=== PATIENT | male | born 1975 | race Caucasian/White ===

== ENCOUNTER 2024-12-20 21:36 | Inpatient (IN) | payer OTHER, SELFPAY ==
--- NOTE | 2024-12-20 21:48 | PC.NURSE ---
Patient arrived to floor via stretche with EMS @[id number]
[2024-12-20 21:56] VITALS: BP 146/69; RESP 18
[2024-12-20 22:13] VITALS: PULSE 110
--- NOTE | 2024-12-20 22:37 | PC.WOUNDNOTE ---
bottom of left foot top of left foot
[2024-12-21] VITALS (19 sets, daily range): BP systolic 96–123; BP diastolic 59–81; PULSE 101–120; RESP 16–20; TEMP 36.6–37.4; O2SAT 90–100; BMI 28.9; BMI 28.8
[2024-12-21] MEDS: 0.9 % SODIUM CHLORIDE 1000ML 1,000 ML 75 ML IV ×2 (00:23→12:54)
[2024-12-21] MEDS: PIPERCILLIN/TAZO 3.375 GM in 0.9 % SODIUM CHLORIDE 50 ML IV ×5 (00:23→22:46)
--- NOTE | 2024-12-21 00:27 | P.HP_ITS ---
<Statement entered by Tevin Garcia MD - 12/26/24 15:41> Agree with plan of care as outlined by the INTEGRITY DIRECTOR. 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 Directly admitted from [facility] due to elevated troponin levels. He initially presented to their facility due to left foot pain ultimately found to have cellulitis. He has a history of diabetic foot ulcers specifically to his right foot in which he underwent surgery last year and had his toe amputated. Patient reports noticing a small open wound to his left foot approximately a week ago. Since onset wound has progressively become worse. Patient reports that he kicked the bottom of his bed while he was sleeping and ultimately injured his great toe. Reports after this incident he noticed a small wound which ultimately became significantly worse to days. Left foot is swollen, red, with an open wound near the plantar surface, strong malodor present (gangrene?smell). Patient was found to have a leukocytosis of 14.7, elevated lactic acid 2.2 and tachycardic meeting sepsis criteria. Received normal saline IV 30 mL per kg, blood cultures obtained. Initiated on IV vancomycin and Zosyn. Recently moved to [facility] about 2 months ago from [place] and has not yet established care with primary care. During his workup at [facility] patient was found to have elevated troponin levels. Initial troponin level 6340 (ng/L), repeat troponin 5649. Received aspirin 325 mg. Twelve-lead sinus tachycardia QRS axis is normal, OH intervals normal, and QRS is prolonged at 104 msec,. QT intervals normal, no Q waves and T waves are flattened in leads III and aVF. Upon arrival to our facility, alert and oriented, hypodermically stable. Without complaint of correlating cardiac symptoms. Reports cardiac workup last year prior to his surgical procedure which included an echo. Dr. Reyes discussed case with our cardiology team and accepted patient for further evaluation. Patient denies any chest pain or shortness of breath, diaphoresis, nausea, vomiting. Transferring facility significant laboratory findings WBC 14.7, sodium 132, glucose 209, BUN 28, creatinine 1.9 GFR 42, CRP 25, sedimentation rate 63, troponin level 6343, repeat troponin 5649. Imaging studies included left foot x- ray obtained: Noted air within the soft tissues concerning for air protruding infection/cellulitis. Osteomyelitis not excluded. Fracture distal phalanx great toe. Chest x-ray: Unremarkable. [facility] Disclaimer: The information contained in this section may have been updated after the patient was seen, as this information can be updated by other users. Medical History History of gastroesophageal reflux (GERD) Hypothyroid Congestive heart failure Hypertension Diabetes mellitus, type 2 Surgical History H/O angioplasty Previous back surgery H/O foot surgery Social History Smoking Status: Current every day smoker alcohol intake: never current occupational status: employed Travel in the last 8 weeks?: None Have you lived/traveled outside US in past 30 days?: No Contact w/someone who lives/traveled outside US past 30 days?: No Exposure to someone with infectious disease in past 14 days?: No Do you have a fever (greater than 100.4 F or 38 C)?: No Have you tested positive for COVID-19?: No Exposed to someone with COVID-19 in past 14 days?: No Do you have a sore throat?: No Do you have a cough?: No Do you have any weakness?: No Are you experiencing any nausea/vomitting?: No Do you have any diarrhea?: No Are you experiencing any unusual bleeding?: No Do you have any muscle aches/pain?: No Do you have any abdominal pain?: No Are you experiencing loss of taste or smell?: No Other Medical History Have you received the Flu Vaccine for this season: No Have you received the Pneumonia Vaccine: No Review of Systems Review of Systems Review of systems:: pertinent systems reviewed and negative unless documented below Constitutional Constitutional: Reports poor appetite Eyes Eyes: Reports system reviewed and no additional complaints, except as documented ENT Ears, Nose, Mouth, and Throat: Reports system reviewed and no additional complaints, except as documented *Cardiovascular Cardiovascular: Reports system reviewed and no additional complaints, except as documented *Respiratory Respiratory: Reports system reviewed and no additional complaints, except as d ocumented *Gastrointestinal Gastrointestinal: Reports system reviewed and no additional complaints, except as documented *Genitourinary Genitourinary: Reports system reviewed and no additional complaints, except as documented *Musculoskeletal Musculoskeletal: Reports system reviewed and no additional complaints, except as documented Integumentary/Breasts Skin/Breast: Reports skin ulcer and Reports wounds *Neurologic Neurologic: Reports system reviewed and no additional complaints, except as documented Psychiatric Psychiatric: Reports system reviewed and no additional complaints, except as documented Endocrine Endocrine: Reports system reviewed and no additional complaints, except as documented Hematologic/Lymphatic Hematologic/Lymphatic: Reports system reviewed and no additional complaints, except as documented Allergic/Immunologic Allergic/Immunologic: Reports system reviewed and no additional complaints, except as documented Meds Home Medications and Allergies Home Medications ?Medication ?Instructions ?Recorded ?Confirmed ?Type carvedilol 12.5 mg tablet 12.5 mg PO DAILY 12/20/24 History empagliflozin 25 mg tablet 25 mg PO DAILY 12/20/24 History (Jardiance) furosemide 40 mg tablet 40 mg PO DAILY 12/20/2411/25 History insulin glargine 100 unit/mL (3 40 unit SQ HS 12/20/24 12/20/24 History mL) subcutaneous pen (Lantus Solostar U-100 Insulin) levothyroxine 100 mcg tablet 100 mcg PO DAILY 12/20/24 12/20/24 History lisinopril 10 mg tablet 10 mg PO DAILY 12/20/2411/25 History metformin 1,000 mg tablet 1,000 mg PO BID 12/20/24 History omeprazole 40 mg capsule,delayed 40 mg PO DAILY 12/20/24 History release spironolactone 25 mg tablet 25 mg PO DAILY 12/20/24 History New Prescriptions to Start Prescriptions: Allergies Allergy/AdvReac Type Severity Reaction Status Date / Time No Known Allergies Allergy Verified 12/20/24 21:55 Exam Data for Last 24 hours Vital signs and Labs for Last 24 Hours: Temp Pulse Resp BP Pulse Ox O2 Del Method 98.8 F 108 H 16 104/68 L 96 Room Air 12/21/24 00:00 12/21/24 00:00 12/21/24 00:00 12/21/24 00:00 12/21/24 00:00 12/21/24 00:00 Constitutional Constitutional: no acute distress *Routine HEENT Exam Head: Present normocephalic Eye: Present EOMI and PERRL ENT: Present mucous membranes moist *Routine Neck Exam Neck: Present supple and full ROM *Routine Respiratory Exam Respiratory: Present normal respiratory effort *Routine Cardiovascular Exam Cardiovascular: Present RRR, Normal S1 and Normal S2 *Routine Abdominal Exam Abdominal: Present soft and normoactive bowel sounds *Routine Rectal Exam Rectal:: deferred *Routine Genitalia Exam Genitalia:: deferred *Routine Extremities Exam Comments: Left foot swelling secondary to cellulitis Routine Back/Spine/Pelvis Exam Back/Spine: Present full ROM *Routine Skin Exam Skin: Present wounds Comments: Left foot wound/diabetic ulcer *Routine Neurological Exam Neurological: Present alert, oriented X3 and CN II-XII intact Routine Psychiatric Exam Psychiatric: Present normal affect Assessment and Plan *Assessment and plan (1) NSTEMI (non-ST elevated myocardial infarction): Status: Acute Category: Medical Code(s): I21.4 - Non-ST elevation (NSTEMI) myocardial infarction (2) Severe sepsis: Status: Acute Category: Medical Code(s): A41.9 - Sepsis, unspecified organism; R65.20 - Severe sepsis without septic shock (3) Cellulitis of left foot: Status: Acute Category: Medical Code(s): L03.116 - Cellulitis of left lower limb (4) CODY (acute kidney injury): Status: Acute Category: Medical Code(s): N17.9 - Acute kidney failure, unspecified (5) Fracture of phalanx of left great toe: Status: Acute Qualifiers: Encounter type: initial encounter Fracture alignment: nondisplaced Fracture type: closed Phalanx: distal Qualified Code(s): S92.425A - Nondisplaced fracture of distal phalanx of left great toe, initial encounter for closed fracture Category: Medical Code(s): S92.402A - Displaced unspecified fracture of left great toe, initial encounter for closed fracture (6) Congestive heart failure: Status: Acute Qualifiers: Heart failure chronicity: unspecified Category: Medical Code(s): I50.9 - Heart failure, unspecified (7) Hypertension: Status: Acute Qualifiers: Hypertension type: unspecified secondary hypertension Qualified Code(s): I15.9 - Secondary hypertension, unspecified Category: Medical Code(s): I10 - Essential (primary) hypertension (8) Diabetes mellitus, type 2: Status: Acute Qualifiers: Diabetes mellitus complication detail: with other skin ulcer Diabetes mellitus halfway insulin use: without long term care pharmacist use Category: Medical Code(s): E11.9 - Type 2 diabetes mellitus without complications (9) History of gastroesophageal reflux (GERD): Status: Acute Category: Medical Code(s): Z87.19 - Personal history of other diseases of the digestive system (10) Hypothyroid: Status: Acute Qualifiers: Hypothyroidism type: unspecified Qualified Code(s): E03.9 - Hypothyroidism, unspecified Category: Medical Code(s): E03.9 - Hypothyroidism, unspecified (11) Tobacco use disorder: Status: Acute Category: Medical Code(s): F17.200 - Nicotine dependence, unspecified, uncomplicated Plan 1. NSTEMI: Elevated troponin levels, asymptomatic. Received 325 mg aspirin prior to transfer to our facility. Transferring provider discussed case with cardiology team in agreement to transfer for further evaluation. Continue to trend troponin level, resume aspirin 81 mg, Lovenox, ECG, continuous cardiac monitoring. Patient reports cardiac workup last year at [place] in [place]. Morning labs. 2. Severe sepsis/cellulitis of left foot: Patient was found to be tachycardic 14, initial lactic acid 2.2-> received fluids, blood cultures were obtained. Antibiotics initiated with vancomycin and Zosyn. Repeat level lactic acid after fluids 1.0. Source of infection left foot wound. Imaging noted air within the soft tissue concerning for air producing infection/cellulitis. Resume IV ant ibiotic therapy-consult placed to pharmacy for vancomycin dosing. Will resume gentle IV due to noted history of congestive heart failure. Received chest x- ray prior to transfer, unremarkable. Continue to monitor for any signs of hypervolemia. Consult placed to podiatry, appreciate input/evaluation. 3. Fracture of phalanx of left great toe: Left foot x-ray noted fracture base distal phalanx great toe. Patient is without complaints of pain currently. Encouraged rest and elevation. 4. CHF/hypertension: Patient presented normotensive, lisinopril 10 mg, carvedilol 2.5 mg twice a day. Reports 2D echo obtained last year at [place] with cardiac workup. Diuretic medication furosemide 40 mg and spironolactone 25 mg. Due to sepsis continuing gentle IV fluid.will continue to closely monitor for hypervolemia. Upon assessment, lungs clear, asymptomatic. Continue to monitor. Undetermined baseline creatinine-laboratory results from prior facility noted creatinine level 1.9. Will hold lisinopril in the setting of possible CODY. Will defer any further changes recommendations to cardiology. 5. Diabetes mellitus type 2: Home medication Jardiance 25 mg. Hemoglobin A1c with morning labs, insulin sliding scale, consistent carb diet. Continue to monitor blood glucose ACHS. Treat elevated blood glucose as appropriate per sliding scale. 6. GERD: Without complaint or complication. Patient home regime Prilosec 10 mg. 7. Hypothyroidism: TSH with morning labs, resume home Synthroid. 8. Tobacco abuse: Encouraged smoking cessation. Stated smoking approximately 5 cigarettes today. Typically smokes less than half a pack a day. Reports plan to continue decreasing daily usage, but currently not ready to completely stop. 9. DVT prophylaxis: Lovenox 10. Full code Direct admit from [facility] due to elevated troponin level. Patient also presents with cellulitic left foot. History of diabetic foot wounds. Received IV vancomycin and Zosyn, IV fluids. Continue antibiotic therapy with gentle IV fluid. Repeat labs. Cardiac monitoring, trending troponins repeat ECG in the morning. Cardiology and podiatry consults. Appreciate evaluation.
--- NOTE | 2024-12-21 01:26 | PC.NURSE ---
contacted hospitalist concerning vanc dosing. Provider stated that pt received a dose in [facility] ER at 1722 on 12/20. She states that she is okay with waiting until morning for the next dose of vanc.
--- NOTE | 2024-12-21 02:35 | PC.NURSE ---
Pt AOx4. New admit this shift. Pleasant. Denies pain or any additional needs continuously. Currently receiving fluids @75mL/hr. Wound pictures taken on admit and uploaded. Foot was redressed with iodine, nonadherent pads, and bandage wrap. Pt is currently resting in bed with eyes open. Respirations even and unlabored. Bed is low, locked, and call light is in reach.
[2024-12-21 03:04] LABS: Troponin I 3.85 ng/ml (0.00-0.034)
[2024-12-21] MEDS: METOPROLOL TARTRATE 5MG/5ML VIAL 2.5 MG IV (05:15)
[2024-12-21 05:39] LABS: POC Glucose,Bedside 221 gm/dL (70-110)
[2024-12-21 06:05] LABS: Hematocrit 36.6 % (42.0-52.0); Hemoglobin 11.9 g/dL (14.1-18.0); Immature Granulocytes % 0.4 %; Mean Corpuscular HGB Conc 32.5 g/dL (31.8-35.4); Mean Corpuscular Hemoglobin 28.5 pg (27.0-31.2); Mean Corpuscular Volume 87.6 fl (80-94); Nucleated Red Blood Cells % 0 %; Platelet Count 280 K/mm3 (142-424); Red Blood Count 4.18 M/mm3 (4.60-6.20); Red Cell Distribution Width-SD 47.6 fL; White Blood Count 12.8 K/mm3 (4.8-10.8)
[2024-12-21] MEDS: humaLOG 100 UNITS/ML 10ML VIAL (SSI) SUBCUT ×2 (06:11→20:32)
--- NOTE | 2024-12-21 06:14 | XR_ITS ---
FINAL REPORT CLINICAL HISTORY: L 5th toe DFU, OM FINDINGS: LEFT FOOT Three views were obtained. There is no fracture or dislocation. The joint spaces appear normal. There is marked subcutaneous emphysema of the fifth metatarsal phalangeal joint. 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 Reviewed, Interpreted and Dictated by Enmanuel Nascimento MD Transcribed by Enedelia Houser Authenticated and [facility]
--- NOTE | 2024-12-21 06:14 | XR_ITS ---
FINAL REPORT CLINICAL HISTORY: Hx 5th toe amp FINDINGS: RIGHT FOOT Three views were obtained. There is no fracture or dislocation. The joint spaces appear normal. There has been resection through the base of the fifth metatarsal. Mild vascular calcification is identified. IMPRESSION: Resection through the base of the fifth metatarsal. Reviewed, Interpreted and Dictated by Enmanuel Nascimento MD Transcribed by Enedelia Houser Authenticated and [facility]
[2024-12-21 06:15] LABS: Cholesterol 172 mg/dl (140-200); HDL Cholesterol 22 mg/dl (40-60); Magnesium 1.7 mg/dl (1.6-2.3); Phosphorous 2.9 mg/dl (2.5-4.5); Triglycerides 141 mg/dl (30-150)
--- NOTE | 2024-12-21 06:16 | US_ITS ---
FINAL REPORT CLINICAL HISTORY: DFU, Hx amp, tobacco abuse, Bacteremia/sepsis, Tachycardia-CAD FINDINGS: Complete ankle-brachial indices were obtained. The right MARY is 0.71, moderately depressed. The left MARY is 0.62, moderately depressed. IMPRESSION: Extensive atherosclerotic occlusive disease bilaterally. Reviewed, Interpreted and Dictated by Enmanuel Nascimento MD Transcribed by Enedelia Houser Authenticated and [facility]
[2024-12-21 06:26] LABS: C-Reactive Protein 231.3 mg/L (0-4)
[2024-12-21 06:29] LABS: Troponin I 3.22 ng/ml (0.00-0.034)
--- NOTE | 2024-12-21 06:35 | ECG_ITS ---
APPROVED REPORT Exam: Resting ECG HR:122 bpm ECG Measurements Heart Rate 122 AXES AL 164 P 83 QRSd 115 QRS 64 QT 293 T -38 QTc 365 Conclusion SINUS TACHYCARDIA WITH OCCASIONAL VENTRICULAR PREMATURE COMPLEXES MODERATE INTRAVENTRICULAR CONDUCTION DELAY [105+ ms QRS DURATION, 80+ ms Q/S IN V1/V2, NO Q AND 60+ ms R IN I/aVL/V5/V6] ST DEVIATION AND MODERATE T-WAVE ABNORMALITY, CONSIDER LATERAL ISCHEMIA [-0.1+ mV T-WAVE IN I/aVL/V5/V6] ST DEVIATION AND MODERATE T-WAVE ABNORMALITY, CONSIDER INFERIOR ISCHEMIA [-0.1+ mV T-WAVE IN II/aVF] ABNORMAL ECG UNCONFIRMED REPORT Electronically signed by : Abram Chavis MD 12/22/2024 08:08:03
--- NOTE | 2024-12-21 07:02 | EXP.POD.CONS ---
Documented by User: Valentina Ethan Manjarrez, NIKKI 12/21/24 12:20 History of Present Illness *Admission Date: 12/20/24 *History of present illness: Patient is a pleasant 49-year-old male with past medical history significant for type 2 diabetes mellitus, congestive heart failure, hypothyroidism, hypertension, GERD, amputation right fifth toe secondary to osteomyelitis and subsequent necrosis and tobacco use. Directly admitted from [facility] due to elevated troponin levels. He initially presented to their facility due to left foot pain ultimately found to have cellulitis. He has a history of diabetic foot ulcers specifically to his right foot in which he underwent surgery last year and had his toe amputated. Patient reports noticing a small open wound to his left foot approximately a week ago. Since onset wound has progressively become worse. Patient reports that he kicked the bottom of his bed while he was sleeping and ultimately injured his great toe. Reports after this incident he noticed a small wound which ultimately became significantly worse to days. Left foot is swollen, red, with an open wound near the plantar surface, strong malodor present (gangrene?smell). Patient was found to have a leukocytosis of 14.7, elevated lactic acid 2.2 and tachycardic meeting sepsis criteria. Received normal saline IV 30 mL per kg, blood cultures obtained. Initiated on IV vancomycin and Zosyn. Recently moved to [facility] about 2 months ago from [place] and has not yet established care with primary care. During his workup at [facility] patient was found to have elevated troponin levels. Initial troponin level 6340 (ng/L), repeat troponin 5649. Received aspirin 325 mg. Twelve-lead sinus tachycardia QRS axis is normal, MA intervals normal, and QRS is prolonged at 104 msec,. QT intervals normal, no Q waves and T waves are flattened in leads III and aVF. Upon arrival to our facility, alert and oriented, hypodermically stable. Without complaint of correlating cardiac symptoms. Reports cardiac workup last year prior to his surgical procedure which included an echo. Dr. Reyes discussed case with our cardiology team and accepted patient for further evaluation. Patient denies any chest pain or shortness of breath, diaphoresis, nausea, vomiting. Transferring facility significant laboratory findings WBC 14.7, sodium 132, glucose 209, BUN 28, creatinine 1.9 GFR 42, CRP 25, sedimentation rate 63, troponin level 6343, repeat troponin 5649. Imaging studies included left foot x-ray obtained: Noted air within the soft tissues concerning for air protruding infection/cellulitis. Osteomyelitis not excluded. Fracture distal phalanx great toe. Chest x-ray: Unremarkable. 12/21/24: Podiatry consult: Left foot cellulitis/diabetic foot ulcer [facility] Disclaimer: The information contained in this section may have been updated after the patient was seen, as this information can be updated by other users. Medical History History of gastroesophageal reflux (GERD) Hypothyroid Congestive heart failure Hypertension Diabetes mellitus, type 2 Surgical History H/O angioplasty Previous back surgery H/O foot surgery Social History Smoking Status: Current every day smoker alcohol intake: never current occupational status: employed Travel in the last 8 weeks?: None Have you lived/traveled outside US in past 30 days?: No Contact w/someone who lives/traveled outside US past 30 days?: No Exposure to someone with infectious disease in past 14 days?: No Do you have a fever (greater than 100.4 F or 38 C)?: No Have you tested positive for COVID-19?: No Exposed to someone with COVID-19 in past 14 days?: No Do you have a sore throat?: No Do you have a cough?: No Do you have any weakness?: No Are you experiencing any nausea/vomitting?: No Do you have any diarrhea?: No Are you experiencing any unusual bleeding?: No Do you have any muscle aches/pain?: No Do you have any abdominal pain?: No Are you experiencing loss of taste or smell?: No Review of Systems *Neurologic Neurologic: Reports system reviewed and no additional complaints, except as documented Meds Home Medications and Allergies Home Medications ?Medication ?Instructions ?Recorded ?Confirmed ?Type carvedilol 12.5 mg tablet 12.5 mg PO BID 12/20/24 12/21/24 History empagliflozin 25 mg tablet 25 mg PO DAILY 12/20/24 12/20/24 History (Jardiance) furosemide 40 mg tablet 40 mg PO DAILY 12/20/24 12/20/24 History insulin glargine 100 unit/mL (3 40 unit SQ HS 12/20/24 12/20/24 History mL) subcutaneous pen (Lantus Solostar U-100 Insulin) levothyroxine 100 mcg tablet 100 mcg PO DAILY 12/20/24 12/20/24 History lisinopril 10 mg tablet 10 mg PO DAILY 12/20/24 12/20/24 History metformin 1,000 mg tablet 1,000 mg PO BID 12/20/24 12/20/24 History omeprazole 40 mg capsule,delayed 40 mg PO DAILY 12/20/24 12/20/24 History release spironolactone 25 mg tablet 25 mg PO DAILY 12/20/24 12/20/24 History New Prescriptions to Start Prescriptions: Allergies Allergy/AdvReac Type Severity Reaction Status Date / Time No Known Allergies Allergy Verified 12/20/24 21:55 Exam (Inpt) Vital signs and Labs for Last 24 Hours: Temp Pulse Resp BP Pulse Ox O2 Del Method 98.1 F 120 H 16 102/62 L 90 L Room Air 12/21/24 04:00 12/21/24 04:00 12/21/24 04:00 12/21/24 04:00 12/21/24 04:00 12/21/24 06:50 Laboratory Results - last 24 hr 12/21/24 02:26: Troponin I 3.85 H 12/21/24 05:25: POC Glucose 221 H 12/21/24 05:43: WBC 12.8 H, RBC 4.18 L, Hgb 11.9 L, Hct 36.6 L, MCV 87.6, MCH 28.5, MCHC 32.5, RDW 14.7, Plt Count 280, MPV 10.2, Neut % (Auto) 85.0 H, Lymph % (Auto) 7.2 L, Colbert % (Auto) 6.9, Eos % (Auto) 0.2, Baso % (Auto) 0.3, Neut # (Auto) 10.9 H, Lymph # (Auto) 0.9, Colbert # (Auto) 0.9, Eos # (Auto) 0.0, Baso # (Auto) 0.0, ESR 60 H, Phosphorus 2.9, Magnesium 1.7, Troponin I 3.22 H, C-Reactive Protein 231.3 H, Triglycerides 141, Cholesterol 172, LDL Cholesterol Direct 112.30, VLDL Cholesterol 28, HDL Cholesterol 22 L, Cholesterol/HDL Ratio 7.8 H I & O for Labs for Last 24 Hours: Intake & Output 12/18/24 12/19/24 12/20/24 12/21/24 23:59 23:59 23:59 23:59 Intake Total 150 / 150 Balance 150 / 150 Weight 201 lb 4 oz Constitutional: Present no acute distress and cooperative Head: Present normocephalic Eye: Present as per HPI Neck: Present trachea midline Respiratory: Present normal respiratory effort and able to speak in complete sentences Cardiac: Present radial pulses present and posterior tibial pulses present Comment:: Right foot cool,faintly palpable DP and absent PT pulse, Left foot cellulitis warm to touch, absent DP and absent PT absent. -MARY's ordered this morning. Comments:: deferred Rectal (male): Present deferred (male): Present deferred Extremities: Present tenderness (left 5th DFU ) and edema (Left foot cellulitis with DFU ) Skin: Present erythema, warm, wounds and gangrene Comment:: Left foot 5th toe Gas,gangrene DFU to lateral 5th extending to the bottom of the foot Wound culture obtained, wound Debrided lightly with a 15' blade sharply, excisionally through skin into the subcu layer. Loose callused skin removed, very malodorus, fluctuant, soft skin noted under ulcer, no deep debridment due to poor blood flow and circulation, weak pulses. Post debridement the wound measured 5.3 x 3.5 x 0.2 cm. Neuro: Present Numbness, Tingling, alert, oriented x 3 and tone normal Comment:: Decreased sensation with a sharp object this morning, he can tell I was touching his foot, pressure but not sharp. Ankle: left: erythema (Left ankle swelling. ) and bilateral: normal inspection Feet/Toes: left: tenderness (LF cellulitis ), left: wound (Left lateral 5th toe and sub 5th plantar side ulcer ) and left: pain with active ROM (left foot ), right: amputation (Right 5th toe) and bilateral: hammer toe (reducible 2-4 ), bilateral: nail abnormalities (thick and discolored ) and bilateral: onychomycosis (suspected ) Inspection: Present foot deformity deformity: Present hammer toes, nail disorder, skin break, infection and ulceration (Left 5th toe ulcer and gas/gangrene DFU with cellulitis ) Pulses: L dorsalis pedis pulse: diminished, R dorsalis pedis pulse: diminished, L posterior tibial pulse: diminished and R posterior tibial pulse: diminished CFT: dim: CFT Monofilament exam: L 1st metatarsals: decreased (decreased sensatin, noted it to be dull.), L 3rd metatarsals: decreased, L 5th metatarsals: decreased, L great toe: decreased, L 3rd toe: decreased and L 5th toe: decreased Pinprick: L great toe: abnormal and R great toe: abnormal Results Labs 12/21/24 05:43 12/21/24 05:43 Labs: Abnormal lab results 12/21/24 12/21/24 12/21/24 Range/Units 02:26 05:25 05:43 WBC 12.8 H (4.8-10.8) K/mm3 RBC 4.18 L (4.60-6.20) M/mm3 Hgb 11.9 L (14.1-18.0) g/dL Hct 36.6 L (42.0-52.0) % Neut % (Auto) 85.0 H (37.0-80.0) % Lymph % (Auto) 7.2 L (10-50) % Neut # (Auto) 10.9 H (1.8-7.8) K/mm3 ESR 60 H (0-15) mm/hr POC Glucose 221 H (70-110) gm/dL Troponin I 3.85 H 3.22 H (0.00-0.034) ng/ml C-Reactive Protein 231.3 H (0-4) mg/L HDL Cholesterol 22 L (40-60) mg/dl Cholesterol/HDL Ratio 7.8 H (1-3.5) H & H 12/21/24 Range/Units 05:43 Hgb 11.9 L (14.1-18.0) g/dL Hct 36.6 L (42.0-52.0) % All other labs normal. Assessment and Plan *Assessment and plan (1) Severe sepsis: Status: Acute Category: Medical Code(s): A41.9 - Sepsis, unspecified organism; R65.20 - Severe sepsis without septic shock (2) Cellulitis of left foot: Status: Acute Category: Medical Code(s): L03.116 - Cellulitis of left lower limb (3) CODY (acute kidney injury): Status: Acute Category: Medical Code(s): N17.9 - Acute kidney failure, unspecified (4) Fracture of phalanx of left great toe: Status: Acute Qualifiers: Encounter type: initial encounter Fracture alignment: nondisplaced Fracture type: closed Phalanx: distal Qualified Code(s): S92.425A - Nondisplaced fracture of distal phalanx of left great toe, initial encounter for closed fracture Category: Medical Code(s): S92.402A - Displaced unspecified fracture of left great toe, initial encounter for closed fracture (5) Diabetes mellitus, type 2: Status: Acute Qualifiers: Diabetes mellitus complication detail: with other skin ulcer Diabetes mellitus complication status: with skin complications Diabetes mellitus retail associate insulin use: without retail associate use Qualified Code(s): E11.622 - Type 2 diabetes mellitus with other skin ulcer Category: Medical Code(s): E11.9 - Type 2 diabetes mellitus without complications (6) Tobacco use disorder: Status: Acute Category: Medical Code(s): F17.200 - Nicotine dependence, unspecified, uncomplicated (7) Ulcer of left fifth toe due to diabetes mellitus: Status: Acute Category: Medical Code(s): E11.621 - Type 2 diabetes mellitus with foot ulcer; L97.529 - Non-pressure chronic ulcer of other part of left foot with unspecified severity (8) Gangrene of toe of left foot: Status: Acute Category: Medical Code(s): I96 - Gangrene, not elsewhere classified (9) Gas gangrene: Status: Acute Category: Medical Code(s): A48.0 - Gas gangrene (10) Peripheral arterial disease: Status: Acute Category: Medical Code(s): I73.9 - Peripheral vascular disease, unspecified (11) Septic arthritis of foot: Status: Acute Qualifiers: Septic arthritis organism: due to unspecified organism Laterality: left Qualified Code(s): M00.9 - Pyogenic arthritis, unspecified Category: Medical Code(s): M00.9 - Pyogenic arthritis, unspecified (12) Osteomyelitis of toe of left foot: Status: Acute Category: Medical Code(s): M86.9 - Osteomyelitis, unspecified Plan 12/21/24: Date of Service: 12/21/24 Procedure(s): XR foot LT min 3V,CLINICAL HISTORY: L 5th toe DFU, OM FINDINGS: LEFT FOOT Three views were obtained. There is no fracture or dislocation. The joint spaces appear normal. There is marked subcutaneous emphysema of the fifth metatarsal phalangeal joint.There is no underlying bony erosion however findings are highly concerning for gas gangrene and probable septic arthritis. 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 Reviewed, Interpreted and Dictated by Enmanuel Nascimento MD Transcribed by Enedelia Houesr Date of Service: 12/21/24 Procedure(s): XR foot RT min 3V, Podiatry consult Left 5th toe, lateral foot DFU, gas gangene: -Keep Patient NPO;Plan for surgery this afternoon -Bilateral foot x-rays and MARY's obtained, reviewed -Xrays reviewed by Dr. Flores -Wound culture obtained from Left 5th toe/lateral foot ulcer drainage -Left 5th toe, debrided, see above for measurements -Betadine soaked gauze, DSD,kerlix applied -Cardiology has been consulted as well, will plan surgery around this service -All order per Dr. Mark Flores: -Patient seen and evaluated with PROGRAMMER. -Patient new to Podiatry, moved 2 months ago from [place]. -Employed at [employer] -No family in [facility], lives with friend in [place]. -Transferred from [place] for left foot cellulitis, abnormal EKG. -Reports hx R 5th toe amp, 5th met amp with RLE run off (denies stents). -I independently reviewed bilateral foot x-rays. Right fifth metatarsal prior amputation with no new findings concerning for infection. Left foot has significant swelling to the fifth MPJ with soft tissue air/gas and concern for septic arthritis versus osteomyelitis of joint. -I independently reviewed b/l LE ABIs. Abnormal ABIs R MARY PT 0.71 (91), DP 0.64 (83), TBI 0.45 (58), L MARY PT 0.58 (75), DP 0.62 (80), TBI 0.51 (66). MARY R 0.71, L 0.62. - PRE-OP AMPUTATION/INFECTION: Patient is a 49 DM male who presents for left foot DFU and gas gangrene. Radiographs of the feet were reviewed and discussed with the patient. Left foot x-rays show significant swelling with concern for soft tissue air/gas and concern for septic arthritis versus osteomyelitis at the fifth MTP joint. Abnormal ABIs b/l: MARY R 0.71, L 0.62. Discussed conservative versus surgical treatment options. Conservative treatment options include local wound care, oral and IV antibiotics, change in shoe wear, taping/padding, and off-loading. Discussed that patient would benefit from a wider and deeper shoe wear to accommodate the deformity outpatient retail associate. We discussed surgical intervention for I&D of the gas gangrene, debridement of non-viable soft tissue and bone with 5th toe/partial metatarsal amputation. Discussed this may be a staged surgery depending on the extent of the infection. Patient may need the wound site left open for packing or application of a wound VAC. He may need surgery in the future for further washout and partial versus complete wound closure. Patient understands that there is a chance that the toes can migrate to fill the gap or the foot may change shape after surgery. Patient also understands that they could have wound healing complications including delayed healing and infection. He is at higher risk due to smoking (half pack daily), PAD, diabetes (Ha1c 8.3%), history of DFU, history of osteo with right fifth partial ray amputation. We discussed that if the wound does not heal, it is possible that they may need a more proximal amputation and could result in further loss of digits, loss of partial foot or loss of leg. We discussed the risks and benefits in great detail. Other surgical risks include: prolonged pain and swelling, further infection requiring oral or IV antibiotics, delay in healing of soft tissue or bone, nerve or blood vessel damage, CRPS/RSD, DVT, anesthesia complications, and even . All questions answered. Patient verbalized understanding. Consent obtained. Patient will need medical clearance. Pre-op labs: ESR, CRP, Ha1c, CBC, CMP, EKG, CXR PHUONG run and consistent with history. Rx given for []. Plan for surgery: Documented by User: Hortencia Flores DPM 12/21/24 12:32 PFSH PFSH Medical History History of gastroesophageal reflux (GERD) Hypothyroid Congestive heart failure Hypertension Diabetes mellitus, type 2 Surgical History H/O angioplasty Previous back surgery H/O foot surgery Social History Smoking Status: Current every day smoker alcohol intake: never current occupational status: employed Travel in the last 8 weeks?: None Have you lived/traveled outside US in past 30 days?: No Contact w/someone who lives/traveled outside US past 30 days?: No Exposure to someone with infectious disease in past 14 days?: No Do you have a fever (greater than 100.4 F or 38 C)?: No Have you tested positive for COVID-19?: No Exposed to someone with COVID-19 in past 14 days?: No Do you have a sore throat?: No Do you have a cough?: No Do you have any weakness?: No Are you experiencing any nausea/vomitting?: No Do you have any diarrhea?: No Are you experiencing any unusual bleeding?: No Do you have any muscle aches/pain?: No Do you have any abdominal pain?: No Are you experiencing loss of taste or smell?: No Meds Home Medications and Allergies Home Medications ?Medication ?Instructions ?Recorded ?Confirmed ?Type carvedilol 12.5 mg tablet 12.5 mg PO BID 12/20/24 12/21/24 History empagliflozin 25 mg tablet 25 mg PO DAILY 12/20/24 12/20/24 History (Jardiance) furosemide 40 mg tablet 40 mg PO DAILY 12/20/24 12/20/24 History insulin glargine 100 unit/mL (3 40 unit SQ HS 12/20/24 12/20/24 History mL) subcutaneous pen (Lantus Solostar U-100 Insulin) levothyroxine 100 mcg tablet 100 mcg PO DAILY 12/20/24 12/20/24 History lisinopril 10 mg tablet 10 mg PO DAILY 12/20/24 12/20/24 History metformin 1,000 mg tablet 1,000 mg PO BID 12/20/24 12/20/24 History omeprazole 40 mg capsule,delayed 40 mg PO DAILY 12/20/24 12/20/24 History release spironolactone 25 mg tablet 25 mg PO DAILY 12/20/24 12/20/24 History New Prescriptions to Start Prescriptions: Allergies Allergy/AdvReac Type Severity Reaction Status Date / Time No Known Allergies Allergy Verified 12/20/24 21:55 Results Labs 12/21/24 05:43 12/21/24 05:43 Assessment and Plan *Assessment and plan (1) Severe sepsis: Status: Acute Category: Medical Code(s): A41.9 - Sepsis, unspecified organism; R65.20 - Severe sepsis without septic shock (2) Cellulitis of left foot: Status: Acute Category: Medical Code(s): L03.116 - Cellulitis of left lower limb (3) CODY (acute kidney injury): Status: Acute Category: Medical Code(s): N17.9 - Acute kidney failure, unspecified (4) Fracture of phalanx of left great toe: Status: Acute Qualifiers: Encounter type: initial encounter Fracture alignment: nondisplaced Fracture type: closed Phalanx: distal Qualified Code(s): S92.425A - Nondisplaced fracture of distal phalanx of left great toe, initial encounter for closed fracture Category: Medical Code(s): S92.402A - Displaced unspecified fracture of left great toe, initial encounter for closed fracture (5) Diabetes mellitus, type 2: Status: Acute Qualifiers: Diabetes mellitus complication detail: with other skin ulcer Diabetes mellitus complication status: with skin complications Diabetes mellitus retail associate insulin use: without detention use Qualified Code(s): E11.622 - Type 2 diabetes mellitus with other skin ulcer Category: Medical Code(s): E11.9 - Type 2 diabetes mellitus without complications (6) Tobacco use disorder: Status: Acute Category: Medical Code(s): F17.200 - Nicotine dependence, unspecified, uncomplicated (7) Ulcer of left fifth toe due to diabetes mellitus: Status: Acute Category: Medical Code(s): E11.621 - Type 2 diabetes mellitus with foot ulcer; L97.529 - Non-pressure chronic ulcer of other part of left foot with unspecified severity (8) Gangrene of toe of left foot: Status: Acute Category: Medical Code(s): I96 - Gangrene, not elsewhere classified (9) Gas gangrene: Status: Acute Category: Medical Code(s): A48.0 - Gas gangrene (10) Peripheral arterial disease: Status: Acute Category: Medical Code(s): I73.9 - Peripheral vascular disease, unspecified (11) Septic arthritis of foot: Status: Acute Qualifiers: Septic arthritis organism: due to unspecified organism Laterality: left Qualified Code(s): M00.9 - Pyogenic arthritis, unspecified Category: Medical Code(s): M00.9 - Pyogenic arthritis, unspecified (12) Osteomyelitis of toe of left foot: Status: Acute Category: Medical Code(s): M86.9 - Osteomyelitis, unspecified Plan 12/21/24: Podiatry consult Left 5th toe, lateral foot DFU, gas gangene: -Keep Patient NPO;Plan for surgery this afternoon -Bilateral foot x-rays and MARY's obtained, reviewed -Xrays reviewed by Dr. Flores -Wound culture obtained from Left 5th toe/lateral foot ulcer drainage -Left 5th toe, debrided, see above for measurements -Betadine soaked gauze, DSD,kerlix applied -Cardiology has been consulted as well, will plan surgery around this service -All order per Dr. Mark Flores: -Patient seen and evaluated with PROGRAMMER. -Patient new to Podiatry, moved 2 months ago from [place]. -Employed at [employer] -No family in [facility], lives with friend in [place]. -Transferred from [place] for left foot cellulitis, abnormal EKG. -Reports hx R 5th toe amp, 5th met amp with RLE run off (denies stents). -I independently reviewed bilateral foot x-rays. Right fifth metatarsal prior amputation with no new findings concerning for infection. Left foot has significant swelling to the fifth MPJ with soft tissue air/gas and concern for septic arthritis versus osteomyelitis of joint. -I independently reviewed b/l LE ABIs. Abnormal ABIs R MARY PT 0.71 (91), DP 0.64 (83), TBI 0.45 (58), L MARY PT 0.58 (75), DP 0.62 (80), TBI 0.51 (66). MARY R 0.71, L 0.62. -All questions answered. Patient verbalized understanding and agreed to proceed. -Plan for surgery: pending cardiac clearance (Dr Jane planning for heart cath today) -NPO now -May proceed with left foot surgery for I&D (unless he gets transferred for cardiac issues then hold on Podiatry surgery) -Will need run off to access b/l LE flow, aid in healing of left foot wound/infection -Will likely need staged left foot I&D, wash out, debridement with 5th partial ray amputation and possible wound vac PRE-OP AMPUTATION/INFECTION: Patient is a 49 DM male who presents for left foot DFU and gas gangrene. Radiographs of the feet were reviewed and discussed with the patient. Left foot x-rays show significant swelling with concern for soft tissue air/gas and concern for septic arthritis versus osteomyelitis at the fifth MTP joint. Abnormal ABIs b/l: MARY R 0.71, L 0.62. Discussed conservative versus surgical treatment options. Conservative treatment options include local wound care, oral and IV antibiotics, change in shoe wear, taping/padding, and off-loading. Discussed that patient would benefit from a wider and deeper shoe wear to accommodate the deformity outpatient detention. We discussed surgical intervention for I&D of the gas gangrene, debridement of non-viable soft tissue and bone with 5th toe/partial metatarsal amputation. Discussed this may be a staged surgery depending on the extent of the infection. Patient may need the wound site left open for packing or application of a wound VAC. He may need surgery in the future for further washout and partial versus complete wound closure. Patient understands that there is a chance that the toes can migrate to fill the gap or the foot may change shape after surgery. Patient also understands that they could have wound healing complications including delayed healing and infection. He is at higher risk due to smoking (half pack daily), PAD, diabetes (Ha1c 8.3%), history of DFU, history of osteo with right fifth partial ray amputation. We discussed that if the wound does not heal, it is possible that they may need a more proximal amputation and could result in further loss of digits, loss of partial foot or loss of leg. We discussed the risks and benefits in great detail. Other surgical risks include: prolonged pain and swelling, further infection requiring oral or IV antibiotics, delay in healing of soft tissue or bone, nerve or blood vessel damage, CRPS/RSD, DVT/PE, anesthesia complications including CO, and even . All questions answered. Patient verbalized understanding. Verabl and written consent obtained. Discussed case with cardiology and anesthesia.
--- NOTE | 2024-12-21 08:30 | CA_ITS ---
APPROVED REPORT EXAM: Comprehensive 2D, Doppler, and color-flow Echocardiogram Water Rights Specialist: NÉSTOR Richardson, RVS Ht: 5 ft 10 in Wt: 201lbs BSA: 2.09 HR: 120 bpm BP: 104/68 mmHg Rhythm: Tachycardia Indications: Sepsis, Dm, SMOKER, PAD, NSTEMI, HTN Echo Enhancing Agent Indication: Rule out thrombus Agent(s) / Amount(s) Used: Definity 2 cc 2D Dimensions IVSd 0.78 cm M: 0.6-1.2 LVEF (Visual) 30.80 % PWd 0.94 cm M: 0.6 - 1.2 LA Volume 92.00 mL LVDd 5.51 cm M: 4.2 - 5.9 LA Volume Index [id number] mL/m2 (M/F) 16-34 LVDs 4.70 cm M: 2.5 - 4.0 Left Atrium 4.02 cm M: 3.0 - 4.0 M-Mode Dimensions RVDd 2.42 cm (0.9-2.6) LA Diam 4.46 cm (1.9-4.0) LVDd 6.28 cm (3.5-5.7) LVDs 4.88 cm (3.5-5.7) IVSd 0.83 cm (0.6-1.1) PWd 0.87 cm (0.6-1.1) EF (Teich) 44.10% EPSs 2.48 cm FS 22.30% EDV (Teich) 199.70 mL TAPSE 1.28 (<1.7) ESV (Teich) 111.70 mL LV Diastology E Decel Time 77 (160-240 msec) E/A Ratio 3.13 LAT A' 2.50 cm/s Aortic Valve ELIZABETH Index 1.03 cm2/m2 AoV Peak Rodrigo. 155.0 (50-130 cm/s) AO Peak GR. 9.60 mmHg AO Mean GR. 4.80 (<5 mmHg) AO VTI 21.1 (18-25 cm) ELIZABETH (VTI) 2.21 (2.5-4.5 cm2) Mitral Valve MV A Velocity 50.0 (40-130 cm/s) E/A Ratio 3.13 Pulmonary Valve PV Peak Velocity 81.0 (50-150 cm/s) [place] End VMAX 238.0 cm/s Tricuspid Valve TR P. Velocity 272.00 cm/s RAP Estimate 10.00 mmHg RVSP 39.60 mmHg Left Ventricle The left ventricle is normal size. Left ventricular systolic function is severely reduced. There is normal left ventricular wall thickness. There is severe global hypokinesis present. Grade 3 diastolic dysfunction is present. LVEF is 20% Right Ventricle The right ventricle is normal size. The right ventricular systolic function is moderately dilated. Atria The left atrium is moderately dilated. The right atrium is mildly dilated. There is no color Doppler evidence of interatrial shunt. Aortic Valve The aortic valve is mildly thickened. There is no hemodynamically significant aortic valvular stenosis. Trace aortic regurgitation is present. Mitral Valve The mitral valve is normal in structure. No evidence of mitral valve stenosis. Moderate mitral regurgitation is present. Tricuspid Valve The tricuspid valve leaflets are thin and pliable. Mild tricuspid regurgitation. RVSP is 30-35 mmHg. Pulmonic Valve The pulmonary valve is grossly normal in structure. Trace pulmonic valve regurgitation is present. Great Vessels The aortic root is normal in size. IVC is normal in size and collapses >50% with inspiration. Pericardium There is no pericardial effusion. Other Information Study Quality: Fair Conclusion Severe reduction in LV systolic function (LVEF 20%). Grade 3 diastolic dysfunction. Normal RV size with moderate reduction in RV function. Biatrial dilation. Moderate MR. Mild TR. Electronically signed by : Sanam Wilkins MD 12/21/2024 12:01:16
[2024-12-21 08:37] LABS: Anion Gap 14.2 mEq/L (5-15); Blood Urea Nitrogen 26 mg/dl (9-20); Calcium 8.2 mg/dl (8.4-10.2); Carbon Dioxide 17 mmol/L (22.0-30.0); Chloride 104 mmol/L (98-107); Creatinine Clearance Estimated 63 mL/min (50-200); Creatinine,Serum 1.80 mg/dl (0.66-1.25); Estimated Glomerular Filt Rate 40 ml/min (>60); GFR (African American) 49 ML/MIN (>60); Glucose 207 mg/dl (74-100); Potassium 4.2 mmoL/L (3.5-5.1); Sodium 131 mmol/L (136-145)
--- NOTE | 2024-12-21 09:16 | EXP.PHA.CONS ---
Pharmacy Consult Date: 12/21/24 Time: 09:17 Referring provider: DR. KING Reason for Consult:: VANCOMYCIN DOSING Allergies Allergy/AdvReac Type Severity Reaction Status Date / Time No Known Allergies Allergy Verified 12/20/24 21:55 Home Medications ?Medication ?Instructions ?Recorded ?Confirmed ?Type carvedilol 12.5 mg tablet 12.5 mg PO BID 12/20/24 12/21/24 History empagliflozin 25 mg tablet 25 mg PO DAILY 12/20/24 12/20/24 History (Jardiance) furosemide 40 mg tablet 40 mg PO DAILY 12/20/24 12/20/24 History insulin glargine 100 unit/mL (3 40 unit SQ HS 12/20/24 12/20/24 History mL) subcutaneous pen (Lantus Solostar U-100 Insulin) levothyroxine 100 mcg tablet 100 mcg PO DAILY 12/20/24 12/20/24 History lisinopril 10 mg tablet 10 mg PO DAILY 12/20/24 12/20/24 History metformin 1,000 mg tablet 1,000 mg PO BID 12/20/24 12/20/24 History omeprazole 40 mg capsule,delayed 40 mg PO DAILY 12/20/24 12/20/24 History release spironolactone 25 mg tablet 25 mg PO DAILY 12/20/24 12/20/24 History New Prescriptions to Start Prescriptions: Height: 1.78 m Weight: 91.285 kg Laboratory Results:: Laboratory Results - last 24 hr 12/21/24 02:26: Troponin I 3.85 H 12/21/24 05:25: POC Glucose 221 H 12/21/24 05:43: WBC 12.8 H, RBC 4.18 L, Hgb 11.9 L, Hct 36.6 L, MCV 87.6, MCH 28.5, MCHC 32.5, RDW 14.7, Plt Count 280, MPV 10.2, Neut % (Auto) 85.0 H, Lymph % (Auto) 7.2 L, [place] % (Auto) 6.9, Eos % (Auto) 0.2, Baso % (Auto) 0.3, Neut # (Auto) 10.9 H, Lymph # (Auto) 0.9, [place] # (Auto) 0.9, Eos # (Auto) 0.0, Baso # (Auto) 0.0, ESR 60 H, Sodium 131 L, Potassium 4.2, Chloride 104, Carbon Dioxide 17 L, Anion Gap 14.2, BUN 26 H, Creatinine 1.80 H, Estimated Creat Clear 63, Estimated GFR 40 L, Est GFR ( Amer) 49 L, Glucose 207 H, Calcium 8.2 L, Phosphorus 2.9, Magnesium 1.7, Troponin I 3.22 H, C-Reactive Protein 231.3 H, Triglycerides 141, Cholesterol 172, LDL Cholesterol Direct 112.30, VLDL Cholesterol 28, HDL Cholesterol 22 L, Cholesterol/HDL Ratio 7.8 H Medical History: Medical History (Updated 12/21/24 @ 01:32 by Elinor Arthur APRN) History of gastroesophageal reflux (GERD) Hypothyroid Congestive heart failure Hypertension Diabetes mellitus, type 2 Assessment and Plan Assessment and plan all Dx Assessment and Plan for all problems:: Pharmacokinetic dosing service Objective: Patient: Floor: Age: 49 yo Serum creatinine: 1.80 mg/dL Height: 70.1 Inches Weight (kg): 91.3 Assessment: IBW (kg): 73.23 Dosing wt(kg): 91.3 Estimated Creatinine clearance (ml/min): 50.9 CRCL method: Cockcroft and Gault using ibw(default). Drug selected: Vancomycin Loading dose (mg): Vd (liters): 73.0 (factor used: 0.8 L/kg) Mick (hr-1): 0.047 Half life (hrs): 14.75 CLvanco=?? 3.431 L/hr Recommended dose: 1750 mg Interval: 24 hrs Infusion time (hrs): 2.0 Predicted peak (mcg/mL): 33.8 Predicted trough (mcg/mL): 12.02 Total body weight is being used for vancomycin dosing. Recommendations: Give Vancomycin 1750 mg q 24 hrs with an expected Cpeak of 33.8 mcg/ml and an expected Ctrough of 12.02 mcg/ml AUC 0-24 /CY Data: CY 0.5 mcg/mL:?? AUC/CY:? 1020.1 CY 1.0 mcg/mL:?? AUC/CY:? 510.1 --------- CY 1.5 mcg/mL:?? AUC/CY:? 340.0 YC 2.0 mcg/mL:?? AUC/CY:? 255.0 Thank you for the consult, will continue to follow. -LINDA SANTILLAN, SEBLED
[2024-12-21] MEDS: DOCUSATE SODIUM 250MG CAPSULE 250 MG PO (09:19)
[2024-12-21] MEDS: LEVOTHYROXINE 100MCG (0.1MG) TAB 100 MCG PO (09:19)
[2024-12-21] MEDS: ASPIRIN EC 81MG TABLET 81 MG PO (09:19)
[2024-12-21] MEDS: CARVEDILOL 12.5MG TABLET 12.5 MG PO ×2 (09:19→20:31)
[2024-12-21 09:20] LABS: NT Pro Brain Natriuretic Pep. 8080 pg/mL (0-125)
--- NOTE | 2024-12-21 09:22 | P.CONPHA_ITS ---
Pharmacy Intervention Comments: MEDICATION RECONCILIATION COMPLETED ON PATIENT USING EXTERNAL FILL HHISTORY FROM PHARMACY AND LIST FROM [facility]. -SEBLE KCD
--- NOTE | 2024-12-21 09:22 | HMH.PHAINT1 ---
Pharmacy Intervention Comments: MEDICATION RECONCILIATION COMPLETED ON PATIENT USING EXTERNAL FILL HHISTORY FROM PHARMACY AND LIST FROM [facility]. -SEBLE KCD
--- NOTE | 2024-12-21 09:31 | IR_ITS ---
APPROVED REPORT Patient Location: Inpatient Manager Of Program: Tanner Gardner, RT (R) PROCEDURES Left heart catheterization Selective coronary angiogram Drug-eluting stent deployment to the ostial proximal LAD Drug-eluting stent deployment to the ostial proximal mid and distal left main artery INDICATION Acute non-ST elevation myocardial infarction, Systolic congestive heart failure, Coronary artery disease, Patient is not an operable candidate due to sepsis and active wet gangrene Informed consent was obtained prior to the procedure. COMPLICATIONS None Estimated Blood Loss: Less than 10 mls TECHNIQUE One percent lidocaine used to anesthetize the right anterior aspect of the wrist. The right radial artery was accessed via the Seldinger technique. A long hydrophilic 6 German sheath was placed in the right radial artery. 2.5 mg of Verapamil, 800 mcg of nitroglycerin, 1mg Lidocaine and 5000 U Heparin were given through the arterial sheath. The JL3 catheter was also used to perform left heart catheterization and selective coronary angiogram. At the end the diagnostic angiogram therapeutic heparin was administered giving a therapeutic ACT and the guide catheter was placed in left main artery followed by Choice PT extra-support wire placed on the LAD. A 3 mm x 38 mm Philippe frontier stent was placed in the proximal LAD at 20 sourav reducing the critical stenosis to 40%. A 3.25 x 8 mm noncompliant balloon was deployed at 20 sourav in the proximal segment over to balloon lengths to post dilate. Following this a 4 mm x 15 mm [place] frontier stent was placed in the ostial proximal mid distal left main artery just proximal to the origin of the circumflex artery and deployed at 20 sourav reducing the stenosis. The balloon was advanced into the proximal LAD and deployed at 12 sourav to further post dilate. Excellent angiograph results were obtained with JESE-3 flow being present down the left main artery and LAD before and after the procedure. At the end the procedure the apparatus was removed the sheath was removed and hemostasis was achieved using TR banding patient was transferred to the postop porting in stable condition. ANGIOGRAPHIC RESULTS The left main artery Has a distal 60% stenosis The left anterior descending artery Has an ostial proximal 80 to 90% stenosis with an additional 60% stenosis followed by mid vessel 80 and 90% stenoses with distal diffuse 80 to 90% stenosis The circumflex artery Is probably codominant and has an ostial 50% stenosis and gives rise to medium sized ramus intermedius which is patent and has proximal to mid vessel 30% and distal 40 to 50% stenoses. The circumflex artery itself distal to the ramus intermedius has an 80 and 90% stenosis with mid vessel and distal diffuse 90% stenosis The right coronary artery Is likely codominant and occluded at mid vessel. The distal vessel fills via [id number] collaterals The PALMER ventriculogram reveals Not performed The left ventricular end-diastolic pressure 25 mmHg IMPRESSION Critical three-vessel coronary disease as described above Successful stenting of the left main artery in the proximal LAD severe and critical disease reduced to less than 10% with 2 drug-eluting stents as described above PLAN 1. Dual antiplatelet therapy 2. LDL less than 55 to be achieved with high intensity statin 3. GDMT for systolic heart failure 4. Patient will be brought back to the Planning Division Superintendent tomorrow or possibly on for evaluation of left lower extremity peripheral artery disease depending on creatinine 5. Continue with antibiotics 6. Appreciate foot and ankle surgery evaluation for wet gangrene amputations Electronically signed by : Dc Jane MD 12/21/2024 12:33:15
--- NOTE | 2024-12-21 09:35 | XR_ITS ---
FINAL REPORT CLINICAL HISTORY: productive cough, elevated BNP COMPARISON: None FINDINGS: The heart size is normal. The mediastinum is normal. Chronic changes are noted in both lungs. There is no focal infiltrate or edema. There are no pleural effusions. There is no pneumothorax. There is no osseous abnormality. IMPRESSION: Chronic changes without acute cardiopulmonary process Reviewed, Interpreted and Dictated by Enmanuel Nascimento MD Transcribed by Hailey Rendon Authenticated and . [facility]
[2024-12-21] MEDS: DEFINITY US ECHO CONTRAST 2ML INJ 2 MG IV (09:36)
[2024-12-21 09:40] LABS: Hemoglobin A1C 8.3 % (4.0-6.0)
[2024-12-21 09:42] LABS: Thyroid Stimulating Hormone 25.10 uIU/mL (0.465-4.68)
--- NOTE | 2024-12-21 09:43 | P.CONCA_ITS ---
History of Present Illness History of Present Illness Consult date: 12/21/24 Chief complaint: LLE pain History of present illness: Mr. Moss is a 49-year-old white male who presented to [facility] emergency room last night for complaints of left lower extremity pain. Exam was consistent with gas gangrene but he also had elevated troponin so was transferred to this facility for cardiovascular evaluation. Patient tells me he recently moved here from [place] and has yet to establish care. He has history of severe PAD status post right lower extremity fifth metatarsal amputation and left lower extremity angioplasty within the past year in [place]. States he injured his left foot several weeks ago. 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 Wound was not healing with conservative measures at home so he presented to the emergency room. He has been evaluated by Podiatry here who states he has extensive gas gangrene and needs incision and drainage and then probably amputation of the fifth metatarsal. His MARY is 0.6 on the left. Patient's troponin also significantly elevated greater than 6 but trending down. He does report mild to moderate chest discomfort with activity since the onset of his infection in his foot several weeks ago. 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 States he has been a poorly controlled diabetic for approximately 30 years. A1c recently down to 9 from 13. States he has not been taking aspirin at home and he is a smoker. Bedside echo preliminary shows severely reduced EF which was explained to patient. EKG shows sinus tach [address]ressions. He is in no distress at this time and following dressing change states he has very minimal discomfort in left lower extremity. [facility] Disclaimer: The information contained in this section may have been updated after the patient was seen, as this information can be updated by other users. Medical History History of gastroesophageal reflux (GERD) Hypothyroid Congestive heart failure Hypertension Diabetes mellitus, type 2 Surgical History H/O angioplasty Previous back surgery H/O foot surgery Social History Smoking Status: Current every day smoker alcohol intake: never current occupational status: employed Travel in the last 8 weeks?: None Have you lived/traveled outside US in past 30 days?: No Contact w/someone who lives/traveled outside US past 30 days?: No Exposure to someone with infectious disease in past 14 days?: No Do you have a fever (greater than 100.4 F or 38 C)?: No Have you tested positive for COVID-19?: No Exposed to someone with COVID-19 in past 14 days?: No Do you have a sore throat?: No Do you have a cough?: No Do you have any weakness?: No Are you experiencing any nausea/vomitting?: No Do you have any diarrhea?: No Are you experiencing any unusual bleeding?: No Do you have any muscle aches/pain?: No Do you have any abdominal pain?: No Are you experiencing loss of taste or smell?: No Review of Systems Constitutional Constitutional: Denies fatigue and Denies weakness Eyes Eyes: Denies loss of vision ENT Ears, Nose, Mouth, and Throat: Denies hearing loss *Cardiovascular Cardiovascular: Reports chest pain and Denies dyspnea Comments: LLE pain/necrosis *Respiratory Respiratory: Denies cough and Denies dyspnea *Gastrointestinal Gastrointestinal: Denies change in stool character, Denies nausea and Denies vomiting *Genitourinary Genitourinary: Denies difficulty urinating *Musculoskeletal Musculoskeletal: Denies muscle weakness Integumentary/Breasts Skin/Breast: Denies changing lesions *Neurologic Neurologic: Reports system reviewed and no additional complaints, except as documented, Denies loss of vision and Denies weakness Endocrine Endocrine: Denies fatigue Exam Data for Last 24 hours Vital signs and Labs for Last 24 Hours: Temp Pulse Resp BP Pulse Ox O2 Del Method 98.6 F 120 H 18 118/74 93 L Room Air 12/21/24 08:00 12/21/24 08:00 12/21/24 08:00 12/21/24 08:00 12/21/24 08:00 12/21/24 09:00 Laboratory Results - last 24 hr 12/21/24 02:26: Troponin I 3.85 H 12/21/24 05:25: POC Glucose 221 H 12/21/24 05:43: WBC 12.8 H, RBC 4.18 L, Hgb 11.9 L, Hct 36.6 L, MCV 87.6, MCH 28.5, MCHC 32.5, RDW 14.7, Plt Count 280, MPV 10.2, Neut % (Auto) 85.0 H, Lymph % (Auto) 7.2 L, [place] % (Auto) 6.9, Eos % (Auto) 0.2, Baso % (Auto) 0.3, Neut # (Auto) 10.9 H, Lymph # (Auto) 0.9, [place] # (Auto) 0.9, Eos # (Auto) 0.0, Baso # (Auto) 0.0, ESR 60 H, Sodium 131 L, Potassium 4.2, Chloride 104, Carbon Dioxide 17 L, Anion Gap 14.2, BUN 26 H, Creatinine 1.80 H, Estimated Creat Clear 63, Estimated GFR 40 L, Est GFR ( Amer) 49 L, Glucose 207 H, Calcium 8.2 L, Phosphorus 2.9, Magnesium 1.7, Troponin I 3.22 H, C-Reactive Protein 231.3 H, NT-Pro-B Natriuret Pep 8080 H, Triglycerides 141, Cholesterol 172, LDL Cholesterol Direct 112.30, VLDL Cholesterol 28, HDL Cholesterol 22 L, Cholesterol/HDL Ratio 7.8 H 12/21/24 05:49: Hemoglobin A1c 8.3 H I & O for Last 24 hours: Intake & Output 12/18/24 12/19/24 12/20/24 12/21/24 23:59 23:59 23:59 23:59 Intake Total 150 / 150 Output Total 0 / 0 Balance 150 / 150 Weight 201 lb 4 oz Constitutional Constitutional: no acute distress and cooperative *Routine HEENT Exam Eye: Present PERRL *Routine Respiratory Exam Respiratory: Present CTA bilaterally; Absent accessory muscle use, wheezes or crackles *Routine Cardiovascular Exam Cardiovascular: Present RRR, Normal S1 and Normal S2; Absent murmur, gallop or rubs *Routine Abdominal Exam Abdominal: Present soft; Absent tenderness *Routine Extremities Exam Extremities: Present pulses intact; Absent cyanosis or edema Comments: right 5th metatarsal amputation. LLE freshly bandaged *Routine Skin Exam Skin: Present intact; Absent erythema or wounds *Routine Neurological Exam Neurological: Present alert and oriented X3 Routine Psychiatric Exam Psychiatric: Present cooperative Meds Home Medications and Allergies Home Medications ?Medication ?Instructions ?Recorded ?Confirmed ?Type carvedilol 12.5 mg tablet 12.5 mg PO BID 10/27/25 10/2 8/25 History empagliflozin 25 mg tablet 25 mg PO DAILY 12/20/24 History (Jardiance) furosemide 40 mg tablet 40 mg PO DAILY 12/20/2411/25 History insulin glargine 100 unit/mL (3 40 unit SQ HS 12/20/24 12/20/24 History mL) subcutaneous pen (Lantus Solostar U-100 Insulin) levothyroxine 100 mcg tablet 100 mcg PO DAILY 12/20/24 12/20/24 History lisinopril 10 mg tablet 10 mg PO DAILY 12/20/2411/25 History metformin 1,000 mg tablet 1,000 mg PO BID 12/20/24 History omeprazole 40 mg capsule,delayed 40 mg PO DAILY 12/20/24 History release spironolactone 25 mg tablet 25 mg PO DAILY 12/20/24 History New Prescriptions to Start Prescriptions: Allergies Allergy/AdvReac Type Severity Reaction Status Date / Time No Known Allergies Allergy Verified 12/20/24 21:55 Assessment and Plan *Assessment and plan (1) Severe sepsis: Status: Acute Category: Medical Code(s): A41.9 - Sepsis, unspecified organism; R65.20 - Severe sepsis without septic shock (2) NSTEMI (non-ST elevated myocardial infarction): Status: Acute Category: Medical Code(s): I21.4 - Non-ST elevation (NSTEMI) myocardial infarction (3) Gas gangrene of foot: Status: Acute Category: Medical Code(s): A48.0 - Gas gangrene (4) HFrEF (heart failure with reduced ejection fraction): Status: Acute Category: Medical Code(s): I50.20 - Unspecified systolic (congestive) heart failure (5) Diabetes mellitus, type 2: Status: Acute Qualifiers: Diabetes mellitus complication detail: with other skin ulcer Diabetes mellitus mcfp 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 Further plans pending results. 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 here - Podiatry planning intervention, likely I/D bedside today and possible surgical debridement and/or amputation later - MARY here - R MARY 0.71, L MARY 0.62, extesnive atherosclerotic occlusive disease bilaterally - Will plan for angiogram/BLE runoff this admission - specific plans pending [facility] results Severe Sepsis secondary to LLE Gangrene - WBC 12.8, ESR 60, CRP 231, ProBNP 8k, Trop 6, HR 120s, TSH 25, O2 92% BP 118/74 - broad spectrum antibiotics per Hospitalist, wound care per Podiatry DM-II, IDDM - poorly controlled for 30 years per patient - A1C here is 8, was recently 13 per patient - glucose control per primary service - consider SGLT-2 and GLP-1 later CKD-III - unknown baseline, presumed CKD III from Diabetic Nephropathy - dose adjust meds, monitor daily labs Sinus Tachycardia - 120s - likely secondary to sepsis, HF, NSTEMI - LLE is also erythematous though, check Venous Duplex with risk of DVT. Already on Lovenox. Check ECHO for RV strain. 12/21 - Pt is currently stable but severely high risk of further morbidity and mortality.
[2024-12-21] MEDS: FUROSEMIDE 100MG/10ML VIAL 60 MG IV (09:57)
[2024-12-21] MEDS: FUROSEMIDE 40MG/4ML VIAL 60 MG IV (10:01)
[2024-12-21 10:05] LABS: Adenovirus,PCR Not Detected (NotDetected); Chlamydophila Pneumoniae, PCR Not Detected (NotDetected); Coronavirus 19, PCR Not Detected (NotDetected); Coronovirus HKU1,PCR Not Detected (NotDetected); Influenza A, PCR Not Detected (NotDetected); Influenza AH1, 2009 Not Detected (NotDetected); Influenza AH1, PCR Not Detected (NotDetected); Influenza AH3,PCR Not Detected (NotDetected); Influenza B, PCR Not Detected (NotDetected); Mycoplasma Pneumoniae, PCR Not Detected (NotDetected); Parainfluenza 1, PCR Not Detected (NotDetected); Parainfluenza 2, PCR Not Detected (NotDetected); Parainfluenza 3, PCR Not Detected (NotDetected); Parainfluenza 4, PCR Not Detected (NotDetected)
[2024-12-21 10:08] LABS: POC Glucose,Bedside 181 gm/dL (70-110)
[2024-12-21 11:07] LABS: Hemoglobin A1C 8.2 % (4.0-6.0)
[2024-12-21] MEDS: HEPARIN 1,000 UNITS/ML 10ML VIAL (CATH LAB) 5000 UNIT IV (11:50)
[2024-12-21] MEDS: VERAPAMIL 2.5MG/ML 2ML VIAL 2.5 MG IV (11:50)
[2024-12-21] MEDS: LIDOCAINE 1% 10ML MDV 10 ML IJ (11:50)
[2024-12-21] MEDS: NITROGLYCERIN 800MCG/8ML SYR (CATH LAB) 800 MCG IA (11:50)
[2024-12-21] MEDS: 0.9 % SODIUM CHLORIDE 500 ML 25 ML IV (11:51)
[2024-12-21] MEDS: HEPARIN 1,000 UNITS/500ML NS (CATH LAB) 3000 UNIT IV (11:51)
--- NOTE | 2024-12-21 12:27 | SUR.PHASEII ---
Notified [facility] OR charge of pt outcome with heart cath
[2024-12-21 12:33] LABS: Free T4 (Free Thyroxine) 0.99 ng/dl (0.78-2.19)
[2024-12-21] MEDS: MIDAZOLAM HCL 1MG/ML 5ML VIAL 1 MG IV (12:34)
[2024-12-21] MEDS: FENTANYL 100MCG/2ML VIAL 50 MCG IV (12:34)
[2024-12-21] MEDS: PRASUGREL 10MG TAB 60 MG PO (12:39)
--- NOTE | 2024-12-21 13:03 | PC.NURSE ---
Pt. on floor 12:50 and now being taken to surgery.
[2024-12-21 13:18] LABS: CATHL Activated Clotting Time 231 SEC (74-125)
[2024-12-21] MEDS: BUPIVACAINE 0.5% 30ML VIAL 150 MG (13:42)
--- NOTE | 2024-12-21 13:46 | PC.NURSE ---
post op dye lab technician vitals and care provided in OR during MD Flores's case by RADU Foster and Jeff RN
[2024-12-21] MEDS: GENTAMICIN 80 MG/2 ML VIAL ×2 (14:03)
[2024-12-21] MEDS: SODIUM CHLORIDE IRRIG SOLUTION 3,000 ML 300 ML IR (14:05)
--- NOTE | 2024-12-21 14:43 | EXP.OP.NOTE ---
Date of procedure: 12/21/24 Pre-op Diagnosis:: Left foot gas gangrene Left foot cellulitis Diabetic foot infection Left fifth MTP joint septic arthritis versus osteomyelitis Post-op Diagnosis:: Same Procedure performed:: Left foot I&D (incision and drainage) Wide excisional debridement of nonviable soft tissue and bone Partial 5th ray amputation Application of wound vac Surgeon:: Hortencia Flores DPM Anesthesia: local (20cc 0.5% marcaine plain) Estimated blood loss (mL): 20 Clinical Note:: Patient is a 49 DM male who presents for left foot DFU and gas gangrene. Radiographs of the feet were reviewed and discussed with the patient. Left foot x-rays show significant swelling with concern for soft tissue air/gas and concern for septic arthritis versus osteomyelitis at the fifth MTP joint. Abnormal ABIs b/l: MARY R 0.71, L 0.62. Discussed conservative versus surgical treatment options. Conservative treatment options include local wound care, oral and IV antibiotics, change in shoe wear, taping/padding, and off-loading. Discussed that patient would benefit from a wider and deeper shoe wear to accommodate the deformity outpatient shelter. We discussed surgical intervention for I&D of the gas gangrene, debridement of non-viable soft tissue and bone with 5th toe/partial metatarsal amputation. Discussed this may be a staged surgery depending on the extent of the infection. Patient may need the wound site left open for packing or application of a wound VAC. He may need surgery in the future for further washout and partial versus complete wound closure. Patient understands that there is a chance that the toes can migrate to fill the gap or the foot may change shape after surgery. Patient also understands that they could have wound healing complications including delayed healing and infection. He is at higher risk due to smoking (half pack daily), PAD, diabetes (Ha1c 8.3%), history of DFU, history of osteo with right fifth partial ray amputation. We discussed that if the wound does not heal, it is possible that they may need a more proximal amputation and could result in further loss of digits, loss of partial foot or loss of leg. We discussed the risks and benefits in great detail. Other surgical risks include: prolonged pain and swelling, further infection requiring oral or IV antibiotics, delay in healing of soft tissue or bone, nerve or blood vessel damage, CRPS/RSD, DVT/PE, anesthesia complications including SC, and even . All questions answered. Patient verbalized understanding. Verabl and written consent obtained. Discussed case with cardiology and anesthesia. Operative findings:: Left foot gas gangrene with foul malodorous drainage from the fifth MPJ. The fifth toe was black and the bone was eroded and necrotic. Significant purulent drainage expressed from the fifth MPJ and dorsal medial fifth metatarsal. Wide excisional full-thickness debridement of all nonviable soft tissue performed including removing the fifth diabetic foot ulcer. The head of the fifth metatarsal was soft and crumbly with malodor and obvious signs of infection. The proximal one third of the fifth metatarsal also appeared to have bone changes. The extensor tendons were stringy and nonviable. The fourth MTPJ capsule was intact with some yellowish discoloration but no anand purulence. Post sharp excisional full-thickness debridement with 15 blade, forceps the left open fifth met wound had some bleeding, 100% granular and measured 5.1 x 3.5 x 1.5 cm. Decision made to leave wound open, plus due to the extensive soft tissue necrosis there was not enough skin for coverage. Wound vac applied due to severity of infection. Discussed with patient the possibility of repeat washout with partial wound closure versus more definitive amputation like TMA to get soft tissue coverage. At this point prognosis is guarded due to his PAD, low ejection fracture (had cath with stents prior to foot surgery today), tobacco abuse, uncontrolled diabetes and other comorbidities. Without improved circulation, it is likely that the skin will further necrosis and turn gangrenous and patient will need a proximal midfoot amputation, if the foot can be salvaged. Operative note:: On this date and time patient was deemed an appropriate surgical candidate. With informed consent signed, the patient was taken to the operating theater from the [facility] [employer]. The patient was kept in supine position on his stretcher. No MAC or general anesthesia used. No tourniquet used. Pre-op left forefoot and ankle blocks given with 20 cc 0.5% marcaine plain. IV Vanco, Zosyn given on floor. Left foot I&D (incision and drainage): Attention was directed to the dorsal lateral aspect of the foot where on x-ray gas gangrene and septic 5th MTP joint was noted. An incision was made with a 15 blade full-thickness through skin, subcutaneous tissue including deep fascia just inferior to the DFU approximately 3cm long. Some purulence and malodorous drainage noted. Wound culture taken. Left foot wide excisional debridement: A fish[place] incision was mapped out surrounding the fifth toe extending onto the metatarsal around the ulcer. Utilizing a 15 blade dissection was carried down sharply full-thickness to the level of the bone. The entire diabetic foot ulcer was resected and sent for tissue culture and a piece for tissue pathology. Left partial 5th ray amputation (5th toe + partial metatarsal): The 5th toe was disarticulated from the metatarsal head at level of MTPJ. The toe tissue was black, devries, yellow with distal gangrenous changes and the base of proximal phalanx bone was soft and crumbly. The toe was sent to pathology. Attention was then directed to the 5th metatarsal head which had some cortical erosions and gangrenous changes noted. Bone-cutting forceps were utilized to remove the head of the metatarsal without difficulty due to the softness and severity of the infection. Metatarsal was sent to micro as bone culture. More proximal, a sagittal saw was used to transect the 5th metatarsal partially through the shaft. It was sent for bone path proximal margin. The remaining bone appeared to be hard in texture normal color. Next 3L of gentamicin irrigation was used to flush the wound with pulse lavage. The wound was reexplored and no more purulence or sinus tracking noted. A clean 15 blade was used to resect nonviable visible extensor tendons and debride the wound edges. Some bleeding was noted at this level. Bleeding controlled. No vessels were ligated with electrocautery. 1g of vancomycin powder was inserted. Prolene was used to close skin in an interrupted simple suture fashion over I&D incision. Skin was cleansed. Application of wound VAC: Next a [employer] wound VAC was applied in standard technique over the fifth metatarsal DFU open wound. VAC was set at 125 mmHg medium continuous. Seal checked. Suction and seal noted to be adequate and appropriate. Dry sterile dressing applied to the foot. The patient tolerated the procedure and local anesthesia well, without complications. The patient was transferred to recovery/back to the floor with vital signs stable and neurovascular status intact. Materials: Prolene, 1g vancomycin powder, [employer] wound vac @125mmHg medium continuous Plan: Transfer back to floor when ready and vital signs stable. Patient is to maintain dressing and vac clean dry and intact. Reinforce as needed. Left foot wound vac @125mmHg medium continuous. Continue PICC, IV antibiotics per hospitalist team: Howard Prince. Obtain post op films, left foot, 3 views. Will need post op shoe/short fracture boot, NWB to Left foot w/walker. Ok to put heel down in post op shoe/fx boot for transfers. PT to evaluate if he can use walker or crutches. Case mgmt team: [facility] vs SNF (may need PICC, IV abx due to high risk for recurrent infection, uncontrolled DM, Osteomyelitis; hx 5th partial ray amputation w/ PICC IV abx x4 weeks). Plan for Podiatry dressing/vac check in the morning. Condition: stable Disposition: floor Specimens:: Micro: Left foot wound culture, tissue culture, 5th met bone culture Path: Left foot tissue, 5th toe bone, 5th met bone proximal margin Complications:: None
--- NOTE | 2024-12-21 14:49 | EXP.PN ---
Subjective *Date: 12/21/24 *Time: 16:01 Exam Data for Last 24 hours Vital signs and Labs for Last 24 Hours: Temp Pulse Resp BP Pulse Ox O2 Del Method O2 Flow Rate 97.8 F 101 H 17 109/70 L 92 L Room Air 8 12/21/24 14:33 12/21/24 14:33 12/21/24 14:33 12/21/24 14:33 12/21/24 14:33 12/21/24 14:33 12/21/24 13:50 Laboratory Results - last 24 hr 12/21/24 02:26: Troponin I 3.85 H 12/21/24 05:25: POC Glucose 221 H 12/21/24 05:43: WBC 12.8 H, RBC 4.18 L, Hgb 11.9 L, Hct 36.6 L, MCV 87.6, MCH 28.5, MCHC 32.5, RDW 14.7, Plt Count 280, MPV 10.2, Neut % (Auto) 85.0 H, Lymph % (Auto) 7.2 L, [place] % (Auto) 6.9, Eos % (Auto) 0.2, Baso % (Auto) 0.3, Neut # (Auto) 10.9 H, Lymph # (Auto) 0.9, [place] # (Auto) 0.9, Eos # (Auto) 0.0, Baso # (Auto) 0.0, ESR 60 H, Sodium 131 L, Potassium 4.2, Chloride 104, Carbon Dioxide 17 L, Anion Gap 14.2, BUN 26 H, Creatinine 1.80 H, Estimated Creat Clear 63, Estimated GFR 40 L, Est GFR ( Amer) 49 L, Glucose 207 H, Hemoglobin A1c 8.2 H, Calcium 8.2 L, Phosphorus 2.9, Magnesium 1.7, Troponin I 3.22 H, C-Reactive Protein 231.3 H, NT-Pro-B Natriuret Pep 8080 H, Triglycerides 141, Cholesterol 172, LDL Cholesterol Direct 112.30, VLDL Cholesterol 28, HDL Cholesterol 22 L, Cholesterol/HDL Ratio 7.8 H, Free T4 0.99 12/21/24 05:49: Hemoglobin A1c 8.3 H, TSH 25.10 H 12/21/24 09:58: POC Glucose 181 H 12/21/24 10:05: Chlamy pneumoniae PCR Not detected, Adenovirus (PCR) Not detected, B. pertussis DNA (PCR) Not detected, Coronavirus OC43 (PCR) Not detected, Coronavirus HKU1 (PCR) Not detected, Coronavirus 229E (PCR) Not detected, SARS-CoV-2 (PCR) Not detected, Coronavirus NL63 (PCR) Not detected, Human Metapneumovir PCR Not detected, Influenza A (H1) PCR Not detected, Influ A (H1N1/09) PCR Not detected, Influenza A (H3) PCR Not detected, Influenza Type A (PCR) Not detected, Influenza Type B (PCR) Not detected, M. pneumoniae (PCR) Not detected, Parainfluenza 1 (PCR) Not detected, Parainfluenza 2 (PCR) Not detected, Parainfluenza 3 (PCR) Not detected, Parainfluenza 4 (PCR) Not detected, RSV (PCR) Not detected, Entero/Rhino (PCR) Detected A 12/21/24 12:29: Activated Clotting Time 231 H* I & O for Last 24 hours: Intake & Output 12/18/24 12/19/24 12/20/24 12/21/24 23:59 23:59 23:59 23:59 Intake Total 1638.75 / 1638.75 Output Total 0 / 0 Balance 1638.75 / 1638.75 Weight 91.285 kg Microbiology Reports for the Last 24 Hours: Microbiology 12/21/24 07:48 Toe,Left Fifth Gram Stain - Final Assessment and Plan *Assessment and plan (1) Septic arthritis of foot: Status: Acute Qualifiers: Septic arthritis organism: due to unspecified organism Laterality: left Qualified Code(s): M00.9 - Pyogenic arthritis, unspecified Category: Medical Code(s): M00.9 - Pyogenic arthritis, unspecified (2) Peripheral arterial disease: Status: Acute Category: Medical Code(s): I73.9 - Peripheral vascular disease, unspecified (3) Gas gangrene: Status: Acute Category: Medical Code(s): A48.0 - Gas gangrene (4) Gangrene of toe of left foot: Status: Acute Category: Medical Code(s): I96 - Gangrene, not elsewhere classified (5) Ulcer of left fifth toe due to diabetes mellitus: Status: Acute Category: Medical Code(s): E11.621 - Type 2 diabetes mellitus with foot ulcer; L97.529 - Non-pressure chronic ulcer of other part of left foot with unspecified severity (6) Chronic kidney disease: Status: Acute Category: Medical Code(s): N18.9 - Chronic kidney disease, unspecified (7) HFrEF (heart failure with reduced ejection fraction): Status: Acute Category: Medical Code(s): I50.20 - Unspecified systolic (congestive) heart failure (8) NSTEMI (non-ST elevated myocardial infarction): Status: Acute Category: Medical Code(s): I21.4 - Non-ST elevation (NSTEMI) myocardial infarction (9) CAD (coronary artery disease): Status: Acute Category: Medical Code(s): I25.10 - Atherosclerotic heart disease of [place] coronary artery without angina pectoris Plan Gerardo Moss is a 49-year-old male with a medical history of current smoker, PAD s/p angioplasty, diabetes with bilateral diabetic foot ulcers, HFrEF who presented to [facility] with left lower extremity cellulitis and was incidentally found to have a NSTEMI and was transferred here for further evaluation and management. #Sepsis #Left fifth toe infected diabetic foot ulcer #Extensive PAD ? Presented with worsening DFU with gas gangrene in the lateral left fifth toe. ? Podiatry consulted, planning for I&D today. ? Continue vancomycin, Zosyn 3.375 g every 6 hours. WBC 12.8, heart rate 101 today. ? Bilateral lower extremity arterial Doppler revealed extensive PAD bilaterally. Patient is a smoker, diabetic. ? Cardiology consulted, planning for peripheral revascularization tomorrow. ? Continue aspirin 81 mg, prasugrel 10 mg, atorvastatin 80 mg. ? Follow-up morning CBC. #NSTEMI #Acute on chronic HFrEF ? No chest pain, shortness of breath but troponin peaked at 3.85, since downtrended. EKG without acute ischemic changes. ? Cardiology consulted, s/p PCI on 12/21/2024 showing triple-vessel disease with DILMA x 2 to proximal LAD. LCx nonamenable to stenting, will medically manage. ? ECHO 12/21/2024 shows LVEF 20% with grade 3 diastolic dysfunction. ? Continue aspirin 81 mg, started prasugrel 10 mg, continue atorvastatin 80 mg, carvedilol 12.5 mg twice daily. Will hold further GDMT in the setting of sepsis. ? Ordered IV Lasix 60 mg one-time dose. Follow-up response. ? Unfortunately, patient does not have insurance and does not qualify for Medicaid. Does not want LifeVest at this time due to cost. ? Continuous cardiac telemetry. ? Follow-up morning CMP, magnesium. #Type 2 diabetes ? Hemoglobin A1c 8.3%. Likely contributing to CAD/PAD. ? LDSSI, ACHS glucose checks. Started Lantus 10 units nightly, adjust based on SSI needs. ? Consider starting SGLTi before discharge in the setting of HFrEF. #Suspected CKD stage IIIa ? Creatinine 1.8, GFR 40. No comparison labs at this time, follow-up morning RFT's. #Current smoker ? Nicotine patch as needed. Full code DVT prophylaxis: Lovenox 40 mg
--- NOTE | 2024-12-21 15:15 | XR_ITS ---
PROCEDURE INFORMATION: Exam: XR Left Foot Exam date and time: 12/21/2024 4:36 PM Age: 49 years old Clinical indication: Screening exam; Postop partial 5th ray amputation; Prior surgery; Surgery date: Post-operative (0-2 days) TECHNIQUE: Imaging protocol: Radiologic exam of the left foot. Views: 3 or more views. COMPARISON: CR XR FOOT LT MIN 3V 12/21/2024 6:39 AM FINDINGS: Bones/joints: Amputation of the 5th ray at the base of the 5th metatarsal. No complications to the amputation osseous stump. Diffuse bone demineralization. Chronic osseous changes at the 4th toe proximal phalanx. No acute fracture or dislocation. Soft tissues: Wound VAC system in the lateral foot soft tissues with expected postsurgical changes, including soft tissue swelling and trace soft tissue emphysema. IMPRESSION: 1. Amputation of the 5th ray at the base of the 5th metatarsal. No complications to the amputation osseous stump. 2. Wound VAC system in the lateral foot soft tissues with expected postsurgical changes, including soft tissue swelling and trace soft tissue emphysema.
[2024-12-21 17:10] LABS: POC Glucose,Bedside 149 gm/dL (70-110)
--- NOTE | 2024-12-21 17:15 | PC.NURSE ---
16:20 right wrist band removed and tefaderm with non adherent placed.
[2024-12-21] MEDS: VANCOMYCIN/WATER FOR INJ (PEG) 1.75 GM/350 ML PIGGYBACK IV (17:31)
[2024-12-21] MEDS: FAMOTIDINE 20MG TABLET 40 MG PO (17:37)
[2024-12-21] MEDS: GUAIFENESIN/DEXTROMETHORPHAN 200MG/20MG 10ML UDC 10 ML PO (17:38)
[2024-12-21 20:15] LABS: POC Glucose,Bedside 210 gm/dL (70-110)
[2024-12-21] MEDS: PANTOPRAZOLE 40MG TABLET 40 MG PO (20:31)
[2024-12-21] MEDS: ATORVASTATIN 40MG TABLET 80 MG PO (20:31)
[2024-12-21] MEDS: INSULIN GLARGINE 100 UNITS/ML 3ML FLEXPEN 10 UNIT SUBCUT (20:33)
[2024-12-21] MEDS: HYDROCODONE/APAP 5/325 MG TABLET 2 TAB PO (22:47)
[2024-12-22] VITALS (38 sets, daily range): BP systolic 86–125; BP diastolic 61–81; PULSE 77–107; RESP 14–20; TEMP 36.4–36.9; O2SAT 91–97; BMI 28.6
[2024-12-22] MEDS: PIPERCILLIN/TAZO 3.375 GM in 0.9 % SODIUM CHLORIDE 50 ML IV ×4 (06:13→23:10)
[2024-12-22] MEDS: LEVOTHYROXINE 100MCG (0.1MG) TAB 100 MCG PO (06:14)
[2024-12-22 06:16] LABS: Hematocrit 28.8 % (42.0-52.0); Hemoglobin 9.1 g/dL (14.1-18.0); Immature Granulocytes % 0.8 %; Mean Corpuscular HGB Conc 31.6 g/dL (31.8-35.4); Mean Corpuscular Hemoglobin 27.6 pg (27.0-31.2); Mean Corpuscular Volume 87.3 fl (80-94); Nucleated Red Blood Cells % 0 %; Platelet Count 251 K/mm3 (142-424); Red Blood Count 3.30 M/mm3 (4.60-6.20); Red Cell Distribution Width-SD 48.0 fL; White Blood Count 10.6 K/mm3 (4.8-10.8)
[2024-12-22] MEDS: 0.9 % SODIUM CHLORIDE 1000ML 1,000 ML 75 ML IV (06:18)
[2024-12-22 06:24] LABS: POC Glucose,Bedside 123 gm/dL (70-110)
[2024-12-22 06:24] LABS: Anion Gap 11.0 mEq/L (5-15); Blood Urea Nitrogen 28 mg/dl (9-20); Calcium 8.0 mg/dl (8.4-10.2); Carbon Dioxide 18 mmol/L (22.0-30.0); Chloride 107 mmol/L (98-107); Creatinine Clearance Estimated 71 mL/min (50-200); Creatinine,Serum 1.60 mg/dl (0.66-1.25); Estimated Glomerular Filt Rate 46 ml/min (>60); GFR (African American) 56 ML/MIN (>60); Glucose 122 mg/dl (74-100); Potassium 4.0 mmoL/L (3.5-5.1); Sodium 132 mmol/L (136-145)
--- NOTE | 2024-12-22 06:55 | EXP.ORTH.PN ---
Subjective *Date: 12/22/24 *Time: 12:11 Interval history: Patient resting in bed this morning having some pain in his Left foot. Stated his foot had some bleeding through the dressings and had to be reinforced. Pump appears to be working well. Bloody drainage in the tubing and canister. Ortho Exam (Inpt) Vital signs and Labs for Last 24 Hours: Temp Pulse Resp BP Pulse Ox O2 Del Method O2 Flow Rate 97.9 F 90 18 88/61 L 94 L Room Air 8 12/22/24 04:00 12/22/24 04:00 12/22/24 04:00 12/22/24 04:00 12/22/24 04:00 12/22/24 06:48 12/21/24 13:50 Laboratory Results - last 24 hr 12/21/24 05:43: Sodium 131 L, Potassium 4.2, Chloride 104, Carbon Dioxide 17 L, Anion Gap 14.2, BUN 26 H, Creatinine 1.80 H, Estimated Creat Clear 63, Estimated GFR 40 L, Est GFR ( Amer) 49 L, Glucose 207 H, Hemoglobin A1c 8.2 H, Calcium 8.2 L, NT-Pro-B Natriuret Pep 8080 H, Free T4 0.99 12/21/24 05:49: Hemoglobin A1c 8.3 H, TSH 25.10 H 12/21/24 09:58: POC Glucose 181 H 12/21/24 10:05: Chlamy pneumoniae PCR Not detected, Adenovirus (PCR) Not detected, B. pertussis DNA (PCR) Not detected, Coronavirus OC43 (PCR) Not detected, Coronavirus HKU1 (PCR) Not detected, Coronavirus 229E (PCR) Not detected, SARS-CoV-2 (PCR) Not detected, Coronavirus NL63 (PCR) Not detected, Human Metapneumovir PCR Not detected, Influenza A (H1) PCR Not detected, Influ A (H1N1/09) PCR Not detected, Influenza A (H3) PCR Not detected, Influenza Type A (PCR) Not detected, Influenza Type B (PCR) Not detected, M. pneumoniae (PCR) Not detected, Parainfluenza 1 (PCR) Not detected, Parainfluenza 2 (PCR) Not detected, Parainfluenza 3 (PCR) Not detected, Parainfluenza 4 (PCR) Not detected, RSV (PCR) Not detected, Entero/Rhino (PCR) Detected A 12/21/24 12:29: Activated Clotting Time 231 H* 12/21/24 17:03: POC Glucose 149 H 12/21/24 20:06: POC Glucose 210 H 12/22/24 05:53: WBC 10.6, RBC 3.30 L, Hgb 9.1 L, Hct 28.8 L, MCV 87.3, MCH 27.6, MCHC 31.6 L, RDW 15.0, Plt Count 251, MPV 10.4, Neut % (Auto) 79.0, Lymph % (Auto) 10.9, Frontier % (Auto) 8.6, Eos % (Auto) 0.2, Baso % (Auto) 0.5, Neut # (Auto) 8.3 H, Lymph # (Auto) 1.2, Frontier # (Auto) 0.9, Eos # (Auto) 0.0, Baso # (Auto) 0.1, Sodium 132 L, Potassium 4.0, Chloride 107, Carbon Dioxide 18 L, Anion Gap 11.0, BUN 28 H, Creatinine 1.60 H, Estimated Creat Clear 71, Estimated GFR 46 L, Est GFR ( Amer) 56 L, Glucose 122 H, Calcium 8.0 L 12/22/24 05:59: POC Glucose 123 H I & O for Labs for Last 24 Hours: Intake & Output 12/19/24 12/20/24 12/21/24 12/22/24 23:59 23:59 23:59 23:59 Intake Total 2358.75 / 2358.75 1050 / 1050 Output Total 0 / 0 500 / 500 Balance 2358.75 / 2358.75 550 / 550 Weight 201 lb 4 oz 200 lb Microbiology Reports for the Last 24 Hours: Microbiology 12/21/24 13:46 Foot,Left - Left Bone Culture - Preliminary 12/21/24 13:46 Foot,Left - Wound Gram Stain - Final 12/21/24 13:46 Foot,Left - Wound Gram Stain - Final 12/21/24 07:48 Toe,Left Fifth Gram Stain - Final Constitutional: Present no acute distress and cooperative Head: Present normocephalic Eyes: Present as per HPI Neck: Present normal inspection Respiratory: Present normal respiratory effort Cardiac: Present posterior tibial pulses present and pedal pulses present Comment:: B/L DP/PT weakly palpable Comments:: deferred Rectal (male): Present deferred (male): Present deferred Extremities: Present tenderness (tenderness noted to surgical Left foot. ), normal capillary refill, edema and other (S/P 12/21/24- Left foot I&D (incision and drainage), Wide excisional debridement of nonviable soft tissue and bone, Partial 5th ray amputation, Application of wound vac) Skin: Present normal turgor and wounds Comment:: Left foot,Partial 5th ray amputation w/wound vac in place Neuro: Present Motor Function Intact, Sensory Function Intact, oriented x 3 and tone normal Comment:: Decreased sensation noted to b/l lower extremities. Ankle: bilateral: normal inspection Feet/Toes: left: amputation (Partial 5th ray amputation, Application of wound vac, Hx of Right 5th partial ray amp. ), left: swelling (left foot cellulitis improving), left: tenderness (Left surgical warp dyeing vat tender/pain noted) and left: wound (S/P Left Partial 5th ray amputation w/ wound vac ) and bilateral: hammer toe, bilateral: nail abnormalities (thick, discolored) and bilateral: onychomycosis (suspected ) Assessment and Plan *Assessment and plan (1) Severe sepsis: Status: Acute Category: Medical Code(s): A41.9 - Sepsis, unspecified organism; R65.20 - Severe sepsis without septic shock (2) Cellulitis of left foot: Status: Acute Category: Medical Code(s): L03.116 - Cellulitis of left lower limb (3) CODY (acute kidney injury): Status: Acute Category: Medical Code(s): N17.9 - Acute kidney failure, unspecified (4) Fracture of phalanx of left great toe: Status: Acute Qualifiers: Encounter type: initial encounter Fracture alignment: nondisplaced Fracture type: closed Phalanx: distal Qualified Code(s): S92.425A - Nondisplaced fracture of distal phalanx of left great toe, initial encounter for closed fracture Category: Medical Code(s): S92.402A - Displaced unspecified fracture of left great toe, initial encounter for closed fracture (5) Diabetes mellitus, type 2: Status: Acute Qualifiers: Diabetes mellitus complication detail: with other skin ulcer Diabetes mellitus complication status: with skin complications Diabetes mellitus nursing home insulin use: without nursing home use Qualified Code(s): E11.622 - Type 2 diabetes mellitus with other skin ulcer Category: Medical Code(s): E11.9 - Type 2 diabetes mellitus without complications (6) Tobacco use disorder: Status: Acute Category: Medical Code(s): F17.200 - Nicotine dependence, unspecified, uncomplicated (7) Ulcer of left fifth toe due to diabetes mellitus: Status: Acute Category: Medical Code(s): E11.621 - Type 2 diabetes mellitus with foot ulcer; L97.529 - Non-pressure chronic ulcer of other part of left foot with unspecified severity (8) Gangrene of toe of left foot: Status: Acute Category: Medical Code(s): I96 - Gangrene, not elsewhere classified (9) Gas gangrene: Status: Acute Category: Medical Code(s): A48.0 - Gas gangrene (10) Peripheral arterial disease: Status: Acute Category: Medical Code(s): I73.9 - Peripheral vascular disease, unspecified (11) Septic arthritis of foot: Status: Acute Qualifiers: Laterality: left Septic arthritis organism: due to unspecified organism Qualified Code(s): M00.9 - Pyogenic arthritis, unspecified Category: Medical Code(s): M00.9 - Pyogenic arthritis, unspecified (12) Osteomyelitis of toe of left foot: Status: Acute Category: Medical Code(s): M86.9 - Osteomyelitis, unspecified (13) 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 S/P sx 12/21/24- Left foot I&D (incision and drainage),Wide excisional debridement of nonviable soft tissue and bone, Partial 5th ray amputation, Application of wound vac Status: Acute Category: Surgical Code(s): Z89.422 - Acquired absence of other left toe(s) Plan 12/21/24: Podiatry consult Left 5th toe, lateral foot DFU, gas gangrene: -Keep Patient NPO;Plan for surgery this afternoon -Bilateral foot x-rays and MARY's obtained, reviewed -Xrays reviewed by Dr. Flores -Wound culture obtained from Left 5th toe/lateral foot ulcer drainage -Left 5th toe, debrided, see above for measurements -Betadine soaked gauze, DSD,kerlix applied -Cardiology has been consulted as well, will plan surgery around this service -All order per Dr. Mark Flores: -Patient seen and evaluated with IMMIGRATION ATTORNEY. -Patient new to Podiatry, moved 2 months ago from [place]. -Employed at [employer]. -No [facility] in [facility], lives with friend in [place]. -Transferred from [place] for left foot cellulitis, abnormal EKG. -Reports hx R 5th toe amp, 5th met amp with RLE run off (denies stents). -I independently reviewed bilateral foot x-rays. Right fifth metatarsal prior amputation with no new findings concerning for infection. Left foot has significant swelling to the fifth MPJ with soft tissue air/gas and concern for septic arthritis versus osteomyelitis of joint. -I independently reviewed b/l LE ABIs. Abnormal ABIs R MARY PT 0.71 (91), DP 0.64 (83), TBI 0.45 (58), L MARY PT 0.58 (75), DP 0.62 (80), TBI 0.51 (66). MARY R 0.71, L 0.62. -All questions answered. Patient verbalized understanding and agreed to proceed. -Plan for surgery: pending cardiac clearance (Dr aJne planning for heart cath today) -NPO now -May proceed with left foot surgery for I&D (unless he gets transferred for cardiac issues then hold on Podiatry surgery) -Will need run off to access b/l LE flow, aid in healing of left foot wound/infection -Will likely need staged left foot I&D, wash out, debridement with 5th partial ray amputation and possible wound vac PRE-OP AMPUTATION/INFECTION: Patient is a 49 DM male who presents for left foot DFU and gas gangrene. Radiographs of the feet were reviewed and discussed with the patient. Left foot x-rays show significant swelling with concern for soft tissue air/gas and concern for septic arthritis versus osteomyelitis at the fifth MTP joint. Abnormal ABIs b/l: MARY R 0.71, L 0.62. Discussed conservative versus surgical treatment options. Conservative treatment options include local wound care, oral and IV antibiotics, change in shoe wear, taping/padding, and off-loading. 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 We discussed surgical intervention for I&D of the gas gangrene, debridement of non-viable soft tissue and bone with 5th toe/partial metatarsal amputation. Discussed this may be a staged surgery depending on the extent of the infection. Patient may need the wound site left open for packing or application of a wound VAC. He may need surgery in the future for further washout and partial versus complete wound closure. Patient understands that there is a chance that the toes can migrate to fill the gap or the foot may change shape after surgery. Patient also understands that they could have wound healing complications including delayed healing and infection. He is at higher risk due to smoking (half pack daily), PAD, diabetes (Ha1c 8.3%), history of DFU, history of osteo with right fifth partial ray amputation. We discussed that if the wound does not heal, it is possible that they may need a more proximal amputation and could result in further loss of digits, loss of partial foot or loss of leg. We discussed the risks and benefits in great detail. Other surgical risks include: prolonged pain and swelling, further infection requiring oral or IV antibiotics, delay in healing of soft tissue or bone, nerve or blood vessel damage, CRPS/RSD, DVT/PE, anesthesia complications including RI, and even . All questions answered. Patient verbalized understanding. Verabl and written consent obtained. Discussed case with cardiology and anesthesia. 12/22/24: POD#1 Sx. 12/21/24 S/P Left foot I&D (incision and drainage), Wide excisional debridement of nonviable soft tissue and bone, Partial 5th ray amputation, Application of wound vac -Labs reviewed: WBC 10.6 (12.8), ESR >140 (60) glucose 122, CRP 202.2 (231.3)- trending down some -Patient states had pain in Left foot in the night, dressings had to be reinforced due to excessive drainage. -Bandage removed to view the site, less swelling noted, blood under clear pump dressing, but no active draining noted. Bloody drainage noted in tubing and vac canister, Vac appears to be working properly. I reapplied new dressings, gauze, kerlix and Tyson wrap to the site. -Patient is to maintain dressing and vac clean dry and intact. Reinforce as needed. -Left foot wound vac @125mmHg medium continuous. -Continue PICC, IV antibiotics per hospitalist team: Howard Prince. -Will need post op shoe/short fracture boot, NWB to Left foot w/walker. -We have a short fracture boot to donate to him in the office (he wears 9.5-10). Will have staff take this up to him -Ok to put heel down in post op shoe/fx boot for transfers. -PT to evaluate if he can use walker or crutches. -Case mgmt team: [facility] vs SNF (may need PICC, IV abx due to high risk for recurrent infection, uncontrolled DM, Osteomyelitis; hx 5th partial ray amputation w/ PICC IV abx x4 weeks). -Plan for Podiatry to do another dressing/vac check in the morning. -Will make patient NPO again after midnight (Friday) if site needs to go back to OR for possible wash-out if needed. -All order per Dr. Flores Specimens:: Pending Micro: Left foot wound culture, tissue culture, 5th met bone culture Path: Left foot tissue, 5th toe bone, 5th met bone proximal margin
[2024-12-22 07:05] LABS: C-Reactive Protein 202.2 mg/L (0-4)
[2024-12-22] MEDS: PRASUGREL 10MG TAB 10 MG PO (08:02)
[2024-12-22] MEDS: HYDROCODONE/APAP 5/325 MG TABLET 2 TAB PO (08:02)
[2024-12-22] MEDS: CARVEDILOL 12.5MG TABLET 12.5 MG PO ×2 (08:02→22:05)
[2024-12-22] MEDS: DOCUSATE SODIUM 250MG CAPSULE 250 MG PO (08:02)
[2024-12-22] MEDS: ASPIRIN EC 81MG TABLET 81 MG PO (08:03)
--- NOTE | 2024-12-22 09:55 | HMH.PTEV ---
Physical Therapy Evaluation Rehab PT IP Evaluation Start: 12/21/24 14:34 Freq: ONCE Status: Active Protocol: Document 12/22/24 09:52 AMIE (Rec: 12/22/24 09:55 AMIE [id number]) Subjective/History History History Per H&P: Patient is a pleasant 49-year-old male with past medical history significant for type 2 diabetes mellitus, congestive heart failure, hypothyroidism, hypertension, GERD, amputation right fifth toe secondary to osteomyelitis and subsequent necrosis and tobacco use. Directly admitted from [facility] due to elevated troponin levels. He initially presented to their facility due to left foot pain ultimately found to have cellulitis. He has a history of diabetic foot ulcers specifically to his right foot in which he underwent surgery last year and had his toe amputated. Patient reports noticing a small open wound to his left foot approximately a week ago. Since onset wound has progressively become worse. Patient reports that he kicked the bottom of his bed while he was sleeping and ultimately injured his great toe. Reports after this incident he noticed a small wound which ultimately became significantly worse to days. Left foot is swollen, red, with an open wound near the plantar surface, strong malodor present (gangrene?smell). Patient was found to have a leukocytosis of 14.7, elevated lactic acid 2.2 and tachycardic meeting sepsis criteria. Received normal saline IV 30 mL per kg, blood cultures obtained. Initiated on IV vancomycin and Zosyn. Recently moved to [facility] about 2 months ago from [place] and has not yet established care with primary care. During his workup at [facility] patient was found to have elevated troponin levels. Initial troponin level 6340 (ng/L), repeat troponin 5649. Received aspirin 325 mg. Twelve-lead sinus tachycardia QRS axis is normal, PA intervals normal, and QRS is prolonged at 104 msec,. QT intervals normal, no Q waves and T waves are flattened in leads III and aVF. Upon arrival to our facility, alert and oriented, hypodermically stable. Without complaint of correlating cardiac symptoms. Reports cardiac workup last year prior to his surgical procedure which included an echo. Dr. Reyes discussed case with our cardiology team and accepted patient for further evaluation. Patient denies any chest pain or shortness of breath, diaphoresis, nausea, vomiting. Subjective Subjective I get around fine Pt reports he lives in a single-story home with his friend. Pt normally IND with all mobility without AD use. Pt doesn't own a RW. Pt still drives. Pt is PAYAM ERICKSON. [facility] How much help from another person do you currently need... Turning from your None back to your side while in a flat bed without using bedrails? Moving from lying on None back to sitting on the side of a flat bed without using bedrails? Moving to and from a None bed to a chair ( including a wheelchair)? Standing up from a None chair using your arms? (e.g., wheelchair, bedside chair) Walking in hospital A little room? Climbing 3-5 steps A little with a railing? Mobility Score 22 Mobility Level [facility] Mobility 7 Walk 25 feet or more Mobility Calculator Rehab PT IP Eval Objective Appearance Patient Behavior Appropriate,Cooperative Patient Orientation Person,Place,Situation Difficulty following none instructions Speech Pattern Clear Ambulation Patient Able to Yes Ambulate Ambulation Observation Ambulation Distance 5 (feet) Ambulation Assistive Rolling Walker Device Ambulation Ability Contact Guard/Hand Hold Balance Ability to Arise Able, uses arms to help Sitting Balance Steady, safe Standing Balance Steady, wide stance Dynamic Sitting Good Balance Ability Dynamic Standing Fair Balance Ability Transfers Bed Transfer Ability Independent Sit to Stand Bed Supervision/Stand by Transfer Ability Rehab PT IP prob,goals,plan Problems Date of Evaluation: 12/22/24 PT IP Problems Transfers,Gait,Balance,Self care,Safety Rehab Potential Rehab Potential Good Plan PT Intervention Plan Transfers,Gait,Balance,Self care,Safety,Therapeutic Exercise Other Intervention 1-2 times Plan PT Plan Frequency Daily Duration LOS Discharge Goals Bed Transfer Ability Independent Sit to Stand Chair Independent Transfer Ability Ambulation Assistive Rolling Walker Device Ambulation Distance 20 (feet) Discharge Plan PT Discharge Plan Initial physical therapy evaluation performed. Patient presents below baseline at this time in functional mobility, transfers, gait, and strength. Pt would benefit from skilled PT while at [facility] to prevent further functional decline and maximize safety with mobility. Pt most appropriate to d/c home when deemed medically necessary with assistance from friend/family d/t current level of mobility, home set-up, and family support. PT recommending home health PT services to address deficits. PT recommending RW and discussed pt's need for RW with CM. Eval Complexity Eval Charge Codes 04858 - Moderate Complexity PHYSICIAN CERTIFICATION: I certify the specified therapy services for Gerardo A Moss are required, authorized, and reviewed every 30 days.
--- NOTE | 2024-12-22 10:24 | SW/DCPLANNER ---
Addendum entered by Phyllis Clark 12/24/24 10:27: I have also provided patient w/ [facility] Resource list. Addendum entered by Phyllis Clark 12/24/24 10:25: [facility] can fill home IV antibiotics but can not guarantee insurance will cover. Per MD patient can discharge home on PO antibiotics, no wound vac and will need a fracture book + crutches. Patient will discharge home today. Patient has been informed by Robert Cueva to complete all [employer] applications. Addendum entered by Phyllis Clark 12/23/24 11:23: Patient also verified he would have transportation for PICC and wound care at [facility] if needed. Addendum entered by Phyllis Clark 12/23/24 11:22: Per Nicky pending all necessary documentation wound vac would be covered at 100%. Once home IV antibiotics are known I will fax to [facility] for an out of pocket expense. Addendum entered by Phyllis Clark 12/23/24 08:53: Due to showing active insurance today patient information has been faxed to [facility] and [facility] regarding insurance coverage for at home IV antibiotics and wound VAC. I will continue to follow up w/ patient and hospital team. Original Note: I spoke w/ patient regarding plans once medically stable for discharge. Per POD patient will require IV antibiotics x 4 weeks + wound vac care. I explained to patient that due to being a self pay he would require private pay for wound vac and IV antibiotics but could be reimbursed if qualifying for [employer]. Robert Burrows is working w/ patient regarding Medicaid application. I also explained to patient that [facility] could provide a GFE to return for outpatient services. Patient stated he would not be able to afford either option at this time. I offered to refer to an LTAC and patient stated that he is not interested in this option either. Dr Flores will continue to follow up w/ patient regarding other options. Discharge date is unknown at this time. CM will continue to follow up.
--- NOTE | 2024-12-22 10:50 | IR_ITS ---
APPROVED REPORT Patient Location: Inpatient Storage Manager: Tanner Gardner, RT (R) PROCEDURES Right femoral arterial access Catheter placement in the left common iliac artery Left common iliac artery angiogram Left external iliac artery angiogram Left common femoral artery angiogram Catheter placement in the left superficial femoral artery Left superficial femoral artery selective angiogram with unilateral runoff Drug-coated balloon angioplasty to the left SFA and left popliteal artery INDICATION Afua claudication class , Subtotally occluded left popliteal artery left superficial femoral artery, Wet gangrene involving the left foot Informed consent was obtained prior to the procedure. COMPLICATIONS None Estimated Blood Loss: Less than 10 mls TECHNIQUE 1% lidocaine used anesthetize the right groin the right from artery is accessed via the Salinger technique and a 4 Ivorian sheath is placed in the right femoral artery. Under fluoroscopic guidance wire was passed into the abdominal aorta and a 4 Ivorian BLAS catheter was used to cannulate the left common iliac artery. Left common and external iliac artery with unilateral runoff to the left proximal aspect of the lower extremity. Following this the 4 Ivorian sheath was exchanged for a long 6 Ivorian destination sheath. Therapeutic Was administered giving a therapeutic ACT. The advantage wire was used to traverse the subtotal occlusion of the left popliteal artery. A 5 mm x 60 mm balloon was deployed at 10 sourav up and down the occlusion reducing the stenosis. Following this a 6 mm x 150 mm drug-coated balloon was deployed at 8 sourav for 3 minutes reducing the stenosis. Excellent intragraft results were obtained. At the end the procedure the apparatus was removed the sheath was taped into place patient was transferred to the postop putting in stable condition ANGIOGRAPHIC RESULTS Left common iliac artery has a 30% stenosis followed by an eccentric 20% stenosis. The left internal iliac artery is patent left external iliac artery is widely patent left common femoral artery has a concentric 40 to 50% calcified stenosis. The left profunda femoris artery is widely patent. The left superficial femoral artery has mild atheromatous plaque in the proximal mid and distal segment. At Issa's canal there is a focal calcified greater than 90% stenosis followed by additional 80% stenosis and 60% stenosis at the pretibial popliteal vessel. Distally the PT trunk has an eccentric 50% stenosis and then gives rise to an anterior and posterior tibialis artery as well as the peroneal artery. Due to patient's renal insufficiency runoff to the left foot was not performed IMPRESSION Critical left popliteal artery stenosis as described above Successful angioplasty followed by drug-coated balloon angioplasty of the left popliteal artery critical stenosis reduced to 10 to 20% as described above Three-vessel runoff below the knee in the proximal segment PLAN 1. Continue with dual antiplatelet therapy due to cardiac disease and stents 2. Supportive care 3. Patient has been completely revascularized involving the left lower extremity which will improve surgical healing 4. LDL less than 55 achieved high intensity statin 5. Recommend endocrinology evaluation so patient can be followed as an outpatient for diabetes management 6. LifeVest prior to discharge Electronically signed by : Dc Jane MD 12/22/2024 16:03:27
--- NOTE | 2024-12-22 10:54 | P.PN_ITS ---
Subjective Subjective Date: 12/22/24 Time: 10:00 Interval history: Left heart cath yesterday revealed severe multivessel disease-he had successful stenting of left main and LAD. Echo confirmed EF 20% with grade 3 diastolic dysfunction. He has wound VAC in place on left lower extremity. Renal function better today. He is agreeable to lower extremity angiogram. Exam Data for Last 24 hours Vital signs and Labs for Last 24 Hours: Temp Pulse Resp BP Pulse Ox O2 Del Method O2 Flow Rate 97.6 F 91 H 18 93/66 L 94 L Room Air 8 12/22/24 08:00 12/22/24 08:00 12/22/24 08:00 12/22/24 08:00 12/22/24 08:00 12/22/24 09:00 12/21/24 13:50 Laboratory Results - last 24 hr 12/21/24 05:43: Hemoglobin A1c 8.2 H, Free T4 0.99 12/21/24 05:49: Hemoglobin A1c 8.3 H 12/21/24 10:05: Chlamy pneumoniae PCR Not detected, Adenovirus (PCR) Not detected, B. pertussis DNA (PCR) Not detected, Coronavirus OC43 (PCR) Not detected, Coronavirus HKU1 (PCR) Not detected, Coronavirus 229E (PCR) Not detected, SARS-CoV-2 (PCR) Not detected, Coronavirus NL63 (PCR) Not detected, Human Metapneumovir PCR Not detected, Influenza A (H1) PCR Not detected, Influ A (H1N1/09) PCR Not detected, Influenza A (H3) PCR Not detected, Influenza Type A (PCR) Not detected, Influenza Type B (PCR) Not detected, M. pneumoniae (PCR) Not detected, Parainfluenza 1 (PCR) Not detected, Parainfluenza 2 (PCR) Not detected, Parainfluenza 3 (PCR) Not detected, Parainfluenza 4 (PCR) Not detected, RSV (PCR) Not detected, Entero/Rhino (PCR) Detected A 12/21/24 12:29: Activated Clotting Time 231 H* 12/21/24 17:03: POC Glucose 149 H 12/21/24 20:06: POC Glucose 210 H 12/22/24 05:53: WBC 10.6, RBC 3.30 L, Hgb 9.1 L, Hct 28.8 L, MCV 87.3, MCH 27.6, MCHC 31.6 L, RDW 15.0, Plt Count 251, MPV 10.4, Neut % (Auto) 79.0, Lymph % (Auto) 10.9, Dale % (Auto) 8.6, Eos % (Auto) 0.2, Baso % (Auto) 0.5, Neut # (Auto) 8.3 H, Lymph # (Auto) 1.2, Dale # (Auto) 0.9, Eos # (Auto) 0.0, Baso # (Auto) 0.1, ESR > 140 H, Sodium 132 L, Potassium 4.0, Chloride 107, Carbon Dioxide 18 L, Anion Gap 11.0, BUN 28 H, Creatinine 1.60 H, Estimated Creat Clear 71, Estimated GFR 46 L, Est GFR ( Amer) 56 L, Glucose 122 H, Calcium 8.0 L, C-Reactive Protein 202.2 H 12/22/24 05:59: POC Glucose 123 H I & O for Last 24 hours: Intake & Output 12/19/24 12/20/24 12/21/24 12/22/24 23:59 23:59 23:59 23:59 Intake Total 2358.75 / 2358.75 1050 / 1050 Output Total 0 / 0 750 / 750 Balance 2358.75 / 2358.75 300 / 300 Weight 201 lb 4 oz 200 lb Microbiology Reports for the Last 24 Hours: Microbiology 12/21/24 07:48 Toe,Left Fifth Gram Stain - Final 12/21/24 07:48 Toe,Left Fifth Wound Culture - Preliminary 12/21/24 13:46 Foot,Left - Wound Gram Stain - Final 12/21/24 13:46 Foot,Left - Wound Abscess Culture - Preliminary 12/21/24 13:46 Foot,Left - Wound Gram Stain - Final 12/21/24 13:46 Foot,Left - Wound Surgical Biopsy Culture - Preliminary 12/21/24 13:46 Foot,Left - Left Bone Culture - Preliminary Constitutional Constitutional: no acute distress and cooperative *Routine HEENT Exam Eye: Present PERRL *Routine Respiratory Exam Respiratory: Present CTA bilaterally; Absent accessory muscle use, wheezes or crackles *Routine Cardiovascular Exam Cardiovascular: Present RRR, Normal S1 and Normal S2; Absent murmur, gallop or rubs *Routine Abdominal Exam Abdominal: Present soft; Absent tenderness *Routine Extremities Exam Extremities: Present pulses intact; Absent cyanosis or edema Comments: Left lower extremity wound VAC and bandages in place-skin is visible [place] high and above which is erythematous *Routine Skin Exam Skin: Present intact; Absent erythema or wounds *Routine Neurological Exam Neurological: Present alert and oriented X3 Routine Psychiatric Exam Psychiatric: Present cooperative Progress Note: A&P Assessment and plan (1) Peripheral arterial disease: Status: Acute (2) Severe sepsis: Status: Acute (3) Gangrene of toe of left foot: Status: Acute (4) Gas gangrene: Status: Acute (5) Cellulitis of left foot: Status: Acute (6) CODY (acute kidney injury): Status: Acute (7) Fracture of phalanx of left great toe: Status: Acute (8) Diabetes mellitus, type 2: Status: Acute (9) Tobacco use disorder: Status: Acute (10) Ulcer of left fifth toe due to diabetes mellitus: Status: Acute (11) Septic arthritis of foot: Status: Acute (12) Osteomyelitis of toe of left foot: Status: Acute (13) History of partial ray amputation of fifth toe of left foot: Problem details: Left foot gas gangrene, Left foot cellulitis, Diabetic foot infection, Left fifth MTP joint septic arthritis versus osteomyelitis. S/P sx 12/21/24- Left foot I&D (incision and drainage),Wide excisional debridement of nonviable soft tissue and bone, Partial 5th ray amputation, Application of wound vac Status: Acute (14) NSTEMI (non-ST elevated myocardial infarction): Status: Acute Assessment and Plan Assessment and Plan for All Diagnoses:: NSTEMI - Trop 6, EF 20-25% (prelim), diffuse ST depression - new dx this admission, no prior CV workup per patient - poorly controlled DM for 30 years, tob use, extensive PAD - Cont DAPT, Lovenox, Statin, BB. No ARB/ARNI due to low BP. - 12/22: [facility] yesterday - mv-CAD, stents to L-main and LAD. LCX long 90% not amenable to revascularization. [employer] HFrEF - new dx this admission with severely reduced EF on prelim ECHO, ProBNP 8k, elevated Trop, and diffuse ischemic changes on EKG - does not appear vol overloaded on exam or CXR - Cont coreg, will hold on other HF GDMT as he appears euvolemic and currently septic - 12/22: Remains euvolemic. Unable to uptitrate GDMT due to hypotension. Patient declines LifeVest. States he wore one previously many years ago-details of this are unclear since he states he has never had cardiac workup. PAD with LLE Gangrene - known hx of PAD with RLE 5th metatarsal amputation and prior BLE angioplasty in [place] - severe gas gangrene LLE 5th metatarsal here - Podiatry planning intervention, likely I/D bedside today and possible surgical debridement and/or amputation later - MARY here - R MARY 0.71, L MARY 0.62, extesnive atherosclerotic occlusive disease bilaterally - 12/22: Left lower extremity wound-vac in place by podiatry. Creatinine improved to 1.6 today. He is agreeable to lower extremity runoff with possible angioplasty. Severe Sepsis secondary to LLE Gangrene - WBC 12.8, ESR 60, CRP 231, ProBNP 8k, Trop 6, HR 120s, TSH 25, O2 92% BP 118/74 - broad spectrum antibiotics per Hospitalist, wound care per Podiatry - 12/22: improving, nml WBC, afebrile, on antibiotics DM-II, IDDM - poorly controlled for 30 years per patient - A1C here is 8, was recently 13 per patient - glucose control per primary service - consider SGLT-2 and GLP-1 later CKD-III - unknown baseline, presumed CKD III from Diabetic Nephropathy - dose adjust meds, monitor daily labs - 12/22: stable/improving Cr 1.6 Sinus Tachycardia - 120s - likely secondary to sepsis, HF, NSTEMI - LLE is also erythematous though, check Venous Duplex with risk of DVT. Already on Lovenox. Check ECHO for RV strain. - 12/22: resolved 12/22: BLE runoff w/angioplasty today. Declines LifeVest. Cannot uptitrate GDMT due to hypotension. Pt considering DC plans (toe amputations vs wound vac with pic line antibiotics). Remains complex and high risk of further decline and for readmission.
[2024-12-22 12:03] LABS: POC Glucose,Bedside 160 gm/dL (70-110)
[2024-12-22] MEDS: 0.9 % SODIUM CHLORIDE 500 ML 25 ML IV (15:18)
[2024-12-22] MEDS: LIDOCAINE 1% 10ML MDV 10 ML IJ (15:18)
[2024-12-22] MEDS: HEPARIN 1,000 UNITS/500ML NS (CATH LAB) 3000 UNIT IV (15:18)
[2024-12-22] MEDS: MIDAZOLAM HCL 1MG/ML 5ML VIAL 1 MG IV (15:58)
[2024-12-22] MEDS: FENTANYL 100MCG/2ML VIAL 50 MCG IV (15:58)
[2024-12-22] MEDS: HEPARIN 1,000 UNITS/ML 10ML VIAL (CATH LAB) 5000 UNIT IV (15:59)
[2024-12-22] MEDS: IOPAMIDOL-370 (76%);100ML BOTTLE 70 ML IV (16:16)
[2024-12-22 16:19] LABS: CATHL Activated Clotting Time 235 SEC (74-125)
--- NOTE | 2024-12-22 17:57 | PC.NURSE ---
pt a &ox4. runoff this shift- 1 balloon placed to L SFA. vss. tolerating RA. podiatry surgery planned for tomorrow. consent gotten by NIKKI SOSA. Will be NPO at midnight. no needs at this time. R femoral site C/D/I. call light within reach
[2024-12-22] MEDS: VANCOMYCIN/WATER FOR INJ (PEG) 1.75 GM/350 ML PIGGYBACK IV (18:02)
[2024-12-22] MEDS: ATORVASTATIN 40MG TABLET 80 MG PO (22:06)
[2024-12-22] MEDS: PANTOPRAZOLE 40MG TABLET 40 MG PO (22:06)
[2024-12-22] MEDS: INSULIN GLARGINE 100 UNITS/ML 3ML FLEXPEN 10 UNIT SUBCUT (22:06)
--- NOTE | 2024-12-22 22:11 | EXP.PN ---
Subjective *Date: 12/27/24 *Time: 19:02 Interval history: Patient doing okay today, feeling anxious about TMA tomorrow. Understand it needs to be done due to extent of infection. Otherwise denies chest pain, shortness of breath. Exam Data for Last 24 hours Vital signs and Labs for Last 24 Hours: Temp Pulse Resp BP Pulse Ox O2 Del Method O2 Flow Rate 98.4 F 101 H 17 109/80 L 93 L Room Air 8 12/22/24 19:30 12/22/24 19:30 12/22/24 19:30 12/22/24 19:30 12/22/24 19:30 12/22/24 21:00 12/21/24 13:50 Laboratory Results - last 24 hr 12/22/24 05:53: WBC 10.6, RBC 3.30 L, Hgb 9.1 L, Hct 28.8 L, MCV 87.3, MCH 27.6, MCHC 31.6 L, RDW 15.0, Plt Count 251, MPV 10.4, Neut % (Auto) 79.0, Lymph % (Auto) 10.9, [place] % (Auto) 8.6, Eos % (Auto) 0.2, Baso % (Auto) 0.5, Neut # (Auto) 8.3 H, Lymph # (Auto) 1.2, [place] # (Auto) 0.9, Eos # (Auto) 0.0, Baso # (Auto) 0.1, ESR > 140 H, Sodium 132 L, Potassium 4.0, Chloride 107, Carbon Dioxide 18 L, Anion Gap 11.0, BUN 28 H, Creatinine 1.60 H, Estimated Creat Clear 71, Estimated GFR 46 L, Est GFR ( Amer) 56 L, Glucose 122 H, Calcium 8.0 L, C-Reactive Protein 202.2 H 12/22/24 05:59: POC Glucose 123 H 12/22/24 11:51: POC Glucose 160 H 12/22/24 15:55: Activated Clotting Time 235 H* I & O for Last 24 hours: Intake & Output 12/19/24 12/20/24 12/21/24 12/22/24 23:59 23:59 23:59 23:59 Intake Total 2358.75 / 2358.75 3000 / 3000 Output Total 0 / 0 750 / 750 Balance 2358.75 / 2358.75 2250 / 2250 Weight 91.285 kg 90.718 kg Microbiology Reports for the Last 24 Hours: Microbiology 12/21/24 07:48 Toe,Left Fifth Gram Stain - Final 12/21/24 07:48 Toe,Left Fifth Wound Culture - Preliminary 12/21/24 13:46 Foot,Left - Wound Gram Stain - Final 12/21/24 13:46 Foot,Left - Wound Abscess Culture - Preliminary 12/21/24 13:46 Foot,Left - Wound Gram Stain - Final 12/21/24 13:46 Foot,Left - Wound Surgical Biopsy Culture - Preliminary Constitutional Constitutional: no acute distress *Routine HEENT Exam Head: Present normocephalic Eye: Present EOMI and PERRL ENT: Present mucous membranes moist *Routine Neck Exam Neck: Present supple; Absent lymphadenopathy *Routine Respiratory Exam Respiratory: Present crackles; Absent CTA bilaterally *Routine Cardiovascular Exam Cardiovascular: Present RRR *Routine Abdominal Exam Abdominal: Present soft and normoactive bowel sounds; Absent tenderness *Routine Extremities Exam Extremities: Present edema; Absent cyanosis or clubbing Comments: Left leg and surgical boot *Routine Skin Exam Skin: Present warm; Absent rash *Routine Neurological Exam Neurological: Present alert and oriented X3 Assessment and Plan *Assessment and plan (1) Septic arthritis of foot: Status: Acute Qualifiers: Laterality: left Septic arthritis organism: due to unspecified organism Qualified Code(s): M00.9 - Pyogenic arthritis, unspecified Category: Medical Code(s): M00.9 - Pyogenic arthritis, unspecified (2) Peripheral arterial disease: Status: Acute Category: Medical Code(s): I73.9 - Peripheral vascular disease, unspecified (3) Gas gangrene: Status: Acute Category: Medical Code(s): A48.0 - Gas gangrene (4) Gangrene of toe of left foot: Status: Acute Category: Medical Code(s): I96 - Gangrene, not elsewhere classified (5) Ulcer of left fifth toe due to diabetes mellitus: Status: Acute Category: Medical Code(s): E11.621 - Type 2 diabetes mellitus with foot ulcer; L97.529 - Non-pressure chronic ulcer of other part of left foot with unspecified severity (6) Chronic kidney disease: Status: Acute Category: Medical Code(s): N18.9 - Chronic kidney disease, unspecified (7) HFrEF (heart failure with reduced ejection fraction): Status: Acute Category: Medical Code(s): I50.20 - Unspecified systolic (congestive) heart failure (8) NSTEMI (non-ST elevated myocardial infarction): Status: Acute Category: Medical Code(s): I21.4 - Non-ST elevation (NSTEMI) myocardial infarction (9) CAD (coronary artery disease): Status: Acute Category: Medical Code(s): I25.10 - Atherosclerotic heart disease of [place] coronary artery without angina pectoris Plan Gerardo Moss is a 49-year-old male with a medical history of current smoker, PAD s/p angioplasty, diabetes with bilateral diabetic foot ulcers, HFrEF who presented to [facility] with left lower extremity cellulitis and was incidentally found to have a NSTEMI and was transferred here for further evaluation and management. #Sepsis #Left fifth toe infected diabetic foot ulcer #Extensive PAD ? Presented with worsening DFU with gas gangrene in the lateral left fifth toe. ? Podiatry consulted, planning for left foot TMA tomorrow due to extent of infection. ? Continue vancomycin, Zosyn 3.375 g every 6 hours. ? Bilateral lower extremity arterial Doppler revealed extensive PAD bilaterally. Patient is a smoker, diabetic. ? Cardiology consulted, s/p angioplasty to critical left popliteal artery stenosis. Recommended DAPT. ? Continue aspirin 81 mg, prasugrel 10 mg, atorvastatin 80 mg. ? Follow-up morning CBC. #NSTEMI #Acute on chronic HFrEF ? No chest pain, shortness of breath but troponin peaked at 3.85, since downtrended. EKG without acute ischemic changes. ? Cardiology consulted, s/p PCI on 12/21/2024 showing triple-vessel disease with DILMA x 2 to proximal LAD. LCx nonamenable to stenting, will medically manage. ? ECHO 12/21/2024 shows LVEF 20% with grade 3 diastolic dysfunction. ? Continue aspirin 81 mg, started prasugrel 10 mg, continue atorvastatin 80 mg, carvedilol 12.5 mg twice daily. Will hold further GDMT in the setting of sepsis. ? Unfortunately, patient does not have insurance and does not qualify for Medicaid. Does not want LifeVest at this time due to cost. ? Continuous cardiac telemetry. ? Follow-up morning CMP, magnesium. #Type 2 diabetes ? Hemoglobin A1c 8.3%. Likely contributing to CAD/PAD. ? LDSSI, ACHS glucose checks. Started Lantus 10 units nightly, adjust based on SSI needs. ? Consider starting SGLTi before discharge in the setting of HFrEF. #Suspected CKD stage IIIa ? Creatinine 1.8, GFR 40. No comparison labs at this time, follow-up morning RFT's. #Current smoker ? Nicotine patch as needed. Full code DVT prophylaxis: Lovenox 40 mg
[2024-12-22 22:13] LABS: POC Glucose,Bedside 117 gm/dL (70-110)
[2024-12-23] VITALS (16 sets, daily range): BP systolic 90–114; BP diastolic 50–77; PULSE 74–110; RESP 16–18; TEMP 36.1–36.9; O2SAT 91–98; BMI 29.7
[2024-12-23] MEDS: PIPERCILLIN/TAZO 3.375 GM in 0.9 % SODIUM CHLORIDE 50 ML IV ×4 (05:37→23:10)
[2024-12-23] MEDS: LEVOTHYROXINE 100MCG (0.1MG) TAB 100 MCG PO (06:08)
[2024-12-23 06:17] LABS: POC Glucose,Bedside 159 gm/dL (70-110)
[2024-12-23 06:19] LABS: Hematocrit 30.5 % (42.0-52.0); Hemoglobin 9.6 g/dL (14.1-18.0); Immature Granulocytes % 0.4 %; Mean Corpuscular HGB Conc 31.5 g/dL (31.8-35.4); Mean Corpuscular Hemoglobin 27.7 pg (27.0-31.2); Mean Corpuscular Volume 87.9 fl (80-94); Nucleated Red Blood Cells % 0 %; Platelet Count 280 K/mm3 (142-424); Red Blood Count 3.47 M/mm3 (4.60-6.20); Red Cell Distribution Width-SD 49.0 fL; White Blood Count 9.9 K/mm3 (4.8-10.8)
[2024-12-23 06:34] LABS: Chloride 105 mmol/L (98-107); Potassium 4.0 mmoL/L (3.5-5.1); Sodium 129 mmol/L (136-145)
[2024-12-23 06:37] LABS: Anion Gap 9.0 mEq/L (5-15); Blood Urea Nitrogen 25 mg/dl (9-20); Calcium 8.0 mg/dl (8.4-10.2); Carbon Dioxide 19 mmol/L (22.0-30.0); Creatinine Clearance Estimated 74 mL/min (50-200); Creatinine,Serum 1.60 mg/dl (0.66-1.25); Estimated Glomerular Filt Rate 46 ml/min (>60); GFR (African American) 56 ML/MIN (>60); Glucose 144 mg/dl (74-100)
--- NOTE | 2024-12-23 07:00 | P.PN_ITS ---
Subjective *Date: 12/23/24 *Time: 07:00 Interval history: Patient had a better night, was able to wash off and eat and slept some. Wound vac in place, small amount of drainage in the canister. Plan to remove vac today, will leave off until his surgery today. Ortho Exam (Inpt) Vital signs and Labs for Last 24 Hours: Temp Pulse Resp BP Pulse Ox O2 Del Method O2 Flow Rate 97.7 F 100 H 16 110/69 91 L Room Air 8 12/23/24 04:00 12/23/24 04:00 12/23/24 04:00 12/23/24 04:00 12/23/24 04:00 12/23/24 05:00 12/21/24 13:50 Laboratory Results - last 24 hr 12/22/24 05:53: ESR > 140 H, C-Reactive Protein 202.2 H 12/22/24 11:51: POC Glucose 160 H 12/22/24 15:55: Activated Clotting Time 235 H* 12/22/24 22:02: POC Glucose 117 H 12/23/24 06:04: WBC 9.9, RBC 3.47 L, Hgb 9.6 L, Hct 30.5 L, MCV 87.9, MCH 27.7, MCHC 31.5 L, RDW 15.0, Plt Count 280, MPV 10.5 H, Neut % (Auto) 78.1, Lymph % (Auto) 12.3, Gates % (Auto) 8.2, Eos % (Auto) 0.5, Baso % (Auto) 0.5, Neut # (Auto) 7.8, Lymph # (Auto) 1.2, Gates # (Auto) 0.8, Eos # (Auto) 0.1, Baso # (Auto) 0.1, ESR > 140 H, Sodium 129 L, Potassium 4.0, Chloride 105, Carbon Dioxide 19 L, Anion Gap 9.0, BUN 25 H, Creatinine 1.60 H, Estimated Creat Clear 74, Estimated GFR 46 L, Est GFR ( Amer) 56 L, Glucose 144 H, Calcium 8.0 L 12/23/24 06:06: POC Glucose 159 H I & O for Labs for Last 24 Hours: Intake & Output 12/20/24 12/21/24 12/22/24 12/23/24 23:59 23:59 23:59 23:59 Intake Total 2358.75 / 2358.75 3050 / 3050 550 / 550 Output Total 0 / 0 1050 / 1050 500 / 500 Balance 2358.75 / 2358.75 1999 50 / 50 Weight 201 lb 4 oz 200 lb 207 lb 11.2 oz Microbiology Reports for the Last 24 Hours: Microbiology 12/21/24 07:48 Toe,Left Fifth Gram Stain - Final 12/21/24 07:48 Toe,Left Fifth Wound Culture - Preliminary 12/21/24 13:46 Foot,Left - Wound Gram Stain - Final 12/21/24 13:46 Foot,Left - Wound Abscess Culture - Preliminary 12/21/24 13:46 Foot,Left - Wound Gram Stain - Final 12/21/24 13:46 Foot,Left - Wound Surgical Biopsy Culture - Preliminary Constitutional: Present no acute distress and cooperative Head: Present normocephalic Eyes: Present as per HPI Neck: Present normal inspection Respiratory: Present normal respiratory effort Cardiac: Present posterior tibial pulses present and pedal pulses present Comment:: B/L DP/PT weakly palpable Comments:: deferred Rectal (male): Present deferred (male): Present deferred Extremities: Present tenderness (tenderness noted to surgical Left foot. ), nor mal capillary refill, edema (Left lower leg had some swelling this morning s/p runoff yesterday. ) and other (S/P 12/21/24- Left foot I&D (incision and drainage), Wide excisional debridement of nonviable soft tissue and bone, Partial 5th ray amputation, Application of wound vac) Skin: Present normal turgor and wounds Comment:: Left foot,Partial 5th ray amputation w/wound vac in place Neuro: Present Motor Function Intact, Sensory Function Intact, oriented x 3 and tone normal Comment:: Decreased sensation noted to b/l lower extremities. Ankle: bilateral: normal inspection Feet/Toes: left: amputation (Partial 5th ray amputation, Application of wound vac, Hx of Right 5th partial ray amp. ), left: swelling (left foot cellulitis improving; L lower leg edema ), left: tenderness (Left surgical press tender/pain noted) and left: wound (S/P Left Partial 5th ray amputation w/ wound vac ) and bilateral: hammer toe, bilateral: nail abnormalities (thick, discolored) and bilateral: onychomycosis (suspected ) Assessment and Plan *Assessment and plan (1) Severe sepsis: Status: Acute Category: Medical Code(s): A41.9 - Sepsis, unspecified organism; R65.20 - Severe sepsis without septic shock (2) Cellulitis of left foot: Status: Acute Category: Medical Code(s): L03.116 - Cellulitis of left lower limb (3) CODY (acute kidney injury): Status: Acute Category: Medical Code(s): N17.9 - Acute kidney failure, unspecified (4) Fracture of phalanx of left great toe: Status: Acute Qualifiers: Encounter type: initial encounter Fracture alignment: nondisplaced Fracture type: closed Phalanx: distal Qualified Code(s): S92.425A - Nondisplaced fracture of distal phalanx of left great toe, initial encounter for closed fracture Category: Medical Code(s): S92.402A - Displaced unspecified fracture of left great toe, initial encounter for closed fracture (5) Diabetes mellitus, type 2: Status: Acute Qualifiers: Diabetes mellitus complication detail: with other skin ulcer Diabetes mellitus complication status: with skin complications Diabetes mellitus long wall shear operator insulin use: without long wall shear operator use Qualified Code(s): E11.622 - Type 2 diabetes mellitus with other skin ulcer Category: Medical Code(s): E11.9 - Type 2 diabetes mellitus without complications (6) Tobacco use disorder: Status: Acute Category: Medical Code(s): F17.200 - Nicotine dependence, unspecified, uncomplicated (7) Ulcer of left fifth toe due to diabetes mellitus: Status: Acute Category: Medical Code(s): E11.621 - Type 2 diabetes mellitus with foot ulcer; L97.529 - Non-pressure chronic ulcer of other part of left foot with unspecified severity (8) Gangrene of toe of left foot: Status: Acute Category: Medical Code(s): I96 - Gangrene, not elsewhere classified (9) Gas gangrene: Status: Acute Category: Medical Code(s): A48.0 - Gas gangrene (10) Peripheral arterial disease: Status: Acute Category: Medical Code(s): I73.9 - Peripheral vascular disease, unspecified (11) Septic arthritis of foot: Status: Acute Qualifiers: Laterality: left Septic arthritis organism: due to unspecified organism Qualified Code(s): M00.9 - Pyogenic arthritis, unspecified Category: Medical Code(s): M00.9 - Pyogenic arthritis, unspecified (12) Osteomyelitis of toe of left foot: Status: Acute Category: Medical Code(s): M86.9 - Osteomyelitis, unspecified (13) 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 S/P sx 12/21/24- Left foot I&D (incision and drainage),Wide excisional debridement of nonviable soft tissue and bone, Partial 5th ray amputation, Application of wound vac Status: Acute Category: Surgical Code(s): Z89.422 - Acquired absence of other left toe(s) Plan 12/21/24: Podiatry consult Left 5th toe, lateral foot DFU, gas gangrene: -Keep Patient NPO;Plan for surgery this afternoon -Bilateral foot x-rays and MARY's obtained, reviewed -Xrays reviewed by Dr. Flores -Wound culture obtained from Left 5th toe/lateral foot ulcer drainage -Left 5th toe, debrided, see above for measurements -Betadine soaked gauze, DSD,kerlix applied -Cardiology has been consulted as well, will plan surgery around this service -All order per Dr. Mark Flores: -Patient seen and evaluated with LOFT RIGGER. -Patient new to Podiatry, moved 2 months ago from [place]. -Employed at [employer]. -No family in [facility], lives with friend in [place]. -Transferred from [place] for left foot cellulitis, abnormal EKG. -Reports hx R 5th toe amp, 5th met amp with RLE run off (denies stents). -I independently reviewed bilateral foot x-rays. Right fifth metatarsal prior amputation with no new findings concerning for infection. Left foot has significant swelling to the fifth MPJ with soft tissue air/gas and concern for septic arthritis versus osteomyelitis of joint. -I independently reviewed b/l LE ABIs. Abnormal ABIs R MARY PT 0.71 (91), DP 0.64 (83), TBI 0.45 (58), L MARY PT 0.58 (75), DP 0.62 (80), TBI 0.51 (66). MARY R 0.71, L 0.62. -All questions answered. Patient verbalized understanding and agreed to proceed. -Plan for surgery: pending cardiac clearance (Dr Jane planning for heart cath today) -NPO now -May proceed with left foot surgery for I&D (unless he gets transferred for cardiac issues then hold on Podiatry surgery) -Will need run off to access b/l LE flow, aid in healing of left foot wound/infection -Will likely need staged left foot I&D, wash out, debridement with 5th partial ray amputation and possible wound vac PRE-OP AMPUTATION/INFECTION: Patient is a 49 DM male who presents for left foot DFU and gas gangrene. Radiographs of the feet were reviewed and discussed with the patient. Left foot x-rays show significant swelling with concern for soft tissue air/gas and concern for septic arthritis versus osteomyelitis at the fifth MTP joint. Abnormal ABIs b/l: MARY R 0.71, L 0.62. Discussed conservative versus surgical treatment options. Conservative treatment options include local wound care, oral and IV antibiotics, change in shoe wear, taping/padding, and off-loading. Discussed that patient would benefit from a wider and deeper shoe wear to accommodate the deformity outpatient nursing home. We discussed surgical intervention for I&D of the gas gangrene, debridement of non-viable soft tissue and bone with 5th toe/partial metatarsal amputation. Discussed this may be a staged surgery depending on the extent of the infection. Patient may need the wound site left open for packing or application of a wound VAC. He may need surgery in the future for further washout and partial versus complete wound closure. Patient understands that there is a chance that the toes can migrate to fill the gap or the foot may change shape after surgery. Patient also understands that they could have wound healing complications including delayed healing and infection. He is at higher risk due to smoking (half pack daily), PAD, diabetes (Ha1c 8.3%), history of DFU, history of osteo with right fifth partial ray amputation. We discussed that if the wound does not heal, it is possible that they may need a more proximal amputation and could result in further loss of digits, loss of partial foot or loss of leg. We discussed the risks and benefits in great detail. Other surgical risks include: prolonged pain and swelling, further infection requiring oral or IV antibiotics, delay in healing of soft tissue or bone, nerve or blood vessel damage, CRPS/RSD, DVT/PE, anesthesia complications including TX, and even . All questions answered. Patient verbalized understanding. Verabl and written consent obtained. Discussed case with cardiology and anesthesia. 12/22/24: POD#1 Sx. 12/21/24 S/P Left foot I&D (incision and drainage), Wide excisional debridement of nonviable soft tissue and bone, Partial 5th ray amputation, Application of wound vac -Labs reviewed: WBC 10.6 (12.8), ESR >140 (60) glucose 122, CRP 202.2 (231.3)- trending down some -Patient states had pain in Left foot in the night, dressings had to be reinforced due to excessive drainage. -Bandage removed to view the site, less swelling noted, blood under clear pump dressing, but no active draining noted. Bloody drainage noted in tubing and vac canister, Vac appears to be working properly. I reapplied new dressings, gauze, kerlix and Tyson wrap to the site. -Patient is to maintain dressing and vac clean dry and intact. Reinforce as needed. -Left foot wound vac @125mmHg medium continuous. -Continue PICC, IV antibiotics per hospitalist team: Howard Prince. -Will need post op shoe/short fracture boot, NWB to Left foot w/walker. -We have a short fracture boot to donate to him in the office (he wears 9.5-10). Will have staff take this up to him -Ok to put heel down in post op shoe/fx boot for transfers. -PT to evaluate if he can use walker or crutches. -[facility] mgmt [facility] (may need PICC, IV abx due to high risk for recurrent infection, uncontrolled DM, Osteomyelitis; hx 5th partial ray amputation w/ PICC IV abx x4 weeks). -Plan for Podiatry to do another dressing/vac check in the morning. -Will make patient NPO again after midnight (Friday) if site needs to go back to OR for possible wash-out if needed. -All order per Dr. Flores Specimens:: Pending Micro: Left foot wound culture, tissue culture, 5th met bone culture Path: Left foot tissue, 5th toe bone, 5th met bone proximal margin 12/23/24: POD#2 Sx. 12/21/24 S/P Left foot I&D (incision and drainage), Wide excisional debridement of nonviable soft tissue and bone, Partial 5th ray amputation, Application of wound vac -Patient's wound vac was removed today to visualize the wound, left off until he has surgery this afternoon. -Clear liquid tray this morning then NPO after -Plan for surgery this afternoon, I&D of non-viable soft tissue and bone, TMA with possible [place]-drain placement -Continue PICC, IV antibiotics per hospitalist team: Howard Prince. -Will need post op shoe/short fracture boot, NWB to Left foot w/walker. -We have a short fracture boot to donate to him in the office (he wears 9.5-10). Will have staff take this up to him -Ok to put heel down in post op shoe/fx boot for transfers. -PT to evaluate if he can use walker or crutches. -Case mgmt team[facility] SNF (may need PICC, IV abx due to high risk for recurrent infection, uncontrolled DM, Osteomyelitis; hx 5th partial ray amputati on w/ PICC IV abx x4 weeks). -All order per Dr. Flores Specimens:: Pending Micro: Left foot wound culture, tissue culture, 5th met bone culture- showing Rare Gram Neg rods, Rare Gram Pos. Cocci Path: Left foot tissue, 5th toe bone, 5th met bone proximal margin-preliminary showing Gram stain: Rare gram positive Bacilli
[2024-12-23 08:42] LABS: C-Reactive Protein 226.2 mg/L (0-4)
[2024-12-23] MEDS: ASPIRIN EC 81MG TABLET 81 MG PO (09:00)
[2024-12-23] MEDS: CARVEDILOL 12.5MG TABLET 12.5 MG PO ×2 (09:00→20:12)
[2024-12-23] MEDS: PRASUGREL 10MG TAB 10 MG PO (09:00)
[2024-12-23] MEDS: DOCUSATE SODIUM 250MG CAPSULE 250 MG PO (09:00)
--- NOTE | 2024-12-23 11:50 | P.PN_ITS ---
Subjective Subjective Date: 12/23/24 Time: 09:00 Interval history: Successful stenting of left popliteal artery yesterday. No events overnight Patient reports some swelling left lower extremity today but not painful. Vital stable Exam Data for Last 24 hours Vital signs and Labs for Last 24 Hours: Temp Pulse Resp BP Pulse Ox O2 Del Method O2 Flow Rate 97.6 F 83 18 90/68 L 98 Room Air 8 12/23/24 11:34 12/23/24 11:34 12/23/24 11:34 12/23/24 11:34 12/23/24 11:34 12/23/24 11:34 12/21/24 13:50 Laboratory Results - last 24 hr 12/22/24 11:51: POC Glucose 160 H 12/22/24 15:55: Activated Clotting Time 235 H* 12/22/24 22:02: POC Glucose 117 H 12/23/24 06:04: WBC 9.9, RBC 3.47 L, Hgb 9.6 L, Hct 30.5 L, MCV 87.9, MCH 27.7, MCHC 31.5 L, RDW 15.0, Plt Count 280, MPV 10.5 H, Neut % (Auto) 78.1, Lymph % (Auto) 12.3, Centre % (Auto) 8.2, Eos % (Auto) 0.5, Baso % (Auto) 0.5, Neut # (Auto) 7.8, Lymph # (Auto) 1.2, Centre # (Auto) 0.8, Eos # (Auto) 0.1, Baso # (Auto) 0.1, ESR > 140 H, Sodium 129 L, Potassium 4.0, Chloride 105, Carbon Dioxide 19 L, Anion Gap 9.0, BUN 25 H, Creatinine 1.60 H, Estimated Creat Clear 74, Estimated GFR 46 L, Est GFR ( Amer) 56 L, Glucose 144 H, Calcium 8.0 L, C-Reactive Protein 226.2 H 12/23/24 06:06: POC Glucose 159 H I & O for Last 24 hours: Intake & Output 12/20/24 12/21/24 12/22/24 12/23/24 23:59 23:59 23:59 23:59 Intake Total 2358.75 / 2358.75 3050 / 3550 1030 / 1030 Output Total 0 / 0 1050 / 1050 650 / 650 Balance 2358.75 / 2358.75 2000 / 2500 380 / 380 Weight 201 lb 4 oz 200 lb 207 lb 11.2 oz Microbiology Reports for the Last 24 Hours: Microbiology 12/21/24 13:46 Foot,Left - Left Bone Culture - Preliminary 12/21/24 13:46 Foot,Left - Wound Gram Stain - Final 12/21/24 13:46 Foot,Left - Wound Surgical Biopsy Culture - Preliminary Gram Negative Rods Gram Negative Rods#2 12/21/24 13:46 Foot,Left - Wound Gram Stain - Final 12/21/24 13:46 Foot,Left - Wound Abscess Culture - Preliminary 12/21/24 07:48 Toe,Left Fifth Gram Stain - Final 12/21/24 07:48 Toe,Left Fifth Wound Culture - Preliminary Gram Negative Rods Gram Negative Rods#2 12/21/24 13:46 Foot,Left - Wound Gram Stain - Final 12/21/24 13:46 Foot,Left - Wound Gram Stain Result 1 - Final 12/21/24 13:46 Foot,Left - Wound Gram Stain Result 2 - Final Constitutional Constitutional: no acute distress and cooperative *Routine HEENT Exam Eye: Present PERRL *Routine Respiratory Exam Respiratory: Present CTA bilaterally; Absent accessory muscle use, wheezes or crackles *Routine Cardiovascular Exam Cardiovascular: Present RRR, Normal S1 and Normal S2; Absent murmur, gallop or rubs *Routine Abdominal Exam Abdominal: Present soft; Absent tenderness *Routine Extremities Exam Extremities: Present pulses intact; Absent cyanosis or edema Comments: Left lower extremity slightly swollen today compared with yesterday from reperfusion edema. Wound is wrapped. *Routine Skin Exam Skin: Present intact; Absent erythema or wounds *Routine Neurological Exam Neurological: Present alert and oriented X3 Routine Psychiatric Exam Psychiatric: Present cooperative Progress Note: A&P Assessment and plan (1) Severe sepsis: Status: Acute (2) Cellulitis of left foot: Status: Acute (3) CODY (acute kidney injury): Status: Acute (4) Fracture of phalanx of left great toe: Status: Acute (5) Diabetes mellitus, type 2: Status: Acute (6) Tobacco use disorder: Status: Acute (7) Ulcer of left fifth toe due to diabetes mellitus: Status: Acute (8) Gangrene of toe of left foot: Status: Acute (9) Gas gangrene: Status: Acute (10) Peripheral arterial disease: Status: Acute (11) Septic arthritis of foot: Status: Acute (12) Osteomyelitis of toe of left foot: Status: Acute (13) History of partial ray amputation of fifth toe of left foot: Problem details: Left foot gas gangrene, Left foot cellulitis, Diabetic foot infection, Left fifth MTP joint septic arthritis versus osteomyelitis. S/P sx 12/21/24- Left foot I&D (incision and drainage),Wide excisional debridement of nonviable soft tissue and bone, Partial 5th ray amputation, Application of wound vac Status: Acute (14) NSTEMI (non-ST elevated myocardial infarction): Status: Acute Assessment and Plan Assessment and Plan for All Diagnoses:: NSTEMI - Trop 6, EF 20-25% (prelim), diffuse ST depression - new dx this admission, no prior CV workup per patient - poorly controlled DM for 30 years, tob use, extensive PAD - Cont DAPT, Lovenox, Statin, BB. No ARB/ARNI due to low BP. - 12/22: [facility] yesterday - mv-CAD, stents to L-main and LAD. LCX long 90% not amenable to revascularization. [employer] - 12/23: No change. Cont med therapy. HFrEF - new dx this admission with severely reduced EF on prelim ECHO, ProBNP 8k, elevated Trop, and diffuse ischemic changes on EKG - does not appear vol overloaded on exam or CXR - Cont coreg, will hold on other HF GDMT as he appears euvolemic and currently septic - 12/22: Remains euvolemic. Unable to uptitrate GDMT due to hypotension. Patient declines LifeVest. States he wore one previously many years ago-details of this are unclear since he states he has never had cardiac workup. - 12/23: Mild LLE reperfusion edema otherwise euvolemic. GDMT limited due to hypotension. Patient declines LifeVest. Continue to monitor. PAD with LLE Gangrene - known hx of PAD with RLE 5th metatarsal amputation and prior BLE angioplasty in [place] - severe gas gangrene LLE 5th metatarsal here - Podiatry planning intervention, likely I/D bedside today and possible surgical debridement and/or amputation later - MARY here - R MARY 0.71, L MARY 0.62, extesnive atherosclerotic occlusive disease bilaterally - 12/22: Left lower extremity wound-vac in place by podiatry. Creatinine improved to 1.6 today. He is agreeable to lower extremity runoff with possible angioplasty. - 12/23: Successful DC PA of critical left popliteal artery yesterday. Mild reperfusion edema today. Continue med therapy. Wound care and antibiotics per primary team and podiatry. Severe Sepsis secondary to LLE Gangrene - WBC 12.8, ESR 60, CRP 231, ProBNP 8k, Trop 6, HR 120s, TSH 25, O2 92% BP 118/74 - broad spectrum antibiotics per Hospitalist, wound care per Podiatry - 12/22: improving, nml WBC, afebrile, on antibiotics - 12/23: stable DM-II, IDDM - poorly controlled for 30 years per patient - A1C here is 8, was recently 13 per patient - glucose control per primary service - consider SGLT-2 and GLP-1 later CKD-III - unknown baseline, presumed CKD III from Diabetic Nephropathy - dose adjust meds, monitor daily labs - 12/22: stable/improving Cr 1.6 - 12/23: stable Sinus Tachycardia - 120s - likely secondary to sepsis, HF, NSTEMI - LLE is also erythematous though, check Venous Duplex with risk of DVT. Already on Lovenox. Check ECHO for RV strain. - 12/22: resolved 12/23 CV summary: Successful DC PA of left popliteal artery yesterday with good outcome. Mild reperfusion edema today. Continue with antibiotics and wound care per podiatry. He is stable from a CV standpoint. Further medication titration limited due to his low blood pressure. He is not interested in LifeVest. No further CV intervention anticipated at this time, will sign off. CV DC med recommendations listed below. He will need close follow-up with us in 2 weeks. CV discharge Meds: Aspirin 81 mg 1 p.o. daily Effient 10 mg 1 p.o. daily Atorvastatin 80 mg 1 p.o. nightly Carvedilol 12.5 mg 1 p.o. twice daily Discontinue Jardiance secondary to sepsis -Will resume later once off antibiotics Hold lisinopril due to hypotension and sepsis -will try to resume later as an outpatient Hold Aldactone secondary to hypotension and sepsis -will try to resume later as an outpatient
--- NOTE | 2024-12-23 13:29 | P.PNANES_ITS ---
[facility] Disclaimer: The information contained in this section may have been updated after the patient was seen, as this information can be updated by other users. Medical History (Updated 12/21/24 @ 16:06 by Tevin Garcia MD) NSTEMI (non-ST elevated myocardial infarction) History of gastroesophageal reflux (GERD) Hypothyroid Congestive heart failure Hypertension Diabetes mellitus, type 2 Surgical History (Updated 12/22/24 @ 07:16 by Valentina Manjarrez APRN) H/O angioplasty Previous back surgery H/O foot surgery Social History Smoking Status: Current every day smoker alcohol intake: never substance use type: denies use current occupational status: employed Travel in the last 8 weeks?: None [facility] Anesthesia Checklist Patient Identification Patient Identification: Arm Band Structural Data Admitted From: Home Planned Operative Procedure/s: I&D Left Foot Consent for Planned Operative Procedure(s) Verified: Yes Verified Documents: Surgical Consent and History and Physical NPO Status Verified Time NPO: 08:30 (clear liquids) Additional verifications Anesthesia Reactions: No Airway Assessment Mallampati Score:: Class II C-Spine Mobility Assessed: Yes TMJ Mobility Assessed: Yes Dentition: Good Dentition Neurological Assessment Level of Consciousness: Awake, Alert and Appropriate Anesthesia Plan Anesthesia Risk discussed: Yes Anesthesia Plan: Verified ASA Class: IV Anesthesia Type: MAC
[2024-12-23] MEDS: CLINDAMYCIN PHOSPHATE/D5W 900 MG/50 ML PIGGYBACK 100 MG (13:42)
[2024-12-23] MEDS: VANCOMYCIN 1000MG VIAL 1000 MG (13:58)
[2024-12-23] MEDS: BUPIVACAINE 0.5% 30ML VIAL 150 MG (13:58)
[2024-12-23] MEDS: GENTAMICIN 80 MG/2 ML VIAL (13:58)
--- NOTE | 2024-12-23 15:21 | XR_ITS ---
FINAL REPORT CLINICAL HISTORY: s/p TMA FINDINGS: LEFT FOOT Three views demonstrate postoperative changes from midfoot amputation. There is an overlying surgical drain. Skin deborah are noted. A wound VAC is noted. IMPRESSION: Postoperative changes from midfoot amputation. Reviewed, Interpreted and Dictated by Enmanuel Nascimento MD Transcribed by Brittany Dorman Authenticated and [facility]
--- NOTE | 2024-12-23 15:22 | P.OP_ITS ---
Date of procedure: 12/23/24 Pre-op Diagnosis:: Left foot gas gangrene Left foot cellulitis Diabetic foot infection Left met osteomyelitis PAD S/p left 5th partial ray amputation with wound VAC application on 12/21/24 Post-op Diagnosis:: Same Procedure performed:: Left foot I&D Wide excisional full thickness wound debridement Left TMA (transmetatarsal amputation) w/ derotational skin flap/adjacent soft tissue rearrangement Surgeon:: Hortencia Flores DPM COOPER HELPER:: Jaleel Fernandez Anesthesia: MAC and local (0.5% marcaine plain) Estimated blood loss (mL): 25 Clinical Note:: See progress note from today. Discussed patient is high risk for complications due to his comorbidities including diabetes, chronic kidney disease, coronary artery disease, peripheral arterial disease, extensive infection, history of diabetic foot ulcer with several amputations. Discussed high risk for proximal amputation and limb loss/BKA. Initially we had discussed possibility of discharge with a wound VAC and PICC line with 4 weeks of IV antibiotics (patient had a partial fifth ray amputation with 4 weeks of IV antibiotics last year and did well with that). Realistically the wound may take 3 to 6 months to heal given his comorbidities and the significant defect prior to today's procedure. I explained to the patient the other option would be a left transmetatarsal amputation in order to create a derotational skin flap to cover the open fifth metatarsal amputation site so that upon discharge he would not have an open wound and would not need the wound VAC because that would be a more proximal amputation, less risk of reinfection and patient may not need extensive IV antibiotics. I also explained that he may end up needing a partial fourth ray resection or TMA in the future if the infection has already spread more medial/or recurs. Goal is to get infection under control, get wound healed, and limb salvage. We discussed the risks and benefits in great detail. Other surgical risks include: prolonged pain and swelling, further infection requiring oral or IV antibiotics, delay in healing of soft tissue or bone, nerve or blood vessel damage, recurrent gangrene, flap /necrosis, need for further surgery, more proximal amputation/limb loss (BKA), CRPS/RSD, DVT/PE, anesthesia complications including VA, and even . All questions answered. Patient verbalized understanding. Verbal and written consent obtained. Discussed case with cardiology, hospitalist and anesthesia. Operative findings:: Left foot status post open fifth partial ray amputation with 5x3cm defect with exposed fifth metatarsal. Distal tissue did not bleed. There was some delayed capillary fill time to the toes. Some blistering and skin sloughing noted around prior amputation tissue. There is also a new abrasion and skin peeling to the dorsal aspect of the 2-3rd metatarsals. Worsening brown-devries tissue to the fourth MTPJ. Questionable bone changes to the fourth metatarsal head. The extensor tendons laterally were stringy and nonviable. Sharp excisional full- thickness debridement with 15 blade and forceps used to debride nonviable soft tissue and bone. A partial fourth metatarsal ray amputation was performed. Capsular tissue around the third MTPJ had some fibrosis with extensor tendinosis and questionable changes. Due to this and the nonviable dorsal tissue and gangrenous tissue laterally, combined with the lack of blood flow distally decision made to proceed with transmetatarsal amputation. The dorsal gangrenous tissue was excised full-thickness down to level of deep fascia. The skin just behind the toes was preserved over the 1st through 3rd metatarsal and used to cover defect dorsally over the midfoot. The tissue medial to the first metatarsal and plantar 1st through 3rd just behind the toes was preserved to rotate dorsal and lateral in order to cover the defect. Prior to the derotational skin flap/adjacent soft tissue rearrangement, the total defect measured 8 x 6 cm. At this point prognosis is guarded due to his PAD, low ejection fracture (had cath with stents), tobacco abuse, uncontrolled diabetes and other comorbidities. Although the skin did bleed some, concern for flap necrosis and wound dehiscence especially if the patient is noncompliant and walks to the foot. Operative note:: On this date and time patient was deemed an appropriate surgical candidate. With informed consent signed, the patient was taken to the operating theater. The patient was positioned supine. MAC anesthesia was induced. No tourniquet used. The left lower extremity was prepped and draped in normal sterile fashion. IV Vanco, Zosyn given on floor. IV Clinda infused. Left transmetatarsal amputation, irrigation and debridement: See op findings. Attention directed to left foot where previous open 5th met partial ray amputation was noted. Sharp excisional full-thickness debridement of nonviable soft tissue performed. Due to the necrotic and gangrenous changes to the fourth MTPJ, decision made to perform partial fourth ray amputation. A piece of the fourth metatarsal was transected and separately sent for bone culture. After partial fourth ray amputation was performed and the wound flushed and reexplored, decision made to proceed with the TMA due to changes extending more medially and lack of distal bleeding. A fish mouth incision was mapped out at the level of the MTPJs. Utilizing a 15 blade dissection was carried down sharply to the level of the bone around the proximal phalanx bases, which were disarticulated from the metatarsals. The toes/forefoot were sent for gross path specimen. Attention was then directed to the metatarsals. Third metatarsal head questionable cortical erosive changes consistent with osteomyelitis. The first and second mets had normal texture and color. Utilizing power resection the metatarsals 1-3 were transected, and sent for bone path. A piece of the 5th metatarsal was transected and sent separately for bone path. The remaining metatarsals looked within normal limits, bone hard, no obvious signs of osteomyelitis noted. Next 3L of gentamicin irrigation was used to flush the wound in a pulse lavage. The wound was reexplored and no further signs of infection noted. At this point the double-ended rasp was used to smooth down the edges of the bone so that there were no sharp prominences. Application of antibiotics, DAKOTA drain: Vanco powder was inserted into the wound and against the metatarsal bones. Minimal vessels were ligated with electrocautery. Bleeding controlled. Left foot derotational skin flap/adjacent soft tissue rearrangement: Due to the amount of soft tissue that was removed from the DFU and open wound sites there was not enough tissue to close over the fourth and fifth rays. A longitudinal incision was then extended plantarly, see op findings. The skin and underlying subcutaneous tissue was then derotated in order to bring it from plantar medial to dorsal lateral in order to cover the defect left from the dorsal wound debridement and from the 4-5th ray defect. 7 flat DAKOTA drain inserted from the medial incision site. Renea and nylon were used for skin closure with care not to strangulate the skin edges. The wounds were cleansed. There was good soft tissue closure. Bleeding to the flap noted. No dusky skin at time of closure. No exposed bone noted or skin defect noted. Skin was cleansed. Vanco powder applied to incision. Betadine soaked adaptic and gauze followed by dry sterile dressing applied to the foot. The patient tolerated the procedure and anesthesia well, without complications. The patient was awoken from anesthesia and transferred to recovery with vital signs stable and neurovascular status intact before transfer back to floor. Materials: Skin renea, 7 flat DAKOTA drain, 1g Vanco powder Plan: Transfer back to floor. DM diet. Obtain post op films, left foot, 3 views. Patient is to maintain dressing clean dry and intact. DAKOTA drain mgmt. Case mgmt: needs fracture boot (Podiatry staff to fit), DME like walker. Once abx arranged, patient is ok to be d/c from Podiatry stand point. Ideally continue IV antibiotics: Dapto 1g q24h + oral Levo 750mg x4 weeks. However, if insurance does not cover IV abx, plan for oral abx: Levo 750mg qd and Doxy 100mg BID x4 weeks. D/c: he will need dressing change twice weekly (betadine soaked adaptic and gauze, dry gauze, kendra, melva). -DAKOTA drain mgmt (plan to pull in Podiatry office next week). -Check labs weekly: cbc, cmp, esr, crp, cpk (or total CK) for Dapto. -Minimize activity. NWB to left foot in fx boot with walker (or wheelchair). -Plan for Podiatry follow up outpatient starting 12/27/24 (and 12/30 or 12/31/24 with [facility] if possible). Condition: stable Disposition: floor Specimens:: Micro: Left foot fourth metatarsal bone culture Path: Left forefoot, fifth metatarsal bone path, 1-3rd metatarsals bone path Complications:: None
[2024-12-23 15:32] LABS: POC Glucose,Bedside 171 gm/dL (70-110)
[2024-12-23 16:40] LABS: Vancomycin,Trough 13.1 ug/mL (5.0-10.0)
[2024-12-23 18:07] LABS: POC Glucose,Bedside 222 gm/dL (70-110)
[2024-12-23] MEDS: humaLOG 100 UNITS/ML 10ML VIAL (SSI) SUBCUT ×2 (18:08→20:30)
[2024-12-23] MEDS: VANCOMYCIN/WATER FOR INJ (PEG) 1.75 GM/350 ML PIGGYBACK IV (18:09)
--- NOTE | 2024-12-23 18:30 | EXP.PN ---
Subjective *Date: 12/23/24 *Time: 18:30 Interval history: Patient feeling well after surgery today, very lively after his first real meal. No acute complaints. Does seem slightly volume overloaded with pulmonary crackles, peripheral edema. Will give one-time dose of IV Lasix 60 mg. Correlating with case management regarding patient's insurance, IV versus p.o. antibiotics. Will follow-up tomorrow. Exam Data for Last 24 hours Vital signs and Labs for Last 24 Hours: Temp Pulse Resp BP Pulse Ox O2 Del Method O2 Flow Rate 97 F L 81 18 108/70 L 95 Room Air 8 12/23/24 15:50 12/23/24 15:50 12/23/24 15:50 12/23/24 15:50 12/23/24 15:50 12/23/24 16:51 12/21/24 13:50 Laboratory Results - last 24 hr 12/22/24 22:02: POC Glucose 117 H 12/23/24 06:04: WBC 9.9, RBC 3.47 L, Hgb 9.6 L, Hct 30.5 L, MCV 87.9, MCH 27.7, MCHC 31.5 L, RDW 15.0, Plt Count 280, MPV 10.5 H, Neut % (Auto) 78.1, Lymph % (Auto) 12.3, Sunflower % (Auto) 8.2, Eos % (Auto) 0.5, Baso % (Auto) 0.5, Neut # (Auto) 7.8, Lymph # (Auto) 1.2, Sunflower # (Auto) 0.8, Eos # (Auto) 0.1, Baso # (Auto) 0.1, ESR > 140 H, Sodium 129 L, Potassium 4.0, Chloride 105, Carbon Dioxide 19 L, Anion Gap 9.0, BUN 25 H, Creatinine 1.60 H, Estimated Creat Clear 74, Estimated GFR 46 L, Est GFR ( Amer) 56 L, Glucose 144 H, Calcium 8.0 L, C-Reactive Protein 226.2 H 12/23/24 06:06: POC Glucose 159 H 12/23/24 15:26: POC Glucose 171 H 12/23/24 16:00: Vancomycin Trough 13.1 H 12/23/24 18:00: POC Glucose 222 H I & O for Last 24 hours: Intake & Output 12/20/24 12/21/24 12/22/24 12/23/24 23:59 23:59 23:59 23:59 Intake Total 2358.75 / 2358.75 3050 / 3550 1400 / 1400 Output Total 0 / 0 1050 / 1050 900 / 900 Balance 2358.75 / 2358.75 2000 / 2500 500 / 500 Weight 91.285 kg 90.718 kg 94.211 kg Microbiology Reports for the Last 24 Hours: Microbiology 12/21/24 13:46 Foot,Left - Left Bone Culture - Preliminary 12/21/24 13:46 Foot,Left - Wound Gram Stain - Final 12/21/24 13:46 Foot,Left - Wound Surgical Biopsy Culture - Preliminary Gram Negative Rods Gram Negative Rods#2 12/21/24 13:46 Foot,Left - Wound Gram Stain - Final 12/21/24 13:46 Foot,Left - Wound Abscess Culture - Preliminary 12/21/24 07:48 Toe,Left Fifth Gram Stain - Final 12/21/24 07:48 Toe,Left Fifth Wound Culture - Preliminary Gram Negative Rods Gram Negative Rods#2 12/21/24 13:46 Foot,Left - Wound Gram Stain - Final 12/21/24 13:46 Foot,Left - Wound Gram Stain Result 1 - Final 12/21/24 13:46 Foot,Left - Wound Gram Stain Result 2 - Final Constitutional Constitutional: no acute distress *Routine HEENT Exam Head: Present normocephalic Eye: Present EOMI and PERRL ENT: Present mucous membranes moist *Routine Neck Exam Neck: Present supple; Absent lymphadenopathy *Routine Respiratory Exam Respiratory: Present crackles; Absent CTA bilaterally *Routine Cardiovascular Exam Cardiovascular: Present RRR *Routine Abdominal Exam Abdominal: Present soft and normoactive bowel sounds; Absent tenderness *Routine Extremities Exam Extremities: Present edema; Absent cyanosis or clubbing *Routine Skin Exam Skin: Present warm; Absent rash *Routine Neurological Exam Neurological: Present alert and oriented X3 Assessment and Plan *Assessment and plan (1) Septic arthritis of foot: Status: Acute Qualifiers: Septic arthritis organism: due to unspecified organism Laterality: left Qualified Code(s): M00.9 - Pyogenic arthritis, unspecified Category: Medical Code(s): M00.9 - Pyogenic arthritis, unspecified (2) Peripheral arterial disease: Status: Acute Category: Medical Code(s): I73.9 - Peripheral vascular disease, unspecified (3) Gas gangrene: Status: Acute Category: Medical Code(s): A48.0 - Gas gangrene (4) Gangrene of toe of left foot: Status: Acute Category: Medical Code(s): I96 - Gangrene, not elsewhere classified (5) Ulcer of left fifth toe due to diabetes mellitus: Status: Acute Category: Medical Code(s): E11.621 - Type 2 diabetes mellitus with foot ulcer; L97.529 - Non-pressure chronic ulcer of other part of left foot with unspecified severity (6) Chronic kidney disease: Status: Acute Category: Medical Code(s): N18.9 - Chronic kidney disease, unspecified (7) HFrEF (heart failure with reduced ejection fraction): Status: Acute Category: Medical Code(s): I50.20 - Unspecified systolic (congestive) heart failure (8) NSTEMI (non-ST elevated myocardial infarction): Status: Acute Category: Medical Code(s): I21.4 - Non-ST elevation (NSTEMI) myocardial infarction (9) CAD (coronary artery disease): Status: Acute Category: Medical Code(s): I25.10 - Atherosclerotic heart disease of [place] coronary artery without angina pectoris Plan Gerardo Moss is a 49-year-old male with a medical history of current smoker, PAD s/p angioplasty, diabetes with bilateral diabetic foot ulcers, HFrEF who presented to [facility] with left lower extremity cellulitis and was incidentally found to have a NSTEMI and was transferred here for further evaluation and management. #Sepsis, resolved #Left fifth toe infected diabetic foot ulcer, osteomyelitis #Extensive PAD ? Presented with worsening DFU with gas gangrene in the lateral left fifth toe. ? Podiatry consulted, s/p left foot TMA due to extent of infection. Patient tolerated procedure well. ? Continue vancomycin, Zosyn 3.375 g every 6 hours. WBC 9.9 today. ? Bilateral lower extremity arterial Doppler revealed extensive PAD bilaterally. Patient is a smoker, diabetic. ? Cardiology consulted, s/p angioplasty to critical left popliteal artery stenosis. Recommended DAPT. ? Continue aspirin 81 mg, prasugrel 10 mg, atorvastatin 80 mg. ? Follow-up morning CBC. #NSTEMI #Acute on chronic HFrEF ? No chest pain, shortness of breath but troponin peaked at 3.85, since downtrended. EKG without acute ischemic changes. ? Cardiology consulted, s/p PCI on 12/21/2024 showing triple-vessel disease with DILMA x 2 to proximal LAD. LCx nonamenable to stenting, will medically manage. ? ECHO 12/21/2024 shows LVEF 20% with grade 3 diastolic dysfunction. ? Continue aspirin 81 mg, continue prasugrel 10 mg, continue atorvastatin 80 mg, carvedilol 12.5 mg twice daily. Will hold further GDMT due to soft pressures at this time. ? Ordered another IV Lasix 60 mg one-time dose today as patient seems more volume overloaded from fluid shifts from surgery. Follow-up response. ? Will need LifeVest on discharge. ? Continuous cardiac telemetry. ? Follow-up morning CMP, magnesium. #Type 2 diabetes ? Hemoglobin A1c 8.3%. Likely contributing to CAD/PAD. ? LDSSI, ACHS glucose checks. Continue Lantus 10 units nightly, adjust based on SSI needs. ? Consider starting SGLTi before discharge in the setting of HFrEF. #CKD stage IIIa ? Creatinine 1.6, GFR 46. Stable. #Current smoker ? Nicotine patch as needed. Full code DVT prophylaxis: Lovenox 40 mg
[2024-12-23] MEDS: FUROSEMIDE 40MG/4ML VIAL 60 MG IV (18:53)
--- NOTE | 2024-12-23 19:17 | PC.NURSE ---
15ml sanguineous fluid emptied from DAKOTA drain
[2024-12-23] MEDS: ATORVASTATIN 40MG TABLET 80 MG PO (20:11)
[2024-12-23] MEDS: PANTOPRAZOLE 40MG TABLET 40 MG PO (20:12)
[2024-12-23] MEDS: INSULIN GLARGINE 100 UNITS/ML 3ML FLEXPEN 10 UNIT SUBCUT (20:29)
[2024-12-23] MEDS: PHA TO NURSING INSTRUCTION 1 EACH NOTAPPLIC (23:57)
[2024-12-24] VITALS: BP 101/73; PULSE 90; PULSE 92; RESP 16; TEMP 36.9; O2SAT 97
[2024-12-24] MEDS: HYDROCODONE/APAP 5/325 MG TABLET 2 TAB PO (03:24)
[2024-12-24 04:00] VITALS: BP 108/58; PULSE 80; PULSE 97; RESP 16; TEMP 36.9; O2SAT 97; BMI 29.5
[2024-12-24] MEDS: PIPERCILLIN/TAZO 3.375 GM in 0.9 % SODIUM CHLORIDE 50 ML IV ×2 (05:43→11:26)
[2024-12-24] MEDS: humaLOG 100 UNITS/ML 10ML VIAL (SSI) SUBCUT ×2 (06:08→11:48)
[2024-12-24 06:31] LABS: POC Glucose,Bedside 161 gm/dL (70-110)
--- NOTE | 2024-12-24 07:56 | [facility].PHAAMS2 ---
- Antimicrobial Stewardship Review 48 hour timeout review Stewardship interventions: 48 hour timeout review, reviewed - no change Comments: GRAM NEGATINVE RODS IN LEFT FOOT WOUND CULTURE, EMPRIC THERAPY WITH PIPERCILLIN AND VANCOMYCIN APPROPRIATE
[2024-12-24 08:00] VITALS: BP 105/53; PULSE 90; PULSE 93; RESP 17; TEMP 36.6; O2SAT 100; O2SAT 98
--- NOTE | 2024-12-24 09:09 | EXP.PHA.CONS ---
Pharmacy Consult Date: 12/24/24 Time: 09:09 Referring provider: DR. YANCEY Reason for Consult:: VANCOMYCIN LEVEL Allergies Allergy/AdvReac Type Severity Reaction Status Date / Time No Known Allergies Allergy Verified 12/23/24 13:23 Home Medications ?Medication ?Instructions ?Recorded ?Confirmed ?Type carvedilol 12.5 mg tablet 12.5 mg PO BID 12/20/24 12/21/24 History empagliflozin 25 mg tablet 25 mg PO DAILY 12/20/24 12/20/24 History (Jardiance) furosemide 40 mg tablet 40 mg PO DAILY 12/20/24 12/20/24 History insulin glargine 100 unit/mL (3 40 unit SQ HS 12/20/24 12/20/24 History mL) subcutaneous pen (Lantus Solostar U-100 Insulin) levothyroxine 100 mcg tablet 100 mcg PO DAILY 12/20/24 12/20/24 History lisinopril 10 mg tablet 10 mg PO DAILY 12/20/24 12/20/24 History metformin 1,000 mg tablet 1,000 mg PO BID 12/20/24 12/20/24 History omeprazole 40 mg capsule,delayed 40 mg PO DAILY 12/20/24 12/20/24 History release spironolactone 25 mg tablet 25 mg PO DAILY 12/20/24 12/20/24 History New Prescriptions to Start Prescriptions: Height: 1.78 m Weight: 93.44 kg Laboratory Results:: Laboratory Results - last 24 hr 12/23/24 15:26: POC Glucose 171 H 12/23/24 16:00: Vancomycin Trough 13.1 H 12/23/24 18:00: POC Glucose 222 H 12/24/24 05:52: POC Glucose 161 H Medical History: Medical History (Updated 12/21/24 @ 16:06 by Tevin Garcia MD) NSTEMI (non-ST elevated myocardial infarction) History of gastroesophageal reflux (GERD) Hypothyroid Congestive heart failure Hypertension Diabetes mellitus, type 2 Assessment and Plan Assessment and plan all Dx Assessment and Plan for all problems:: PATIENT'S VANCOMYCIN LEVEL WAS 13.0 MCG/ML. RECOMMENDED PATIENT CONTINUE WITH VANCOMYCIN 1750 MG Q24H.
[2024-12-24] MEDS: DOCUSATE SODIUM 250MG CAPSULE 250 MG PO (10:02)
[2024-12-24] MEDS: CARVEDILOL 12.5MG TABLET 12.5 MG PO (10:02)
[2024-12-24] MEDS: ASPIRIN EC 81MG TABLET 81 MG PO (10:02)
[2024-12-24] MEDS: PRASUGREL 10MG TAB 10 MG PO (10:03)
[2024-12-24] MEDS: LEVOTHYROXINE 100MCG (0.1MG) TAB 100 MCG PO (10:10)
[2024-12-24 12:00] VITALS: BP 112/75; PULSE 80; PULSE 91; RESP 16; TEMP 36.4; O2SAT 99
--- NOTE | 2024-12-24 12:30 | EXP.DC.SUM ---
General Admission date:: 12/20/24 HPI HPI HPI: Patient is a pleasant 49-year-old male with past medical history significant for type 2 diabetes mellitus, congestive heart failure, hypothyroidism, hypertension, GERD, amputation right fifth toe secondary to osteomyelitis and subsequent necrosis and tobacco use. Directly admitted from [facility] due to elevated troponin levels. He initially presented to their facility due to left foot pain ultimately found to have cellulitis. He has a history of diabetic foot ulcers specifically to his right foot in which he underwent surgery last year and had his toe amputated. Patient reports noticing a small open wound to his left foot approximately a week ago. Since onset wound has progressively become worse. Patient reports that he kicked the bottom of his bed while he was sleeping and ultimately injured his great toe. Reports after this incident he noticed a small wound which ultimately became significantly worse to days. Left foot is swollen, red, with an open wound near the plantar surface, strong malodor present (gangrene?smell). Patient was found to have a leukocytosis of 14.7, elevated lactic acid 2.2 and tachycardic meeting sepsis criteria. Received normal saline IV 30 mL per kg, blood cultures obtained. Initiated on IV vancomycin and Zosyn. Recently moved to [facility] about 2 months ago from [place] and has not yet established care with primary care. During his workup at [facility] patient was found to have elevated troponin levels. Initial troponin level 6340 (ng/L), repeat troponin 5649. Received aspirin 325 mg. Twelve-lead sinus tachycardia QRS axis is normal, MD intervals normal, and QRS is prolonged at 104 msec,. QT intervals normal, no Q waves and T waves are flattened in leads III and aVF. Upon arrival to our facility, alert and oriented, hypodermically stable. Without complaint of correlating cardiac symptoms. Reports cardiac workup last year prior to his surgical procedure which included an echo. Dr. Reyes discussed case with our cardiology team and accepted patient for further evaluation. Patient denies any chest pain or shortness of breath, diaphoresis, nausea, vomiting. Transferring facility significant laboratory findings WBC 14.7, sodium 132, glucose 209, BUN 28, creatinine 1.9 GFR 42, CRP 25, sedimentation rate 63, troponin level 6343, repeat troponin 5649. Imaging studies included left foot x-ray obtained: Noted air within the soft tissues concerning for air protruding infection/cellulitis. Osteomyelitis not excluded. Fracture distal phalanx great toe. Chest x-ray: Unremarkable. 12/21/24: Podiatry consult: Left foot cellulitis/diabetic foot ulcer Hospital Course Hospital Course Hospital Course: Gerardo Moss is a 49-year-old male with a medical history of current smoker, PAD s/p angioplasty, diabetes with bilateral diabetic foot ulcers, HFrEF who presented to [facility] with left lower extremity cellulitis and was incidentally found to have a NSTEMI and was transferred here for further evaluation and management. #Sepsis, resolved #Left fifth toe infected diabetic foot ulcer, osteomyelitis #Extensive PAD ? Presented with worsening DFU with gas gangrene in the lateral left fifth toe. ? Podiatry consulted, s/p left foot TMA due to extent of infection, osteomyelitis. Patient tolerated procedure well. ? Treated with vancomycin, Zosyn 3.375 g every 6 hours. WBC 9.9 today. ? Bilateral lower extremity arterial Doppler revealed extensive PAD bilaterally. Patient is a smoker, diabetic. ? Cardiology consulted, s/p angioplasty to critical left popliteal artery stenosis. Recommended DAPT. ? Continue aspirin 81 mg, prasugrel 10 mg, atorvastatin 80 mg. ? Wound cultures revealed Klebsiella oxytoca, E. coli, and gram-positive cocci pending speciation. Surgical cultures pending at this time. ? Discussed with podiatry, will discharge with oral doxycycline 100 mg twice daily, levofloxacin 750 mg daily for 24 more days for total of 4 weeks. ? Will closely follow-up with podiatry, cardiology within 1 week. #NSTEMI #Acute on chronic HFrEF ? No chest pain, shortness of breath but troponin peaked at 3.85, since downtrended. EKG without acute ischemic changes. ? Cardiology consulted, s/p PCI on 12/21/2024 showing triple-vessel disease with DILMA x 2 to proximal LAD. LCx nonamenable to stenting, will medically manage. ? ECHO 12/21/2024 shows LVEF 20% with grade 3 diastolic dysfunction. ? Continue aspirin 81 mg, continue prasugrel 10 mg, continue atorvastatin 80 mg, carvedilol 12.5 mg twice daily. Will hold further GDMT due to soft pressures at this time. Hold spironolactone, lisinopril due to soft pressures at this time. ? Ordered another IV Lasix 60 mg one-time dose as patient seems more volume overloaded from fluid shifts from surgery. Continue Lasix 40 mg daily. ? Patient refused LifeVest due to cost. ? Follow-up with cardiology within 1 week. #Type 2 diabetes ? Hemoglobin A1c 8.3%. Likely contributing to CAD/PAD. ? LDSSI, ACHS glucose checks. ? Continue Lantus 40 units nightly, Jardiance 25 mg daily, metformin 1000 mg twice daily. #Hypothyroidism ? TSH elevated to 25, free T4 low normal 0.99. Increase levothyroxine from 100 to 125 mcg daily. Will need repeat TFTs in 6 weeks. #CKD stage IIIa ? Creatinine 1.6, GFR 46. Stable. #Current smoker ? Nicotine patch as needed. #GERD ? Continue home PPI. Exam Data for Last 24 hours Vital signs and Labs for Last 24 Hours: Temp Pulse Resp BP Pulse Ox O2 Del Method O2 Flow Rate 97.6 F 91 H 16 112/75 99 Room Air 8 12/24/24 12:00 12/24/24 12:00 12/24/24 12:00 12/24/24 12:00 12/24/24 12:00 12/24/24 12:00 12/21/24 13:50 Laboratory Results - last 24 hr 12/23/24 15:26: POC Glucose 171 H 12/23/24 16:00: Vancomycin Trough 13.1 H 12/23/24 18:00: POC Glucose 222 H 12/24/24 05:52: POC Glucose 161 H I & O for Last 24 hours: Intake & Output 12/21/24 12/22/24 12/23/24 12/24/24 23:59 23:59 23:59 23:59 Intake Total 2358.75 / 2358.75 3050 / 3550 1800 / 2050 580 / 580 Output Total 0 / 0 1050 / 1050 1925 / 1925 575 / 575 Balance 2358.75 / 2358.75 2000 / 2500 -125 / 125 Weight 91.285 kg 90.718 kg 94.211 kg 93.44 kg Microbiology Reports for the Last 24 Hours: Microbiology 12/21/24 13:46 Foot,Left - Wound Gram Stain - Final 12/21/24 13:46 Foot,Left - Wound Surgical Biopsy Culture - Preliminary Klebsiella oxytoca Enterobacter cloacae Gram Positive Cocci Gram Positive Cocci#2 Gram Positive Cocci#3 12/21/24 13:46 Foot,Left - Left Bone Culture - Preliminary Gram Positive Cocci Gram Positive Cocci#2 12/21/24 07:48 Toe,Left Fifth Gram Stain - Final 12/21/24 07:48 Toe,Left Fifth Wound Culture - Preliminary Klebsiella oxytoca Escherichia coli Gram Positive Cocci 12/21/24 13:46 Foot,Left - Wound Gram Stain - Final 12/21/24 13:46 Foot,Left - Wound Gram Stain Result 1 - Final 12/21/24 13:46 Foot,Left - Wound Gram Stain Result 2 - Final 12/21/24 13:46 Foot,Left - Wound Gram Stain - Final 12/21/24 13:46 Foot,Left - Wound Abscess Culture - Preliminary Gram Negative Rods Gram Negative Rods#2 Gram Positive Cocci Constitutional Constitutional: no acute distress *Routine HEENT Exam Head: Present normocephalic Eye: Present EOMI and PERRL ENT: Present mucous membranes moist *Routine Neck Exam Neck: Present supple; Absent lymphadenopathy *Routine Respiratory Exam Respiratory: Present crackles; Absent CTA bilaterally *Routine Cardiovascular Exam Cardiovascular: Present RRR *Routine Abdominal Exam Abdominal: Present soft and normoactive bowel sounds; Absent tenderness *Routine Extremities Exam Extremities: Present edema; Absent cyanosis or clubbing Comments: Left leg and surgical boot *Routine Skin Exam Skin: Present warm; Absent rash *Routine Neurological Exam Neurological: Present alert and oriented X3 Results Data Completed and Pending Labs on day of discharge: Labs from last 24 hours 12/24/24 12/23/24 12/23/24 05:52 18:00 16:00 POC Glucose 161 H 222 H Vancomycin Trough 13.1 H 12/23/24 15:26 POC Glucose 171 H Vancomycin Trough Preliminary micro results at discharge 12/21/24 13:46 Surgical Biopsy Culture - Preliminary Foot,Left - Wound Klebsiella oxytoca Enterobacter cloacae Gram Positive Cocci Gram Positive Cocci#2 Gram Positive Cocci#3 12/21/24 13:46 Bone Culture - Preliminary Foot,Left - Left Gram Positive Cocci Gram Positive Cocci#2 12/21/24 07:48 Wound Culture - Preliminary Toe,Left Fifth Klebsiella oxytoca Escherichia coli Gram Positive Cocci 12/21/24 13:46 Abscess Culture - Preliminary Foot,Left - Wound Gram Negative Rods Gram Negative Rods#2 Gram Positive Cocci DS: Diagnosis Discharge Diagnosis (1) Septic arthritis of foot: Status: Acute Code(s): M00.9 - Pyogenic arthritis, unspecified Qualifiers: Laterality: left Septic arthritis organism: due to unspecified organism Qualified Code(s): M00.9 - Pyogenic arthritis, unspecified (2) Peripheral arterial disease: Status: Acute Code(s): I73.9 - Peripheral vascular disease, unspecified (3) Gas gangrene: Status: Acute Code(s): A48.0 - Gas gangrene (4) Gangrene of toe of left foot: Status: Acute Code(s): I96 - Gangrene, not elsewhere classified (5) Ulcer of left fifth toe due to diabetes mellitus: Status: Acute Code(s): E11.621 - Type 2 diabetes mellitus with foot ulcer; L97.529 - Non-pressure chronic ulcer of other part of left foot with unspecified severity (6) Chronic kidney disease: Status: Acute Code(s): N18.9 - Chronic kidney disease, unspecified (7) HFrEF (heart failure with reduced ejection fraction): Status: Acute Code(s): I50.20 - Unspecified systolic (congestive) heart failure (8) NSTEMI (non-ST elevated myocardial infarction): Status: Acute Code(s): I21.4 - Non-ST elevation (NSTEMI) myocardial infarction (9) CAD (coronary artery disease): Status: Acute Code(s): I25.10 - Atherosclerotic heart disease of [place] coronary artery without angina pectoris Meds Home Medications and Allergies Home Medications ?Medication ?Instructions ?Recorded ?Confirmed ?Type carvedilol 12.5 mg tablet 12.5 mg PO BID 12/20/24 12/21/24 History empagliflozin 25 mg tablet 25 mg PO DAILY 12/20/24 12/20/24 History (Jardiance) furosemide 40 mg tablet 40 mg PO DAILY 12/20/24 12/20/24 History insulin glargine 100 unit/mL (3 40 unit SQ HS 12/20/24 12/20/24 History mL) subcutaneous pen (Lantus Solostar U-100 Insulin) lisinopril 10 mg tablet 10 mg PO DAILY 12/20/24 12/20/24 History Held on 12/24/24. Instructions: Resume on 01/07/25. Hold due to soft blood pressures. Discuss with cardiology about restarting at next appointment. metformin 1,000 mg tablet 1,000 mg PO BID 12/20/24 12/20/24 History omeprazole 40 mg capsule,delayed 40 mg PO DAILY 12/20/24 12/20/24 History release spironolactone 25 mg tablet 25 mg PO DAILY 12/20/24 12/20/24 History Held on 12/24/24. Instructions: Resume on 01/07/25. Hold due to soft blood pressures. Discuss with cardiology about restarting at next appointment. aspirin 81 mg tablet,delayed 81 mg PO DAILY 30 days #30 tabs 12/24/24 Rx release atorvastatin 40 mg tablet 80 mg (2 x 40 mg) PO HS 30 days 12/24/24 Rx #60 tabs doxycycline hyclate 100 mg capsule 100 mg PO BID 24 days #48 caps 12/24/24 Rx hydrocodone 5 mg-acetaminophen 325 1 - 2 tab PO Q4HP PRN pain #20 tabs 12/24/24 Rx mg tablet levofloxacin 750 mg tablet 750 mg PO DAILY 24 days #24 tabs 12/24/24 Rx levothyroxine 125 mcg capsule 125 mcg PO DAILY #30 caps 12/24/24 Rx prasugrel HCl 10 mg tablet 10 mg PO DAILY 30 days #30 tabs 12/24/24 Rx New Prescriptions to Start Prescriptions: aspirin [place],Tevin atorvastatin [place],Tevin doxycycline hyclate Jose,Tevin hydrocodone-acetaminophen [place],Tevin levofloxacin Pidestela,Tevin levothyroxine Jose,Tevin prasugrel HCl Jose,Tevin Allergies Allergy/AdvReac Type Severity Reaction Status Date / Time No Known Allergies Allergy Verified 12/23/24 13:23 Discharge Plan Disposition Patient Disposition: Home, Self-Care Condition: Fair Discharge Order Discharge Orders: Discharge Order (Routine); Ordered 12/24/24 Ordered By: Tevin Garcia Follow up Plan Follow up with: Blaine Nix PA [Physician Sweatband Decorating Machine Operator, Cardiology] - 12/30/24 1:30 pm Abram Chavis MD [Staff Physician, Internal Medicine] - 12/28/24 2:00 pm Hortencia Flores DPM [Staff Physician, Podiatry] - 12/27/24 9:00 am Prescriptions/Medication Reconciliation: New atorvastatin 40 mg Tablet 80 mg PO HS 30 Days Qty: 60 0RF hydrocodone-acetaminophen 5-325 mg Tablet 1 - 2 tab PO Q4HP PRN (Reason: pain) Qty: 20 0RF aspirin 81 mg Tablet,Delayed Release (Dr/Ec) 81 mg PO DAILY 30 Days Qty: 30 0RF prasugrel HCl 10 mg Tablet 10 mg PO DAILY 30 Days Qty: 30 0RF doxycycline hyclate 100 mg capsule 100 mg PO BID 24 Days Qty: 48 0RF levofloxacin 750 mg tablet 750 mg PO DAILY 24 Days Qty: 24 0RF levothyroxine 125 mcg capsule 125 mcg PO DAILY Qty: 30 0RF Continued furosemide 40 mg tablet 40 mg PO DAILY Patient Comments: TAKE 1 TABLET BY MOUTH ONCE DAILY carvedilol 12.5 mg tablet 12.5 mg PO BID Patient Comments: TAKE 1 TABLET BY MOUTH TWICE DAILY omeprazole 40 mg capsule,delayed release(DR/EC) 40 mg PO DAILY Patient Comments: TAKE 1 CAPSULE BY MOUTH ONCE DAILY metformin 1,000 mg Tablet 1,000 mg PO BID Jardiance 25 mg Tablet 25 mg PO DAILY insulin glargine [Lantus Solostar U-100 Insulin] 100 unit/mL (3 mL) Insulin Pen 40 unit SQ HS Held spironolactone 25 mg Tablet 25 mg PO DAILY Hold Instructions: Resume on 01/07/25. Hold due to soft blood pressures. Discuss with cardiology about restarting at next appointment. lisinopril 10 mg tablet 10 mg PO DAILY Hold Instructions: Resume on 01/07/25. Hold due to soft blood pressures. Discuss with cardiology about restarting at next appointment. Patient Comments: TAKE 1 TABLET BY MOUTH ONCE DAILY Discontinued levothyroxine 100 mcg Tablet 100 mcg PO DAILY Problem Reconciliation Problems Reviewed?: Yes Patient Discharge Instructions Patient Instructions: Cellulitis, High-Calorie, High-Protein Diet, Calorie-Counting Diet, Carbohydrate-Counting Diet, DI for Diabetes Type 2, DI for Surgical Site Infection, Moderate Sedation, Using Nutrition Labels: Carbohydrate Diet, Heart-Healthy Consistent Carbohydrate Diet, Stop Light Infection Print Language: Macedonian Providers Primary Care Provider: Provider,Referral Admit Provider: Quan Jhaveri Attending Provider: Quan Jhaveri
[2024-12-24] MEDS: FUROSEMIDE 40MG/4ML VIAL 40 MG IV (13:30)
--- NOTE | 2024-12-27 09:56 | SW/DCPLANNER ---
Spoke with patient on the phone. Patient stated that he is aware of his upcoming appointments. Patient stated that he is doing well. patient stated that he is picking up his new medicine today. Patient stated that he has no concerns or questions at this time. Lexy Tellez
[2024-12-30 16:03] LABS: POC Glucose,Bedside 239 gm/dL (70-110)
[2024-12-30 16:04] LABS: POC Glucose,Bedside 165 gm/dL (70-110)
== END 2024-12-24 14:23 | disposition home or self-care (01) ==
PROVIDERS: Internal Medicine; Nurse Practitioner Acute Care; Podiatrist; Student in an Organized Health Care Education/Training Program; Admitting Provider Family Medicine; Visit Provider Family Medicine
PROC: 0QBP0ZZ Excision of Left Metatarsal, Open Approach (ICD-10-PCS; principal; 2024-12-21 14:00)
PROC: 4A023N7 Measurement of Cardiac Sampling and Pressure, Left Heart, Percutaneous Approach (ICD-10-PCS; CPT 93452; principal; 2024-12-21 14:30)
PROC: 047N3Z1 Dilation of Left Popliteal Artery using Drug-Coated Balloon, Percutaneous Approach (ICD-10-PCS; principal; 2024-12-22 12:30)
PROC: 047N3Z1 Dilation of Left Popliteal Artery using Drug-Coated Balloon, Percutaneous Approach (ICD-10-PCS; 2024-12-22 12:30)
PROC: 0JXR0ZB Transfer Left Foot Subcutaneous Tissue and Fascia with Skin and Subcutaneous Tissue, Open Approach (ICD-10-PCS; principal; 2024-12-23 13:00)
DX: A41.9 Sepsis, unspecified organism (principal); A48.0 Gas gangrene; I50.23 Acute on chronic systolic (congestive) heart failure; I21.4 Non-ST elevation (NSTEMI) myocardial infarction; L03.116 Cellulitis of left lower limb; E11.52 Type 2 diabetes mellitus with diabetic peripheral angiopathy with gangrene; N17.9 Acute kidney failure, unspecified; I13.0 Hypertensive heart and chronic kidney disease with heart failure and stage 1 through stage 4 chronic kidney disease, or unspecified chronic kidney disease; M00.9 Pyogenic arthritis, unspecified; M86.8X7 Other osteomyelitis, ankle and foot; E11.22 Type 2 diabetes mellitus with diabetic chronic kidney disease; E11.65 Type 2 diabetes mellitus with hyperglycemia; E11.628 Type 2 diabetes mellitus with other skin complications; E11.69 Type 2 diabetes mellitus with other specified complication; E11.621 Type 2 diabetes mellitus with foot ulcer; N18.31 Chronic kidney disease, stage 3a; L97.529 Non-pressure chronic ulcer of other part of left foot with unspecified severity; I25.10 Atherosclerotic heart disease of native coronary artery without angina pectoris; Z79.82 Long term (current) use of aspirin; Z79.84 Long term (current) use of oral hypoglycemic drugs; Z79.4 Long term (current) use of insulin; E03.9 Hypothyroidism, unspecified; K21.9 Gastro-esophageal reflux disease without esophagitis; Z89.421 Acquired absence of other right toe(s); F17.210 Nicotine dependence, cigarettes, uncomplicated; S92.425A Nondisplaced fracture of distal phalanx of left great toe, initial encounter for closed fracture; R65.20 Severe sepsis without septic shock; I15.9 Secondary hypertension, unspecified; Z71.9 Counseling, unspecified
CPT/HCPCS: 0223U; 36415; 71045; 73630; 80048; 80061; 80202; 82962; 83036; 83605; 83735; 83880; 84100; 84439; 84443; 84484; 85025; 85347; 85651; 86140; 87070; 87077; 87186; 87205; 88304; 88305; 88307; 88311; 93005; 93306; 93923; 97162; 97530; 99152; 99153; C1725; C1766; C1769; C1874; C1894; C2623; J0665; J0736; J1200; J1580; J1644; J1650; J1938; J2003; J2250; J2543; J2704; J3010; J3373; J3375; J7030; J7040; Q9957; Q9967

== ENCOUNTER 2025-01-07 13:46 | Outpatient (RCR) | payer OTHER, SELFPAY ==
--- NOTE | 2025-01-07 14:48 | HMH.OPLYMPH ---
Rehab Lymphedema Evaluation Rehab Lymphedema Evaluation Start: 01/07/25 14:33 Freq: Status: Active Protocol: Document 01/07/25 14:33 SILVESTRE (Rec: 01/07/25 14:48 PHOANNA [id number]) E-signed By Herbert Rodrigues, PT Subjective/History History History This is the initial PT lymphedema eval for Gerardo Moss, 49 yowm who presents with c/o increased B LE lymphedema x ~3 wks S/P L TMA. He also underwent stenting of cardiac vessels and L LE vessels prior to this recent surgery. He reports no c/o pain, but he does c/o stiffness in B LE due to increased edema. He does report difficulty donning shoes due to edema. He has PMH of CAD, DM-II with neuropathy, CHF. Subjective Subjective Currently pt has no c/o pain, 0/10. 2+ pitting edema noted to B LE from knee distally. L foot TMA dressing changed this date with non-stick pad, kerlix, and CAROLE bandage with sutures and stable remaining in place. B LE with increased erythema and pt appears to be suffering from mild jaundice currently of unknown etiology. Lymphedema Eval Classification of Lymphedema Secondary Lymphedema Yes: CHF and post surgical Stemmer's sign Stemmer's Sign yes Stage of Lymphedema Lymphedema stages Stage II (Pitting edema, increased fibrosis w/ decreased pitting) Skin Changes Dry Skin Yes Taut, Shiny Skin Yes Redness Yes Discoloration of Yes Skin Other Changes Yes Affected Extremities Areas Affected by Right Lower Extremity,Left Lower Extremity Lymphedema/Edema Lower Extremity Measurements Right MTP Measurement (cm) 23.0 Heel Measurement (cm 37.3 ) 10 cm Proximal to 26.2 Lateral Malleoli Measurement (cm) 20 cm Proximal to 36.4 Lateral Malleoli Measurement (cm) 30 cm Proximal to 40.2 Lateral Malleoli Measurement (cm) 40 cm Proximal to 39.7 Lateral Malleoli Measurement (cm) 50 cm Proximal to 0 Lateral Malleoli Measurement (cm) 60 cm Proximal to 0 Lateral Malleoli Measurement (cm) Lower Extremity 202.8 Measurement Total ( cm) Left MTP Measurement (cm) 0 Heel Measurement (cm 35.3 ) 10 cm Proximal to 28.0 Lateral Malleoli Measurement (cm) 20 cm Proximal to 35.3 Lateral Malleoli Measurement (cm) 30 cm Proximal to 43.1 Lateral Malleoli Measurement (cm) 40 cm Proximal to 41.1 Lateral Malleoli Measurement (cm) 50 cm Proximal to 0 Lateral Malleoli Measurement (cm) 60 cm Proximal to 0 Lateral Malleoli Measurement (cm) Lower Extremity 182.8 Measurement Total ( cm) Manual Lymphatic Drainage Treatment Area MLD Treatment Area Right Lower Extremity,Left Lower Extremity Wound Problems/Impairments Impairments Problems/ Palpation Tenderness,Impaired Range of Motion,Impaired Impairmments Strength,Impaired Endurance,Impaired Transfers,Impaired Gait Pattern,Impaired Walking,Impaired Standing, Impaired Sitting,Impaired Driving,Impaired Dressing, Impaired Shower/Bathing,Impaired Household Care, Impaired Stair Climbing,Impaired Incline Stepping, Impaired Stepping on Uneven Surface,Impaired Recreational Activities,Impaired Work Activities, Impaired Balance,Increased Edema,Lymphedema Present, Wound Care Needs,Subjective C/O Pain,Impaired Self Care /Self Management Prognosis Rehab Potential Good Comment Skilled therapy is indicated to improve pt mobility, decrease overall edema, and aid pt improvement in ability to perform all ADLs in order to return pt to PLOF>. Clinical Impression Consistent with Yes Diagnosis Lymphedema Patient Goals Lymphedema Patient Goals Lymphedema Short In 2 wks pt will complete these goals in order to aid Term Patient Goals improvement in function specifically with all ADLs: 1) Decrease B LE circumferential measurements by 3 cm total ea. 2) Decrease B LE pitting edema to 1+. Lymphedema Warranty Coordinator In 4 wks pt will complete these goals in order to aid Patient Goals improvement in function specifically with all ADLs: 1) Decrease B LE circumferential measurements by 6 cm total ea. 2) Decrease B LE pitting edema to none. 3) Be independent with lymphedema management via home training instructions to return to PLOF. Outpatient Therapy Plan of Care Treatment Plan May Include Therapeutic Exercise Yes Including Home Exercise Program Manual Therapy Yes Techniques Neuromuscular Re- Yes education Therapeutic Yes Activities to Return to Previous Functional/Work Level ADL/Self Care Yes Education Orthotics/Bracing/ Yes Splinting Manual Lymphatic Yes Drainage Eval/Re-Eval Yes Frequency Times per week 2 Duration Number of Weeks 4 Addendums This patient is a No candidate for social or vocational rehab ? Patient/Guardian Yes verbally acknowledges understanding of treatment program and consents to further treatment? Patient/Guardian Yes verbally acknowledges understanding of diagnosis, prognosis and goals for treatment? Eval Complexity PT Charges 88708 - High Complexity PHYSICIAN CERTIFICATION: I certify the specified therapy services for Gerardo Davis Moss are required, authorized, and reviewed every 30 days.
== END 2025-01-07 23:59 | disposition home or self-care (01) ==
LOC: PT 13:46
PROVIDERS: Visit Provider Podiatrist
DX: I89.0 Lymphedema, not elsewhere classified (principal)
CPT/HCPCS: 97163

== ENCOUNTER 2025-01-07 13:49 | Outpatient (RCR) | payer OTHER, SELFPAY | END 2025-01-07 23:59 | disposition home or self-care (01) | LOC: PT 13:49 | PROVIDERS: Visit Provider Podiatrist | DX: L97.529 Non-pressure chronic ulcer of other part of left foot with unspecified severity (principal); I89.0 Lymphedema, not elsewhere classified; E11.621 Type 2 diabetes mellitus with foot ulcer; Z89.422 Acquired absence of other left toe(s) ==

== ENCOUNTER 2025-01-10 09:00 | Outpatient (CLI) | payer OTHER, SELFPAY | END 2025-01-10 23:59 | disposition home or self-care (01) | LOC: LAB.DROPOF 01-11 10:55 | PROVIDERS: Visit Provider Podiatrist | DX: L03.116 Cellulitis of left lower limb (principal); Z89.422 Acquired absence of other left toe(s) | CPT/HCPCS: 87070; 87205 ==

== ENCOUNTER 2025-01-17 11:27 | Outpatient (CLI) | payer OTHER, SELFPAY ==
--- OUTSIDE RECORDS SUMMARY | 2023-08-14 08:54 | XMS_ITS | Encounter Summary ---
Author Organization [facility] Address [address] [place] [address] Care Team Providers Care Clock And Watch Hands Mounter Name Role Phone Head, Harish Hutson MD Primary Care Provider + [phone] Encounter Details Date Type Department Care Team ([facility] st Contact Info) Description 08/14/2023 9:54 AM EDT Hospital Encounter [facility] [address] [address] [place] [address] Social History Tobacco Use Types Packs/Day Years Used Date Smoking Tobacco: Every Day Cigarettes 1 30 Passive Smoke Exposure: Current Smokeless Tobacco: Never Alcohol Use Standard Drinks/Week Comments Not Currently 0 (1 standard drink = 0.6 oz pur e alcohol) [facility] Utilities Answer Date Recorded In the past [...] or training? Not on file Preferred Language Marshallese 07/02/2024 Sex and Gender Information Value Date Recorded Sex Assigned at Not on file Legal Sex Male 7:44 PM EDT Gender Identity Not on file Sexual Orientation Not on file documented as of this encounter Functional Status * Question Answer Date of Assessment Author 1. Wish to be (Past 1 Month) No 025 9:00 AM Valentina Crooks RN 2. Non-Specific Active Suici tyrone Thoughts (Past 1 Month) No 08/14/2024 9:00 AM Anjali Crooks RN * Calculated C-SSRS Risk Score (Lifetime/Recent) Answer Date of Assessment Author No Risk Indicated 08/14/2024 9:00 AM Valentina Crooks RN * [place] Suicide Severity Rating Scale (Screener/Recent Self-Report) Question [...] MD 08/15/2023 9:45 AM EDT Workstation ID: [id number] Narrative 08/15/2023 9:45 AM EDT XR FOOT [...] MD 08/15/2023 9:45 AM EDT Workstation ID: [id number] [facility] Matt Zambrano DPValeri IMG DIAGNOSTIC IMAGING ORDER YOLI Final Result documented in this encounter Visit Diagnoses Not on filedocumented in this encounter Care Teams Clock And Watch Hands Mounter Relationship Specialty Start Date End Date Head, Harish Hutson MD [address] [place] [address] PCP - General Internal Medicine 07/16/22 documented as of this encounter
--- OUTSIDE RECORDS SUMMARY | 2023-10-21 09:16 | XMS_ITS | Encounter Summary ---
Author Organization [facility] Address [address] [place] [address] Care Team Providers Care Stapler Machine Name Role Phone Head, Harish Hutson MD Primary Care Provider + [phone] Encounter Details Date Type Department Care Team ([facility] st Contact Info) Description 10/21/2023 10:16 AM EDT Hospital Encounter [facility] [address] [address] [place] [address] Social History Tobacco Use Types Packs/Day Years Used Date Smoking Tobacco: Every Day Cigarettes 1 30 Passive Smoke Exposure: Current Smokeless Tobacco: Never Alcohol Use Standard Drinks/Week Comments Not Currently 0 (1 standard drink = 0.6 oz pur e alcohol) [facility] Utilities Answer Date Recorded In the past [...] or training? Not on file Preferred Language Croatian 07/02/2024 Sex and Gender Information Value Date [...] 08/14/2024 9:00 AM Valentina Crooks RN * [place] Suicide Severity Rating Scale (Screener/Recent Self-Report) Question Answer Date of Assessment Author 6. Suicidal Behavior (Lifetime) No 9:00 AM EDT Valentina Schroeder RN documented as of this encounter Plan of Treatment Not on file documented as of this encounter Procedures Procedure Name Priority Date/Time Associated Diagnosis Comments XR FOOT 3+ VW RIGHT Routine 10/21/2023 1 0:19 AM EDT Right toe amputee documented in this encounter Results * XR Foot 3+ View Right (10/21/2023 10:19 AM EDT) Anatomical Region Laterality Modality Lower Extremities, Foot Right Computed Radiography 10/22/2023 12:2 1 PM EDT Impressions 10/22/2023 12:23 PM EDT Impression: 1.Postoperative changes status post amputation of the fifth digit at the level of the fifth metatarsophalangeal joint. 2.There is no evidence for osseous erosion or destruction. There are no definitive signs of osteomyelitis. 3.No evidence for fracture or dislocation. 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 lateral side of foot pain. room 9. wb Comparison: 08/14/2023 Findings: Postoperative changes are noted status post amputation of the fifth digit at the level of the fifth metatarsophalangeal joint. There is no fracture or dislocation. There is no osseous erosion or destruction. The soft tissues are unremarkable. Procedure Note Julio Cesar Casarez Jr., MD - 10/22/2023 XR FOOT 3+ VW RIGHT Date of Exam: 10/21/2023 10:16 AM EDT Indication: 08/18/2023 Fifth digit amputation at themetatarsophalangeal joint, right. lateral side of foot pain. room 9. wb Comparison: 08/14/2023 Findings: Postoperative changes are noted status post amputation of the fifth digitat the level of the fifth metatarsophalangeal joint. There is no fractureor dislocation. There is no osseous erosion or destruction. The softtissues are unremarkable. IMPRESSION: Impression: 1.Postoperative changes status post amputation of the fifth digit at thelevel of the fifth metatarsophalangeal joint. 2.There is no evidence for osseous erosion or destruction. There are nodefinitive signs of osteomyelitis. 3.No evidence for fracture or dislocation. Electronically Signed: Henok Casarez MD 10/22/2023 12:23 PM EDT Workstation ID: [id number] Poonam Carney APRN IMG DIAGNOSTIC IMAGIN G ORDERABLES Final Result documented in this encounter Visit Diagnoses Not on filedocumented in this encounter Care Teams Stapler Machine Relationship Specialty Start Date End Date Head, Harish Hutson MD [address] [place] [id number] PCP - General Internal Medicine 07/16/22 documented as of this encounter
--- OUTSIDE RECORDS SUMMARY | 2024-05-18 09:13 | XMS_ITS | Encounter Summary ---
Author Organization [facility] Address [address] [place] [address] Care Team Providers Care Tank Hoop Bender Name Role Phone Head, Harish Hutson MD Primary Care Provider + [phone] Encounter Details Date Type Department Care Team ([facility] st Contact Info) Description 05/18/2024 10:13 AM EDT Hospital Encounter [facility] [address] [address] [place] [address] Social History Tobacco Use Types Packs/Day Years Used Date Smoking Tobacco: Every Day Cigarettes 1 30 Passive Smoke Exposure: Current Smokeless Tobacco: Never Alcohol Use Standard Drinks/Week Comments Not Currently 0 (1 standard drink = 0.6 oz pur e alcohol) [facility] Utilities Answer Date Recorded In the [...] or training? Not on file Preferred Language Ghanaian 07/02/2024 Sex and Gender Information Value Date [...] 08/14/2024 9:00 AM Valentina Crooks RN * [place] Suicide Severity Rating Scale (Screener/Recent Self-Report) Question Answer Date of Assessment Author 6. Suicidal Behavior (Lifetime) No 9:00 AM EDT Valentina Schroeder RN documented as of this encounter Plan of Treatment Not on file documented as of this encounter Procedures Procedure Name Priority Date/Time Associated Diagnosis Comments XR ANKLE 3+ VW RIGHT Routine 05/18/2024 10:16 AM EDT Pain and swelling of lower leg, right documented in this encounter Results * XR Ankle 3+ View Right (05/18/2024 10:16 AM EDT) Anatomical Region Laterality Modality Lower Extremities, Ankle Right Compute d Radiography 05/21/2024 10:1 5 PM EDT Impressions 05/21/2024 10:17 PM EDT Impression: No acute fracture or malalignment. Electronically Signed: Kwame Matthews MD 05/21/2024 10:17 PM EDT Workstation ID: [id number] Narrative 05/21/2024 10:17 PM EDT XR ANKLE 3+ VW RIGHT Date of Exam: 05/18/2024 10:13 AM EDT Indication: now having pain going up the back of his lower leg, room 13, wb Comparison: None available. Findings: No acute fracture or malalignment is identified. No significant tibiotalar or subtalar joint effusion is seen. Soft tissues appear normal radiographically. Procedure Note Kwame Matthews MD - 05/21/2024 XR ANKLE 3+ VW RIGHT Date of Exam: 05/18/2024 10:13 AM EDT Indication: now having pain going up the back of his lower leg, room 13,wb Comparison: None available. Findings: No acute fracture or malalignment is identified. No significant tibiotalaror subtalar joint effusion is seen. Soft tissues appear normalradiographically. IMPRESSION: Impression: No acute fracture or malalignment. Electronically Signed: Kwame Matthews MD 05/21/2024 10:17 PM EDT Workstation ID: [id number] us Latoya Zambrano DPValeri IMG DIAGNOSTIC IMAGING ORDER YOLI Final Result documented in this encounter Visit Diagnoses Not on filedocumented in this encounter Care Teams Tank Hoop Bender Relationship Specialty Start Date End Date Head, Harish Hutson MD [address] [place] [address] PCP - General Internal Medicine 07/16/22 documented as of this encounter
--- OUTSIDE RECORDS SUMMARY | 2024-06-23 07:50 | XMS_ITS | Encounter Summary ---
Author Organization [facility] Address [address] [place] [address] Care Team Providers Care Performance Consultant Name Role Phone Head, Harish Hutson MD Primary Care Provider + [phone] Encounter Details Date Type Department Care Team ([facility] st Contact Info) Description 06/23/2024 8:50 AM EDT Hospital Encounter [facility] [address] [address] [place] [address] Social History Tobacco Use Types Packs/Day Years Used Date Smoking Tobacco: Every Day Cigarettes 1 30 Passive Smoke Exposure: Current Smokeless Tobacco: Never Alcohol Use Standard Drinks/Week Comments Not Currently 0 (1 standard drink = 0.6 oz pur e alcohol) [facility] Utilities Answer Date Recorded In the [...] or training? Not on file Preferred Language British 07/02/2024 Sex and Gender Information Value Date [...] 08/14/2024 9:00 AM Valentina Crooks RN * [place] Suicide Severity Rating Scale (Screener/Recent Self-Report) Question [...] DO 06/24/2024 2:58 PM EDT Workstation ID: [id number] Narrative 06/24/2024 2:58 PM EDT XR FOOT [...] DO 06/24/2024 2:58 PM EDT Workstation ID: [id number] T Matt Zambrano DPValeri IMG DIAGNOSTIC IMAGING ORDER YOLI Final Result documented in this encounter Visit Diagnoses Not on filedocumented in this encounter Care Teams Performance Consultant Relationship Specialty Start Date End Date Head, Harish Hutson MD [facility] [place] [address] PCP - General Internal Medicine 07/16/22 documented as of this encounter
--- OUTSIDE RECORDS SUMMARY | 2024-07-28 10:39 | XMS_ITS | Encounter Summary ---
Author Organization [facility] Address [address] [place] [address] Care Team Providers Care Physician [facility] Name Role Phone Head, Harish Hutson MD Primary Care Provider + [phone] Encounter Details Date Type Department Care Team ([facility] st Contact Info) Description 07/28/2024 11:39 AM EDT Hospital Encounter [facility] [address] [address] [place] [address] Social History Tobacco Use Types Packs/Day Years Used Date Smoking Tobacco: Every Day Cigarettes 1 30 Passive Smoke Exposure: Current Smokeless Tobacco: Never Alcohol Use Standard Drinks/Week Comments Not Currently 0 (1 standard drink = 0.6 oz pur e alcohol) [facility] Utilities Answer Date Recorded In the [...] or training? Not on file Preferred Language Uzbek 07/02/2024 Sex and Gender Information Value Date [...] 08/14/2024 9:00 AM Valentina Crooks RN * [place] Suicide Severity Rating Scale (Screener/Recent Self-Report) Question [...] MD 08/02/2024 4:34 PM EDT Workstation ID: [id number] Narrative 08/02/2024 4:34 PM EDT XR ANKLE [...] MD 08/02/2024 4:34 PM EDT Workstation ID: [id number] [facility] Matt Zambrano DPM IMG DIAGNOSTIC IMAGING ORDER YOLI Final Result documented in this encounter Visit Diagnoses Not on filedocumented in this encounter Care Teams Physician [facility] Relationship Specialty Start Date End Date Head, Harish Hutson MD [address] [place] [id number] PCP - General Internal Medicine 07/16/22 documented as of this encounter
--- OUTSIDE RECORDS SUMMARY | 2024-07-28 10:40 | XMS_ITS | Encounter Summary ---
Author Organization [facility] Address [address] [place] [address] Care Team Providers Care Gluing Machine Offbearer Name Role Phone Head, Harish Hutson MD Primary Care Provider + [phone] Encounter Details Date Type Department Care Team ([facility] st Contact Info) Description 07/28/2024 11:40 AM EDT Hospital Encounter [facility] MEDICAL [facility] [address] [address] [place] [address] Social History Tobacco Use Types Packs/Day Years Used Date Smoking Tobacco: Every Day Cigarettes 1 30 Passive Smoke Exposure: Current Smokeless Tobacco: Never Alcohol Use Standard Drinks/Week Comments Not Currently 0 (1 standard drink = 0.6 oz pur e alcohol) [facility] Utilities Answer Date Recorded In [...] or training? Not on file Preferred Language Cuban 07/02/2024 Sex and Gender Information Value Date [...] 08/14/2024 9:00 AM Valentina Crooks RN * [place] Suicide Severity Rating Scale (Screener/Recent Self-Report) Question Answer Date of Assessment Author 6. Suicidal Behavior (Lifetime) No 9:00 AM EDT Valentina Schroeder RN documented as of this encounter Plan of Treatment Not on file documented as of this encounter Procedures Procedure Name Priority Date/Time Associated Diagnosis Comments XR ANKLE 3+ VW RIGHT Routine 07/28/2024 11:48 AM EDT Right foot pain documented in this encounter Results * XR Ankle 3+ View Right (07/28/2024 11:48 AM EDT) Anatomical Region Laterality Modality Lower Extremities, Ankle Right Compute d Radiography 08/02/2024 4:29 PM EDT Impressions 08/02/2024 [...] MD 08/02/2024 4:34 PM EDT Workstation ID: [id number] Narrative 08/02/2024 4:34 PM EDT XR ANKLE [...] MD 08/02/2024 4:34 PM EDT Workstation ID: [id number] [facility] Matt Zambrano DPM IMG DIAGNOSTIC IMAGING ORDER YOLI Final Result documented in this encounter Visit Diagnoses Not on filedocumented in this encounter Care Teams Gluing Machine Offbearer Relationship Specialty Start Date End Date Head, Harish Hutson MD [address] [place] [phone] PCP - General Internal Medicine 07/16/22 documented as of this encounter
--- NOTE | 2025-01-17 11:37 | XR_ITS ---
FINAL REPORT CLINICAL HISTORY: Evaluation of Pain of the left foot COMPARISON: 12/23/2024 FINDINGS: AP, oblique and lateral views of the left foot were obtained. Again seen are changes from forefoot amputation of the base of the metatarsals. Surgical drain has been removed. There is subchondral lucency along the distal remaining 2nd through 5th metatarsals. Osteomyelitis is not excluded. There is a new cortical irregularity along the lateral base of the 5th metatarsal. Surgical skin deborah are again noted. IMPRESSION: Subchondral lucency. Osteomyelitis not excluded. New irregularity along the lateral cortex of the 5th metatarsal. Fracture not excluded. Consider MRI if indicated. Reviewed, Interpreted and Dictated by Rachelle Espinal MD Transcribed by Hailey Rendon Authenticated and [facility]
[2025-01-17 11:39] LABS: Hematocrit 29.9 % (42.0-52.0); Hemoglobin 9.3 g/dL (14.1-18.0); Immature Granulocytes % 0.2 %; Mean Corpuscular HGB Conc 31.1 g/dL (31.8-35.4); Mean Corpuscular Hemoglobin 27.6 pg (27.0-31.2); Mean Corpuscular Volume 88.7 fl (80-94); Nucleated Red Blood Cells % 0 %; Platelet Count 201 K/mm3 (142-424); Red Blood Count 3.37 M/mm3 (4.60-6.20); Red Cell Distribution Width-SD 52.3 fL; White Blood Count 4.9 K/mm3 (4.8-10.8)
--- OUTSIDE RECORDS SUMMARY | 2025-01-17 11:52 | XMS_ITS | Clinical Summary ---
Author Organization [facility] Address [address] [place] [id number] Care Team Providers Care Panama Hat Smearer Name Role Phone Head, Harish Hutson MD Primary Care Provider + [phone] Allergies No known active allergies Medications carvedilol (COREG) 12.5 MG tablet Take 1 tablet by mouth Every 12 (Twelve) Hours. 4 Active furosemide (LASIX) 40 MG tablet Take 1 tablet by mouth Daily. 4 Active levothyroxine (SYNTHROID, LEVOTHROID) 100 MCG tablet Take 1 tablet by mouth Daily. Active metFORMIN (GLUCOPHAGE) 1000 MG tablet Take 1 tablet by mouth 2 (Two) Times a Day. Active omeprazole (priLOSEC) 40 MG capsule Take 1 capsule by mouth Daily. Active spironolactone (ALDACTONE) 25 MG tablet Take 1 tablet by mouth Daily. 4 Active lisinopril (PRINIVIL,ZESTR IL) 10 MG tablet Take 1 tablet by mouth Daily. 4 Active empagliflozin (JARDIANCE) 25 MG tablet tablet Take 1 tablet by mouth Daily. Hold day of surgery 4 02/19/20 25 Active aspirin 81 MG chewable tablet Chew 1 tablet Daily. 90 tablet 07/06/2024 11:50 AM EDT 5 Active Insulin Glargine (LANTUS SOLOSTAR) 100 UNIT/ML injection pen Inject 35 Units under the skin into the appropriate area as directed Every Night. 5 Active Active Problems Problem Noted Date Diagnosed Date S/P angioplasty with stent 10/01/2024 Diabetic foot infection 06/30/2024 Chronic osteomyelitis of right foot 06/30/2024 Foot ulcer due to secondary DM 06/03/2024 Atherosclerosis of [place] ar teries of the extremities with ulceration 06/03/2024 Chronic ulcer of right foot with fat layer expos ed 05/18/2024 Acquired posterior equinus of both lower extremi ties 05/18/2024 Chronic ulcer of right foot with necrosis of bon e 08/14/2023 Cellulitis 07/07/2023 Coronary artery disease invo lving [place] coronary artery of [place] heart without angina pectoris 05/01/2019 Ischemic cardiomyopathy 05/01/2019 Acute congestive heart failure 04/26/2019 Acute systolic congestive heart failure 04/26/19 Overview (07/02/2023): Added automatically from request for surgery [id number] Type 2 diabetes mellitus with hyperglycemia 03/2019 DM (diabetes mellitus), type 2 10/24/2015 Essential hypertension 10/24/2015 Hypothyroidism 10/24/2015 Family History Medical History Relation Name Comments Cancer Maternal Aunt Valerie Diabetes Paternal Grandmother Grandmother and fath er Heart disease Paternal Grandmother Grandmother and fat her Relation Name Status Comments Maternal Aunt Valerie Paternal Grandmother Grandmother and father Social History Tobacco Use Types Packs/Day Years Used Date Smoking Tobacco: Every Day Cigarettes 1 30 Passive Smoke Exposure: Current Smokeless Tobacco: Never Tobacco Cessation:Ready to Q uit: Not Asked; Counseling Given: Yes Alcohol Use Standard Drinks/Week Comments Not Currently 0 (1 standard drink = 0.6 oz pur e alcohol) [facility] Utilities Answer Date Recorded In the past 12 months has [employer], gas, oil, or water [employer] threatened to shut off services in your [...] or training? Not on file Preferred Language Icelandic 07/02/2024 Sex and Gender Information Value Date Recorded Sex Assigned at Not on file Legal Sex Male 7:44 PM EDT Gender Identity Not on file Sexual Orientation Not on file Last Filed Vital Signs Vital Sign Reading Time Taken Comments Blood Pressure 122/82 08/14/2024 9:04 AM EDT Pulse 94 08/26/2024 2:43 PM EDT Temperature 36.5 C (97.7 F) 08/14/2024 9:04 AM EDT Respiratory Rate 18 08/14/2024 9:04 AM EDT Oxygen Saturation 97% 08/26/2024 2:43 PM EDT Inhaled Oxygen Concentration - - Weight 91.6 kg (202 lb) 08/26/2024 2:43 PM EDT Height 177.8 cm (5' 10 ) 08/26/2024 2:43 PM EDT Body Mass Index 28.98 08/26/2024 2:43 PM EDT Plan of Treatment Health Maintenance Due Date Last Done Comments DIABETIC EYE EXAM 1984 URINE MICROALBUMIN-CREATININ E RATIO (uACR) 1984 Hepatitis B (1 of 3 - 19+ 3- dose series) 1993 Pneumococcal Vaccine 50+ (1 of 2 - PCV) 1993 TDAP/TD VACCINES (1 - Tdap) 1993 COLOGUARD 11/02/2019 COLON CANCER SCREENING 5 YEA R SIGMOIDOSCOPY 11/02/2019 COLONOSCOPY 11/02/2019 COLORECTAL CANCER SCREENING 11/02/2019 CT COLONOGRAPHY 11/02/2019 FECAL OCCULT BLOOD TEST 11/02/2019 FIT Testing (1 year) 11/02/2019 ANNUAL PHYSICAL 07/09/2023 HEPATITIS C SCREENING 07/09/2023 INFLUENZA VACCINE 09/24/2024 LUNG CANCER SCREENING 2024 ZOSTER VACCINE (1 of 2) 2024 HEMOGLOBIN A1C 01/22/2025 07/22/2024, 0307/2024, 05/04/2024, Additional history exists DIABETIC FOOT EXAM 02/02/2025 02/03/2024, 1 04/05/2023, 10/21/2023, Additional history exists Procedures Procedure Name Priority Date/Time Associated Diagnosis Comments HEMOGLOBIN A1C Routine 05/19/2024 4:22 PM EDT from Last 3 Months or Most Recently Relevant to Health Maintenance Results * (ABNORMAL) Hemoglobin A1c (05/19/2024 4:22 PM EDT) Hemoglobin A1C 9.27(H) 4.80 - 5.60 % 05/19/2024 5:24 PM EDT [facility] Blood Venipuncture / Unknown 05/19/2024 4:22 PM EDT 05/19/2024 4:59 PM EDT us T Matt Kenya DPM LAB BLOOD ORDERABLES Final R esult [facility]
[address] [place] [address], [place] [phone] from Last 3 Months or Most Recently Relevant to Health Maintenance Insurance [facility] Advance Directives * CPR (Attempt to Resuscitate) (Latest Code Status on File) Date Activated Date Inactivated Comments 06/30/2024 4:27 PM 07/06/2024 5:38 PM Question Answer Comments Code Status (Patient has no pulse and is not breathing): CPR (Attempt to Resuscitate) Medical Interventions (Patie nt has pulse or is breathing): Full Support * CPR (Attempt to Resuscitate) Date Activated Date Inactivated Comments 07/07/2023 1:26 PM 07/09/2023 5:19 PM Question Answer Comments Code Status (Patient has no pulse and is not breathing): CPR (Attempt to Resuscitate) Medical Interventions (Patie nt has pulse or is breathing): Full Support Care Teams Panama Hat Smearer Relationship Specialty Start Date End Date Head, Harish Hutson MD [address] [place] [address] PCP - General Internal Medicine 07/16/22
--- OUTSIDE RECORDS SUMMARY | 2025-01-17 11:52 | XMS_ITS | Clinical Summary ---
Author Organization [facility] Address [facility] [place] [address] Care Team Providers Care Gasoline Engine Inspector Name Role Phone Head, Harish Jensen MD Primary Care Provider [phone] Allergies No known active allergies Medications * This document contains information received from the source organization and may not represent a complete record from that organization. ACCU-CHEK SOFTCLIX LANCETS lancets 07/11/19 24 Active ACCU-CHEK GUIDE test strip 07/11/19 24 Active levothyroxine (SYNTHROID) 100 MCG tabletIndications: Hypothyroidism, unspecified type Take 1 tablet by mouth daily. 90 tablet 3 11/13/19 24 Active metFORMIN (GLUCOPHAGE) 1000 MG tabletIndications: Hypertension, unspecified type Take 1 tablet by mouth 2 (two) times daily. 180 tablet 3 11/13/19 24 Active rosuvastatin (CRESTOR) 10 MG tabletIndications: Mixed hyperlipidemia Take 1 tablet by mouth nightly. 90 tablet 3 11/14/19 24 Active spironolactone (ALDACTONE) 25 MG tabletIndications: Hypertension, unspecified type Take 1 tablet by mouth daily. 90 tablet 3 02/16/20 24 025 Active empagliflozin (JARDIANCE) 25 MG tabletIndications: Type 2 diabetes mellitus with foot ulcer, with long-term current use of insulin Take 1 tablet by mouth daily. 90 tablet 3 02/19/20 24 025 Active sildenafil (VIAGRA) 100 MG tabletIndications: Erectile dysfunction, unspecified erectile dysfunction type Take 0.5-1 tablets by mouth as needed for Erectile Dysfunction. 10 tablet 11 05/05/19 25 026 Active carvedilol (COREG) 12.5 MG tablet Take 1 tablet by mouth twice daily 180 tablet 3 05/25/19 25 Active atorvastatin (LIPITOR) 40 MG tablet Take 40 mg by mouth daily. 07/07/19 25 Active clopidogrel (PLAVIX) 75 MG tablet Take 75 mg by mouth daily. 07/08/19 25 Active HYDROcodone-acetam inophen (NORCO) 5-325 MG per tablet 07/07/19 25 Active Continuous Glucose Sensor (DEXCOM G7 SENSOR) MISCIndications:Ty pe 2 diabetes mellitus with foot ulcer, with long-term current use of insulin Use 1 Device every 10 (ten) days. 9 each 3 07/23/19 25 026 Active Continuous Glucose Leather Softener (DEXCOM G7 DIETIST) DEVICEIndications: Type 2 diabetes mellitus with foot ulcer, with long-term current use of insulin Use 1 Device continuous prn (glucose level). 1 each 1 07/23/19 25 026 Active insulin glargine (LANTUS SOLOSTAR) 100 UNIT/ML pen Inject 35 Units into the skin daily. 08/11/19 25 Active furosemide (LASIX) 40 MG tablet Take 1 tablet by mouth once daily 90 tablet 09/28/19 25 Active LANTUS SOLOSTAR 100 UNIT/ML injectionIndicatio ns:Type 2 diabetes mellitus with foot ulcer, with long-term current use of insulin INJECT 30 UNITS SUBCUTANEOUSLY NIGHTLY 27 mL 3 10/01/19 25 Active omeprazole (PRILOSEC) 40 MG capsuleIndications :Gastroesophageal reflux disease, unspecified whether esophagitis present Take 1 capsule by mouth daily. 90 capsule 3 11/16/19 25 026 Active lisinopril (PRINIVIL) 10 MG tabletIndications: Hypertension, unspecified type Take 1 tablet by mouth once daily 90 tablet 3 12/07/19 25 Active Active Problems Problem Noted Date Diagnosed Date Amputated toe of right foot 02/05/2024 HTN (hypertension) 10/24/2015 DM (diabetes mellitus), type 2 10/24/2015 Hypothyroidism 10/24/2015 Family History Medical History Relation Comments CAD Father Diabetes Father Hyperlipidemia Father Hypertension Father CAD Paternal Grandmother Relation Status Comments Father Paternal Grandmother Social History Tobacco Use Types Packs/Day Years Used Date Smoking Tobacco: Some Days Cigarettes Tobacco Cessation:Ready to Q uit: Yes; Counseling Given: Yes Alcohol Use Standard Drinks/Week Comments Not Currently 0 (1 standard drink = 0.6 oz pur e alcohol) Sex and Gender Information Value Date Recorded Sex Assigned at Not on file Legal Sex Male 2:56 PM EDT Gender Identity Not on file Sexual Orientation Not on file Last Filed Vital Signs Vital Sign Reading Time Taken Comments Blood Pressure 122/80 08/30/2024 2:34 PM EDT Pulse 83 08/30/2024 2:34 PM EDT Temperature 36.6 C (97.8 F) 07/29/2023 2:56 PM EDT Respiratory Rate 17 11/07/2020 8:48 AM EDT Oxygen Saturation 98% 08/30/2024 2:34 PM EDT Inhaled Oxygen Concentration - - Weight 90.9 kg (200 lb 4.8 oz) 08/30/2024 2:34 P M EDT Height 185.4 cm (6' 1 ) 08/30/2024 2:34 PM EDT Body Mass Index 26.43 08/30/2024 2:34 PM EDT Plan of Treatment Health Maintenance Due Date Last Done Comments CT Colonography 1974 Colonoscopy 1974 Colorectal Cancer Screening 1974 FIT-DNA 1974 FIT 1974 FOBT 1974 Sigmoidoscopy 1974 Hepatitis B (HepB) Vaccine (1 of 3 - 19+ 3-dose series) 1993 Pneumococcal Vaccines >50 yo (1 of 2 - PCV) 1993 Tdap/Td Vaccine >11 yo (1 - Tdap) 1993 Diabetic Eye Exam 10/24/2015 Diabetic Presence of Statin 10/24/2015 Annual SDOH Screening 02/25/2024 Influenza Vaccine (#1) 2024 Lung Cancer Screening Risk Assessment 2024 RSV 50+ and (1 - Risk 50-74 years 1-dose series) 2024 Shingles (Shingrix) (1 of 2) 2024 Diabetic Foot Exam 02/02/2025 02/03/2024 Diabetic Hemoglobin A1C 03/02/2025 08/31/19 25, 07/22/2024, 05/19/2024, Additional history exists Diabetic Creatinine Level 08/30/20252024, 05/04/2024, 02/17/2024, Additional history exists Diabetic Lipid Panel 08/30/2025 08/30/2024, 05/04/2024, 02/17/2024, Additional history exists Diabetic ACEI/ARB For Patients with CKD or Hypertension Completed 12/06/2024 Haemophilus Influenzae Type B (Hib) Vaccine Aged Out No longer eligible based on patient's age to complete this topic Hepatitis A (HepA) Vaccine Aged Out N o longer eligible based on patient's age to complete this topic Meningococcal ACWY Aged Out No longer eligible based on patient's age to complete this topic Polio (IPV) Aged Out No longer eligi ble based on patient's age to complete this topic Rotavirus (RV) Vaccine Aged Out No lo nger eligible based on patient's age to complete this topic Procedures Procedure Name Priority Date/Time Associated Diagnosis Comments HEMOGLOBIN A1C Routine 08/30/2024 3:14 PM EDT Type 2 diabetes mellitus with foot ulcer, with long-term current use of insulin LIPID PANEL Routine 08/30/2024 3:14 PM EDT Mixed hyperlipidemia COMPREHENSIVE METABOLIC PANEL (CMP) Routine 08/30/2024 3:14 PM EDT Primary hypertension from Last 3 Months or Most Recently Relevant to Health Maintenance Results * (ABNORMAL) Hemoglobin A1C (08/30/2024 3:14 PM EDT) Hemoglobin A1C 9.2(H) 4.3 - 5.6 % LAB DEVICE: BIORAD D100 08/30/2024 8:23 PM EDT [facility] Estimated Average Glucose 217 mg/dL 08/30/2024 8:23 PM EDT [facility] Blood VENOUS BLOOD SPECIMEN / Unknown Venipuncture / Unknown 08/30/2024 3:14 PM EDT 08/30/2024 3:15 PM EDT Narrative [facility] - 08/30/2024 8:23 PM EDT A1C% Reference Range: 4.3 - 5.6 Normal range 5.7 - 6.4 Pre-diabetic -increased risk for developing diabetes mellitus. >=6.5 Diabetic -diagnostic of diabetes mellitus. Note: For diagnosis of diabetes in individuals without unequivocal hyperglycemia, results should be confirmed by repeat testing. Patients with conditions that shorten erythrocyte survival, such as recovery from acute blood loss, hemolytic anemia, kidney disease, or the presence of unstable hemogloblins like HbSS, HbCC, and HbSC may yield falsely decreased HbA1c test results. Iron deficiency may yield falsely increased HbA1c test results. us Harish Alexandra MD LAB BLOOD ORDERABLES Final Resul t [facility] [address] [place] [address] * (ABNORMAL) Lipid Panel (REVIEW PROCESS INSTRUCTIONS AT ORDERING AND COLLECTING) (08/30/2024 3:14 PMEDT) Triglycerides 124 0 - 149 mg/dL 08/30/2024 7:34 PM EDT [facility] Comment: Triglyceride levels (in mg/dL) Normal 0-9yrs: <75 10-19yrs: <90 >19yrs: <150 Borderline 0-9yrs: 75-99 10-19yrs: 90-129 >19yrs: 150-199 High/Very High 0-9yrs: >99 10-19yrs: >129 >19yrs: >200 Cholesterol 139 0 - 199 mg/dL 08/30/2024 7:34 PM EDT [facility] Comment: Cholesterol levels (in mg/dL) Desirable: <200 adults/<170 children Borderline-high: 200-239 adults/170-199 children High: >239 adults/>199 children. HDL Cholesterol 32(L) >=60 mg/dL 7:34 PM EDT [facility] LDL Cholesterol, Calculated 84 0 - 100 mg/dL 08/30/2024 7:34 PM EDT [facility] Comment: Calculated using Mcdonald/NIH equation. LDL levels (in mg/dL) Optimal: <100 Near/Above Optimal: 100-129 Borderline High: 130-159 High: 160-189 Very High: >189 VLDL 25 0 - 30 mg/dL 08/30/2024 7:34 PM EDT [facility] CHOL/HDL Ratio 4.3 Ratio 08/30/2024 7:34 PM EDT [facility] Blood VENOUS BLOOD SPECIMEN / Unknown Venipuncture / Unknown 08/30/2024 3:14 PM EDT 08/30/2024 3:15 PM EDT us Harish Alexandra MD LAB BLOOD ORDERABLES Final Resul t [facility] [address] [place], [place] [id number] * (ABNORMAL) Comprehensive Metabolic Panel (CMP) (08/30/2024 3:14 PM EDT) Sodium 137 136 - 145 mmol/L 08/30/2024 7:37 PM EDT [facility] Comment:Excess protein and/o r lipids can falsely decrease sodium levels (pseudo hyponatremia). Potassium 4.7 3.5 - 5.1 mmol/L 08/30/2024 7:37 PM EDT [facility] Comment:Falsely elevated pot assium can occur in patients with high WBC or platelet counts. Chloride 105 98 - 107 mmol/L 08/30/2024 7:37 PM EDT [facility] Comment:Falsely elevated chl oride levels can be seen in patients taking bromide containing medications. Carbon Dioxide 24 22 - 29 mmol/L 08/30/2024 7:37 PM EDT [facility] Anion Gap 8 5 - 13 mmol/L 08/30/2024 7:37 PM EDT [facility] Comment:Calculation: Na - (C l + CO2) Glucose, Random 112(H) 71 - 99 mg/dL 08/30/2024 7:37 PM EDT [facility] Blood Urea Nitrogen (BUN) 20 9 - 21 mg/dL 08/30/2024 7:37 PM EDT [facility] Creatinine, Blood 1.29(H) 0.73 - 1.18 mg/dL 08/30/2024 7:37 PM EDT [facility] BUN/Creatinine Ratio 15.5 RATIO 08/30/2024 7:37 PM EDT [facility] Estimated GFR (Cr) 68 >60 mL/min/1.7 3m2 08/30/2024 7:37 PM EDT [facility] Comment:eGFR calculated base d on IDMS traceable, enzymatic creatinine method using the CKD-EPI 2020 equation. Total Protein 6.8 6.4 - 8.2 g/dL 08/30/2024 7:37 PM EDT [facility] Albumin 4.1 3.5 - 5.2 g/dL 08/30/2024 7:37 PM EDT [facility] Globulin 2.7 1.5 - 4.5 g/dL 08/30/2024 7:37 PM EDT [facility] Albumin/Globulin Ratio 1.5 1.1 - 2.5 RATIO 08/30/2024 7:37 PM EDT [facility] Calcium 9.2 8.4 - 10.2 mg/dL 08/30/2024 7:37 PM EDT [facility] Total Bilirubin 0.5 0.3 - 1.2 mg/dL 08/30/2024 7:37 PM EDT [facility] AST/SGOT 33 5 - 34 U/L 08/30/2024 7:37 PM EDT [facility] ALT/SGPT 36 0 - 55 U/L 08/30/2024 7:37 PM EDT [facility] Alkaline Phosphatase 79 40 - 150 U/L 08/30/2024 7:37 PM EDT [facility] Blood VENOUS BLOOD SPECIMEN / Unknown Venipuncture / Unknown 08/30/2024 3:14 PM EDT 08/30/2024 3:15 PM EDT us Harish Alexandra MD LAB BLOOD ORDERABLES Final Resul t [facility] [address] [facility] [address] [place] [address] from Last 3 Months or Most Recently Relevant to Health Maintenance Insurance [facility] [employer] Advance Directives Documents on File Type Date Recorded 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
--- OUTSIDE RECORDS SUMMARY | 2025-01-17 11:52 | XMS_ITS | Encounter Summary ---
Author Organization [facility] Address [address] [place] [address] Care Team Providers Care Social Services Counselor Name Role Phone Head, Harish Hutson MD Primary Care Provider + [phone] Reason for Visit * Auth/Cert (Routine) Specialty Diagnoses / Procedures Referred By Contac t Referred To Contact Diagnoses Chronic ulcer of right foot with fat layer exposed Acquired posterior equinus of both lower extremities Chronic ulcer of right foot with fat layer exposed [L97.512] Acquired posterior equinus of both lower extremities [M21.861, M21.862] Procedures [place] GASTROCNEMIUS RECESSION [place] AMPUTATION METATARSAL W/TOE SINGLE Gastrocnemius recession to the right lower extremity Partial fifth metatarsal resection Referral ID Status Reason Start Date Expiration Date Visits Re quested Visits Authorized [id number] 1 1 Encounter Details Date Type Department Care Team (Late st Contact Info) Description 05/28/2024 Hospital Encounter [facility] [address] [place] [address] Latoya Zambrano DPM [address] [place] [address] Social History Tobacco Use Types Packs/Day Years Used Date Smoking Tobacco: Every Day Cigarettes 1 30 Passive Smoke Exposure: Current Smokeless Tobacco: Never Alcohol Use Standard Drinks/Week Comments Not Currently 0 (1 standard drink = 0.6 oz pur e alcohol) [facility] Utilities Answer Date Recorded In the past 12 months has [employer], gas, oil, or water company threatened [...] or training? Not on file Preferred Language Vincentian 07/02/2024 Sex and Gender Information Value Date Recorded Sex Assigned at Not on file Legal Sex Male 7:44 PM EDT Gender Identity Not on file Sexual Orientation Not on file documented as of this encounter Last Filed Vital Signs Vital Sign Reading Time Taken Comments Blood Pressure - - Pulse - - Temperature - - Respiratory Rate - - Oxygen Saturation - - Inhaled Oxygen Concentration - - Weight 89.4 kg (197 lb) 05/19/2024 3:25 PM EDT Height 179.1 cm (5' 10.5 ) 05/19/2024 3:25 PM ED T Body Mass Index 27.87 05/19/2024 3:25 PM EDT documented in this encounter Functional Status * Question Answer Date of Assessment Author 1. Wish to be (Past 1 Month) No 025 9:00 AM EDT Valentina Schroeder RN 2. Non-Specific Active Suici elyssa Thoughts (Past 1 Month) No 08/14/2024 9:00 AM EDT Anjali Schroeder RN * Calculated C-SSRS Risk Score (Lifetime/Recent) Answer Date of Assessment Author No Risk Indicated 08/14/2024 9:00 AM EDT Valentina Schroeder RN * [place] Suicide Severity Rating Scale (Screener/Recent Self-Report) Question Answer Date of Assessment Author 6. Suicidal Behavior (Lifetime) No 9:00 AM EDT Valentina Schroeder RN documented as of this encounter OR Notes * Mariana Chavarria LPN - 05/24/2024 12:31 PM EDT Notified pt of elevated glucose. Advised him to cut back on carbs and sugars, will repeat level dayof surgery. * Mariana Chavarria LPN - 05/20/2024 1:23 PM EDT Message sent to Dr. Zambrano about A1c = 9.27. Awaiting response. He said ok to proceed with surgery on 05/28/2024. documented in this encounter Plan of Treatment Not on file documented as of this encounter Procedures Procedure Name Priority Date/Time Associated Diagnosis Comments HEMOGLOBIN A1C Routine 05/19/2024 4:22 PM EDT documented in this encounter Results * (ABNORMAL) Hemoglobin A1c (05/19/2024 4:22 PM EDT) Hemoglobin A1C 9.27(H) 4.80 - 5.60 % 05/19/2024 5:24 PM EDT [facility] Blood Venipuncture / Unknown 05/19/2024 4:22 PM EDT 05/19/2024 4:59 PM EDT RUST Matt Zambrano DPM LAB BLOOD ORDERABLES Final R esult [facility]
[address] [place] [address], documented in this encounter Visit Diagnoses Diagnosis Acquired posterior equinus of both lower extremities documented in this encounter Admitting Diagnoses Diagnosis Chronic ulcer of right foot with fat layer exposed Acquired posterior equinus of both lower extremities documented in this encounter Care Teams Social Services Counselor Relationship Specialty Start Date End Date Head, Harish Hutson MD [address] [place] [address] PCP - General Internal Medicine 07/16/22 documented as of this encounter
[2025-01-17 12:41] LABS: Alanine Aminotransferase 13 U/L (12-78); Albumin Level 2.9 g/dl (3.5-5.0); Albumin/Globulin Ratio 1.0 (1.1-1.8); Alkaline Phosphatase 77 U/L (38-126); Anion Gap 8.1 mEq/L (5-15); Aspartate Amino Transferase 21 U/L (17-59); Bilirubin,Total 0.8 mg/dl (0.2-1.3); Blood Urea Nitrogen 17 mg/dl (9-20); Calcium 8.7 mg/dl (8.4-10.2); Carbon Dioxide 24 mmol/L (22.0-30.0); Chloride 105 mmol/L (98-107); Creatinine,Serum 1.00 mg/dl (0.66-1.25); Estimated Glomerular Filt Rate 79 ml/min (>60); GFR (African American) 96 ML/MIN (>60); Globulin 2.9 g/dL (1.3-3.2); Glucose 123 mg/dl (74-100); Potassium 4.1 mmoL/L (3.5-5.1); Sodium 133 mmol/L (136-145); Total Protein,Serum 5.8 g/dl (6.3-8.2)
[2025-01-17 12:59] LABS: C-Reactive Protein 41.9 mg/L (0-4)
--- NOTE | 2025-01-31 12:35 | PC.NURSE ---
01/31/2025 Pt called 2 x times and left voice mail. No response
== END 2025-01-17 23:59 | disposition home or self-care (01) ==
LOC: RAD 11:28
PROVIDERS: PCP Internal Medicine Adolescent Medicine; Visit Provider Podiatrist
DX: M79.672 Pain in left foot (principal); E11.42 Type 2 diabetes mellitus with diabetic polyneuropathy; L03.116 Cellulitis of left lower limb; Z89.422 Acquired absence of other left toe(s); R93.6 Abnormal findings on diagnostic imaging of limbs
CPT/HCPCS: 36415; 73630; 80053; 85025; 85651; 86140

== ENCOUNTER 2025-02-03 08:23 | Outpatient (CLI) | payer OTHER, SELFPAY ==
--- NOTE | 2025-02-03 08:45 | MR_ITS ---
FINAL REPORT CLINICAL HISTORY: Evaluation for Left Foot Infection prior amputation on 12/22 COMPARISON: None FINDINGS: MRI LEFT FOOT WITH AND WITHOUT CONTRAST: MR examination of the left foot was performed pre and postcontrast enhanced multiplanar images. The patient has undergone a transmetatarsal amputation. There is extensive soft tissue enhancement present, without evidence of abscess. There is mild bone marrow edema in the proximal portion of the remaining metatarsals, which is nonspecific. There is a soft tissue ulcer overlying the base of the fifth metatarsal which extends to the bony margin best seen on image #26 of series 11. This may be secondary to postoperative change, and early osteomyelitis cannot be excluded. No focal abscess is identified. IMPRESSION: Post transmetatarsal amputation with mild soft tissue enhancement but no evidence of focal abscess. There is a soft tissue ulcer overlying the base of the fifth metatarsal which extends to the bony margin of the metatarsal, which may represent postoperative change, and early osteomyelitis cannot be excluded. Reviewed, Interpreted and Dictated by Enmanuel Nascimento MD Transcribed by Teri Sanchez Authenticated and [facility]
[2025-02-03] MEDS: GADOTERIDOL INJ 20ML SYRINGE 20 ML IV (10:23)
== END 2025-02-03 23:59 | disposition home or self-care (01) ==
LOC: RAD 08:24
PROVIDERS: PCP Internal Medicine Adolescent Medicine; Visit Provider Podiatrist
DX: E11.621 Type 2 diabetes mellitus with foot ulcer (principal); L97.529 Non-pressure chronic ulcer of other part of left foot with unspecified severity; M86.9 Osteomyelitis, unspecified; M00.9 Pyogenic arthritis, unspecified; L03.116 Cellulitis of left lower limb; Z89.422 Acquired absence of other left toe(s)
CPT/HCPCS: 73720; A9576

== ENCOUNTER 2025-02-03 10:00 | Outpatient (RCR) | payer OTHER, SELFPAY | END 2025-02-07 23:59 | disposition home or self-care (01) | LOC: PT 10:00 | PROVIDERS: PCP Internal Medicine Adolescent Medicine; Visit Provider Podiatrist | DX: I89.0 Lymphedema, not elsewhere classified (principal) | CPT/HCPCS: 97140 ==

== ENCOUNTER 2025-02-07 12:00 | Outpatient (CLI) | payer OTHER, SELFPAY ==
--- OUTSIDE RECORDS SUMMARY | 2023-08-14 08:54 | XMS_ITS | Encounter Summary ---
Author Organization [facility] Address [address] [place] [address] Care Team Providers Care Weighing Station Operator Name Role Phone Head, Harish Hutson MD Primary Care Provider + [phone] Encounter Details Date Type Department Care Team ([facility] st Contact Info) Description 08/14/2023 9:54 AM EDT Hospital Encounter [facility] [address] [address] [place] [address] Social History Tobacco Use Types Packs/Day Years Used Date Smoking Tobacco: Every Day Cigarettes 1 30 Passive Smoke Exposure: Current Smokeless Tobacco: Never Alcohol Use Standard Drinks/Week Comments Not Currently 0 (1 standard drink = 0.6 oz pur e alcohol) [facility] Utilities Answer Date Recorded In the past 12 months has e electric, gas, oil, or water company threatened to shut off services in your home? No 07/02/2024 AUDIT-C Answer Date Recorded Q1: How often do you have a drink containing alcohol? Never 06/30/2024 Q2: How many drinks containi ng alcohol do you have on a typical day when you are drinking? Patient does not drink Q3: How often do you have si x or more drinks on one occasion? Never 06/30/2024 Exercise Vital Sign Answer Date Recorde d On average, how many days pe r week do you engage in moderate to strenuous exercise (like a brisk walk)? 0 days 07/02/2024 On average, how many minutes do you engage in exercise at this level? 0 min 07/02/2024 Hunger Vital Sign Answer Date Recorded Within the past 12 months, y ou worried that your food would run out before you got the money to buy more. Never true 07/03/19 25 Within the past 12 months, t he food you bought just didn't last and you didn't have money to get more. Never true 07/02/2024 PRAPARE - Transportation Answer Date Re corded In the past 12 months, has l ack of transportation kept you from medical appointments or from getting medications? No 10/2024 In the past 12 months, has l ack of transportation kept you from meetings, work, or from getting things needed for daily living? No 07/02/2024 Abuse Screen Answer Date Recorded Feels Unsafe at Home or Work/School no 08/14/2024 Feels Threatened by Someone no 07/26 Does Anyone Try to Keep You From Having Contact with Others or Doing Things Outside Your Home? no 08/14/2024 Physical Signs of Abuse Present no 08/14/2024 Housing Stability Answer Date Recorded Current Living Arrangements home 10/2024 Potentially Unsafe Housing Conditions none 07/02/2024 Disabilities Answer Date Recorded Difficulty Concentrating, Remembering or Making Decisions no 06/30/2024 Difficulty Managing Errands Independently no 06/30/2024 Education Answer Date Recorded Help with school or training? Not on file Preferred Language Maldivian 07/02/2024 Sex and Gender Information Value Date Recorded Sex Assigned at Not on file Legal Sex Male 7:44 PM EDT Gender Identity Not on file Sexual Orientation Not on file documented as of this encounter Functional Status * Question Answer Date of Assessment Author 1. Wish to be (Past 1 Month) No 025 9:00 AM Valentina Crooks RN 2. Non-Specific Active Suici elyssa Thoughts (Past 1 Month) No 08/14/2024 9:00 AM Anjali Crooks RN * Calculated C-SSRS Risk Score (Lifetime/Recent) Answer Date of Assessment Author No Risk Indicated 08/14/2024 9:00 AM Valentina Crooks RN * [place] Suicide Severity Rating Scale (Screener/Recent Self-Report) Question Answer Date of Assessment Author 6. Suicidal Behavior (Lifetime) No 9:00 AM EDT Valentina Schroeder RN documented as of this encounter Plan of Treatment Not on file documented as of this encounter Procedures Procedure Name Priority Date/Time Associated Diagnosis Comments XR FOOT 3+ VW RIGHT Routine 08/14/2023 9 :56 AM EDT Chronic ulcer of right foot with necrosis of bone documented in this encounter Results * XR Foot 3+ View Right (08/14/2023 9:56 AM EDT) Anatomical Region Laterality Modality Lower Extremities, Foot Right Computed Radiography 08/15/2023 9:41 AM EDT Impressions 08/15/2023 9:45 AM EDT 1. Findings are suspicious for osteomyelitis involving the distal phalanx of the right fifth toe. 2. Partial but incomplete healing response of the mildly displaced fracture mid shaft proximal phalanx great toe. 3. Findings suggest a complete healing response involving the proximal phalanx right fourth toe. Electronically Signed: Darlene Lazaro MD 08/15/2023 9:45 AM EDT Workstation ID: [id number] Narrative 08/15/2023 9:45 AM EDT XR FOOT 3+ VW RIGHT Date of Exam: 08/14/2023 9:54 AM EDT Indication: right foot wound, lateral side of foot. wound on pinky toe check to rule out osteomylitis. room 10. wb Comparison: Right foot radiograph 07/07/2023, 07/02/2023 Findings: A small soft tissue defect is suggested at the lateral margin of the distal fifth toe. Diminished mineralization of the distal phalanx of the fifth toe with amorphous cortical margination, highly suspicious for osteomyelitis of the distal phalanx of the right fifth toe. Left interval healing response of the proximal phalanx fourth toe, such that no residual fracture line is seen. There is a minimally displaced fracture involving the midshaft proximal phalanx of the great toe, with some partial interval healing response manifest as marginal fracture sclerosis, without evidence of osseous union. No new fracture is identified. There is no joint dislocation. Diffuse osteopenic changes are suggested within the right foot. Vascular calcifications are present. Tibiotalar alignment is normal. Procedure Note Darlene Lazaro MD - 08/15/2023 XR FOOT 3+ VW RIGHT Date of Exam: 08/14/2023 9:54 AM EDT Indication: right foot wound, lateral side of foot. wound on pinky toecheck to rule out osteomylitis. room 10. wb Comparison: Right foot radiograph 07/07/2023, 07/02/2023 Findings: A small soft tissue defect is suggested at the lateral margin of thedistal fifth toe. Diminished mineralization of the distal phalanx of thefifth toe with amorphous cortical margination, highly suspicious forosteomyelitis of the distal phalanx of the right fifth toe. Left interval healing response of the proximal phalanx fourth toe, suchthat no residual fracture line is seen. There is a minimally displaced fracture involving the midshaft proximalphalanx of the great toe, with some partial interval healing responsemanifest as marginal fracture sclerosis, without evidence of osseousunion. No new fracture is identified. There is no joint dislocation. Diffuseosteopenic changes are suggested within the right foot. Vascularcalcifications are present. Tibiotalar alignment is normal. IMPRESSION: 1. Findings are suspicious for osteomyelitis involving the distal phalanxof the right fifth toe. 2. Partial but incomplete healing response of the mildly displacedfracture mid shaft proximal phalanx great toe. 3. Findings suggest a complete healing response involving the proximalphalanx right fourth toe. Electronically Signed: Darlene Lazaro MD 08/15/2023 9:45 AM EDT Workstation ID: [id number] [facility] Matt Zambrano DPValeri IMG DIAGNOSTIC IMAGING ORDER YOLI Final Result documented in this encounter Visit Diagnoses Not on filedocumented in this encounter Care Teams Weighing Station Operator Relationship Specialty Start Date End Date Head, Harish Hutson MD [address] [place] [address] PCP - General Internal Medicine 07/16/22 documented as of this encounter
--- OUTSIDE RECORDS SUMMARY | 2023-10-21 09:16 | XMS_ITS | Encounter Summary ---
Author Organization [facility] Address [address] [place] [address] Care Team Providers Care Certified Procedural Coder Name Role Phone Head, Harish Hutson MD Primary Care Provider + [phone] Encounter Details Date Type Department Care Team ([facility] st Contact Info) Description 10/21/2023 10:16 AM EDT Hospital Encounter [facility] [address] [address] [place] [address] Social History Tobacco Use Types Packs/Day Years Used Date Smoking Tobacco: Every Day Cigarettes 1 30 Passive Smoke Exposure: Current Smokeless Tobacco: Never Alcohol Use Standard Drinks/Week Comments Not Currently 0 (1 standard drink = 0.6 oz pur e alcohol) [place] Utilities Answer Date Recorded In the past [...] or training? Not on file Preferred Language Haitian 07/02/2024 Sex and Gender Information Value Date [...] 08/14/2024 9:00 AM Valentina Crooks RN * [place] Suicide Severity Rating Scale (Screener/Recent Self-Report) Question [...] MD 10/22/2023 12:23 PM EDT Workstation ID: [id number] Narrative 10/22/2023 12:23 PM EDT XR FOOT [...] MD 10/22/2023 12:23 PM EDT Workstation ID: [id number] Poonam Carney APRN IMG DIAGNOSTIC IMAGIN G ORDERABLES Final Result documented in this encounter Visit Diagnoses Not on filedocumented in this encounter Care Teams Certified Procedural Coder Relationship Specialty Start Date End Date Head, Harish Hutson MD [address] [place] [id number] PCP - General Internal Medicine 07/16/22 documented as of this encounter
--- OUTSIDE RECORDS SUMMARY | 2024-05-18 09:13 | XMS_ITS | Encounter Summary ---
Author Organization [facility] Address [address] [place] [address] Care Team Providers Care Senior Solutions Consultant Name Role Phone Head, Harish Hutson MD Primary Care Provider + [phone] Encounter Details Date Type Department Care Team ([facility] st Contact Info) Description 05/18/2024 10:13 AM EDT Hospital Encounter [facility] [address] [address] [place] [address] Social History Tobacco Use Types Packs/Day Years Used Date Smoking Tobacco: Every Day Cigarettes 1 30 Passive Smoke Exposure: Current Smokeless Tobacco: Never Alcohol Use Standard Drinks/Week Comments Not Currently 0 (1 standard drink = 0.6 oz pur e alcohol) [facility] Utilities Answer Date Recorded In the [...] or training? Not on file Preferred Language Solomon Islander 07/02/2024 Sex and Gender Information Value Date [...] 08/14/2024 9:00 AM Valentina Crooks RN * [place] Suicide Severity Rating Scale (Screener/Recent Self-Report) Question [...] MD 05/21/2024 10:17 PM EDT Workstation ID: [id number] Narrative 05/21/2024 10:17 PM EDT XR ANKLE [...] MD 05/21/2024 10:17 PM EDT Workstation ID: [id number] us Latoya Zambrano DPValeri IMG DIAGNOSTIC IMAGING ORDER YOLI Final Result documented in this encounter Visit Diagnoses Not on filedocumented in this encounter Care Teams Senior Solutions Consultant Relationship Specialty Start Date End Date Head, Harish Hutson MD [address] [place] [address] PCP - General Internal Medicine 07/16/22 documented as of this encounter
--- OUTSIDE RECORDS SUMMARY | 2024-06-23 07:50 | XMS_ITS | Encounter Summary ---
Author Organization [facility] Address [address] [place] [address] Care Team Providers Care Patient Centered Care Specialist Name Role Phone Head, Harish Hutson MD Primary Care Provider + [phone] Encounter Details Date Type Department Care Team ([facility] st Contact Info) Description 06/23/2024 8:50 AM EDT Hospital Encounter [facility] [address] [address] [place] [address] Social History Tobacco Use Types Packs/Day Years Used Date Smoking Tobacco: Every Day Cigarettes 1 30 Passive Smoke Exposure: Current Smokeless Tobacco: Never Alcohol Use Standard Drinks/Week Comments Not Currently 0 (1 standard drink = 0.6 oz pur e alcohol) [facility] Utilities Answer Date Recorded In the [...] or training? Not on file Preferred Language Surinamese 07/02/2024 Sex and Gender Information Value Date [...] 08/14/2024 9:00 AM Valentina Crooks RN * [place] Suicide Severity Rating Scale (Screener/Recent Self-Report) Question Answer Date of Assessment Author 6. Suicidal Behavior (Lifetime) No 9:00 AM EDT Valentina Schroeder RN documented as of this encounter Plan of Treatment Not on file documented as of this encounter Procedures Procedure Name Priority Date/Time Associated Diagnosis Comments XR FOOT 3+ VW RIGHT Routine 06/23/2024 8 :50 AM EDT Chronic ulcer of right foot with fat layer exposed documented in this encounter Results * XR Foot 3+ View Right (06/23/2024 8:50 AM EDT) Anatomical Region Laterality Modality Lower Extremities, Foot Right Computed Radiography 06/24/2024 2:52 PM EDT Impressions 06/24/2024 2:58 PM EDT Impression: Interval revision of the fifth digit amputation with amputation to the level of the mid fifth metatarsal shaft. There is soft tissue swelling and subtle periosteal reaction and mottled appearance of the mid fifth metatarsal shaft, osteomyelitis is suspected. No acute bony abnormalities. Electronically Signed: Andrea Roach DO 06/24/2024 2:58 PM EDT Workstation ID: [id number] Narrative 06/24/2024 2:58 PM EDT XR FOOT 3+ VW RIGHT Date of Exam: 06/23/2024 8:50 AM EDT Indication: Nonhealing wound Comparison: Right foot MRI without contrast from 05/19/2024 and right foot radiographs dated 05/02/2024 Findings: There is evidence of previous right fifth digit amputation with revision and amputation at the level of the mid fifth metatarsal shaft since the prior studies. There is soft tissue swelling and subtle early mottled appearance with periosteal reaction at the mid fifth metatarsal near the amputation site. There are faint radiodensities in the soft tissues which may be either in or on the skin. There is also soft tissue swelling adjacent to the lateral aspect of the foot no acute fractures. The remainder of the foot is intact. No significant bony hypertrophy. Procedure Note Andrea Roach DO - 06/24/2024 XR FOOT 3+ VW RIGHT Date of Exam: 06/23/2024 8:50 AM EDT Indication: Nonhealing wound Comparison: Right foot MRI without contrast from 05/19/2024 and right footradiographs dated 05/02/2024 Findings: There is evidence of previous right fifth digit amputation with revisionand amputation at the level of the mid fifth metatarsal shaft since theprior studies. There is soft tissue swelling and subtle early mottledappearance with periosteal reaction at the mid fifth metatarsal near the amputation site. There are faintradiodensities in the soft tissues which may be either in or on the skin.There is also soft tissue swelling adjacent to the lateral aspect of thefoot no acute fractures. The remainder of the foot is intact. No significant bony hypertrophy. IMPRESSION: Impression: Interval revision of the fifth digit amputation with amputation to thelevel of the mid fifth metatarsal shaft. There is soft tissue swelling andsubtle periosteal reaction and mottled appearance of the mid fifthmetatarsal shaft, osteomyelitis is suspected. No acute bony abnormalities. Electronically Signed: Andrea Roach DO 06/24/2024 2:58 PM EDT Workstation ID: [id number] T Matt Zambrano DPValeri IMG DIAGNOSTIC IMAGING ORDER YOLI Final Result documented in this encounter Visit Diagnoses Not on filedocumented in this encounter Care Teams Patient Centered Care Specialist Relationship Specialty Start Date End Date Head, Harish Hutson MD [facility] [place] [address] PCP - General Internal Medicine 07/16/22 documented as of this encounter
--- OUTSIDE RECORDS SUMMARY | 2024-07-28 10:39 | XMS_ITS | Encounter Summary ---
Author Organization [facility] Address [address] [place] [address] Care Team Providers Care Egg Packer Name Role Phone Head, Harish Hutson MD Primary Care Provider + [phone] Encounter Details Date Type Department Care Team ([facility] st Contact Info) Description 07/28/2024 11:39 AM EDT Hospital Encounter [facility] [address] [address] [place] [address] Social History Tobacco Use Types Packs/Day Years Used Date Smoking Tobacco: Every Day Cigarettes 1 30 Passive Smoke Exposure: Current Smokeless Tobacco: Never Alcohol Use Standard Drinks/Week Comments Not Currently 0 (1 standard drink = 0.6 oz pur e alcohol) [facility] Utilities Answer Date Recorded In the [...] 08/14/2024 9:00 AM Valentina Crooks RN * [place] Suicide Severity Rating Scale (Screener/Recent Self-Report) Question Answer Date of Assessment Author 6. Suicidal Behavior (Lifetime) No 9:00 AM EDT Valentina Schroeder RN documented as of this encounter Plan of Treatment Not on file documented as of this encounter Procedures Procedure Name Priority Date/Time Associated Diagnosis Comments XR FOOT 3+ VW RIGHT Routine 07/28/2024 1 1:47 AM EDT Right foot pain documented in this encounter Results * XR Foot 3+ View Right (07/28/2024 11:47 AM EDT) Anatomical Region Laterality Modality Lower Extremities, Foot Right Computed Radiography 08/02/2024 4:29 PM EDT Impressions 08/02/2024 4:34 PM EDT Impression: 1.Mild soft tissue swelling of the right ankle and also at the surgical site of the lateral right foot. 2.Interval surgical resection of most of the fifth metatarsal bone. The right fifth toe was previously surgically absent. 3.No radiographic changes of osteomyelitis. 4.Degenerative changes. Electronically Signed: Blaine Dial MD 08/02/2024 4:34 PM EDT Workstation ID: [id number] Narrative 08/02/2024 4:34 PM EDT XR ANKLE 3+ VW RIGHT, XR FOOT 3+ VW RIGHT Date of Exam: 07/28/2024 11:41 AM EDT Indication: Right ankle and foot pain and swelling status post surgery Comparison: Right ankle x-ray performed on 05/18/2024 and right foot x-ray performed on 06/23/2024. Findings: Right ankle: There is mild soft tissue swelling. The ankle mortise is intact. There are no acute bony abnormalities. There are atherosclerotic vascular calcifications in the right ankle. Right foot: The patient has had interval surgical resection of most of the fifth metatarsal bone. The right fifth toe was previously surgically absent. There is mild soft tissue swelling at the surgical site with a staple in place. There are no radiographic changes of osteomyelitis. There is narrowing and spurring of the first MTP joint, the inner-phalangeal joints of the digits, and the talonavicular joint consistent with osteoarthritis. There are atherosclerotic vascular calcifications within the right foot. Procedure Note Blaine Dial MD - 08/02/2024 XR ANKLE 3+ VW RIGHT, XR FOOT 3+ VW RIGHT Date of Exam: 07/28/2024 11:41 AM EDT Indication: Right ankle and foot pain and swelling status post surgery Comparison: Right ankle x-ray performed on 05/18/2024 and right foot x- rayperformed on 06/23/2024. Findings: Right ankle: There is mild soft tissue swelling. The ankle mortise isintact. There are no acute bony abnormalities. There are atheroscleroticvascular calcifications in the right ankle. Right foot: The patient has had interval surgical resection of most of thefifth metatarsal bone. The right fifth toe was previously surgicallyabsent. There is mild soft tissue swelling at the surgical site with astaple in place. There are no radiographic changes of osteomyelitis. There is narrowing and spurring ofthe first MTP joint, the inner-phalangeal joints of the digits, and thetalonavicular joint consistent with osteoarthritis. There areatherosclerotic vascular calcifications within the right foot. IMPRESSION: Impression: 1.Mild soft tissue swelling of the right ankle and also at the surgicalsite of the lateral right foot. 2.Interval surgical resection of most of the fifth metatarsal bone. Theright fifth toe was previously surgically absent. 3.No radiographic changes of osteomyelitis. 4.Degenerative changes. Electronically Signed: Blaine Dial MD 08/02/2024 4:34 PM EDT Workstation ID: [id number] [facility] Matt Zambrano DPM IMG DIAGNOSTIC IMAGING ORDER YOLI Final Result documented in this encounter Visit Diagnoses Not on filedocumented in this encounter Care Teams Egg Packer Relationship Specialty Start Date End Date Head, Harish Hutson MD [address] [place] [address] PCP - General Internal Medicine 07/16/22 documented as of this encounter
--- OUTSIDE RECORDS SUMMARY | 2024-07-28 10:40 | XMS_ITS | Encounter Summary ---
Author Organization [facility] Address [address] [place] [address] Care Team Providers Care Church History Professor Name Role Phone Head, Harish Hutson MD Primary Care Provider + [phone] Encounter Details Date Type Department Care Team ([facility] st Contact Info) Description 07/28/2024 11:40 AM EDT Hospital Encounter [facility] [address] [address] [place] [address] Social History Tobacco Use Types Packs/Day Years Used Date Smoking Tobacco: Every Day Cigarettes 1 30 Passive Smoke Exposure: Current Smokeless Tobacco: Never Alcohol Use Standard Drinks/Week Comments Not Currently 0 (1 standard drink = 0.6 oz pur e alcohol) [facility] Utilities Answer Date Recorded In the [...] or training? Not on file Preferred Language German 07/02/2024 Sex and Gender Information Value Date [...] 08/14/2024 9:00 AM Valentina Crooks RN * [place] Suicide Severity Rating Scale (Screener/Recent Self-Report) Question [...] MD 08/02/2024 4:34 PM EDT Workstation ID: [id number] Narrative 08/02/2024 4:34 PM EDT XR ANKLE [...] MD 08/02/2024 4:34 PM EDT Workstation ID: [id number] [facility] Matt Zambrano DPM IMG DIAGNOSTIC IMAGING ORDER YOLI Final Result documented in this encounter Visit Diagnoses Not on filedocumented in this encounter Care Teams Church History Professor Relationship Specialty Start Date End Date Head, Harish Hutson MD [address] [place] [phone] PCP - General Internal Medicine 07/16/22 documented as of this encounter
--- OUTSIDE RECORDS SUMMARY | 2025-02-08 16:58 | XMS_ITS | Clinical Summary ---
Author Organization [facility] Address [address] [place] [id number] Care Team Providers Care Physical Medicine Physician Name Role Phone Head, Harish Hutson MD Primary Care Provider + [phone] Allergies No known active allergies Medications carvedilol [...] due to secondary DM 06/03/2024 Atherosclerosis of [place] ar teries of the extremities with ulceration 06/03/2024 Chronic ulcer of right foot with fat layer expos ed 05/18/2024 Acquired posterior equinus of both lower extremi ties 05/18/2024 Chronic ulcer of right foot with necrosis of bon e 08/14/2023 Cellulitis 07/07/2023 Coronary artery disease invo lving [place] coronary artery of [place] heart without angina pectoris 05/01/2019 Ischemic cardiomyopathy 05/01/2019 Acute congestive heart failure 04/26/2019 Acute systolic congestive heart failure 04/26/19 Overview (07/02/2023): Added automatically from request for surgery [id number] Type 2 diabetes mellitus with hyperglycemia 03/2019 [...] 0.6 oz pur e alcohol) [facility] Utilities Answer Date Recorded In the past 12 months has [employer], gas, oil, or water [employer] threatened to shut off services in your [...] or training? Not on file Preferred Language Panamanian 07/02/2024 Sex and Gender Information Value Date [...] - 5.60 % 05/19/2024 5:24 PM EDT [facility] Blood Venipuncture / Unknown 05/19/2024 4:22 PM EDT 05/19/2024 4:59 PM EDT us T Matt Kenya DPM LAB BLOOD ORDERABLES Final R esult [facility]
[address] [facility] [place] [address], [place] [phone] from Last 3 Months or Most Recently Relevant to Health Maintenance Insurance [facility] Advance Directives * CPR (Attempt to Resuscitate) [...] or is breathing): Full Support Care Teams Physical Medicine Physician Relationship Specialty Start Date End Date Head, Harish Hutson MD [address] [place] [address] PCP - General Internal Medicine 07/16/22
--- OUTSIDE RECORDS SUMMARY | 2025-02-08 16:58 | XMS_ITS | Encounter Summary ---
Author Organization [facility] Address [address] [place] [address] Care Team Providers Care Truck Service Manager Name Role Phone Head, Harish Hutson MD Primary Care Provider + [phone] Reason for Visit * Auth/Cert (Routine) Specialty Diagnoses / Procedures Referred By Contac t Referred To Contact Diagnoses Chronic ulcer of right foot with fat layer exposed Acquired posterior equinus of both lower extremities Chronic ulcer of right foot with fat layer exposed [L97.512] Acquired posterior equinus of both lower extremities [M21.861, M21.862] Procedures NV GASTROCNEMIUS RECESSION [place] AMPUTATION METATARSAL W/TOE SINGLE Gastrocnemius recession to the right lower extremity Partial fifth metatarsal resection Referral ID Status Reason Start Date Expiration Date Visits Re quested Visits Authorized [id number] 1 1 Encounter Details Date Type Department Care Team (Late st Contact Info) Description 05/28/2024 Hospital Encounter [facility] OR [address] [place] [address] Latoya Zambrano DPM [address] [place] [address] Social History Tobacco Use Types Packs/Day Years Used Date Smoking Tobacco: Every Day Cigarettes 1 30 Passive Smoke Exposure: Current Smokeless Tobacco: Never Alcohol Use Standard Drinks/Week Comments Not Currently 0 (1 standard drink = 0.6 oz pur e alcohol) [facility] Utilities Answer Date Recorded In the past 12 months has [employer], gas, oil, or water company threatened [...] training? Not on file Preferred Language South Korean 07/02/2024 Sex and Gender Information Value Date [...] 9:00 AM EDT Valentina Schroeder RN * [place] Suicide Severity Rating Scale (Screener/Recent Self-Report) Question [...] - 5.60 % 05/19/2024 5:24 PM EDT [facility] Blood Venipuncture / Unknown 05/19/2024 4:22 PM EDT 05/19/2024 4:59 PM EDT RUST Matt Zambrano DPM LAB BLOOD ORDERABLES Final R esult [facility]
[address] [place] [address], documented in this encounter Visit Diagnoses Diagnosis Acquired posterior equinus of both lower extremities documented in this encounter Admitting Diagnoses Diagnosis Chronic ulcer of right foot with fat layer exposed Acquired posterior equinus of both lower extremities documented in this encounter Care Teams Truck Service Manager Relationship Specialty Start Date End Date Head, Harish Hutson MD [address] [place] [address] PCP - General Internal Medicine 07/16/22 documented as of this encounter
--- OUTSIDE RECORDS SUMMARY | 2025-02-08 16:58 | XMS_ITS | Clinical Summary ---
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) DEVICEIndications: Type 2 diabetes mellitus with foot [...] ORDERABLES Final Resul t [facility] [address] [place] [address] * (ABNORMAL) Lipid Panel (REVIEW [...] [facility] [address] [place], [place] [id number] * (ABNORMAL) Comprehensive Metabolic Panel (CMP) (08/30/2024 [...] ORDERABLES Final Resul t [facility] [address] [facility] [address] [place] [address] from Last 3 Months or Most Recently Relevant to Health Maintenance Insurance [facility] [employer] Advance Directives Documents on File Type Date Recorded Patient 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
== END 2025-02-07 23:59 | disposition home or self-care (01) ==
LOC: LAB.DROPOF 02-08 16:53
PROVIDERS: PCP Internal Medicine Adolescent Medicine; Visit Provider Podiatrist
DX: R69 Illness, unspecified (principal)

== ENCOUNTER 2025-02-07 13:31 | Inpatient (IN) | payer OTHER, SELFPAY ==
--- OUTSIDE RECORDS SUMMARY | 2023-08-14 08:54 | XMS_ITS | Encounter Summary ---
Author Organization [facility] Address [address] [place] [address] Care Team Providers Care Candy Polisher Name Role Phone Head, Harish Hutson MD Primary Care Provider + [phone] Encounter Details Date Type Department Care Team ([facility] st Contact Info) Description 08/14/2023 9:54 AM EDT Hospital Encounter [facility] [address] [address] [place] [address] Social History Tobacco Use Types Packs/Day Years Used Date Smoking Tobacco: Every Day Cigarettes 1 30 Passive Smoke Exposure: Current Smokeless Tobacco: Never Alcohol Use Standard Drinks/Week Comments Not Currently 0 (1 standard drink = 0.6 oz pur e alcohol) [facility] Utilities Answer Date Recorded In [...] or training? Not on file Preferred Language Bangladeshi 07/02/2024 Sex and Gender Information Value Date [...] 08/14/2024 9:00 AM Valentina Crooks RN * [place] Suicide Severity Rating Scale (Screener/Recent Self-Report) Question [...] MD 08/15/2023 9:45 AM EDT Workstation ID: [id number] Narrative 08/15/2023 9:45 AM EDT XR FOOT [...] MD 08/15/2023 9:45 AM EDT Workstation ID: [id number] [facility] Matt Zambrano DPValeri IMG DIAGNOSTIC IMAGING ORDER YOLI Final Result documented in this encounter Visit Diagnoses Not on filedocumented in this encounter Care Teams Candy Polisher Relationship Specialty Start Date End Date Head, Harish Hutson MD [address] [place] [address] PCP - General Internal Medicine 07/16/22 documented as of this encounter
--- OUTSIDE RECORDS SUMMARY | 2023-08-14 08:54 | XMS_ITS | Encounter Summary ---
Author Organization [facility] Address [address] [place] [address] Care Team Providers Care Head Of Business Development Name Role Phone Head, Harish Hutson MD Primary Care Provider + [phone] Encounter Details Date Type Department Care Team ([facility] st Contact Info) Description 08/14/2023 9:54 AM EDT Hospital Encounter [facility] [address] [address] [place] [address] Social History Tobacco Use Types Packs/Day Years Used Date Smoking Tobacco: Every Day Cigarettes 1 30 Passive Smoke Exposure: Current Smokeless Tobacco: Never Alcohol Use Standard Drinks/Week Comments Not Currently 0 (1 standard drink = 0.6 oz pur e alcohol) [facility] Utilities Answer Date Recorded In the [...] or training? Not on file Preferred Language Cymraes 07/02/2024 Sex and Gender Information Value Date [...] 08/14/2024 9:00 AM Valentina Crooks RN * [place] Suicide Severity Rating Scale (Screener/Recent Self-Report) Question [...] MD 08/15/2023 9:45 AM EDT Workstation ID: [id number] Narrative 08/15/2023 9:45 AM EDT XR FOOT [...] MD 08/15/2023 9:45 AM EDT Workstation ID: [id number] [facility] Matt Zambrano DPValeri IMG DIAGNOSTIC IMAGING ORDER YOLI Final Result documented in this encounter Visit Diagnoses Not on filedocumented in this encounter Care Teams Head Of Business Development Relationship Specialty Start Date End Date Head, Harish Hutson MD [address] [place] [address] PCP - General Internal Medicine 07/16/22 documented as of this encounter
--- OUTSIDE RECORDS SUMMARY | 2023-10-21 09:16 | XMS_ITS | Encounter Summary ---
Author Organization [facility] Address [address] [place] [address] Care Team Providers Care Glass Unloading Equipment Tender Name Role Phone Head, Harish Hutson MD Primary Care Provider + [phone] Encounter Details Date Type Department Care Team ([facility] st Contact Info) Description 10/21/2023 10:16 AM EDT Hospital Encounter [facility] [address] [address] [place] [address] Social History Tobacco Use Types Packs/Day Years Used Date Smoking Tobacco: Every Day Cigarettes 1 30 Passive Smoke Exposure: Current Smokeless Tobacco: Never Alcohol Use Standard Drinks/Week Comments Not Currently 0 (1 standard drink = 0.6 oz pur e alcohol) [facility] Utilities Answer Date Recorded In the past [...] or training? Not on file Preferred Language Vietnamese 07/02/2024 Sex and Gender Information Value Date [...] 08/14/2024 9:00 AM Valentina Crooks RN * [place] Suicide Severity Rating Scale (Screener/Recent Self-Report) Question [...] MD 10/22/2023 12:23 PM EDT Workstation ID: [id number] Narrative 10/22/2023 12:23 PM EDT XR FOOT [...] MD 10/22/2023 12:23 PM EDT Workstation ID: [id number] Poonam Carney APRN IMG DIAGNOSTIC IMAGIN G ORDERABLES Final Result documented in this encounter Visit Diagnoses Not on filedocumented in this encounter Care Teams Glass Unloading Equipment Tender Relationship Specialty Start Date End Date Head, Harish Hutson MD [address] [place] [id number] PCP - General Internal Medicine 07/16/22 documented as of this encounter
--- OUTSIDE RECORDS SUMMARY | 2023-10-21 09:16 | XMS_ITS | Encounter Summary ---
Author Organization [facility] Address [address] [place] [address] Care Team Providers Care Bankruptcy Law Specialist Name Role Phone Head, Harish Hutson MD Primary Care Provider + [phone] Encounter Details Date Type Department Care Team ([facility] st Contact Info) Description 10/21/2023 10:16 AM EDT Hospital Encounter [facility] [address] [address] [place] [address] Social History Tobacco Use Types Packs/Day Years Used Date Smoking Tobacco: Every Day Cigarettes 1 30 Passive Smoke Exposure: Current Smokeless Tobacco: Never Alcohol Use Standard Drinks/Week Comments Not Currently 0 (1 standard drink = 0.6 oz pur e alcohol) [facility] Utilities Answer Date Recorded In [...] or training? Not on file Preferred Language American 07/02/2024 Sex and Gender Information Value Date [...] 08/14/2024 9:00 AM Valentina Crooks RN * [place] Suicide Severity Rating Scale (Screener/Recent Self-Report) Question [...] MD 10/22/2023 12:23 PM EDT Workstation ID: [id number] Narrative 10/22/2023 12:23 PM EDT XR FOOT [...] MD 10/22/2023 12:23 PM EDT Workstation ID: [id number] Poonam Carney APRN IMG DIAGNOSTIC IMAGIN G ORDERABLES Final Result documented in this encounter Visit Diagnoses Not on filedocumented in this encounter Care Teams Bankruptcy Law Specialist Relationship Specialty Start Date End Date Head, Harish Hutson MD [address] [place] [id number] PCP - General Internal Medicine 07/16/22 documented as of this encounter
--- OUTSIDE RECORDS SUMMARY | 2024-05-18 09:13 | XMS_ITS | Encounter Summary ---
Author Organization [facility] Address [address] [place] [address] Care Team Providers Care Talent Buyer Name Role Phone Head, Harish Hutson MD Primary Care Provider + [phone] Encounter Details Date Type Department Care Team ([facility] st Contact Info) Description 05/18/2024 10:13 AM EDT Hospital Encounter [facility] [address] [address] [place] [address] Social History Tobacco Use Types Packs/Day Years Used Date Smoking Tobacco: Every Day Cigarettes 1 30 Passive Smoke Exposure: Current Smokeless Tobacco: Never Alcohol Use Standard Drinks/Week Comments Not Currently 0 (1 standard drink = 0.6 oz pur e alcohol) [facility] Utilities Answer Date Recorded In [...] or training? Not on file Preferred Language Mozambican 07/02/2024 Sex and Gender Information Value Date [...] 08/14/2024 9:00 AM Valentina Crooks RN * [place] Suicide Severity Rating Scale (Screener/Recent Self-Report) Question [...] MD 05/21/2024 10:17 PM EDT Workstation ID: [id number] Narrative 05/21/2024 10:17 PM EDT XR ANKLE [...] MD 05/21/2024 10:17 PM EDT Workstation ID: [id number] us Latoya Zambrano DPValeri IMG DIAGNOSTIC IMAGING ORDER YOLI Final Result documented in this encounter Visit Diagnoses Not on filedocumented in this encounter Care Teams Talent Buyer Relationship Specialty Start Date End Date Head, Harish Hutson MD [address] [place] [address] PCP - General Internal Medicine 07/16/22 documented as of this encounter
--- OUTSIDE RECORDS SUMMARY | 2024-05-18 09:13 | XMS_ITS | Encounter Summary ---
Author Organization [facility] Address [address] [place] [address] Care Team Providers Care Engineer Intern Name Role Phone Head, Harish Hutson MD Primary Care Provider + [phone] Encounter Details Date Type Department Care Team ([facility] st Contact Info) Description 05/18/2024 10:13 AM EDT Hospital Encounter [facility] [address] [address] [place] [address] Social History Tobacco Use Types Packs/Day Years Used Date Smoking Tobacco: Every Day Cigarettes 1 30 Passive Smoke Exposure: Current Smokeless Tobacco: Never Alcohol Use Standard Drinks/Week Comments Not Currently 0 (1 standard drink = 0.6 oz pur e alcohol) [facility] Utilities Answer Date Recorded In [...] or training? Not on file Preferred Language Hong Konger 07/02/2024 Sex and Gender Information Value Date [...] 08/14/2024 9:00 AM Valentina Crooks RN * [place] Suicide Severity Rating Scale (Screener/Recent Self-Report) Question [...] MD 05/21/2024 10:17 PM EDT Workstation ID: [id number] Narrative 05/21/2024 10:17 PM EDT XR ANKLE [...] MD 05/21/2024 10:17 PM EDT Workstation ID: [id number] us Latoya Zambrano DPValeri IMG DIAGNOSTIC IMAGING ORDER YOLI Final Result documented in this encounter Visit Diagnoses Not on filedocumented in this encounter Care Teams Engineer Intern Relationship Specialty Start Date End Date Head, Harish Hutson MD [address] [place] [address] PCP - General Internal Medicine 07/16/22 documented as of this encounter
--- OUTSIDE RECORDS SUMMARY | 2024-06-23 07:50 | XMS_ITS | Encounter Summary ---
Author Organization [facility] Address [address] [place] [address] Care Team Providers Care Mental Health Tech Name Role Phone Head, Harish Hutson MD Primary Care Provider + [phone] Encounter Details Date Type Department Care Team ([facility] st Contact Info) Description 06/23/2024 8:50 AM EDT Hospital Encounter [facility] [address] [address] [place] [address] Social History Tobacco Use Types Packs/Day Years Used Date Smoking Tobacco: Every Day Cigarettes 1 30 Passive Smoke Exposure: Current Smokeless Tobacco: Never Alcohol Use Standard Drinks/Week Comments Not Currently 0 (1 standard drink = 0.6 oz pur e alcohol) [facility] Utilities Answer Date Recorded In the past [...] or training? Not on file Preferred Language Citizen Of [place] 07/02/2024 Sex and Gender Information Value Date [...] 08/14/2024 9:00 AM Valentina Crooks RN * [place] Suicide Severity Rating Scale (Screener/Recent Self-Report) Question [...] DO 06/24/2024 2:58 PM EDT Workstation ID: [id number] Narrative 06/24/2024 2:58 PM EDT XR FOOT [...] DO 06/24/2024 2:58 PM EDT Workstation ID: [id number] T Matt Zambrano DPValeri IMG DIAGNOSTIC IMAGING ORDER YOLI Final Result documented in this encounter Visit Diagnoses Not on filedocumented in this encounter Care Teams Mental Health Tech Relationship Specialty Start Date End Date Head, Harish Hutson MD [facility] [place] [address] PCP - General Internal Medicine 07/16/22 documented as of this encounter
--- OUTSIDE RECORDS SUMMARY | 2024-06-23 07:50 | XMS_ITS | Encounter Summary ---
Author Organization [facility] Address [address] [place] [address] Care Team Providers Care Glass Decorator Name Role Phone Head, Harish Hutson MD Primary Care Provider + [phone] Encounter Details Date Type Department Care Team ([facility] st Contact Info) Description 06/23/2024 8:50 AM EDT [facility] [address] [address] [place] [address] Social History Tobacco Use Types Packs/Day Years Used Date Smoking Tobacco: Every Day Cigarettes 1 30 Passive Smoke Exposure: Current Smokeless Tobacco: Never Alcohol Use Standard Drinks/Week Comments Not Currently 0 (1 standard drink = 0.6 oz pur e alcohol) [facility] Utilities Answer Date Recorded In the [...] or training? Not on file Preferred Language Nicaraguan 07/02/2024 Sex and Gender Information Value Date [...] 08/14/2024 9:00 AM Valentina Crooks RN * [place] Suicide Severity Rating Scale (Screener/Recent Self-Report) Question [...] DO 06/24/2024 2:58 PM EDT Workstation ID: [id number] Narrative 06/24/2024 2:58 PM EDT XR FOOT [...] DO 06/24/2024 2:58 PM EDT Workstation ID: [id number] T Matt Zambrano DPValeri IMG DIAGNOSTIC IMAGING ORDER YOLI Final Result documented in this encounter Visit Diagnoses Not on filedocumented in this encounter Care Teams Glass Decorator Relationship Specialty Start Date End Date Head, Harish Hutson MD [facility] [place] [address] PCP - General Internal Medicine 07/16/22 documented as of this encounter
--- OUTSIDE RECORDS SUMMARY | 2024-07-28 10:39 | XMS_ITS | Encounter Summary ---
Author Organization [facility] Address [address] [place] [address] Care Team Providers Care Compressor Stations Superintendent Name Role Phone Head, Harish Hutson MD Primary Care Provider + [phone] Encounter Details Date Type Department Care Team ([facility] st Contact Info) Description 07/28/2024 11:39 AM EDT Hospital Encounter [facility] [address] [address] [place] [address] Social History Tobacco Use Types Packs/Day Years Used Date Smoking Tobacco: Every Day Cigarettes 1 30 Passive Smoke Exposure: Current Smokeless Tobacco: Never Alcohol Use Standard Drinks/Week Comments Not Currently 0 (1 standard drink = 0.6 oz pur e alcohol) [facility] Utilities Answer Date Recorded In the past [...] or training? Not on file Preferred Language Malawian 07/02/2024 Sex and Gender Information Value Date [...] 08/14/2024 9:00 AM Valentina Crooks RN * [place] Suicide Severity Rating Scale (Screener/Recent Self-Report) Question [...] MD 08/02/2024 4:34 PM EDT Workstation ID: [id number] Narrative 08/02/2024 4:34 PM EDT XR ANKLE [...] MD 08/02/2024 4:34 PM EDT Workstation ID: [id number] [facility] Matt Zambrano DPM IMG DIAGNOSTIC IMAGING ORDER YOLI Final Result documented in this encounter Visit Diagnoses Not on filedocumented in this encounter Care Teams Compressor Stations Superintendent Relationship Specialty Start Date End Date Head, Harish Hutson MD [address] [place] [phone] PCP - General Internal Medicine 07/16/22 documented as of this encounter
--- OUTSIDE RECORDS SUMMARY | 2024-07-28 10:39 | XMS_ITS | Encounter Summary ---
Author Organization [facility] Address [address] [place] [address] Care Team Providers Care Automotive Engineering Teacher Name Role Phone Head, Harish Hutson MD Primary Care Provider + [phone] Encounter Details Date Type Department Care Team ([facility] st Contact Info) Description 07/28/2024 11:39 AM EDT Hospital Encounter [facility] [address] [address] [place] [address] Social History Tobacco Use Types Packs/Day Years Used Date Smoking Tobacco: Every Day Cigarettes 1 30 Passive Smoke Exposure: Current Smokeless Tobacco: Never Alcohol Use Standard Drinks/Week Comments Not Currently 0 (1 standard drink = 0.6 oz pur e alcohol) [facility] Utilities Answer Date Recorded In the [...] or training? Not on file Preferred Language Sammarinese 07/02/2024 Sex and Gender Information Value Date [...] 08/14/2024 9:00 AM Valentina Crooks RN * [place] Suicide Severity Rating Scale (Screener/Recent Self-Report) Question [...] MD 08/02/2024 4:34 PM EDT Workstation ID: [id number] Narrative 08/02/2024 4:34 PM EDT XR ANKLE [...] MD 08/02/2024 4:34 PM EDT Workstation ID: [id number] [facility] Matt Zambrano DPM IMG DIAGNOSTIC IMAGING ORDER YOLI Final Result documented in this encounter Visit Diagnoses Not on filedocumented in this encounter Care Teams Automotive Engineering Teacher Relationship Specialty Start Date End Date Head, Harish Hutson MD [address] [place] [phone] PCP - General Internal Medicine 07/16/22 documented as of this encounter
--- OUTSIDE RECORDS SUMMARY | 2024-07-28 10:40 | XMS_ITS | Encounter Summary ---
Author Organization [facility] Address [address] [place] [address] Care Team Providers Care Foreign Exchange Clerk Name Role Phone Head, Harish Hutson MD Primary Care Provider + [phone] Encounter Details Date Type Department Care Team ([facility] st Contact Info) Description 07/28/2024 11:40 AM EDT [facility] [address] [address] [place] [address] Social History Tobacco Use Types Packs/Day Years Used Date Smoking Tobacco: Every Day Cigarettes 1 30 Passive Smoke Exposure: Current Smokeless Tobacco: Never Alcohol Use Standard Drinks/Week Comments Not Currently 0 (1 standard drink = 0.6 oz pur e alcohol) [facility] Utilities Answer Date Recorded In the [...] or training? Not on file Preferred Language Austrian 07/02/2024 Sex and Gender Information Value Date [...] 08/14/2024 9:00 AM Valentina Crooks RN * [place] Suicide Severity Rating Scale (Screener/Recent Self-Report) Question [...] MD 08/02/2024 4:34 PM EDT Workstation ID: [id number] Narrative 08/02/2024 4:34 PM EDT XR ANKLE [...] MD 08/02/2024 4:34 PM EDT Workstation ID: [id number] [facility] Matt Zambrano DPM IMG DIAGNOSTIC IMAGING ORDER YOLI Final Result documented in this encounter Visit Diagnoses Not on filedocumented in this encounter Care Teams Foreign Exchange Clerk Relationship Specialty Start Date End Date Head, Harish Hutson MD [address] [place] [phone] PCP - General Internal Medicine 07/16/22 documented as of this encounter
--- OUTSIDE RECORDS SUMMARY | 2024-07-28 10:40 | XMS_ITS | Encounter Summary ---
Author Organization [facility] Address [address] [place] [address] Care Team Providers Care Recovery Engineer Name Role Phone Head, Harish Hutson MD Primary Care Provider + [phone] Encounter Details Date Type Department Care Team ([facility] st Contact Info) Description 07/28/2024 11:40 AM EDT Hospital Encounter [facility] [address] [address] [place] [address] Social History Tobacco Use Types Packs/Day Years Used Date Smoking Tobacco: Every Day Cigarettes 1 30 Passive Smoke Exposure: Current Smokeless Tobacco: Never Alcohol Use Standard Drinks/Week Comments Not Currently 0 (1 standard drink = 0.6 oz pur e alcohol) [facility] Utilities Answer Date Recorded In the past [...] or training? Not on file Preferred Language Lao 07/02/2024 Sex and Gender Information Value Date [...] 08/14/2024 9:00 AM Valentina Crooks RN * [place] Suicide Severity Rating Scale (Screener/Recent Self-Report) Question [...] MD 08/02/2024 4:34 PM EDT Workstation ID: [id number] Narrative 08/02/2024 4:34 PM EDT XR ANKLE [...] MD 08/02/2024 4:34 PM EDT Workstation ID: [id number] [facility] Matt Zambrano DPM IMG DIAGNOSTIC IMAGING ORDER YOLI Final Result documented in this encounter Visit Diagnoses Not on filedocumented in this encounter Care Teams Recovery Engineer Relationship Specialty Start Date End Date Head, Harish Hutson MD [address] [place] [phone] PCP - General Internal Medicine 07/16/22 documented as of this encounter
[2025-02-07] VITALS (12 sets, daily range): BP systolic 104–121; BP diastolic 70–90; PULSE 99–102; RESP 16–24; TEMP 36.5; O2SAT 97–100; BMI 33.0; BMI 31.8
--- NOTE | 2025-02-07 13:48 | ED_ITS ---
<Statement entered by Lizeth Basurto DO - 02/07/25 21:29> I was consulted by the LANDEN, and we discussed the complexity of problems being addressed. I approve the treatment and management plan for this patient's care in the emergency department, thus performing a substantial portion of the medical decision making. Lizeth Basurto DO <Statement entered by Rickie iVllar MD - 02/07/25 18:53> I was consulted by the LANDEN, and we discussed the complexity of the problems being addressed. I approve the treatment and management plan for this patient's care in the emergency department, thus performing a substantive portion of the medical decision making. Rickie Villar MD Discharge Plan Disposition Patient Disposition: Admitted Condition: Fair Clinical Impressions Clinical Impression: Ulcer of left fifth toe due to diabetes mellitus, Foot osteomyelitis, left, Acute on chronic HFrEF (heart failure with reduced ejection fraction) Discharge ED Provider: Rickie Villar General Adult HPI General Chief complaint: Shortness of Breath/Dyspnea Stated complaint: retaining fluid Time Seen by Provider: 02/07/25 13:37 Mode of Arrival: Wheelchair Source of Information: Patient Description of Symptoms (Recalled from ER Triage Doc. by RN): pt reports increased edema and shortness of breath since mid december. went to cardiology today and was sent over for his swelling. he denies CP. 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 Patient admits to subjective fever and chills denies any chest pain, admits to shortness of breath, denies any overt abdominal pain nausea vomiting constipation diarrhea, no urinary symptomatology, no hematuria melena hematochezia hematemesis or hemoptysis, he endorses weight gain of around 40 pounds since late November , patient is a former smoker, denies any alcohol or other drug use. Upon reviewing cardiology outpatient notes as well as podiatry outpatient notes, plan for potential ER evaluation for admission for HFrEF exacerbation as well as consideration of ongoing left foot osteomyelitis patient is status post 2-month foot surgery for diabetic ulcer/foot, patient is on p.o. Bactrim daily he has been taking medication as prescribed, concern for acute on chronic osteomyelitis/gangrene on recent foot MRI performed several days/podiatry evaluation today. Was seen by cardiology clinic today for cardiac clearance for potential BKA via podiatry, thus once again prompted ER visit. Other past medical history is consistent coronary artery disease status post 2 stent placements, HFrEF, CKD, hypothyroidism, GERD, hyperlipidemia, T2DM, peripheral artery disease. Initial triage vitals are notable for tachycardia, otherwise unremarkable. Please note that above description of symptoms, in this electronic medical record under categorization of recalled from ER triage doctor by RN are reflective of an initial nursing assessment, however, is not reflective of my full history and physical exam that was personally taken and clarified. Consequentially, this preceding description of symptoms, which may include the patient's categorized chief complaint in the EMR, do not reflect my personal clinical impression, and the ultimate description of history of present illness and patient stated complaints should be deferred to this section of the note. Unless stated otherwise or congruent with this section of the note, additional signs, symptoms, or incongruence should be interpreted as inaccurate with my clinical impression. Onset (ago): month(s) Related Data Home Medications ?Medication ?Instructions ?Recorded ?Confirmed carvedilol 12.5 mg tablet 12.5 mg PO BID 12/20/2401/24 empagliflozin 25 mg tablet 25 mg PO DAILY 12/20/24 (Jardiance) insulin glargine 100 unit/mL (3 40 unit SQ HS 12/20/24 02/07/25 mL) subcutaneous pen (Lantus Solostar U-100 Insulin) lisinopril 10 mg tablet 10 mg PO DAILY 12/20/2401/24 Held on 12/24/24. Instructions: Resume on 01/07/25. Hold due to soft blood pressures. Discuss with cardiology about restarting at next appointment. metformin 1,000 mg tablet 1,000 mg PO BID 12/20/24 omeprazole 40 mg capsule,delayed 40 mg PO DAILY 02/07/25 release furosemide 40 mg tablet 40 mg PO BID 01/31/25 spironolactone 25 mg tablet 50 mg PO DAILY 01/31/25 Previous Rx's ?Medication ?Instructions ?Recorded aspirin 81 mg tablet,delayed 81 mg PO DAILY 30 days #3 0 tabs 12/24/24 release atorvastatin 40 mg tablet 80 mg (2 x 40 mg) PO HS 30 d ays 12/24/24 #60 tabs levothyroxine 125 mcg capsule 125 mcg PO DAILY #30 cap s 12/24/24 prasugrel HCl 10 mg tablet 10 mg PO DAILY 30 days #30 tabs 12/24/24 ondansetron 4 mg disintegrating 4 mg PO Q6H PRN nausea and 01/18/25 tablet vomiting #30 tabs sulfamethoxazole 800 1 tab PO BID cellulitis 14 d ays 02/03/25 mg-trimethoprim 160 mg tablet #28 tabs (Bactrim DS) Allergies Allergy/AdvReac Type Severity Reaction Status Date / Time No Known Allergies Allergy Verified 02/07/25 13:03 [facility] Disclaimer: The information contained in this section may have been updated after the patient was seen, as this information can be updated by other users. Medical History NSTEMI (non-ST elevated myocardial infarction) History of gastroesophageal reflux (GERD) Hypothyroid Congestive heart failure Hypertension Diabetes mellitus, type 2 Surgical History Status post foot surgery Hx of heart artery stent History of partial ray amputation of fifth toe of left foot Left foot gas gangrene, Left foot cellulitis, Diabetic foot infection, Left fifth MTP joint septic arthritis versus osteomyelitis. S/P sx 12/21/24- Left foot I&D (incision and drainage),Wide excisional debridement of nonviable soft tissue and bone, Partial 5th ray amputation, Application of wound vac H/O angioplasty Previous back surgery H/O foot surgery Social History Smoking Status: Former smoker alcohol intake: never substance use type: denies use current occupational status: employed Travel in the last 8 weeks?: None Have you lived/traveled outside [place] in past 30 days?: No Contact w/someone who lives/traveled outside US past 30 days?: No Exposure to someone with infectious disease in past 14 days?: No Do you have a fever (greater than 100.4 F or 38 C)?: No Have you tested positive for COVID-19?: No Exposed to someone with COVID-19 in past 14 days?: No Do you have a sore throat?: No Do you have a cough?: No Do you have any weakness?: No Do you have any diarrhea?: No Are you experiencing any unusual bleeding?: No Do you have any muscle aches/pain?: No Do you have any abdominal pain?: No Are you experiencing loss of taste or smell?: No Other Medical History Have you received the Flu Vaccine for this season: No Have you received the Pneumonia Vaccine: No ROS Obtained: Yes All systems reviewed & no additional complaints except as documented Physical Exam General General appearance: alert and in no apparent distress Head Head exam: atraumatic and normocephalic Eye Eye exam: Present PERRL and EOMI ENT ENT exam: Present mucous membranes moist Neck Neck exam: Present normal inspection Chest Chest inspection: Present normal inspection and symmetric chest wall rise Respiratory Respiratory exam: Present normal lung sounds bilaterally; Absent respiratory distress, wheezes or stridor Cardiovascular Cardiovascular exam: Present regular rate and normal rhythm Abdominal Exam Abdominal exam: Present soft and distention; Absent tenderness, guarding, rebound, rigidity or ascites Comment: No real fluid wave shift Extremities Exam Extremities exam: Present normal inspection, full ROM, tenderness, edema and other (3+ bilateral pitting edema with pain to palpation bilaterally, patient has LLE covered with Tyson wrap/bandages and in boot, for ongoing osteomyelitis/gangrenous foot, otherwise neurovascular intact.) Neurological Exam Neurological exam: Present alert and oriented X3 Psychiatric Psychiatric exam: Present normal affect Skin Skin exam: Present warm and dry Medical Decision Making Medical Records Medical records reviewed: Yes I reviewed the patient's medical records. Screening: Per USPSTF and CDC recommendations, given the prevalence of disease in our region, it is our hospital?s policy to screen for HIV and viral Hepatitis for all patients aged 18 and over and those with ongoing risk factors. Francisco Inquiry Pt receiving controlled substance: No Francisco was queried for this patient: No Vital Signs: 02/07/25 13:45 02/07/25 14:00 02/07/25 14:30 Temperature 97.7 F Temperature Source Oral Pulse Rate Pulse Rate [Right] 100 H Respiratory Rate 20 22 21 Blood Pressure 110/70 107/80 L Blood Pressure [Right Arm] 113/77 Blood Pressure Mean [Right Arm] 89 Blood Pressure Source Blood Pressure Position 02 Sat by Pulse Oximetry 100 Oxygen Delivery Method Room Air 02/07/25 15:30 02/07/25 16:00 02/07/25 16:30 Temperature Temperature Source Pulse Rate Pulse Rate [Right] Respiratory Rate 16 24 Blood Pressure 120/90 120/83 110/84 Blood Pressure [Right Arm] Blood Pressure Mean [Right Arm] Blood Pressure Source Blood Pressure Position 02 Sat by Pulse Oximetry Oxygen Delivery Method 02/07/25 17:00 02/07/25 17:30 02/07/25 18:00 Temperature Temperature Source Pulse Rate Pulse Rate [Right] Respiratory Rate 18 22 22 Blood Pressure 117/87 111/85 114/85 Blood Pressure [Right Arm] Blood Pressure Mean [Right Arm] Blood Pressure Source Blood Pressure Position 02 Sat by Pulse Oximetry Oxygen Delivery Method 02/07/25 18:30 02/07/25 20:13 Temperature 97.7 F Temperature Source Oral Pulse Rate 99 H Pulse Rate [Right] Respiratory Rate 20 20 Blood Pressure 104/74 L 121/77 Blood Pressure [Right Arm] Blood Pressure Mean [Right Arm] Blood Pressure Source Automatic Cuff Blood Pressure Position Sitting 02 Sat by Pulse Oximetry Oxygen Delivery Method Room Air Lab Data Lab results reviewed: Yes I reviewed the patient's lab results. Lab Results 02/07/25 13:54: WBC 5.1, RBC 3.49 L, Hgb 8.9 L, Hct 29.7 L, MCV 85.1, MCH 25.5 L , MCHC 30.0 L, RDW 15.7, Plt Count 289, MPV 9.9, Neut % (Auto) 61.4, Lymph % (Auto) 24.7, Candler % (Auto) 8.8, Eos % (Auto) 3.5, Baso % (Auto) 1.0, Neut # (Auto) 3.1, Lymph # (Auto) 1.3, Candler # (Auto) 0.5, Eos # (Auto) 0.2, Baso # (Auto) 0.1, ESR 74 H, PT 12.2, INR 1.11 H, Sodium 135 L, Potassium 5.0, Chloride 105, Carbon Dioxide 21 L, Anion Gap 14.0, BUN 20, Creatinine 1.50 H, Estimated Creat Clear 87, Estimated GFR 50 L, Est GFR ( Amer) 60, Glucose 231 H, Calcium 9.3, Magnesium 2.0, Total Bilirubin 0.9, AST 29, ALT 17, Alkaline Phosphatase 83, Troponin I 0.01, C-Reactive Protein 23.2 H, NT-Pro-B Natriuret Pep 27246 H, Total Protein 7.0, Albumin 3.8, Globulin 3.2, Albumin/Globulin Ratio 1.2, HIV Ag/Ab Combo Qual Negative 02/07/25 17:03: Lactate 1.8, Troponin I < 0.01 02/07/25 13:54 02/07/25 13:54 Orders (Tests/Meds): ED MEDICATIONS Generic Name Dose Route Start Last Admin Trade Name Freq PRN Reason Stop Dose Admin Vancomycin HCl 2,000 mg/ 250 mls @ 125 mls/hr 02/07/25 20:00 Sodium Chloride IV 02/07/25 21:59 ONCE ONE Miscellaneous 1 each 02/07/25 20:00 02/07/25 20:54 Vancomycin Consult Request NOTAPPLIC 03/09/25 19:59 Not Given CONSULT PHARMACY [facility] Sodium Chloride 10 ml 02/07/25 14:53 02/07/25 14:56 Sodium Chloride 0.9% 10ml Syr (Rad Only) IV 03/09/25 14:52 10 ml NEEDED PRN Administration Maintain IV Site Discontinued Medications Generic Name Dose Route Start Last Admin Trade Name Freq PRN Reason Stop Dose Admin Furosemide 80 mg 02/07/25 14:33 02/07/25 15:36 Furosemide 100mg/10ml Vial IV 02/07/25 14:34 80 mg ONCE ONE Administration Cefepime HCl 2 gm/ Sodium 100 mls @ 200 mls/hr 02/07/25 19:47 02/07/25 20:47 Chloride IV 02/07/25 20:16 200 mls/hr ONCE ONE Administration Iopamidol 100 ml 02/07/25 14:53 02/07/25 14:56 Iopamidol-370 (76%);100ml Bottle IV 02/07/25 14:54 100 ml ONCE ONE Administration Iopamidol 20 ml 02/07/25 14:54 02/07/25 14:56 Iopamidol-370 (76%);100ml Bottle IV 02/07/25 14:55 20 ml ONCE ONE Administration Sodium Chloride 50 ml 02/07/25 14:53 02/07/25 14:55 0.9 % Sodium Chloride 50 Ml Vial IV 02/07/25 14:54 50 ml ONCE ONE Administration Sodium Chloride 50 ml 02/07/25 14:54 02/07/25 14:56 0.9 % Sodium Chloride 50 Ml Vial IV 02/07/25 14:55 50 ml ONCE ONE Administration ORDERS Category Date Time Status CT angio abdomen/femoral Stat Cat Scan 02/07/25 14:08 Completed CTA Chest [CT angio chest - dissection] Stat Cat Scan 02/07/25 17:18 Completed XR chest portable Stat Exams 02/07/25 13:56 Completed CRP [C-Reactive Protein] Stat Lab 02/07/25 13:54 Completed Complete Blood Count Auto Diff Stat Lab 02/07/25 13:54 Completed Comprehensive Metabolic Panel Stat Lab 02/07/25 13:54 Completed ESR [Erythrocyte Sedimentation Rate] Stat Lab 02/07/25 13:54 Completed HIV Combo Stat Lab 02/07/25 13:54 Completed Hepatitis C Ab Qual. W/ RFX Stat Lab 02/07/25 13:54 Received Lactic Acid Stat Lab 02/07/25 17:03 Completed Magnesium Stat Lab 02/07/25 13:54 Completed NT Pro Brain Natriuretic Pep. Stat Lab 02/07/25 13:54 Completed PT INR [Prothrombin Time INR] Stat Lab 02/07/25 13:54 Completed Troponin I Q3H Lab 02/07/25 17:03 Completed Troponin I Q3H Lab 02/07/25 20:27 Completed Troponin I Stat Lab 02/07/25 13:54 Completed Urinalysis and Microscopic Stat Lab 02/07/25 20:11 Completed Blood Culture Stat Micro 02/07/25 20:10 Received Bone Culture Routine Micro 02/07/25 12:00 Received Wound Culture and Gram Stain Routine Micro 02/07/25 12:00 Received CA venous doppler LE BI Stat Y 02/07/25 14:06 Completed Medical Decision Narrative: 49-year-old male presents to the emergency department with concern for fluid, retention, orthopnea, dyspnea and bilateral lower extremity pain and swelling left worse than right differential diagnosis to include but not limited to, acute osteomyelitis, chronic osteomyelitis, cellulitis, NSTI, CHF exacerbation, pleural effusion, pulmonary edema, cardiac arrhythmia, electrolyte disturbance, anasarca, DVT, peripheral artery disease among others. I discussed this patient's case with the attending physician and attending physician Dr. Basurto, at shift change. Will obtain basic laboratory studies, EKG, inflammatory markers, chest x-ray, bilateral lower extremity duplex, CXR, CTA abdomen pelvis with runoff, lactic acid level magnesium level proBNP, troponin, coags, and urinalysis. CBC notable for anemia with a hemoglobin 8.9 hematocrit 29.7, appears to be within baseline anemia CMP notable for acute kidney injury with a creatinine 1.5, appears to be slightly elevated outside of baseline. CRP is elevated at 23.2, no electrolyte derangements I reviewed and independently interpreted the patient's chest x-ray along with corresponding radiologic report apparent cardiomegaly that is mild the portion of this appearance may be secondary to AP technique bilateral low lung volumes mild CHF small to moderate left pleural effusion probable small right pleural effusion patchy airspace opacity in the right and left lung base greater on the left findings suggestive of atelectasis change Troponin is 0.01, proBNP is significantly elevated at 22,400, because of this we will give 80 mg of IV furosemide for diuresis. ESR is elevated at 74 Coags unremarkable I reviewed the patient's bilateral duplex ultrasound along the corresponding radiologic report, no evidence of deep venous thrombosis and large left inguinal lymph node. No lactic acidosis Repeat troponin is less than 0.01. I discussed this patient's case with the attending hospitalist Dr. Gonzales at approximately 6:33 PM, I will call him back when the patient's CT angiograph's are resulted for potential admission I reviewed the patient's CTA abdomen pelvis, and CTA chest with and without contrast on the corresponding radiologic report, large bilateral pleural effusions, right level 4 lymph nodes mildly enlarged mediastinal and prevascular lymph nodes are present, no discrete hilar mass and find no suspicious pulmonary nodule or mass evaluation is somewhat limited by large pleural effusion and atelectasis changes, additional incidental nonemergent findings as described. CTA abdomen pelvis notable for prior partial amputation changes present in the left foot fluid collection is present at the prior amputation site there is associated potential areas of bony erosion present which raise concern for osteomyelitis or potential abscess formation within the left foot at prior imitation site, please correlate clinically follow-up MRI of the left foot may be indicated, heavy atherosclerotic plaque along the abdominal aorta no infrarenal abdominal aortic aneurysm, high-grade stenosis within the proximal aspect the superior mesenteric artery high-grade stenosis of the origin of the right renal artery, moderate stenosis within the proximal right common iliac multifocal high-grade stenosis of right superficial femoral artery right superficial femoral artery remains patent, with focal areas of stenosis present in the right popliteal artery, right popliteal artery remains patent, high-grade critical stenosis in the right tibioperoneal trunk, critical stenosis or potential occlusion involving the right proximal posterior tibialis and peroneal arteries, there is reconstitution of flow distally, right anterior tibialis and posterior tibialis artery are patent to the level of the ankle right dorsalis pedis artery is patent, high-grade stenosis of the left common femoral artery. Left common femoral artery remains patent. Multifocal stenosis within the left superficial femoral artery. Left superficial femoral artery remains patent. Multifocal high-grade stenosis within the left popliteal artery. 8. High-grade stenosis of the left tibioperoneal trunk. There is critical stenosis or potential occlusion of the proximal left posterior tibialis artery. There is reconstituted flow distally to the level of the ankle. Left anterior tibialis artery and peroneal artery is demonstrate high-grade stenosis of the proximal aspect but remain patent. Left dorsalis pedis artery is patent. 9. Extensive subcutaneous edema overlies the right and left lower extremity. 10. Diffuse subcutaneous edema overlies the abdomen and pelvis. 11. Probable fatty liver. A portion of the liver surface appears slightly nodular. Please correlate with any abnormal liver function tests. 12. Small amount of ascites is present along the margin of the liver and within the pelvis. 13. Additional incidental and nonurgent findings as described. I went and personally examined the patient's left foot, I unwrapped the bandage, and took the patient's boot off, no obvious signs of cellulitis or abscess to my exam, at prior amputation site, there is some skin breakdown with active eschar and some serosanguineous drainage no purulent drainage is noted per my exam. Surgical sutures are in place I discussed this patient's case with the hospitalist provider Elinor Glasgow APRN at approximately 7:42 PM, she is in agreement with the current imaging plan/treatment plan. For cardiology consultation podiatry/orthopedic consultation for early osteomyelitis, will obtain blood cultures and start 2 g IV cefepime and vancomycin pharmacy to dose, and treat the patient's heart failure exacerbation/modify his cardiac risk factors. I discussed need for admission with patient at the bedside patient is in agreement with the current admission plan/treatment plan. UA is unremarkable. Critical Care Critical Care Time Critical Care Time: No
--- NOTE | 2025-02-07 13:56 | XR_ITS ---
PROCEDURE INFORMATION: Exam: XR Chest Exam date and time: 02/07/2025 1:59 PM Age: 49 years old Clinical indication: Shortness of breath; Additional info: SOA TECHNIQUE: Imaging protocol: Radiologic exam of the chest. Views: 1 view. COMPARISON: 1. CR CHEST SINGLE VIEW/PORTABLE 12/20/2024 6:08 PM 2. CR XR CHEST PORTABLE 12/21/2024 9:39 AM FINDINGS: Lungs: Bilateral low lung volumes. Diffuse interstitial prominence and patchy airspace opacity within the right and left lung compatible with mild CHF. There is thickening along the minor fissure. Patchy airspace opacity is present within the left lower lobe more compatible with atelectatic change. Pleural spaces: [id number] left pleural effusion is present. Probable small right pleural effusion. No pneumothorax. Heart/Mediastinum: Prominence of the cardiac silhouette suggestive of mild cardiomegaly. A portion of the appearance may correspond to AP projection and low lung volumes. Bones/joints: Mild degenerative changes are present throughout the spine. IMPRESSION: Apparent mild cardiomegaly. A portion of this appearance may be secondary to the AP technique and bilateral low lung volumes. Mild CHF. [id number] left pleural effusion. Probable small right pleural effusion. Patchy airspace opacity at the right and left lung base, greater on the left. Findings more suggestive of atelectatic change. Please correlate with any clinical suspicion for pneumonia.
--- NOTE | 2025-02-07 13:58 | ECG_ITS ---
APPROVED REPORT Exam: Resting ECG HR:94 bpm ECG Measurements Heart Rate 94 AXES NM 168 P 52 QRSd 110 QRS 14 QT 380 T 61 QTc 431 Conclusion SINUS RHYTHM LOW QRS VOLTAGE IN EXTREMITY LEADS [QRS DEFLECTION < 0.5 mV IN LIMB LEADS] POSSIBLE ANTERIOR MYOCARDIAL INFARCTION , OF INDETERMINATE AGE [30 ms Q WAVE IN V3/V4, OR R < 0.2 mV IN V4] INFERIOR MYOCARDIAL INFARCTION , PROBABLY OLD [40+ ms Q WAVE AND/OR ST/T ABNORMALITY IN II/aVF] ABNORMAL ECG UNCONFIRMED REPORT Normal sinus rhythm. No STEMI. Electronically signed by : BRIDGET HINSON, 02/08/2025 12:39:17
--- NOTE | 2025-02-07 14:06 | CA_ITS ---
FINAL REPORT TECHNIQUE: Bilateral lower extremity venous duplex was performed with augmentation and compression. CLINICAL HISTORY: EDEMA BLE'S,PAIN BLE'S FINDINGS: Proper flow is seen throughout the deep venous systems bilaterally. There is no evidence of deep venous thrombosis. There is a lymph node measuring up to 2.1 cm in left inguinal region. IMPRESSION: No evidence of deep venous thrombosis. Enlarged left inguinal lymph node. Reviewed, Interpreted and Dictated by Enmanuel Nascimento MD Transcribed by Hailey Rendon Authenticated and [facility]
--- NOTE | 2025-02-07 14:08 | CT_ITS ---
PROCEDURE INFORMATION: Exam: CTA Chest With Contrast Exam date and time: 02/07/2025 2:53 PM Age: 49 years old Clinical indication: Other: Edema; Additional info: Abd distention, bl le edema and pain TECHNIQUE: Imaging protocol: Computed tomographic angiography of the chest with contrast. Exam focused on the arteries. 3D rendering (Not supervised by radiologist): MIP and/or 3D reconstructed images were created by the technologist. Radiation optimization: All CT scans at this facility use at least one of these dose optimization techniques: automated exposure control; mA and/or kV adjustment per patient size (includes targeted exams where dose is matched to clinical indication); or iterative reconstruction. COMPARISON: CR XR CHEST PORTABLE 02/07/2025 1:59 PM FINDINGS: Pulmonary arteries: Main pulmonary artery is normal in caliber. No central pulmonary embolism. This exam is not optimized to evaluate for pulmonary embolism. Aorta: Normal caliber of the ascending and descending thoracic aorta. Scattered atherosclerotic plaque of the aortic arch. Origins of the great vessels are patent. Moderate stenosis within the proximal left common carotid artery measuring near 50%. Other arteries: Atherosclerotic plaque of the right and left carotid bulb. No high-grade stenosis. Common carotid arteries are patent. Visualized portion of the vertebral arteries are patent. Thyroid: Thyroid gland appears unremarkable. Trachea: Airway is patent. Trachea is midline in position. Central airways are clear. No significant bronchiectasis. Lungs: Bandlike atelectatic change of the left lung apex and extending into the central aspect of the left upper lobe. Diffuse mild interstitial prominence and ground-glass airspace opacity is present throughout the right and left lung compatible with some degree of pulmonary edema. Atelectatic changes are present within the right and left lower lobe, greater on the right. No suspicious mass or pulmonary nodule. Evaluation for pulmonary nodules is somewhat limited given atelectatic changes. Pleural spaces: Large bilateral pleural effusions are present. No pneumothorax. Heart: Mild cardiomegaly. No significant pericardial effusion. Coronary artery calcifications are present. There may potentially be coronary artery stents in place. Please correlate with patient's history. Lymph nodes: No suspicious lymphadenopathy within the visualized portion of the neck. No suspicious axillary lymphadenopathy or mass. There are a few small right level 4 lymph nodes which are somewhat nonspecific. Mildly prominent right paratracheal and prevascular lymph nodes are present. Largest measures up to 11 mm in short axis. Mildly prominent pretracheal lymph node measuring 12 mm in short axis. Several additional scattered nonenlarged prevascular lymph nodes are present. No hilar mass. Bones/joints: No acute osseous abnormality. No acute fracture. No suspicious lytic or sclerotic bone lesion. Multilevel disc space narrowing and degenerative endplate changes present within the lower cervical spine. Partial visualization of nmglbica-js-[id number] spinal canal stenosis at the C3-C4 level. Partial visualization of severe bilateral foraminal narrowing at C3-C4. Mild spinal canal stenosis at C4-C5. Dvpijrsu-he-ygnbki bilateral neural foraminal narrowing at C4-C5. Mild spinal canal stenosis at C5-C6. Moderate bilateral neural foraminal narrowing at C5-C6. Soft tissues: Asymmetric fullness of the pharyngeal soft tissues which is not fully imaged. Minimal subcutaneous edema overlies the lower chest. Other findings: Visualized portion of the major salivary glands appear symmetric. IMPRESSION: 1. Large bilateral pleural effusions. 2. Prominent right level 4 lymph nodes. Mildly enlarged mediastinal and prevascular lymph nodes are present. 3. No discrete hilar mass identified. No suspicious pulmonary nodule or mass. Evaluation is somewhat limited by large pleural effusions and atelectatic changes. 4. Additional incidental and nonurgent findings as described. PROCEDURE INFORMATION: Exam: CTA Abdominal Aorta and Bilateral Lower Extremities (Run-off) With Contrast Exam date and time: 02/07/2025 2:53 PM Age: 49 years old Clinical indication: Other: Edema; Additional info: Abd distention, bl le edema and pain TECHNIQUE: Imaging protocol: Computed tomographic angiography of the of the abdominal aorta, pelvis and bilateral lower extremities with contrast. 3D rendering (Not supervised by radiologist): MIP and/or 3D reconstructed images were created by the technologist. Radiation optimization: All CT scans at this facility use at least one of these dose optimization techniques: automated exposure control; mA and/or kV adjustment per patient size (includes targeted exams where dose is matched to clinical indication); or iterative reconstruction. Contrast material: ISO 370; Contrast volume: 120 ml; Contrast route: INTRAVENOUS (IV); COMPARISON: 1. MR FOOT LT WO/W CON 02/03/2025 9:25 AM 2. Report from lower extremity arterial ultrasound performed December 21, 2024. FINDINGS: Aorta: Aorta demonstrates marked atherosclerotic calcification. No infrarenal abdominal aortic aneurysm. Celiac and mesenteric arteries: Celiac artery is patent. No high-grade stenosis. Superior mesenteric artery is patent. Eccentric noncalcified plaque is present within the proximal aspect of the superior mesenteric artery. High-grade to critical stenosis is present within the proximal aspect of the superior mesenteric artery. Inferior mesenteric artery is patent. High-grade stenosis of the origin of the inferior mesenteric artery. Renal arteries: Right renal artery is patent. High-grade to critical stenosis is present within the proximal right renal artery. Left renal artery is patent. Moderate to high-grade stenosis is present within the proximal aspect of the left renal artery. Right iliac arteries: Heavy atherosclerotic plaque along the right common iliac artery. Moderate stenosis within the proximal right common iliac artery. Moderate stenosis within the distal aspect of the right common iliac artery. High-grade to critical stenosis of the origin of the right internal iliac artery. Right external iliac artery is patent. No high-grade stenosis or vessel occlusion involving the right external iliac artery. Right femoral/popliteal arteries: Right common femoral artery is patent. Peripheral atherosclerotic plaque. Moderate stenosis measuring near 50%. Right superficial femoral artery is patent. Multifocal moderate to high-grade stenosis is present within the proximal aspect of the right superficial femoral artery. Multifocal moderate stenosis within the distal aspect of the right superficial femoral artery. Right popliteal artery is patent. Peripheral calcified and noncalcified plaque is present. Mild stenosis within the distal aspect of the right popliteal artery. Right infrapopliteal arteries: Critical stenosis of the tibioperoneal trunk below the level of the right knee. High-grade stenosis of the takeoff of the right anterior tibialis artery. Right anterior tibialis artery remains patent to the level of the ankle. Critical stenosis with occlusion or near occlusion of the proximal right posterior tibialis and peroneal arteries. There is reconstituted flow within the right posterior tibialis artery to the level of the ankle. Multifocal areas of high-grade stenosis are present as the artery extends beyond the arch of the foot. Distal branches within the foot remain patent. Right peroneal artery demonstrates reconstituted flow and remains patent to the level of the ankle. Right dorsalis pedis artery is patent. Left iliac arteries: Left common iliac artery is patent. Heavy peripheral atherosclerotic plaque. No high-grade stenosis or vessel occlusion. High-grade stenosis within the proximal left internal iliac artery. Left external iliac artery is patent. No high-grade stenosis or vessel occlusion involving the left external iliac artery. Left femoral/popliteal arteries: Heterogeneous and calcified plaque is present within the left common femoral artery. Left common femoral artery is patent. High-grade stenosis is present within the left common femoral artery measuring greater than 50%. Left superficial femoral artery is patent. Scattered heterogeneous and calcified plaque is present within the left superficial femoral artery. Multifocal moderate stenosis is present within the proximal to mid aspect of the left superficial femoral artery. Multifocal moderate stenosis is present within the distal aspect of the left superficial femoral artery. Left popliteal artery is patent. Multifocal high-grade stenosis within the left popliteal artery. Left infrapopliteal arteries: Heterogeneous and dense calcified plaque of the left tibioperoneal trunk. Proximal aspect of the left posterior tibialis artery is occluded. There is reconstituted flow within the mid aspect. Left posterior tibialis artery is patent at the level of the ankle. High-grade stenosis of the origin of the left anterior tibialis artery. Left anterior tibialis artery is patent to the level of the ankle. High-grade to critical stenosis of the origin of the left peroneal artery. Left peroneal artery is patent beyond the area of stenosis. Left dorsalis pedis artery is patent. Liver: There is apparent diffuse decreased density throughout the liver in keeping with hepatic steatosis. Early timing of the contrast bolus limits evaluation. No areas of abnormal arterial phase enhancement. Question slight surface nodularity which may correspond to changes of cirrhosis. Please correlate with any abnormal liver function tests. Diaphragm: No hiatal hernia. Gallbladder and biliary ducts: The gallbladder is unremarkable. No biliary ductal dilatation. Pancreas: The pancreas is unremarkable. Spleen: The spleen is unremarkable. Adrenal glands: The adrenal glands are unremarkable. Kidneys and ureters: Right kidney is unremarkable as visualized. No mass or stone seen. No hydronephrosis. Left kidney is unremarkable as visualized. No mass or stone seen. No hydronephrosis. The ureters appear unremarkable. Stomach and bowel: The stomach appears unremarkable. Small bowel loops are normal in caliber no evidence of a small bowel obstruction. No evidence of acute colitis or acute diverticulitis. Appendix: Normal appendix. Urinary bladder: The bladder appears unremarkable. Reproductive: Prostate is normal in size. Dense central calcifications are present within the prostate. Intraperitoneal space: Small amount of perihepatic ascites is present. Small amount of free fluid is present within the pelvis. Lymph nodes: There are a few mildly prominent portacaval lymph nodes. There are no enlarged intra-abdominal lymph nodes. No suspicious pelvic lymphadenopathy. No inguinal lymphadenopathy. Mildly prominent retroperitoneal lymph nodes are present. Bones/joints: Prior amputation changes are present within the left foot. Fluid collection is present at the prior amputation site. There are associated potential areas of bony erosion present which raises concern for osteomyelitis or potential abscess formation within the left foot at prior amputation site. No other acute osseous abnormality. Osteoarthritic changes are present at the right and left knee. Osteoarthritic changes are present at the right and left hip joint. Multilevel degenerative changes are present within the lumbar spine. No acute fracture. Posterior decompression changes are present within the lower lumbar spine. Multilevel neural foraminal narrowing, most advanced at the L4-L5 and L5-S1 levels. Degenerative change and sclerosis of the right and left SI joint. Soft tissues: Generalized edematous change throughout the subcutaneous soft tissues overlying the abdomen and pelvis. Diffuse subcutaneous edema is present along the length of the right and left lower extremity. IMPRESSION: 1. Prior partial amputation changes are present within the left foot. Fluid collection is present at the prior amputation site. There are associated potential areas of bony erosion present which raises concern for osteomyelitis or potential abscess formation within the left foot at prior amputation site. Please correlate clinically. Follow-up MRI of the left foot may be indicated. 2. Heavy atherosclerotic plaque along the abdominal aorta. No infrarenal abdominal aortic aneurysm. 3. High-grade stenosis within the proximal aspect of the superior mesenteric artery. High-grade stenosis of the origin of the right renal artery. 4. Moderate stenosis within the proximal right common iliac artery. 5. Multifocal high-grade stenosis within the right superficial femoral artery. Right superficial femoral artery remains patent. Multifocal areas of stenosis are present within the right popliteal artery. Right popliteal artery remains patent. 6. High-grade to critical stenosis of the right tibioperoneal trunk. Critical stenosis or potential occlusion involving the proximal right posterior tibialis and peroneal arteries. There is reconstituted flow distally. Right anterior tibialis and posterior tibialis arteries are patent to the level of the ankle. Right dorsalis pedis artery is patent. 7. High-grade stenosis within the left common femoral artery. Left common femoral artery remains patent. Multifocal stenosis within the left superficial femoral artery. Left superficial femoral artery remains patent. Multifocal high-grade stenosis within the left popliteal artery. 8. High-grade stenosis of the left tibioperoneal trunk. There is critical stenosis or potential occlusion of the proximal left posterior tibialis artery. There is reconstituted flow distally to the level of the ankle. Left anterior tibialis artery and peroneal artery is demonstrate high-grade stenosis of the proximal aspect but remain patent. Left dorsalis pedis artery is patent. 9. Extensive subcutaneous edema overlies the right and left lower extremity. 10. Diffuse subcutaneous edema overlies the abdomen and pelvis. 11. Probable fatty liver. A portion of the liver surface appears slightly nodular. Please correlate with any abnormal liver function tests. 12. Small amount of ascites is present along the margin of the liver and within the pelvis. 13. Additional incidental and nonurgent findings as described. COMMENTS: THIS REPORT CONTAINS FINDINGS THAT MAY BE CRITICAL TO PATIENT CARE. The exam findings were verbally communicated by me to Dr. Basurto via telephone conference at 6:38 PM EST on 02/07/2025. The findings were acknowledged and understood.
[2025-02-07 14:17] LABS: Alanine Aminotransferase 17 U/L (12-78); Albumin Level 3.8 g/dl (3.5-5.0); Albumin/Globulin Ratio 1.2 (1.1-1.8); Alkaline Phosphatase 83 U/L (38-126); Anion Gap 14.0 mEq/L (5-15); Aspartate Amino Transferase 29 U/L (17-59); Bilirubin,Total 0.9 mg/dl (0.2-1.3); Blood Urea Nitrogen 20 mg/dl (9-20); Calcium 9.3 mg/dl (8.4-10.2); Carbon Dioxide 21 mmol/L (22.0-30.0); Chloride 105 mmol/L (98-107); Creatinine Clearance Estimated 87 mL/min (50-200); Creatinine,Serum 1.50 mg/dl (0.66-1.25); Estimated Glomerular Filt Rate 50 ml/min (>60); GFR (African American) 60 ML/MIN (>60); Globulin 3.2 g/dL (1.3-3.2); Glucose 231 mg/dl (74-100); Magnesium 2.0 mg/dl (1.6-2.3); Potassium 5.0 mmoL/L (3.5-5.1); Sodium 135 mmol/L (136-145); Total Protein,Serum 7.0 g/dl (6.3-8.2)
[2025-02-07 14:22] LABS: Hematocrit 29.7 % (42.0-52.0); Hemoglobin 8.9 g/dL (14.1-18.0); Immature Granulocytes % 0.6 %; Mean Corpuscular HGB Conc 30.0 g/dL (31.8-35.4); Mean Corpuscular Hemoglobin 25.5 pg (27.0-31.2); Mean Corpuscular Volume 85.1 fl (80-94); Nucleated Red Blood Cells % 0 %; Platelet Count 289 K/mm3 (142-424); Red Blood Count 3.49 M/mm3 (4.60-6.20); Red Cell Distribution Width-SD 48.1 fL; White Blood Count 5.1 K/mm3 (4.8-10.8)
[2025-02-07 14:23] LABS: C-Reactive Protein 23.2 mg/L (0-4)
[2025-02-07 14:28] LABS: NT Pro Brain Natriuretic Pep. 22400 pg/mL (0-125)
[2025-02-07 14:29] LABS: Troponin I 0.01 ng/ml (0.00-0.034)
[2025-02-07] MEDS: 0.9 % SODIUM CHLORIDE 50 ML VIAL IV ×2 (14:55→14:56)
[2025-02-07] MEDS: IOPAMIDOL-370 (76%);100ML BOTTLE 100 ML IV (14:56)
[2025-02-07] MEDS: SODIUM CHLORIDE 0.9% 10ML SYR (RAD ONLY) 10 ML IV (14:56)
[2025-02-07] MEDS: IOPAMIDOL-370 (76%);100ML BOTTLE 20 ML IV (14:56)
[2025-02-07 15:23] LABS: INR 1.11 (0.9-1.1); Prothrombin Time 12.2 seconds (10.1-12.5)
[2025-02-07] MEDS: FUROSEMIDE 100MG/10ML VIAL 80 MG IV (15:36)
[2025-02-07 17:33] LABS: Troponin I < 0.01 ng/ml (0.00-0.034)
--- NOTE | 2025-02-07 18:34 | PC.NURSE ---
on the phone with JIMYAD at this time.
--- NOTE | 2025-02-07 20:00 | PC.NURSE ---
report called to Lina LOVELACE
[2025-02-07 20:29] LABS: Microscopic, Urine URINE MICROSCOPIC (MICROSCOPIC)
[2025-02-07 20:32] LABS: Bilirubin,Urine Negative (Negative); Color,Urine YELLOW (Yellow); Glucose,Urine (UA) Negative (Negative); Ketones,Urine Negative (Negative); Leukocyte Esterase,Urine Negative (Negative); PH,Urine 6.0 (5.0-8.5); Protein,Urine Negative (Negative); Specific Gravity, Urine 1.010 (1.005-1.030); Urobilinogen,Urine 0.2 EU/dl (0.2)
[2025-02-07] MEDS: CEFEPIME HCL 2 GM in 0.9 % SODIUM CHLORIDE 100 ML IV (20:47)
[2025-02-07 20:49] LABS: WBC,Urine Occasional #/hpf (0-3)
[2025-02-07 21:03] LABS: Troponin I 0.01 ng/ml (0.00-0.034)
--- OUTSIDE RECORDS SUMMARY | 2025-02-07 21:25 | XMS_ITS | Clinical Summary ---
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 08/14/2023 Cellulitis 07/07/2023 Coronary artery disease invo lving circle coronary artery of circle heart without angina pectoris 05/01/2019 Ischemic cardiomyopathy 05/01/2019 Acute congestive heart failure 04/26/2019 Acute systolic congestive heart failure 04/26/19 Overview (07/02/2023): Added automatically from request for surgery [id number] Type 2 diabetes mellitus with hyperglycemia 03/2019 [...] drink = 0.6 oz pur e alcohol) [facility] Utilities Answer Date Recorded In the past 12 months has [employer], gas, oil, or water [employer] threatened to shut off services in your [...] or training? Not on file Preferred Language Guyanese 07/02/2024 Sex and Gender Information Value Date [...] - 5.60 % 05/19/2024 5:24 PM EDT [facility] Blood Venipuncture / Unknown 05/19/2024 4:22 PM EDT 05/19/2024 4:59 PM EDT us T Matt Kenya DPM LAB BLOOD ORDERABLES Final R esult [facility]
[address] [facility] [place] [address], [place] [phone] from Last 3 Months or Most Recently Relevant to Health Maintenance Insurance [facility] Advance Directives * CPR (Attempt to Resuscitate) [...] or is breathing): Full Support Care Teams Qc Scientist Relationship Specialty Start Date End Date Head, Harish Hutson MD [address] [place] [address] PCP - General Internal Medicine 07/16/22
--- OUTSIDE RECORDS SUMMARY | 2025-02-07 21:25 | XMS_ITS | Encounter Summary ---
Author Organization [facility] Address [address] [place] [address] Care Team Providers Care Recycling Sorter Name Role Phone Head, Harish Hutson MD Primary Care Provider + [phone] Reason for Visit * Auth/Cert (Routine) Specialty Diagnoses / Procedures Referred By Contac t Referred To Contact Diagnoses Chronic ulcer of right foot with fat layer exposed Acquired posterior equinus of both lower extremities Chronic ulcer of right foot with fat layer exposed [L97.512] Acquired posterior equinus of both lower extremities [M21.861, M21.862] Procedures TN GASTROCNEMIUS RECESSION TN AMPUTATION METATARSAL W/TOE SINGLE Gastrocnemius recession to the right lower extremity Partial fifth metatarsal resection Referral ID Status Reason Start Date Expiration Date Visits Re quested Visits Authorized [id number] 1 1 Encounter Details Date Type Department Care Team (Late st Contact Info) Description 05/28/2024 Hospital Encounter [facility] OR [address] [place] [address] Latoya Zambrano DPM [address] [place] [address] Social History Tobacco Use Types Packs/Day Years Used Date Smoking Tobacco: Every Day Cigarettes 1 30 Passive Smoke Exposure: Current Smokeless Tobacco: Never Alcohol Use Standard Drinks/Week Comments Not Currently 0 (1 standard drink = 0.6 oz pur e alcohol) [facility] Utilities Answer Date Recorded In the past 12 months has [employer] electric, gas, oil, or water company threatened [...] or training? Not on file Preferred Language Rwandan 07/02/2024 Sex and Gender Information Value Date [...] 9:00 AM EDT Valentina Schroeder RN * [place] Suicide Severity Rating Scale (Screener/Recent Self-Report) Question [...] - 5.60 % 05/19/2024 5:24 PM EDT [facility] Blood Venipuncture / Unknown 05/19/2024 4:22 PM EDT 05/19/2024 4:59 PM EDT [facility] Matt Zambrano DPM LAB BLOOD ORDERABLES Final R esult [facility]
[address] [place] [address], documented in this encounter Visit Diagnoses Diagnosis Acquired posterior equinus of both lower extremities documented in this encounter Admitting Diagnoses Diagnosis Chronic ulcer of right foot with fat layer exposed Acquired posterior equinus of both lower extremities documented in this encounter Care Teams Recycling Sorter Relationship Specialty Start Date End Date Head, Harish Hutson MD [address] [place] [address] PCP - General Internal Medicine 07/16/22 documented as of this encounter
--- OUTSIDE RECORDS SUMMARY | 2025-02-07 21:25 | XMS_ITS | Clinical Summary ---
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) DEVICEIndications: Type 2 diabetes mellitus with foot [...] ORDERABLES Final Resul t [facility] [address] [place] [address] * (ABNORMAL) Lipid Panel (REVIEW [...] [facility] [address] [place], [place] [id number] * (ABNORMAL) Comprehensive Metabolic Panel (CMP) (08/30/2024 [...] ORDERABLES Final Resul t [facility] [address] [facility] [address] [place] [address] from Last 3 Months or Most Recently Relevant to Health Maintenance Insurance [facility] [employer] Advance Directives Documents on File Type Date Recorded Patient Exploration Driller Expl anation Power of Studio Technician 07/26/2015 3:05 PM Care Teams Aircraft Cylinder Mechanic Relationship Specialty Start Date End Date Head, Harish Jesnen MD [address] [place] [phone] PCP - General Hospice and Palliative Medicine 11/13/23
[2025-02-07 21:45] LABS: Hepatitis C Ab Qual. W/ RFX NEGATIVE (Negative)
--- NOTE | 2025-02-07 21:46 | P.HP_ITS ---
<Statement entered by Tevin Garcia MD - 02/11/25 12:11> Agree with the plan of care as outlined in [facility] below. History of Present Illness *Admission Date: 02/07/25 *Reason for visit:: SOA and BLE edema *History of present illness: Gerardo Moss is a 49-year-old male with past medical history significant for CAD, peripheral artery disease, angioplasty, history of tobacco use, type 2 diabetes mellitus, HFrEF, hypertension, hypothyroidism. Presents to [facility] emergency department with complaint of exertional dyspnea, bilateral lower extremity swelling, abdominal distention/swelling, weight gain. Patient reports notable weight gain and lower extremity edema since undergoing surgical procedure at the end of November. Patient has had ongoing left foot osteomyelitis with recent foot surgery due to diabetic foot ulcer. Underwent MRI left foot on February 03 noting possible beginning stages of osteomyelitis. Patient was placed on Bactrim twice daily. He has been evaluated by podiatry and cardiology for clearance for potential BKA. Due to ongoing worsening symptoms it was requested per podiatry and cardiology to follow-up to the emergency department for further evaluation. Patient endorses subjective fever and chills for the past several weeks. Significant shortness of breath with exertional activity. Reports that he is unable to lay flat due to shortness of breath. Reports compliance with home medications that include diuretic Lasix and spironolactone. Denies chest pain, nausea, vomiting, hematuria, diarrhea, abdominal pain. Initial ED workup included laboratory studies and imaging. Significant laboratory findings included ESR 74, sodium 135, creatinine 1.5, GFR 50, glucose 231, CRP 23.2, BNP 22,400. I personally reviewed abdomen and chest CTA, revealing large bilateral pleural effusions. Partial amputation changes within the left foot. Fluid collection present, potential area of bony erosion concerning for osteomyelitis or potential abscess formation within the left foot at the prior amputation site. Arthrosclerotic plaque along the abdominal aorta. High-grade stenosis within proximal aspect of the superior mesenteric artery. Moderate stenosis in the proximal right common iliac artery. Multifocal high- grade stenosis within the superficial femoral femoral artery. Diffuse subcutaneous edema overlies the abdomen and pelvis. Small amount of ascites present along the margin of the liver and within the pelvis. Venous Doppler study bilateral lower extremity personally reviewed revealing no evidence of DVT. Notable enlarged left inguinal lymph node present. Patient is hemodynamically stable. Assessment of patient at bedside, he is without acute distress, resting in bed comfortably. [facility] Disclaimer: The information contained in this section may have been updated after the patient was seen, as this information can be updated by other users. Medical History NSTEMI (non-ST elevated myocardial infarction) History of gastroesophageal reflux (GERD) Hypothyroid Congestive heart failure Hypertension Diabetes mellitus, type 2 Surgical History Status post foot surgery Hx of heart artery stent History of partial ray amputation of fifth toe of left foot H/O angioplasty Previous back surgery H/O foot surgery Social History (Updated 02/07/25 @ 22:30 by Lina wDyer RN) Smoking Status: Former smoker alcohol intake: never substance use type: denies use current occupational status: employed and other Travel in the last 8 weeks?: None Have you lived/traveled outside [place] in past 30 days?: No Contact w/someone who lives/traveled outside US past 30 days?: No Exposure to someone with infectious disease in past 14 days?: No Do you have a fever (greater than 100.4 F or 38 C)?: No Have you tested positive for COVID-19?: No Exposed to someone with COVID-19 in past 14 days?: No Do you have a sore throat?: No Do you have a cough?: No Do you have any weakness?: No Do you have any diarrhea?: No Are you experiencing any unusual bleeding?: No Do you have any muscle aches/pain?: No Do you have any abdominal pain?: No Are you experiencing loss of taste or smell?: No Other Medical History Have you received the Flu Vaccine for this season: No Have you received the Pneumonia Vaccine: No Review of Systems Review of Systems Review of systems:: pertinent systems reviewed and negative unless documented below Constitutional Constitutional: Reports as per HPI, Reports chills and Reports lethargy Eyes Eyes: Reports system reviewed and no additional complaints, except as documented and Reports as per HPI ENT Ears, Nose, Mouth, and Throat: Reports system reviewed and no additional complaints, except as documented and Reports as per HPI *Cardiovascular Cardiovascular: Reports as per HPI, Reports dyspnea, Reports dyspnea on exertion, Reports edema, Reports leg edema, Reports leg ulcers and Reports ort hopnea *Respiratory Respiratory: Reports as per HPI, Reports dyspnea and Reports dyspnea on exertion *Gastrointestinal Gastrointestinal: Reports as per HPI and Reports other (Distended tight abdomen ) *Genitourinary Genitourinary: Reports system reviewed and no additional complaints, except as documented and Reports as per HPI *Musculoskeletal Musculoskeletal: Reports as per HPI Integumentary/Breasts Skin/Breast: Reports as per HPI and Reports wounds (post amputation wound ) *Neurologic Neurologic: Reports system reviewed and no additional complaints, except as documented and Reports as per HPI Psychiatric Psychiatric: Reports system reviewed and no additional complaints, except as documented and Reports as per HPI Endocrine Endocrine: Reports system reviewed and no additional complaints, except as documented and Reports as per HPI Hematologic/Lymphatic Hematologic/Lymphatic: Reports system reviewed and no additional complaints, except as documented and Reports as per HPI Allergic/Immunologic Allergic/Immunologic: Reports system reviewed and no additional complaints, except as documented and Reports as per HPI Meds Home Medications and Allergies Home Medications ?Medication ?Instructions ?Recorded ?Confirmed ?Type carvedilol 12.5 mg tablet 12.5 mg PO BID 12/20/2401/24 History empagliflozin 25 mg tablet 25 mg PO DAILY 12/20/24 History (Jardiance) lisinopril 10 mg tablet 10 mg PO DAILY 12/20/2401/24 History Held on 12/24/24. Instructions: Resume on 01/07/25. Hold due to soft blood pressures. Discuss with cardiology about restarting at next appointment. omeprazole 40 mg capsule,delayed 40 mg PO DAILY 02/07/25 History release ondansetron 4 mg disintegrating 4 mg PO Q6H PRN nausea and 01/18/25 02/07/25 Rx tablet vomiting #30 tabs furosemide 40 mg tablet 40 mg PO BID 01/31/25 History spironolactone 25 mg tablet 50 mg PO DAILY 01/31/25 History sulfamethoxazole 800 1 tab PO BID cellulitis 14 d ays 02/03/25 02/07/25 Rx mg-trimethoprim 160 mg tablet #28 tabs (Bactrim DS) doxycycline hyclate 100 mg capsule 100 mg PO BID 02/0702/07/25 History New Prescriptions to Start Prescriptions: Allergies Allergy/AdvReac Type Severity Reaction Status Date / Time No Known Allergies Allergy Verified 02/07/25 13:03 Exam Data for Last 24 hours Vital signs and Labs for Last 24 Hours: Temp Pulse Resp BP Pulse Ox O2 Del Method 97.7 F 102 H 20 111/82 97 Room Air 02/07/25 21:21 02/07/25 21:21 02/07/25 21:21 02/07/25 21:21 02/07/25 21:21 02/07/25 21:21 Laboratory Results - last 24 hr 02/07/25 13:54: WBC 5.1, RBC 3.49 L, Hgb 8.9 L, Hct 29.7 L, MCV 85.1, MCH 25.5 L , MCHC 30.0 L, RDW 15.7, Plt Count 289, MPV 9.9, Neut % (Auto) 61.4, Lymph % (Auto) 24.7, [place] % (Auto) 8.8, Eos % (Auto) 3.5, Baso % (Auto) 1.0, Neut # (Auto) 3.1, Lymph # (Auto) 1.3, [place] # (Auto) 0.5, Eos # (Auto) 0.2, Baso # (Auto) 0.1, ESR 74 H, PT 12.2, INR 1.11 H, Sodium 135 L, Potassium 5.0, Chloride 105, Carbon Dioxide 21 L, Anion Gap 14.0, BUN 20, Creatinine 1.50 H, Estimated Creat Clear 87, Estimated GFR 50 L, Est GFR ( Amer) 60, Glucose 231 H, Calcium 9.3, Magnesium 2.0, Total Bilirubin 0.9, AST 29, ALT 17, Alkaline Phosphatase 83, Troponin I 0.01, C-Reactive Protein 23.2 H, NT-Pro-B Natriuret Pep 23162 H, Total Protein 7.0, Albumin 3.8, Globulin 3.2, Albumin/Globulin Ratio 1.2, HIV Ag/Ab Combo Qual Negative 02/07/25 17:03: Lactate 1.8, Troponin I < 0.01 02/07/25 20:11: Urine Color Yellow, Urine Appearance Clear, Urine pH 6.0, Ur Specific [place] 1.010, Urine Protein Negative, Urine Glucose (UA) Negative, Urine Ketones Negative, Urine Blood Negative, Urine Nitrate Negative, Urine Bilirubin Negative, Urine Urobilinogen 0.2, Ur Leukocyte Esterase Negative, Urine RBC None, Urine WBC Occasional, Ur Squamous Epith Cells None, Urine Bacteria None 02/07/25 20:27: Troponin I 0.01 I & O for Last 24 hours: Intake & Output 02/04/25 02/05/25 02/06/25 02/07/25 23:59 23:59 23:59 23:59 Output Total 1550 / 1550 Balance -1550 / -1550 Weight 100.652 kg Constitutional Constitutional: no acute distress *Routine HEENT Exam Head: Present normocephalic and atraumatic Eye: Present EOMI, PERRL and normal accommodation ENT: Present mucous membranes moist *Routine Neck Exam Neck: Present supple and full ROM *Routine Respiratory Exam Respiratory: Present normal respiratory effort and able to speak in complete sentences Comments: Short of breath while laying flat *Routine Cardiovascular Exam Cardiovascular: Present RRR, Normal S1 and Normal S2 *Routine Abdominal Exam Abdominal: Present normoactive bowel sounds, distended and firm *Routine Rectal Exam Rectal:: deferred *Routine Genitalia Exam Genitalia:: deferred *Routine Extremities Exam Extremities: Present edema, full ROM, pulses intact, normal capillary refill and amputation (Left foot ) Routine Back/Spine/Pelvis Exam Back/Spine: Present full ROM *Routine Skin Exam Skin: Present wounds (Bilateral food wound/ left foot post surgical wound ) *Routine Neurological Exam Neurological: Present alert, oriented X3 and CN II-XII intact Routine Psychiatric Exam Psychiatric: Present normal affect and normal thought process Assessment and Plan *Assessment and plan (1) Acute on chronic HFrEF (heart failure with reduced ejection fraction): Status: Acute Category: Medical Code(s): I50.23 - Acute on chronic systolic (congestive) heart failure (2) Foot osteomyelitis, left: Status: Acute Qualifiers: Osteomyelitis type: unspecified type Qualified Code(s): M86.9 - Osteomyelitis, unspecified Category: Medical Code(s): M86.9 - Osteomyelitis, unspecified (3) CODY (acute kidney injury): Status: Acute Category: Medical Code(s): N17.9 - Acute kidney failure, unspecified (4) Bilateral pleural effusion: Status: Acute Category: Medical Code(s): J90 - Pleural effusion, not elsewhere classified (5) CAD (coronary artery disease): Status: Acute Qualifiers: Associated angina: without angina Coronary Disease-Associated Artery/Lesion type: unspecified vessel or lesion type [place] vs. transplanted heart: [place] heart Qualified Code(s): I25.10 - Atherosclerotic heart disease of [place] coronary artery without angina pectoris Category: Medical Code(s): I25.10 - Atherosclerotic heart disease of [place] coronary artery without angina pectoris (6) Peripheral arterial disease: Status: Acute Category: Medical Code(s): I73.9 - Peripheral vascular disease, unspecified (7) Diabetes mellitus, type 2: Status: Acute Qualifiers: Diabetes mellitus complication detail: with other skin complication Diabetes mellitus complication status: with skin complications Diabetes mellitus termite exterminator insulin use: with termite exterminator use Qualified Code(s): E11.628 - Type 2 diabetes mellitus with other skin complications; Z79.4 - prison (current) use of insulin Category: Medical Code(s): E11.9 - Type 2 diabetes mellitus without complications (8) Hypertension: Status: Acute Qualifiers: Hypertension type: unspecified secondary hypertension Qualified Code(s): I15.9 - Secondary hypertension, unspecified Category: Medical Code(s): I10 - Essential (primary) hypertension (9) Hypothyroid: Status: Acute Qualifiers: Hypothyroidism type: unspecified Qualified Code(s): E03.9 - Hypothyroidism, unspecified Category: Medical Code(s): E03.9 - Hypothyroidism, unspecified Plan Plan/assessment I personally discussed the management of this patient with the emergency depa rtment provider and agree with hospital admission. Patient presented with complaint of lower extremity edema, significant weight gain over the last several weeks. Imaging studies as noted above consistent with hypervolemia. Concern of postsurgical changes left lower extremity, of osteomyelitis. Patient has been on Bactrim twice a day. WBC, lactic acid and vitals within normal limits. Patient has had complaints of intermittent subjective fever and chills. Blood cultures obtained and broad-spectrum IV antibiotics initiated while in the emergency department. Received 1 dose 80 mg Lasix. Transferred to [facility] for continued monitoring, cardiology consult for underlying acute on chronic CHF exacerbation. Cardiac monitoring and lab trending. 1. Acute on chronic HFrEF: Patient noted significant weight increase over the past few weeks. BNP 22,400. Bilateral lower extremity edema, abdominal distention present. Imaging consistent with hypervolemia as noted above. Decreased level of activity due to significant shortness of breath. Unable to lay flat due to fluid overload. Echocardiogram 12/21->showing severe reduction in LV systolic function (LVEF 20%).Grade 3 diastolic dysfunction. Normal RV size with moderate reduction in RV function. Biatrial dilation. Moderate MR. Mild TR. Received Lasix 80 mg in the ED-resume diuresis with IV Lasix 40 mg twice daily. Daily weight, monitor intake output closely. Cardiology consult placed, appreciate evaluation/input. 2. Left lower extremity osteomyelitis: Relatively recent amputation left lower extremity, imaging study MRI obtained on , suggestive of possible early onset osteomyelitis. Prior to hospitilization pt. placed on Bactrim twice daily with plan of following up with infectious disease tomorrow. Complaint of intermittent chills with feeling feverish at times. Afebrile, WBC, lactic acid, vitals WNL at presentation. Due to patient history and recent imaging-blood cultures were obtained and broad-spectrum IV antibiotics initiated. Pharmacy consult placed for vancomycin dosing. Resume IV antibiotic therapy, follow culture adjust as appropriate. 3. CODY: Creatinine unsure of consistent baseline-> presented with creatinine of 1.5, GFR 60-> most recent prior finding renal function within normal limits although multiple findings prior creatinine distantly 1.6 range. Monitor renal function closely, trend with morning labs. 4. History of CAD/peripheral artery disease/HTN: Significant history CAD/peripheral artery disease-reports medication, daily aspirin antiplatelet therapy. Blood pressure normotensive, resume antihypertensive medication when home medication reconciled. 5. Diabetes mellitus type 2: Mildly elevated with initial glucose check-> upper 200 range. Insulin sliding scale with Accu-Cheks ACHS. 6. Hypothyroidism: Resume home levothyroxine. 7. GERD: Resume home proton pump inhibitor, Protonix. Full code DVT prophylaxis Lovenox Diabetic/low-sodium fluid restriction diet
[2025-02-07] MEDS: VANCOMYCIN HCL 2,000 MG in 0.9 % SODIUM CHLORIDE 250 ML 125 MG IV (22:10)
[2025-02-07] MEDS: FUROSEMIDE 40MG/4ML VIAL 40 MG IV (22:45)
--- NOTE | 2025-02-07 23:05 | PC.WOUNDNOTE ---
PATIENT'S WOUND IMAGES The mid part (israel/calf) of his left lower extremity remains wrapped. Patient has significant pitting swelling in his lower extremities bilaterally. All images depict the patient's left foot. Sutures remain intact from previous operation. There is an open area noted to the bottom of the patient's foot with exposed tissue and serosanguineous drainage. No odor was present. Patient denies any pain or sensation within the affected area. Skin is scaly, flaky, and rough around his left foot + ankle. The left foot was dressed wet-to-dry per A Jerson JORDAN. Wound consult ordered. Hand washing was performed prior to applying the dressing. Sterile technique was utilized. Patient tolerated the dressing application very well without any complaints. Materials used (in order): sterile iodine-soaked 4x4 gauze pads, sterile dry 4x4 gauze pads (for reinforcement), half a roll of Kerlix, and new CAROLE wrap bandaging.
[2025-02-08] VITALS: BP 101/65; PULSE 100; PULSE 99; RESP 20; TEMP 36.7; O2SAT 99
[2025-02-08 04:00] VITALS: BP 109/79; PULSE 100; PULSE 97; RESP 22; TEMP 36.5; O2SAT 96; BMI 32.0
--- NOTE | 2025-02-08 04:15 | PC.NURSE ---
Mr Gerardo Moss was newly admitted this shift on behalf of the documented diagnosis congestive heart failure exacerbation and osteomyelitis. Admission assessments and home medication reconciliation (utilized external medication history, patient was not exactly sure about his medications) were completed by me. Is alert and oriented x4. Physical assessment (see nursing shift biophysical intervention) was performed as appropriately this shift. Scheduled medications were administered per APR. Diuresis regimen was initiated this shift with intravenous Lasix. Daily weights. Patient is edematous in all four extremities, and his upper abdomen/thorax area is [id number]. He stated that he has intermittent periods of difficulty catching his breath. Oxygen saturations are > 9% on room air. Urinal is at bedside to monitor urine output. Fluid restriction of 1,500 mL with a diabetic diet. On telemetry. Vital signs Q4HR. Left foot was assessed and freshly dressed during this shift (see previous nursing wound note for images). Area was first irrigated with sterile water prior to dressing the wound. Patient has not had any complaints of pain or chills/shivering this shift. Utilizes axillary crutches during ambulation/transfers. Case management, cardiology, and wound care consults in place. ACHS glucose checks. At this time, the patient remains resting in bed with no further complaints. Attempting to rest with eyes closed at this time. Call light is within reach.
[2025-02-08] MEDS: CEFEPIME HCL 2 GM in 0.9 % SODIUM CHLORIDE 100 ML IV ×3 (05:00→20:33)
[2025-02-08 05:16] LABS: POC Glucose,Bedside 255 gm/dL (70-110)
[2025-02-08] MEDS: humaLOG 100 UNITS/ML 10ML VIAL (SSI) SUBCUT ×4 (05:42→20:34)
[2025-02-08 06:39] LABS: Hematocrit 28.3 % (42.0-52.0); Hemoglobin 8.4 g/dL (14.1-18.0); Immature Granulocytes % 0.2 %; Mean Corpuscular HGB Conc 29.7 g/dL (31.8-35.4); Mean Corpuscular Hemoglobin 24.8 pg (27.0-31.2); Mean Corpuscular Volume 83.5 fl (80-94); Nucleated Red Blood Cells % 0 %; Platelet Count 274 K/mm3 (142-424); Red Blood Count 3.39 M/mm3 (4.60-6.20); Red Cell Distribution Width-SD 46.8 fL; White Blood Count 5.1 K/mm3 (4.8-10.8)
[2025-02-08 07:08] LABS: Albumin Level 3.4 g/dl (3.5-5.0); Chloride 104 mmol/L (98-107); Potassium 4.4 mmoL/L (3.5-5.1); Sodium 131 mmol/L (136-145)
[2025-02-08 07:11] LABS: Alanine Aminotransferase 12 U/L (12-78); Albumin/Globulin Ratio 1.1 (1.1-1.8); Alkaline Phosphatase 77 U/L (38-126); Anion Gap 10.4 mEq/L (5-15); Aspartate Amino Transferase 18 U/L (17-59); Bilirubin,Total 0.7 mg/dl (0.2-1.3); Blood Urea Nitrogen 19 mg/dl (9-20); Calcium 8.7 mg/dl (8.4-10.2); Carbon Dioxide 21 mmol/L (22.0-30.0); Creatinine Clearance Estimated 79 mL/min (50-200); Creatinine,Serum 1.60 mg/dl (0.66-1.25); Estimated Glomerular Filt Rate 46 ml/min (>60); GFR (African American) 56 ML/MIN (>60); Globulin 3.1 g/dL (1.3-3.2); Glucose 219 mg/dl (74-100); Total Protein,Serum 6.5 g/dl (6.3-8.2)
[2025-02-08 07:12] LABS: Magnesium 2.1 mg/dl (1.6-2.3)
[2025-02-08 08:00] VITALS: BP 129/89; PULSE 106; PULSE 110; RESP 18; TEMP 36.8; O2SAT 99
--- NOTE | 2025-02-08 08:17 | EXP.PHA.CONS ---
Pharmacy Consult Date: 02/08/25 Time: 08:17 Referring provider: DR KING Reason for Consult:: VANCOMYCIN DOSING CONSULT Allergies Allergy/AdvReac Type Severity Reaction Status Date / Time No Known Allergies Allergy Verified 02/07/25 13:03 Home Medications ?Medication ?Instructions ?Recorded ?Confirmed ?Type carvedilol 12.5 mg tablet 12.5 mg PO BID 12/20/24 02/07/25 History empagliflozin 25 mg tablet 25 mg PO DAILY 12/20/24 02/07/25 History (Jardiance) lisinopril 10 mg tablet 10 mg PO DAILY 12/20/24 02/07/25 History Held on 12/24/24. Instructions: Resume on 01/07/25. Hold due to soft blood pressures. Discuss with cardiology about restarting at next appointment. omeprazole 40 mg capsule,delayed 40 mg PO DAILY 12/20/24 02/07/25 History release ondansetron 4 mg disintegrating 4 mg PO Q6H PRN nausea and 01/18/25 02/07/25 Rx tablet vomiting #30 tabs furosemide 40 mg tablet 40 mg PO BID 01/31/25 02/07/25 History spironolactone 25 mg tablet 50 mg PO DAILY 01/31/25 02/07/25 History sulfamethoxazole 800 1 tab PO BID cellulitis 14 days 02/03/25 02/07/25 Rx mg-trimethoprim 160 mg tablet #28 tabs (Bactrim DS) doxycycline hyclate 100 mg capsule 100 mg PO BID 02/07/25 02/07/25 History New Prescriptions to Start Prescriptions: Height: 1.78 m Weight: 101.559 kg Laboratory Results:: Laboratory Results - last 24 hr 02/07/25 13:54: WBC 5.1, RBC 3.49 L, Hgb 8.9 L, Hct 29.7 L, MCV 85.1, MCH 25.5 L, MCHC 30.0 L, RDW 15.7, Plt Count 289, MPV 9.9, Neut % (Auto) 61.4, Lymph % (Auto) 24.7, [place] % (Auto) 8.8, Eos % (Auto) 3.5, Baso % (Auto) 1.0, Neut # (Auto) 3.1, Lymph # (Auto) 1.3, [place] # (Auto) 0.5, Eos # (Auto) 0.2, Baso # (Auto) 0.1, ESR 74 H, PT 12.2, INR 1.11 H, Sodium 135 L, Potassium 5.0, Chloride 105, Carbon Dioxide 21 L, Anion Gap 14.0, BUN 20, Creatinine 1.50 H, Estimated Creat Clear 87, Estimated GFR 50 L, Est GFR ( Amer) 60, Glucose 231 H, Calcium 9.3, Magnesium 2.0, Total Bilirubin 0.9, AST 29, ALT 17, Alkaline Phosphatase 83, Troponin I 0.01, C-Reactive Protein 23.2 H, NT-Pro-B Natriuret Pep 75150 H, Total Protein 7.0, Albumin 3.8, Globulin 3.2, Albumin/Globulin Ratio 1.2, HCV Ab HUBERT w/Rflx PCR Qn Negative, HIV Ag/Ab Combo Qual Negative 02/07/25 17:03: Lactate 1.8, Troponin I < 0.01 02/07/25 20:11: Urine Color Yellow, Urine Appearance Clear, Urine pH 6.0, Ur Specific [place] 1.010, Urine Protein Negative, Urine Glucose (UA) Negative, Urine Ketones Negative, Urine Blood Negative, Urine Nitrate Negative, Urine Bilirubin Negative, Urine Urobilinogen 0.2, Ur Leukocyte Esterase Negative, Urine RBC None, Urine WBC Occasional, Ur Squamous Epith Cells None, Urine Bacteria None 02/07/25 20:27: Troponin I 0.01 02/08/25 05:08: POC Glucose 255 H 02/08/25 05:34: WBC 5.1, RBC 3.39 L, Hgb 8.4 L, Hct 28.3 L, MCV 83.5, MCH 24.8 L, MCHC 29.7 L, RDW 15.4, Plt Count 274, MPV 10.1, Neut % (Auto) 60.8, Lymph % (Auto) 23.7, [place] % (Auto) 9.3, Eos % (Auto) 5.4, Baso % (Auto) 0.6, Neut # (Auto) 3.1, Lymph # (Auto) 1.2, [place] # (Auto) 0.5, Eos # (Auto) 0.3, Baso # (Auto) 0.0, Sodium 131 L, Potassium 4.4, Chloride 104, Carbon Dioxide 21 L, Anion Gap 10.4, BUN 19, Creatinine 1.60 H, Estimated Creat Clear 79, Estimated GFR 46 L, Est GFR ( Amer) 56 L, Glucose 219 H, Calcium 8.7, Magnesium 2.1, Total Bilirubin 0.7, AST 18 D, ALT 12 D, Alkaline Phosphatase 77, Total Protein 6.5, Albumin 3.4 L D, Globulin 3.1, Albumin/Globulin Ratio 1.1 Medical History: Medical History (Updated 02/07/25 @ 22:28 by Elinor Arthur APRN) NSTEMI (non-ST elevated myocardial infarction) History of gastroesophageal reflux (GERD) Hypothyroid Congestive heart failure Hypertension Diabetes mellitus, type 2 Assessment and Plan Assessment and plan all Dx Assessment and Plan for all problems:: Pharmacokinetic dosing service Objective: Age: 49 yo Serum creatinine: 1.6 mg/dL Height: 70.1 Inches Weight (kg): 101.559 Diagnosis: OSTEOMYELITIS Assessment: IBW (kg): 73.23 Dosing wt(kg): 101.559 Estimated Creatinine clearance (ml/min): 57.2 CRCL method: Cockcroft and Gault using ibw(default). Drug selected: Vancomycin Loading dose (mg): 2000 MG Vd (liters): 71.1 (factor used: 0.7 L/kg) Mick (hr-1): 0.052 Half life (hrs): 13.33 CLvanco=?? 3.697 L/hr Recommended dose: 1500 mg Interval: 18 hrs Infusion time (hrs): 2.0 Predicted peak (mcg/mL): 33.0 Predicted trough (mcg/mL): 14.36 Total body weight is being used for vancomycin dosing. Recommendations: Give Vancomycin 1500 mg q 18 hrs with an expected Cpeak of 33.0 mcg/ml and an expected Ctrough of 14.36 mcg/ml TO START 02/08/25 AT 1600, PATIENT RECIEVED ONE TIME LOADING DOSE OF VANCOMYCIN 2000 MG IV ONCE 02/07/25 AT 22:10. AUC 0-24 /CY Data: CY 0.5 mcg/mL:?? AUC/CY:? 1082.0 CY 1.0 mcg/mL:?? AUC/CY:? 541.0 --------- CY 1.5 mcg/mL:?? AUC/CY:? 360.7 CY 2.0 mcg/mL:?? AUC/CY:? 270.5 Thank you for the consult
--- NOTE | 2025-02-08 09:12 | HMH.PHAAMS2 ---
- Antimicrobial Stewardship Review culture & sensitivity review Stewardship interventions: culture & sensitivity review, reviewed - no change Comments: BLOOD, BONE, AND WOUND CXS ALL PENDING. PATIENT ON VANCOMYCIN/CEFEPIME EMPIRICALLY FOR OSTEOMYELITIS, PATIENT AFEBRILE AND WBC WNL AT 5.1 K/mm3.
[2025-02-08] MEDS: SPIRONOLACTONE 25MG TABLET 25 MG PO (09:37)
[2025-02-08] MEDS: FUROSEMIDE 40MG/4ML VIAL 80 MG IV ×2 (10:09→16:24)
--- NOTE | 2025-02-08 10:18 | EXP.CARD.CON ---
History of Present Illness History of Present Illness Consult date: 02/08/25 Requesting physician: Tevin Garcia Chief complaint: SOA and Bilateral LE edema and pain History of present illness: Hospitalist note: Gerardo Moss is a 49-year-old male with past medical history significant for CAD, peripheral artery disease, angioplasty, history of tobacco use, type 2 diabetes mellitus, HFrEF, hypertension, hypothyroidism. Presents to [facility] emergency department with complaint of exertional dyspnea, bilateral lower extremity swelling, abdominal distention/swelling, weight gain. Patient reports notable weight gain and lower extremity edema since undergoing surgical procedure at the end of November. Patient has had ongoing left foot osteomyelitis with recent foot surgery due to diabetic foot ulcer. Underwent MRI left foot on February 03 noting possible beginning stages of osteomyelitis. Patient was placed on Bactrim twice daily. He has been evaluated by podiatry and cardiology for clearance for potential BKA. Due to ongoing worsening symptoms it was requested per podiatry and cardiology to follow-up to the emergency department for further evaluation. Patient endorses subjective fever and chills for the past several weeks. Significant shortness of breath with exertional activity. Reports that he is unable to lay flat due to shortness of breath. Reports compliance with home medications that include diuretic Lasix and spironolactone. Denies chest pain, nausea, vomiting, hematuria, diarrhea, abdominal pain. Initial ED workup included laboratory studies and imaging. Significant laboratory findings included ESR 74, sodium 135, creatinine 1.5, GFR 50, glucose 231, CRP 23.2, BNP 22,400. I personally reviewed abdomen and chest CTA, revealing large bilateral pleural effusions. Partial amputation changes within the left foot. Fluid collection present, potential area of bony erosion concerning for osteomyelitis or potential abscess formation within the left foot at the prior amputation site. Arthrosclerotic plaque along the abdominal aorta. High-grade stenosis within proximal aspect of the superior mesenteric artery. Moderate stenosis in the proximal right common iliac artery. Multifocal high-grade stenosis within the superficial femoral femoral artery. Diffuse subcutaneous edema overlies the abdomen and pelvis. Small amount of ascites present along the margin of the liver and within the pelvis. Venous Doppler study bilateral lower extremity personally reviewed revealing no evidence of DVT. Notable enlarged left inguinal lymph node present. Patient is hemodynamically stable. Assessment of patient at bedside, he is without acute distress, resting in bed comfortably. Cardiology: Patient received diuretics last night, reports his breathing is somewhat better and lower extremity edema is improving. Kidney function, however, is worse with creatinine up to 1.6 today. Patient atient also has a known ejection fraction of 20% with grade 3 diastolic dysfunction, normal RV size and moderate reduction in RV function from an echocardiogram obtained 11/2024. Patient has previously refused to wear LifeVest and is not interested in AICD. Of note patient underwent left heart catheterization 11/2024 and received stenting to left main and LAD with remaining disease present not amenable to revascularization. [facility] Disclaimer: The information contained in this section may have been updated after the patient was seen, as this information can be updated by other users. Medical History NSTEMI (non-ST elevated myocardial infarction) History of gastroesophageal reflux (GERD) Hypothyroid Congestive heart failure Hypertension Diabetes mellitus, type 2 Surgical History Status post foot surgery Hx of heart artery stent History of partial ray amputation of fifth toe of left foot H/O angioplasty Previous back surgery H/O foot surgery Social History (Updated 02/07/25 @ 22:30 by Lina Dwyer RN) Smoking Status: Former smoker alcohol intake: never substance use type: denies use current occupational status: employed and other Travel in the last 8 weeks?: None Have you lived/traveled outside US in past 30 days?: No Contact w/someone who lives/traveled outside US past 30 days?: No Exposure to someone with infectious disease in past 14 days?: No Do you have a fever (greater than 100.4 F or 38 C)?: No Have you tested positive for COVID-19?: No Exposed to someone with COVID-19 in past 14 days?: No Do you have a sore throat?: No Do you have a cough?: No Do you have any weakness?: No Do you have any diarrhea?: No Are you experiencing any unusual bleeding?: No Do you have any muscle aches/pain?: No Do you have any abdominal pain?: No Are you experiencing loss of taste or smell?: No Review of Systems Review of Systems Review of systems:: pertinent systems reviewed and negative unless documented below *Cardiovascular Cardiovascular: Reports dyspnea *Respiratory Respiratory: Reports dyspnea *Musculoskeletal Comments: Bilateral Leg pain and swelling *Neurologic Neurologic: Reports system reviewed and no additional complaints, except as documented and Reports as per HPI Exam Data for Last 24 hours Vital signs and Labs for Last 24 Hours: Temp Pulse Resp BP Pulse Ox O2 Del Method 98.3 F 106 H 18 129/89 99 Room Air 02/08/25 08:00 02/08/25 08:00 02/08/25 08:00 02/08/25 08:00 02/08/25 08:00 02/08/25 08:40 Laboratory Results - last 24 hr 02/07/25 13:54: WBC 5.1, RBC 3.49 L, Hgb 8.9 L, Hct 29.7 L, MCV 85.1, MCH 25.5 L, MCHC 30.0 L, RDW 15.7, Plt Count 289, MPV 9.9, Neut % (Auto) 61.4, Lymph % (Auto) 24.7, [place] % (Auto) 8.8, Eos % (Auto) 3.5, Baso % (Auto) 1.0, Neut # (Auto) 3.1, Lymph # (Auto) 1.3, [place] # (Auto) 0.5, Eos # (Auto) 0.2, Baso # (Auto) 0.1, ESR 74 H, PT 12.2, INR 1.11 H, Sodium 135 L, Potassium 5.0, Chloride 105, Carbon Dioxide 21 L, Anion Gap 14.0, BUN 20, Creatinine 1.50 H, Estimated Creat Clear 87, Estimated GFR 50 L, Est GFR ( Amer) 60, Glucose 231 H, Calcium 9.3, Magnesium 2.0, Total Bilirubin 0.9, AST 29, ALT 17, Alkaline Phosphatase 83, Troponin I 0.01, C-Reactive Protein 23.2 H, NT-Pro-B Natriuret Pep 96896 H, Total Protein 7.0, Albumin 3.8, Globulin 3.2, Albumin/Globulin Ratio 1.2, HCV Ab HUBERT w/Rflx PCR Qn Negative, HIV Ag/Ab Combo Qual Negative 02/07/25 17:03: Lactate 1.8, Troponin I < 0.01 02/07/25 20:11: Urine Color Yellow, Urine Appearance Clear, Urine pH 6.0, Ur Specific Empire 1.010, Urine Protein Negative, Urine Glucose (UA) Negative, Urine Ketones Negative, Urine Blood Negative, Urine Nitrate Negative, Urine Bilirubin Negative, Urine Urobilinogen 0.2, Ur Leukocyte Esterase Negative, Urine RBC None, Urine WBC Occasional, Ur Squamous Epith Cells None, Urine Bacteria None 02/07/25 20:27: Troponin I 0.01 02/08/25 05:08: POC Glucose 255 H 02/08/25 05:34: WBC 5.1, RBC 3.39 L, Hgb 8.4 L, Hct 28.3 L, MCV 83.5, MCH 24.8 L, MCHC 29.7 L, RDW 15.4, Plt Count 274, MPV 10.1, Neut % (Auto) 60.8, Lymph % (Auto) 23.7, [place] % (Auto) 9.3, Eos % (Auto) 5.4, Baso % (Auto) 0.6, Neut # (Auto) 3.1, Lymph # (Auto) 1.2, [place] # (Auto) 0.5, Eos # (Auto) 0.3, Baso # (Auto) 0.0, Sodium 131 L, Potassium 4.4, Chloride 104, Carbon Dioxide 21 L, Anion Gap 10.4, BUN 19, Creatinine 1.60 H, Estimated Creat Clear 79, Estimated GFR 46 L, Est GFR ( Amer) 56 L, Glucose 219 H, Calcium 8.7, Magnesium 2.1, Total Bilirubin 0.7, AST 18 D, ALT 12 D, Alkaline Phosphatase 77, Total Protein 6.5, Albumin 3.4 L D, Globulin 3.1, Albumin/Globulin Ratio 1.1 I & O for Last 24 hours: Intake & Output 02/05/25 02/06/25 02/07/25 02/08/25 23:59 23:59 23:59 23:59 Intake Total 100 / 100 890 / 890 Output Total 1550 / 1875 1025 / 1025 Balance -1450 / -1775 -135 / -135 Weight 221 lb 14.4 oz 223 lb 14.4 oz Constitutional Constitutional: no acute distress *Routine Respiratory Exam Respiratory: Present CTA bilaterally and symmetric chest movement *Routine Cardiovascular Exam Cardiovascular: Present RRR, Normal S1 and Normal S2 *Routine Abdominal Exam Abdominal: Present soft and normoactive bowel sounds; Absent tenderness *Routine Extremities Exam Extremities: Present edema and full ROM *Routine Skin Exam Skin: Present intact, dry and warm Detailed Neck Exam: Thyroids Thyroid: Absent bruit Meds Home Medications and Allergies Home Medications ?Medication ?Instructions ?Recorded ?Confirmed ?Type carvedilol 12.5 mg tablet 12.5 mg PO BID 12/20/24 02/07/25 History empagliflozin 25 mg tablet 25 mg PO DAILY 12/20/24 02/07/25 History (Jardiance) lisinopril 10 mg tablet 10 mg PO DAILY 12/20/24 02/07/25 History Held on 12/24/24. Instructions: Resume on 01/07/25. Hold due to soft blood pressures. Discuss with cardiology about restarting at next appointment. omeprazole 40 mg capsule,delayed 40 mg PO DAILY 12/20/24 02/07/25 History release ondansetron 4 mg disintegrating 4 mg PO Q6H PRN nausea and 01/18/25 02/07/25 Rx tablet vomiting #30 tabs furosemide 40 mg tablet 40 mg PO BID 01/31/25 02/07/25 History sulfamethoxazole 800 1 tab PO BID cellulitis 14 days 02/03/25 02/07/25 Rx mg-trimethoprim 160 mg tablet #28 tabs (Bactrim DS) doxycycline hyclate 100 mg capsule 100 mg PO BID 02/07/25 02/07/25 History aspirin 81 mg tablet,delayed 81 mg PO DAILY 02/08/25 02/08/25 History release atorvastatin 80 mg tablet 80 mg PO HS 02/08/25 02/08/25 History levothyroxine 125 mcg tablet 125 mcg PO DAILY 02/08/25 02/08/25 History spironolactone 50 mg tablet 50 mg PO BID 02/08/25 02/08/25 History New Prescriptions to Start Prescriptions: Allergies Allergy/AdvReac Type Severity Reaction Status Date / Time No Known Allergies Allergy Verified 02/07/25 13:03 Assessment and Plan *Assessment and plan (1) Foot osteomyelitis, left: Status: Acute Qualifiers: Osteomyelitis type: unspecified type Qualified Code(s): M86.9 - Osteomyelitis, unspecified Category: Medical Code(s): M86.9 - Osteomyelitis, unspecified (2) Status post foot surgery: Status: Acute Category: Surgical Code(s): Z98.890 - Other specified postprocedural states (3) Peripheral arterial disease: Status: Acute Category: Medical Code(s): I73.9 - Peripheral vascular disease, unspecified (4) Acute on chronic HFrEF (heart failure with reduced ejection fraction): Status: Acute Category: Medical Code(s): I50.23 - Acute on chronic systolic (congestive) heart failure (5) Acute kidney injury superimposed on stage 2 chronic kidney disease: Status: Acute Category: Medical Code(s): N17.9 - Acute kidney failure, unspecified; N18.2 - Chronic kidney disease, stage 2 (mild) Plan History of peripheral artery disease Foot osteomyelitis, left Please see CTA results MRI obtained on February 03 suggestive of possible early onset osteomyelitis Will defer IV antibiotic treatment to primary service Recommend transfer to given the extent of vascular disease and osteomyelitis Acute on chronic HFrEF BNP 22,400 Bilateral lower extremity edema present Abdominal distention present Known EF of 20% with grade 3 diastolic dysfunction-refuses to wear LifeVest Symptoms improving after diuretics Continue Lasix 40 mg IV twice daily and Aldactone 25 mg p.o. daily No CAROLE/ARB/ARNI at this time due to CODY No Jardiance or Farxiga due to active infection CODY Creatinine 1.5 on admission up to 1.6 after diuretics. Continue to monitor History of coronary artery disease Recent stenting in November to left main and LAD Continue Lovenox CV summary 02/08/2025: Recommend transfer to for vascular surgery eval given complexity of vascular disease/peripheral artery disease with active infection and possible need for amputation.
--- OUTSIDE RECORDS SUMMARY | 2025-02-08 11:59 | XMS_ITS | Clinical Summary ---
Author Organization [facility] Address [address] [place] [id number] Care Team Providers Care Dental Equipment Mechanic Name Role Phone Head, Harish Hutson MD Primary Care Provider + [phone] Allergies No known active allergies Medications carvedilol [...] due to secondary DM 06/03/2024 Atherosclerosis of crow ar teries of the extremities with ulceration 06/03/2024 Chronic ulcer of right foot with fat layer expos ed 05/18/2024 Acquired posterior equinus of both lower extremi ties 05/18/2024 Chronic ulcer of right foot with necrosis of bon e 08/14/2023 Cellulitis 07/07/2023 Coronary artery disease invo lving crow coronary artery of crow heart without angina pectoris 05/01/2019 Ischemic cardiomyopathy 05/01/2019 Acute congestive heart failure 04/26/2019 Acute systolic congestive heart failure 04/26/19 Overview (07/02/2023): Added automatically from request for surgery [id number] Type 2 diabetes mellitus with hyperglycemia 03/2019 [...] Recorded In the past 12 months has [employer], gas, oil, or water [employer] threatened to shut off services in your [...] or training? Not on file Preferred Language Turkmen 07/02/2024 Sex and Gender Information Value Date [...] - 5.60 % 05/19/2024 5:24 PM EDT [facility] Blood Venipuncture / Unknown 05/19/2024 4:22 PM EDT 05/19/2024 4:59 PM EDT us T Matt Kenya DPM LAB BLOOD ORDERABLES Final R esult [facility]
[address] [facility] [place] [address], [place] [phone] from Last 3 Months or Most Recently Relevant to Health Maintenance Insurance [facility] Advance Directives * CPR (Attempt [...] or is breathing): Full Support Care Teams Dental Equipment Mechanic Relationship Specialty Start Date End Date Head, Harish Hutson MD [address] [place] [address] PCP - General Internal Medicine 07/16/22
--- OUTSIDE RECORDS SUMMARY | 2025-02-08 11:59 | XMS_ITS | Clinical Summary ---
Author Organization [facility] Address [facility] [place] [address] Care Team Providers Care Machine Filler Name Role Phone Head, Harish Jensen MD Primary Care Provider [phone] Allergies No known active allergies Medications * [...] 3 07/23/19 25 026 Active Continuous Glucose Sausage Linker (DEXCOM G7 PUBLIC INFORMATION COORDINATOR) DEVICEIndications: Type 2 diabetes mellitus with foot [...] ORDERABLES Final Resul t [facility] [address] [place] [address] * (ABNORMAL) Lipid Panel (REVIEW [...] [facility] [address] [place], [place] [id number] * (ABNORMAL) Comprehensive Metabolic Panel (CMP) (08/30/2024 [...] ORDERABLES Final Resul t [facility] [address] [facility] [address] [place] [address] from Last 3 Months or Most Recently Relevant to Health Maintenance Insurance [facility] [employer] Advance Directives Documents on File Type Date Recorded Patient 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
[2025-02-08 12:00] VITALS: BP 118/72; PULSE 107; RESP 18; TEMP 36.7; O2SAT 98
--- OUTSIDE RECORDS SUMMARY | 2025-02-08 12:00 | XMS_ITS | Encounter Summary ---
Author Organization [facility] Address [address] [place] [address] Care Team Providers Care Criminal Analyst Name Role Phone Head, Harish Hutson MD Primary Care Provider + [phone] Reason for Visit * Auth/Cert (Routine) Specialty Diagnoses / Procedures Referred By Contac t Referred To Contact Diagnoses Chronic ulcer of right foot with fat layer exposed Acquired posterior equinus of both lower extremities Chronic ulcer of right foot with fat layer exposed [L97.512] Acquired posterior equinus of both lower extremities [M21.861, M21.862] Procedures WA GASTROCNEMIUS RECESSION [place] AMPUTATION METATARSAL W/TOE SINGLE Gastrocnemius recession to the right lower extremity Partial fifth metatarsal resection Referral ID Status Reason Start Date Expiration Date Visits Re quested Visits Authorized [id number] 1 1 Encounter Details Date Type Department Care Team (Late st Contact Info) Description 05/28/2024 Hospital Encounter [facility] OR [address] [place] [address] Latoya Zambrano DPM [address] [place] [address] Social History Tobacco Use Types Packs/Day Years Used Date Smoking Tobacco: Every Day Cigarettes 1 30 Passive Smoke Exposure: Current Smokeless Tobacco: Never Alcohol Use Standard Drinks/Week Comments Not Currently 0 (1 standard drink = 0.6 oz pur e alcohol) [facility] Utilities Answer Date Recorded In the past 12 months has [employer] electric, gas, oil, or water company threatened [...] or training? Not on file Preferred Language South Sudanese 07/02/2024 Sex and Gender Information Value Date [...] 9:00 AM EDT Valentina Schroeder RN * [place] Suicide Severity Rating Scale (Screener/Recent Self-Report) Question [...] - 5.60 % 05/19/2024 5:24 PM EDT [facility] Blood Venipuncture / Unknown 05/19/2024 4:22 PM EDT 05/19/2024 4:59 PM EDT [facility] Matt Zambrano DPM LAB BLOOD ORDERABLES Final R esult [facility]
[address] [place] [address], documented in this encounter Visit Diagnoses Diagnosis Acquired posterior equinus of both lower extremities documented in this encounter Admitting Diagnoses Diagnosis Chronic ulcer of right foot with fat layer exposed Acquired posterior equinus of both lower extremities documented in this encounter Care Teams Criminal Analyst Relationship Specialty Start Date End Date Head, Harish Hutson MD [address] [place] [address] PCP - General Internal Medicine 07/16/22 documented as of this encounter
[2025-02-08 12:10] LABS: POC Glucose,Bedside 223 gm/dL (70-110)
--- NOTE | 2025-02-08 12:56 | P.CONS_ITS ---
History of Present Illness *Admission Date: 02/07/25 *History of present illness: Gerardo Moss is a 49-year-old male with past medical history significant for CAD, peripheral artery disease, angioplasty, history of tobacco use, type 2 diabetes mellitus, HFrEF, hypertension, hypothyroidism. Presents to [facility] emergency department with complaint of exertional dyspnea, bilateral lower extremity swelling, abdominal distention/swelling, weight gain. Patient reports notable weight gain and lower extremity edema since undergoing surgical procedure at the end of November. Patient has had ongoing left foot osteomyelitis with recent foot surgery due to diabetic foot ulcer. Underwent MRI left foot on February 03 noting possible beginning stages of osteomyelitis. Patient was placed on Bactrim twice daily. He has been evaluated by podiatry and cardiology for clearance for potential BKA. Due to ongoing worsening symptoms it was requested per podiatry and cardiology to follow-up to the emergency department for further evaluation. Patient endorses subjective fever and chills for the past several weeks. Significant shortness of breath with exertional activity. Reports that he is unable to lay flat due to shortness of breath. Reports compliance with home medications that include diuretic Lasix and spironolactone. Denies chest pain, nausea, vomiting, hematuria, diarrhea, abdominal pain. Initial ED workup included laboratory studies and imaging. Significant laboratory findings included ESR 74, sodium 135, creatinine 1.5, GFR 50, glucose 231, CRP 23.2, BNP 22,400. I personally reviewed abdomen and chest CTA, revealing large bilateral pleural effusions. Partial amputation changes within the left foot. Fluid collection present, potential area of bony erosion concerning for osteomyelitis or potential abscess formation within the left foot at the prior amputation site. Arthrosclerotic plaque along the abdominal aorta. High-grade stenosis within proximal aspect of the superior mesenteric artery. Moderate stenosis in the proximal right common iliac artery. Multifocal high- grade stenosis within the superficial femoral femoral artery. Diffuse subcutaneous edema overlies the abdomen and pelvis. Small amount of ascites present along the margin of the liver and within the pelvis. Venous Doppler study bilateral lower extremity personally reviewed revealing no evidence of DVT. Notable enlarged left inguinal lymph node present. Patient is hemodynamically stable. Assessment of patient at bedside, he is without acute distress, resting in bed comfortably. Podiatry consult: Patient is well-known to the podiatry department. He was seen outpatient in office 02/07/25. Yesterday in office patient had exposed fifth metatarsal bone with an in office bone biopsy and culture performed. Concern for progression of osteomyelitis with gangrene, nondopplerable pedal pulses and increased fluid overload. Patient saw cardiology outpatient yesterday. Recommendation from both cardiology and podiatry was admission for evaluation. My plan for the left foot was improve blood flow in order to heal a BKA as the left foot is not salvageable from my standpoint. Recommend Ortho consult for BKA (or transfer for vascular). [facility] Disclaimer: The information contained in this section may have been updated after the patient was seen, as this information can be updated by other users. Medical History NSTEMI (non-ST elevated myocardial infarction) History of gastroesophageal reflux (GERD) Hypothyroid Congestive heart failure Hypertension Diabetes mellitus, type 2 Surgical History Status post foot surgery Hx of heart artery stent History of partial ray amputation of fifth toe of left foot H/O angioplasty Previous back surgery H/O foot surgery Social History (Updated 02/07/25 @ 22:30 by Lina Dwyer RN) Smoking Status: Former smoker alcohol intake: never substance use type: denies use current occupational status: employed and other Travel in the last 8 weeks?: None Have you lived/traveled outside [place] in past 30 days?: No Contact w/someone who lives/traveled outside US past 30 days?: No Exposure to someone with infectious disease in past 14 days?: No Do you have a fever (greater than 100.4 F or 38 C)?: No Have you tested positive for COVID-19?: No Exposed to someone with COVID-19 in past 14 days?: No Do you have a sore throat?: No Do you have a cough?: No Do you have any weakness?: No Do you have any diarrhea?: No Are you experiencing any unusual bleeding?: No Do you have any muscle aches/pain?: No Do you have any abdominal pain?: No Are you experiencing loss of taste or smell?: No Review of Systems Review of Systems Review of systems:: pertinent systems reviewed and negative unless documented below Constitutional Constitutional: Reports fatigue, Reports lethargy and Reports weight gain Eyes Eyes: Reports system reviewed and no additional complaints, except as documented ENT Ears, Nose, Mouth, and Throat: Reports system reviewed and no additional complaints, except as documented *Cardiovascular Cardiovascular: Reports dyspnea *Respiratory Respiratory: Reports dyspnea *Gastrointestinal Gastrointestinal: Reports system reviewed and no additional complaints, except as documented *Genitourinary Genitourinary: Reports system reviewed and no additional complaints, except as documented *Musculoskeletal Musculoskeletal: Reports system reviewed and no additional complaints, except as documented and Reports joint swelling Comments: Bilateral Leg pain and swelling Integumentary/Breasts Skin/Breast: Reports system reviewed and no additional complaints, except as documented, Reports erythema, Reports skin swelling and Reports wounds (left foot open wound w/ exposed bone) *Neurologic Neurologic: Reports system reviewed and no additional complaints, except as documented and Reports as per HPI Psychiatric Psychiatric: Reports system reviewed and no additional complaints, except as documented Endocrine Endocrine: Reports fatigue Allergic/Immunologic Allergic/Immunologic: Reports system reviewed and no additional complaints, except as documented Meds Home Medications and Allergies Home Medications ?Medication ?Instructions ?Recorded ?Confirmed ?Type carvedilol 12.5 mg tablet 12.5 mg PO BID 12/20/2401/24 History empagliflozin 25 mg tablet 25 mg PO DAILY 12/20/24 History (Jardiance) lisinopril 10 mg tablet 10 mg PO DAILY 12/20/2401/24 History Held on 12/24/24. Instructions: Resume on 01/07/25. Hold due to soft blood pressures. Discuss with cardiology about restarting at next appointment. omeprazole 40 mg capsule,delayed 40 mg PO DAILY 02/07/25 History release ondansetron 4 mg disintegrating 4 mg PO Q6H PRN nausea and 01/18/25 02/07/25 Rx tablet vomiting #30 tabs furosemide 40 mg tablet 40 mg PO BID 01/31/25 History sulfamethoxazole 800 1 tab PO BID cellulitis 14 d ays 02/03/25 02/07/25 Rx mg-trimethoprim 160 mg tablet #28 tabs (Bactrim DS) doxycycline hyclate 100 mg capsule 100 mg PO BID 02/0702/07/25 History aspirin 81 mg tablet,delayed 81 mg PO DAILY 02/08/25 1 04/11/24 History release atorvastatin 80 mg tablet 80 mg PO HS 02/08/25 5 History levothyroxine 125 mcg tablet 125 mcg PO DAILY 02/08/25 02/08/25 History spironolactone 50 mg tablet 50 mg PO BID 02/08/2501/24 History New Prescriptions to Start Prescriptions: Allergies Allergy/AdvReac Type Severity Reaction Status Date / Time No Known Allergies Allergy Verified 02/07/25 13:03 Exam (Inpt) Vital signs and Labs for Last 24 Hours: Temp Pulse Resp BP Pulse Ox O2 Del Method 98.0 F 107 H 18 118/72 98 Room Air 02/08/25 12:00 02/08/25 12:00 02/08/25 12:00 02/08/25 12:00 02/08/25 12:00 02/08/25 12:00 Laboratory Results - last 24 hr 02/07/25 13:54: WBC 5.1, RBC 3.49 L, Hgb 8.9 L, Hct 29.7 L, MCV 85.1, MCH 25.5 L , MCHC 30.0 L, RDW 15.7, Plt Count 289, MPV 9.9, Neut % (Auto) 61.4, Lymph % (Auto) 24.7, Norton % (Auto) 8.8, Eos % (Auto) 3.5, Baso % (Auto) 1.0, Neut # (Auto) 3.1, Lymph # (Auto) 1.3, Norton # (Auto) 0.5, Eos # (Auto) 0.2, Baso # (Auto) 0.1, ESR 74 H, PT 12.2, INR 1.11 H, Sodium 135 L, Potassium 5.0, Chloride 105, Carbon Dioxide 21 L, Anion Gap 14.0, BUN 20, Creatinine 1.50 H, Estimated Creat Clear 87, Estimated GFR 50 L, Est GFR ( Amer) 60, Glucose 231 H, Calcium 9.3, Magnesium 2.0, Total Bilirubin 0.9, AST 29, ALT 17, Alkaline Phosphatase 83, Troponin I 0.01, C-Reactive Protein 23.2 H, NT-Pro-B Natriuret Pep 57704 H, Total Protein 7.0, Albumin 3.8, Globulin 3.2, Albumin/Globulin Ratio 1.2, HCV Ab HUBERT w/Rflx PCR Qn Negative, HIV Ag/Ab Combo Qual Negative 02/07/25 17:03: Lactate 1.8, Troponin I < 0.01 02/07/25 20:11: Urine Color Yellow, Urine Appearance Clear, Urine pH 6.0, Ur Specific Hampton 1.010, Urine Protein Negative, Urine Glucose (UA) Negative, Urine Ketones Negative, Urine Blood Negative, Urine Nitrate Negative, Urine Bilirubin Negative, Urine Urobilinogen 0.2, Ur Leukocyte Esterase Negative, Urine RBC None, Urine WBC Occasional, Ur Squamous Epith Cells None, Urine Bacteria None 02/07/25 20:27: Troponin I 0.01 02/08/25 05:08: POC Glucose 255 H 02/08/25 05:34: WBC 5.1, RBC 3.39 L, Hgb 8.4 L, Hct 28.3 L, MCV 83.5, MCH 24.8 L , MCHC 29.7 L, RDW 15.4, Plt Count 274, MPV 10.1, Neut % (Auto) 60.8, Lymph % (Auto) 23.7, Norton % (Auto) 9.3, Eos % (Auto) 5.4, Baso % (Auto) 0.6, Neut # (Auto) 3.1, Lymph # (Auto) 1.2, Norton # (Auto) 0.5, Eos # (Auto) 0.3, Baso # (Auto) 0.0, Sodium 131 L, Potassium 4.4, Chloride 104, Carbon Dioxide 21 L, Anion Gap 10.4, BUN 19, Creatinine 1.60 H, Estimated Creat Clear 79, Estimated GFR 46 L, Est GFR ( Amer) 56 L, Glucose 219 H, Calcium 8.7, Magnesium 2.1, Total Bilirubin 0.7, AST 18 D, ALT 12 D, Alkaline Phosphatase 77, Total Protein 6.5, Albumin 3.4 L D, Globulin 3.1, Albumin/Globulin Ratio 1.1 02/08/25 11:37: POC Glucose 223 H I & O for Labs for Last 24 Hours: Intake & Output 02/06/25 02/07/25 02/08/25 02/09/25 11:59 11:59 11:59 11:59 Intake Total 990 / 990 Output Total 2575 / 2575 Balance -1585 / -1585 Weight 223 lb 14.4 oz Constitutional: Present no acute distress and obese Neck: Present normal inspection Respiratory: Present able to speak in complete sentences Cardiac: Absent pedal pulses present Comment:: Nonpalpable pedal pulses. Unable to Doppler. CTA shows PT to the level of the ankle. GI: Present soft Rectal (male): Present deferred (male): Present deferred Extremities: Absent normal capillary refill Skin: Present wounds Comment:: 02/08/25: Left foot dressing clean dry and intact. Dressing not removed. 02/07/25 (outpatient office visit): Left TMA with derotational skin flap. Renea previously removed. Dorsal skin sloughing and eschar. Plantar incision has more gapping secondary to too much pressure with new exposed 5th met bone. Sharp excisional full thickness debridement with 15' blade, forceps thru skin, subq, into/including deep fascia. Bone rongeur used to debride and take a sample of 5th met bone for bone culture and path. Post: left plantar foot: 10% granular, 30% brown/black eschar, 60% yellow fibrotic slough, 6.5 x 4.5 x 2.0cm. Dorsal erythema-stable. Post: dorsal flap: 95% black eschar, 5% yellow fibrotic, 4.5 x 3.5 x 0.2cm. Very fragile skin. No improvement. Moderate pitting edema b/l LE. No new purulence, malodor or ascending cellulitis. Discussed high risk for wound dehiscence and recurrent OM secondary to non compliance with weight-bearing protocol. Need continued LE compression therapy and increased flow to distal LLE. Neuro: Present Numbness, Tingling and moves all extremities Ankle: bilateral: swelling (b/l LE lymphedema) Feet/Toes: left: swelling, left: tenderness and left: wound (left foot TMA open wound, see above) CFT: dim: CFT Results Labs 02/08/25 05:34 02/08/25 05:34 Labs: Abnormal lab results 02/07/25 02/08/25 02/08/25 Range/Units 13:54 05:08 05:34 RBC 3.49 L 3.39 L (4.60-6.20) M/mm3 Hgb 8.9 L 8.4 L (14.1-18.0) g/dL Hct 29.7 L 28.3 L (42.0-52.0) % MCH 25.5 L 24.8 L (27.0-31.2) pg MCHC 30.0 L 29.7 L (31.8-35.4) g/dL ESR 74 H (0-15) mm/hr INR 1.11 H (0.9-1.1) Sodium 135 L 131 L (136-145) mmol/L Carbon Dioxide 21 L 21 L (22.0-30.0) mmol/L Creatinine 1.50 H 1.60 H (0.66-1.25) mg/dl Estimated GFR 50 L 46 L (>60) ml/min Est GFR ( Amer) 56 L (>60) ML/MIN Glucose 231 H 219 H (74-100) mg/dl POC Glucose 255 H (70-110) gm/dL C-Reactive Protein 23.2 H (0-4) mg/L NT-Pro-B Natriuret Pep 03852 H (0-125) pg/mL Albumin 3.4 L D (3.5-5.0) g/dl 02/08/25 Range/Units 11:37 RBC (4.60-6.20) M/mm3 Hgb (14.1-18.0) g/dL Hct (42.0-52.0) % MCH (27.0-31.2) pg MCHC (31.8-35.4) g/dL ESR (0-15) mm/hr INR (0.9-1.1) Sodium (136-145) mmol/L Carbon Dioxide (22.0-30.0) mmol/L Creatinine (0.66-1.25) mg/dl Estimated GFR (>60) ml/min Est GFR ( Amer) (>60) ML/MIN Glucose (74-100) mg/dl POC Glucose 223 H (70-110) gm/dL C-Reactive Protein (0-4) mg/L NT-Pro-B Natriuret Pep (0-125) pg/mL Albumin (3.5-5.0) g/dl H & H 02/07/25 02/08/25 Range/Units 13:54 05:34 Hgb 8.9 L 8.4 L (14.1-18.0) g/dL Hct 29.7 L 28.3 L (42.0-52.0) % Coagulation 02/07/25 Range/Units 13:54 INR 1.11 H (0.9-1.1) All other labs normal. Assessment and Plan *Assessment and plan (1) Foot osteomyelitis, left: Status: Acute Qualifiers: Osteomyelitis type: other acute Qualified Code(s): M86.172 - Other acute osteomyelitis, left ankle and foot Category: Medical Code(s): M86.9 - Osteomyelitis, unspecified (2) Status post foot surgery: Status: Acute Category: Surgical Code(s): Z98.890 - Other specified postprocedural states (3) Peripheral arterial disease: Status: Acute Category: Medical Code(s): I73.9 - Peripheral vascular disease, unspecified (4) Gangrene due to peripheral vascular disease: Status: Acute Category: Medical Code(s): I73.9 - Peripheral vascular disease, unspecified (5) Diabetes mellitus, type 2: Status: Acute Qualifiers: Diabetes mellitus senior care insulin use: with senior care use Diabetes mellitus complication status: with skin complications Diabetes mellitus complication detail: with other skin complication Qualified Code(s): E11.628 - Type 2 diabetes mellitus with other skin complications; Z79.4 - emt intermediate (current) use of insulin Category: Medical Code(s): E11.9 - Type 2 diabetes mellitus without complications (6) Cellulitis of left foot: Status: Acute Category: Medical Code(s): L03.116 - Cellulitis of left lower limb (7) Noncompliance with treatment: Status: Acute Category: Medical Code(s): Z91.199 - Patient's noncompliance with other medical treatment and regimen due to unspecified reason (8) Lymphedema of both lower extremities: Status: Acute Category: Medical Code(s): I89.0 - Lymphedema, not elsewhere classified Plan Cardiology (some recs-see their note), 02/08/25: History of peripheral artery disease Foot osteomyelitis, left Please see CTA results MRI obtained on February 03 suggestive of possible early onset osteomyelitis Will defer IV antibiotic treatment to primary service Recommend transfer to given the extent of vascular disease and osteomyelitis CV summary 02/08/2025: Recommend transfer to [facility] for vascular surgery eval given complexity of vascular disease/peripheral artery disease with active infection and possible need for amputation. Podiatry office visit, 02/07/25: -Presents for f/u and MRI review -MRI from 02/03/25, rad report reviewed. I also independently reviewed imaging. Sagittal series 11, images 23-27 show cortical changes to the fifth metatarsal along with bone marrow edema in the entire TMA stump, cuneiforms, plantar lateral cuboid, questionable calcaneus, edema around the peroneal tendons and dorsal left midfoot amputation. No obvious abscess appreciated. Axial: edema and cyst noted to medial navicular and NC joint level, edema and questionable recurrent OM to distal remaining TMA stump, cuneiforms, lateral cuboid. In my opinion, MRI is suspicious for recurrent osteomyelitis with edema to the left foot and leg. -Images reviewed/shown to patient. -Has appt with [facility] on 02/14/25. -Seeing [facility], has LLE wrap on today. -Skin cleansed. -Left foot wound debridement full thickness. New/exposed 5th met within wound base. -Bone rongeur used to debride and take a piece of 5th met for bone path and bone culture. -No purulence, drainage or ascending cellulitis. Still has pitting edema. -Based on clinical exam + imaging + labs (no wbc or acute left shift), likely chronic OM. -Betadine DSD applied. Continue dsg changes every other day. -Presents in fx boot w/ crutches but walking down hallway wo using the crutches. -Encouraged compliance with NWB. He is still FWB w/wo fx boot. -Plan: c/o SOB and too much fluid - sees [facility] cardiology today. Discuss admission vs outpatient treatment for multiple co-morbidities: fluid, hear disease, PAD, OM, BKA evaluation. -Due to not enough blood flow to heal wound, dry dorsal TMA flap gangrene and recurrent osteomyelitis, I do not think the foot is salvageable. I recommend left BKA. -Even if more flow is obtained to the LLE, that will help heal a more proximal amputation. But with exposed 5th met bone, bone marrow edema/suspected OM to TMA stump/cuneiforms and cuboid, patient would not fair well with a [place] amputation due to no healthy viable skin to close (insurance denied wound vac), non-compliance with WB protocol, deformity requiring life long bracing (custom AFO), high rate of wound healing complications that will likely need BKA. -Patient has been dealing with this since like November and would rather just cut it off if unlikely to heal. -I explained this in detail with patient. Podiatry [employer] also present and patient verbalized understanding and agreement with my plan recs. -All questions answered to patient satisfaction. He verbalized understanding of benefits/risks of infection tx w/ surgical debridement/partial foot amp including but not limited to loss of fifth met base and peroneal function, foot inversion deformity, recurrent osteomyelitis, gangrene, need for more oral/IV abx, PICC line, wound care, vs below knee amputation. -Discussed plan of care briefly with Dr [facility]-will refer for 2nd opinion/BKA evaluation. -Discussed plan of care with [place] cardiology. -If cardiology agrees, patient may benefit from admission to address fluid, PAD (cards planning repeat run off), OM-IV abx, BKA evaluation. -Podiatry will continue to follow until definitive amp plan. Podiatry, 02/08/25: -Admitted 02/07/25 for fluid, CHF, OM. -Reviewed [facility] Cardiology noted and recommendations-I agree. -Very complex patient with multiple medial and socioeconomic limitations. -Defer IV abx to Hospitalist (agree with Vanco, Cefepime based on prior cultures). -MRI 02/04/25 and CTA 02/07/25 reviewed/report shown to patient. -Extensive discussion btwn Podiatry [employer], patient and myself regarding plan of care. Patient given opportunity to ask a lot/all of his questions. -Discussed tobacco abuse (reports he stopped smoking), non compliance, high risk of recurrent OM, chance of BKA vs AKA depending on blood flow/healing. -Based on office visit clinical findings + imaging findings = the left foot is nonsalvageable. -I explained to the patient even with increased blood flow, the TMA flap already has dorsal gangrene to the level of the ankle and there exposed fifth metatarsal bone with questionable osteomyelitis changes to the tarsometatarsal bones and the cuboid. -Podiatry recommendation is a left below-knee amputation. -Rec NWB to LLE with fx boot, crutches. -Due to the significant multi level high-grade critical stenosis and potential occlusions, recommend urgent inpatient vascular surgery evaluation to avoid critical limb ischemia and salvage a left BKA. -All questions answered to patient's satisfaction. He verbalized understanding and agreement with transfer for vascular evaluation. -I discussed plan of care with cardiology team and directly with Dr Garcia- Hospitalist. -If transfer can not be done, recommend Ortho consult for L BKA. But patient's best chance of successful BKA salvage would be vascular intervention. -Podiatry will sign off. Please call/re-consult with questions/concerns.
[2025-02-08 16:00] VITALS: BP 115/73; PULSE 102; RESP 20; TEMP 36.7; O2SAT 95
[2025-02-08] MEDS: PANTOPRAZOLE 40MG TABLET 40 MG PO ×2 (16:18→20:33)
[2025-02-08] MEDS: VANCOMYCIN/WATER FOR INJ (PEG) 1.5 GM/300 ML PIGGYBACK IV (16:19)
[2025-02-08] MEDS: LEVOTHYROXINE 125MCG (0.125MG) TAB 125 MCG PO (16:21)
[2025-02-08] MEDS: ASPIRIN EC 81MG TABLET 81 MG PO (16:22)
[2025-02-08] MEDS: EMPAGLIFLOZIN 25MG TABLET 25 MG PO (16:23)
--- NOTE | 2025-02-08 16:43 | P.CONPHA_ITS ---
[facility] Pharmacy Heparin Dosing Demographic Data Admission date:: 02/08/25 Date: 02/08/25 Time: 16:43 Allergies Allergy/AdvReac Type Severity Reaction Status Date / Time No Known Allergies Allergy Verified 02/07/25 13:03 Height: 1.78 m Weight: 101.6 kg Indication Medication therapy:: Heparin Current Active Problems (Updated 02/08/25 @ 13:16 by Hortencia Flores DPM) Gangrene due to peripheral vascular disease (Acute) Bilateral pleural effusion (Acute) Acute kidney injury superimposed on stage 2 chronic kidney disease (Acute) Acute on chronic HFrEF (heart failure with reduced ejection fraction) (Acute) Foot osteomyelitis, left (Acute) Status post foot surgery (Acute) Lymphedema of both lower extremities (Acute) Noncompliance with treatment (Acute) CAD (coronary artery disease) (Acute) Peripheral arterial disease (Acute) Ulcer of left fifth toe due to diabetes mellitus (Acute) CODY (acute kidney injury) (Acute) Diabetes mellitus, type 2 (Acute) Hypertension (Acute) Hypothyroid (Acute) Cellulitis of left foot (Acute) CVA?: No Bleeding problem?: No Kidney disease?: No AL?: No Desired PTT range:: 50-75 seconds Labs Anticoagulation Lab Results:: 02/08/25 05:34 Hgb 8.4 L Hct 28.3 L Plt Count 274 Monitoring Dose Monitor 1: Date: 02/08/25 Time: 16:35 PTT Result:: 26.4 Infusion Rate:: STARTED INFUSION AT 1800 UNITS/HR WITH BOLUS OF 8000 UNIT Dose Monitor 2: Date: 02/08/25 Time: 18:00 PTT Result:: 26.8 Infusion Rate:: INFUSION NOT STARTED YET Dose Monitor 3: Date: 02/08/25 Time: 23:23 PTT Result:: 99.2 Infusion Rate:: 1500 UNITS/HR Dose Monitor 4: Date: 02/09/25 Time: 04:25 PTT Result:: 70 Infusion Rate:: CONTINUE HEPARIN 1500 UNITS/HR Dose Monitor 5: Date: 02/09/25 Time: 10:00 PTT Result:: 52.4 Infusion Rate:: 1550 UNITS/HR Dose Monitor 6: Date: 02/09/25 Time: 15:00 PTT Result:: 51.7 Infusion Rate:: INCREASE TO HEPARIN 1600 UNITS/HR Dose Monitor 7: Date: 02/09/25 Time: 21:08 PTT Result:: 41.8 Infusion Rate:: INCREASED TO HEPARIN 1800 UNITS/HR Dose Monitor 8: Date: 02/10/25 Time: 03:54 PTT Result:: 94.7 Infusion Rate:: HEPARIN INFUSION RATE DECREASED TO 1600 UNITS/HR Dose Monitor 9: Date: 02/10/25 Time: 11:00 PTT Result:: HEPARIN DRIP STOPPED BY . Core Measures Is INR > or = 2 at discharge?: No Most Recent Labs:: Laboratory Results - last 24 hr 02/07/25 13:54: HCV Ab HUBERT w/Rflx PCR Qn Negative, HIV Ag/Ab Combo Qual Negative 02/07/25 17:03: Lactate 1.8, Troponin I < 0.01 02/07/25 20:11: Urine Color Yellow, Urine Appearance Clear, Urine pH 6.0, Ur Specific [place] 1.010, Urine Protein Negative, Urine Glucose (UA) Negative, Urine Ketones Negative, Urine Blood Negative, Urine Nitrate Negative, Urine Bilirubin Negative, Urine Urobilinogen 0.2, Ur Leukocyte Esterase Negative, Urine RBC None, Urine WBC Occasional, Ur Squamous Epith Cells None, Urine Bacteria None 02/07/25 20:27: Troponin I 0.01 02/08/25 05:08: POC Glucose 255 H 02/08/25 05:34: WBC 5.1, RBC 3.39 L, Hgb 8.4 L, Hct 28.3 L, MCV 83.5, MCH 24.8 L , MCHC 29.7 L, RDW 15.4, Plt Count 274, MPV 10.1, Neut % (Auto) 60.8, Lymph % (Auto) 23.7, [place] % (Auto) 9.3, Eos % (Auto) 5.4, Baso % (Auto) 0.6, Neut # (Auto) 3.1, Lymph # (Auto) 1.2, [place] # (Auto) 0.5, Eos # (Auto) 0.3, Baso # (Auto) 0.0, Sodium 131 L, Potassium 4.4, Chloride 104, Carbon Dioxide 21 L, Anion Gap 10.4, BUN 19, Creatinine 1.60 H, Estimated Creat Clear 79, Estimated GFR 46 L, Est GFR ( Amer) 56 L, Glucose 219 H, Calcium 8.7, Magnesium 2.1, Total Bilirubin 0.7, AST 18 D, ALT 12 D, Alkaline Phosphatase 77, Total Protein 6.5, Albumin 3.4 L D, Globulin 3.1, Albumin/Globulin Ratio 1.1 02/08/25 11:37: POC Glucose 223 H If INR was < than 2.0 why was therapy stopped?: HEPARIN DRIP STOPPED BY . Were Heparin and Warfarin started on the same day?: No If not, why?: HEPARIN DRIP STOPPED BY .
[2025-02-08 17:22] LABS: PTT Heparin (inpatient only) 26.4 Seconds (50-75)
[2025-02-08] MEDS: HEPARIN 25,000 UNITS/D5W 500 ML 36 UNIT IV (18:07)
[2025-02-08] MEDS: HEPARIN SODIUM 5,000 UNIT/ML VIAL 8000 UNIT IV (18:08)
[2025-02-08 18:48] LABS: POC Glucose,Bedside 186 gm/dL (70-110)
[2025-02-08 19:00] LABS: PTT Heparin (inpatient only) 26.8 Seconds (50-75)
[2025-02-08 20:00] VITALS: BP 122/67; PULSE 100; PULSE 109; RESP 16; TEMP 36.6; O2SAT 98
[2025-02-08] MEDS: SPIRONOLACTONE 25MG TABLET 50 MG PO (20:33)
[2025-02-08] MEDS: ATORVASTATIN 40MG TABLET 80 MG PO (20:33)
[2025-02-08] MEDS: CARVEDILOL 12.5MG TABLET 3.125 MG PO (20:34)
--- NOTE | 2025-02-08 21:22 | P.PN_ITS ---
Subjective *Date: 02/08/25 *Time: 21:22 Interval history: Significant and severe stenosis bilaterally likely contributing to poor healing of osteomyelitis. Discussed with Dr. Jane and Dr. Flores, recommend transfer to tertiary center with vascular surgery to help with revascularization and surgical planning. [facility] declined at this time, will reach out to . Exam Data for Last 24 hours Vital signs and Labs for Last 24 Hours: Temp Pulse Resp BP Pulse Ox O2 Del Method 98.1 F 102 H 20 115/73 95 Room Air 02/08/25 16:00 02/08/25 16:00 02/08/25 16:00 02/08/25 16:00 02/08/25 16:00 02/08/25 17:00 Laboratory Results - last 24 hr 02/07/25 13:54: HCV Ab HUBERT w/Rflx PCR Qn Negative 02/08/25 05:08: POC Glucose 255 H 02/08/25 05:34: WBC 5.1, RBC 3.39 L, Hgb 8.4 L, Hct 28.3 L, MCV 83.5, MCH 24.8 L , MCHC 29.7 L, RDW 15.4, Plt Count 274, MPV 10.1, Neut % (Auto) 60.8, Lymph % (Auto) 23.7, [place] % (Auto) 9.3, Eos % (Auto) 5.4, Baso % (Auto) 0.6, Neut # (Auto) 3.1, Lymph # (Auto) 1.2, [place] # (Auto) 0.5, Eos # (Auto) 0.3, Baso # (Auto) 0.0, Sodium 131 L, Potassium 4.4, Chloride 104, Carbon Dioxide 21 L, Anion Gap 10.4, BUN 19, Creatinine 1.60 H, Estimated Creat Clear 79, Estimated GFR 46 L, Est GFR ( Amer) 56 L, Glucose 219 H, Calcium 8.7, Magnesium 2.1, Total Bilirubin 0.7, AST 18 D, ALT 12 D, Alkaline Phosphatase 77, Total Protein 6.5, Albumin 3.4 L D, Globulin 3.1, Albumin/Globulin Ratio 1.1 02/08/25 11:37: POC Glucose 223 H 02/08/25 16:35: APTT 26.4 L 02/08/25 17:53: POC Glucose 186 H 02/08/25 18:00: APTT 26.8 L Temp Pulse Resp BP Pulse Ox O2 Del Method 98.3 F 106 H 18 129/89 99 Room Air 02/08/25 08:00 02/08/25 08:00 02/08/25 08:00 02/08/25 08:00 02/08/25 08:00 02/08/25 08:40 Laboratory Results - last 24 hr 02/07/25 13:54: WBC 5.1, RBC 3.49 L, Hgb 8.9 L, Hct 29.7 L, MCV 85.1, MCH 25.5 L , MCHC 30.0 L, RDW 15.7, Plt Count 289, MPV 9.9, Neut % (Auto) 61.4, Lymph % (Auto) 24.7, [place] % (Auto) 8.8, Eos % (Auto) 3.5, Baso % (Auto) 1.0, Neut # (Auto) 3.1, Lymph # (Auto) 1.3, [place] # (Auto) 0.5, Eos # (Auto) 0.2, Baso # (Auto) 0.1, ESR 74 H, PT 12.2, INR 1.11 H, Sodium 135 L, Potassium 5.0, Chloride 105, Carbon Dioxide 21 L, Anion Gap 14.0, BUN 20, Creatinine 1.50 H, Estimated Creat Clear 87, Estimated GFR 50 L, Est GFR ( Amer) 60, Glucose 231 H, Calcium 9.3, Magnesium 2.0, Total Bilirubin 0.9, AST 29, ALT 17, Alkaline Phosphatase 83, Troponin I 0.01, C-Reactive Protein 23.2 H, NT-Pro-B Natriuret Pep 44721 H, Total Protein 7.0, Albumin 3.8, Globulin 3.2, Albumin/Globulin Ratio 1.2, HCV Ab HUBERT w/Rflx PCR Qn Negative, HIV Ag/Ab Combo Qual Negative 02/07/25 17:03: Lactate 1.8, Troponin I < 0.01 02/07/25 20:11: Urine Color Yellow, Urine Appearance Clear, Urine pH 6.0, Ur Specific [place] 1.010, Urine Protein Negative, Urine Glucose (UA) Negative, Urine Ketones Negative, Urine Blood Negative, Urine Nitrate Negative, Urine Bilirubin Negative, Urine Urobilinogen 0.2, Ur Leukocyte Esterase Negative, Urine RBC None, Urine WBC Occasional, Ur Squamous Epith Cells None, Urine Bacteria None 02/07/25 20:27: Troponin I 0.01 02/08/25 05:08: POC Glucose 255 H 02/08/25 05:34: WBC 5.1, RBC 3.39 L, Hgb 8.4 L, Hct 28.3 L, MCV 83.5, MCH 24.8 L , MCHC 29.7 L, RDW 15.4, Plt Count 274, MPV 10.1, Neut % (Auto) 60.8, Lymph % (Auto) 23.7, [place] % (Auto) 9.3, Eos % (Auto) 5.4, Baso % (Auto) 0.6, Neut # (Auto) 3.1, Lymph # (Auto) 1.2, [place] # (Auto) 0.5, Eos # (Auto) 0.3, Baso # (Auto) 0.0, Sodium 131 L, Potassium 4.4, Chloride 104, Carbon Dioxide 21 L, Anion Gap 10.4, BUN 19, Creatinine 1.60 H, Estimated Creat Clear 79, Estimated GFR 46 L, Est GFR ( Amer) 56 L, Glucose 219 H, Calcium 8.7, Magnesium 2.1, Total Bilirubin 0.7, AST 18 D, ALT 12 D, Alkaline Phosphatase 77, Total Protein 6.5, Albumin 3.4 L D, Globulin 3.1, Albumin/Globulin Ratio 1.1 I & O for Last 24 hours: Intake & Output 02/05/25 02/06/25 02/07/25 02/08/25 23:59 23:59 23:59 23:59 Intake Total 100 / 100 1830 / 1830 Output Total 1550 / 1875 2725 / 2725 Balance -1450 / -1775 -895 / -895 Weight 100.652 kg 101.6 kg Intake & Output 02/05/25 02/06/25 02/07/25 02/08/25 23:59 23:59 23:59 23:59 Intake Total 100 / 100 890 / 890 Output Total 1550 / 1875 1025 / 1025 Balance -1450 / -1775 -135 / -135 Weight 221 lb 14.4 oz 223 lb 14.4 oz Microbiology Reports for the Last 24 Hours: Microbiology 02/07/25 20:10 Blood Blood Culture - Preliminary NO GROWTH AFTER 24 HOURS 02/07/25 20:00 Blood Blood Culture - Preliminary NO GROWTH AFTER 24 HOURS Constitutional Constitutional: no acute distress *Routine Respiratory Exam Respiratory: Present CTA bilaterally and symmetric chest movement *Routine Cardiovascular Exam Cardiovascular: Present RRR, Normal S1 and Normal S2 *Routine Abdominal Exam Abdominal: Present soft and normoactive bowel sounds; Absent tenderness *Routine Extremities Exam Extremities: Present edema and full ROM *Routine Skin Exam Skin: Present intact, dry and warm Detailed Neck Exam: Thyroids Thyroid: Absent bruit Assessment and Plan *Assessment and plan (1) Acute on chronic HFrEF (heart failure with reduced ejection fraction): Status: Acute Category: Medical Code(s): I50.23 - Acute on chronic systolic (congestive) heart failure (2) Foot osteomyelitis, left: Status: Acute Qualifiers: Osteomyelitis type: other acute Qualified Code(s): M86.172 - Other acute osteomyelitis, left ankle and foot Category: Medical Code(s): M86.9 - Osteomyelitis, unspecified (3) CODY (acute kidney injury): Status: Acute Category: Medical Code(s): N17.9 - Acute kidney failure, unspecified (4) Bilateral pleural effusion: Status: Acute Category: Medical Code(s): J90 - Pleural effusion, not elsewhere classified (5) CAD (coronary artery disease): Status: Acute Qualifiers: Coronary Disease-Associated Artery/Lesion type: unspecified vessel or lesion type [place] vs. transplanted heart: [place] heart Associated angina: without angina Qualified Code(s): I25.10 - Atherosclerotic heart disease of [place] coronary artery without angina pectoris Category: Medical Code(s): I25.10 - Atherosclerotic heart disease of [place] coronary artery without angina pectoris (6) Peripheral arterial disease: Status: Acute Category: Medical Code(s): I73.9 - Peripheral vascular disease, unspecified (7) Diabetes mellitus, type 2: Status: Acute Qualifiers: Diabetes mellitus intermediate insulin use: with intermediate use Diabetes mellitus complication status: with skin complications Diabetes mellitus complication detail: with other skin complication Qualified Code(s): E11.628 - Type 2 diabetes mellitus with other skin complications; Z79.4 - custodial (current) use of insulin Category: Medical Code(s): E11.9 - Type 2 diabetes mellitus without complications (8) Hypertension: Status: Acute Qualifiers: Hypertension type: unspecified secondary hypertension Qualified Code(s): I15.9 - Secondary hypertension, unspecified Category: Medical Code(s): I10 - Essential (primary) hypertension (9) Hypothyroid: Status: Acute Qualifiers: Hypothyroidism type: unspecified Qualified Code(s): E03.9 - Hypothyroidism, unspecified Category: Medical Code(s): E03.9 - Hypothyroidism, unspecified Plan Plan/assessment Patient presented with complaint of lower extremity edema, significant weight gain over the last several weeks. Imaging studies as noted above consistent with hypervolemia. Concern of postsurgical changes left lower extremity, of osteomyelitis. Patient has been on Bactrim twice a day. WBC, lactic acid and vitals within normal limits. Patient has had complaints of intermittent subjective fever and chills. Blood cultures obtained and broad-spectrum IV antibiotics initiated while in the emergency department. Received 1 dose 80 mg Lasix. Transferred to [facility] for continued monitoring, cardiology consult for underlying acute on chronic CHF exacerbation. Cardiac monitoring and lab trending. 1. Acute on chronic HFrEF: Patient noted significant weight increase over the past few weeks. BNP 22,400. Bilateral lower extremity edema, abdominal distention present. Imaging consistent with hypervolemia as noted above. Decreased level of activity due to significant shortness of breath. Unable to lay flat due to fluid overload. Echocardiogram 12/21->showing severe reduction in LV systolic function (LVEF 20%).Grade 3 diastolic dysfunction. Normal RV size with moderate reduction in RV function. Biatrial dilation. Mod erate MR. Mild TR. Received Lasix 80 mg in the ED-resume diuresis with IV Lasix 80 mg twice daily. Daily weight, monitor intake output closely. Cardiology consult placed, appreciate evaluation/input. ? Creatinine bumped slightly to 1.6 today, will continue to monitor closely in the setting of diuresis. 2. Left lower extremity osteomyelitis, PAD: Relatively recent amputation left l ower extremity, imaging study MRI obtained on , suggestive of possible early onset osteomyelitis. Prior to hospitilization pt. placed on Bactrim twice daily with plan of following up with infectious disease tomorrow. Complaint of intermittent chills with feeling feverish at times. Afebrile, WBC, lactic acid, vitals WNL at presentation. Due to patient history and recent imaging-blood cultures were obtained and broad-spectrum IV antibiotics initiated. Pharmacy consult placed for vancomycin dosing. Resume IV antibiotic therapy, follow culture adjust as appropriate. ?Significant and severe stenosis bilaterally likely contributing to poor healing of osteomyelitis. Discussed with Dr. Jane and Dr. Flores, recommend transfer to tertiary center with vascular surgery to help with revascularization and surgical planning. [facility] declined at this time, will reach out to . 3. CODY: Creatinine unsure of consistent baseline-> presented with creatinine of 1.5, GFR 60-> most recent prior finding renal function within normal limits although multiple findings prior creatinine distantly 1.6 range. Monitor renal function closely, trend with morning labs. 4. History of CAD/peripheral artery disease/HTN: Significant history CAD/peripheral artery disease-reports medication, daily aspirin antiplatelet therapy. Blood pressure normotensive, resume antihypertensive medication when home medication reconciled. 5. Diabetes mellitus type 2: Mildly elevated with initial glucose check-> upper 200 range. Insulin sliding scale with Accu-Cheks ACHS. 6. Hypothyroidism: Resume home levothyroxine. 7. GERD: Resume home proton pump inhibitor, Protonix. Full code DVT prophylaxis Lovenox Diabetic/low-sodium fluid restriction diet
[2025-02-08 22:41] LABS: POC Glucose,Bedside 168 gm/dL (70-110)
[2025-02-09] VITALS (7 sets, daily range): BP systolic 102–120; BP diastolic 64–78; PULSE 96–110; RESP 16–18; TEMP 36.3–36.7; O2SAT 96–99; BMI 31.0
[2025-02-09 00:04] LABS: PTT Heparin (inpatient only) 99.2 Seconds (50-75)
[2025-02-09] MEDS: CEFEPIME HCL 2 GM in 0.9 % SODIUM CHLORIDE 100 ML IV ×3 (03:46→20:29)
[2025-02-09 04:31] LABS: Hematocrit 26.8 % (42.0-52.0); Hemoglobin 8.5 g/dL (14.1-18.0); Immature Granulocytes % 0.2 %; Mean Corpuscular HGB Conc 31.7 g/dL (31.8-35.4); Mean Corpuscular Hemoglobin 25.8 pg (27.0-31.2); Mean Corpuscular Volume 81.5 fl (80-94); Nucleated Red Blood Cells % 0 %; Platelet Count 281 K/mm3 (142-424); Red Blood Count 3.29 M/mm3 (4.60-6.20); Red Cell Distribution Width-SD 45.5 fL; White Blood Count 5.4 K/mm3 (4.8-10.8)
[2025-02-09 04:40] LABS: Albumin Level 3.6 g/dl (3.5-5.0); Chloride 102 mmol/L (98-107); Sodium 130 mmol/L (136-145)
[2025-02-09 04:41] LABS: Potassium 4.4 mmoL/L (3.5-5.1)
[2025-02-09 04:43] LABS: Alanine Aminotransferase 13 U/L (12-78); Albumin/Globulin Ratio 1.2 (1.1-1.8); Alkaline Phosphatase 79 U/L (38-126); Anion Gap 9.4 mEq/L (5-15); Aspartate Amino Transferase 20 U/L (17-59); Bilirubin,Total 0.9 mg/dl (0.2-1.3); Blood Urea Nitrogen 22 mg/dl (9-20); Carbon Dioxide 23 mmol/L (22.0-30.0); Creatinine Clearance Estimated 75 mL/min (50-200); Creatinine,Serum 1.70 mg/dl (0.66-1.25); Estimated Glomerular Filt Rate 43 ml/min (>60); GFR (African American) 52 ML/MIN (>60); Globulin 3.0 g/dL (1.3-3.2); Total Protein,Serum 6.6 g/dl (6.3-8.2)
[2025-02-09 04:44] LABS: Calcium 8.9 mg/dl (8.4-10.2); Glucose 138 mg/dl (74-100)
[2025-02-09 04:47] LABS: PTT Heparin (inpatient only) 70.0 Seconds (50-75)
[2025-02-09 05:31] LABS: POC Glucose,Bedside 153 gm/dL (70-110)
[2025-02-09] MEDS: LEVOTHYROXINE 125MCG (0.125MG) TAB 125 MCG PO (06:08)
[2025-02-09] MEDS: humaLOG 100 UNITS/ML 10ML VIAL (SSI) SUBCUT ×4 (06:09→20:49)
[2025-02-09] MEDS: SPIRONOLACTONE 25MG TABLET 50 MG PO ×2 (08:09→20:28)
[2025-02-09] MEDS: ASPIRIN EC 81MG TABLET 81 MG PO (08:09)
[2025-02-09] MEDS: EMPAGLIFLOZIN 25MG TABLET 25 MG PO (08:10)
[2025-02-09] MEDS: FUROSEMIDE 40MG/4ML VIAL 80 MG IV (08:14)
--- NOTE | 2025-02-09 09:04 | HMH.PHAAMS2 ---
- Antimicrobial Stewardship Review culture & sensitivity review Stewardship interventions: culture & sensitivity review, reviewed - no change Comments: BLOOD CX NO GROWTH AT 24 HR, BONE CX PENDING, PATIENT ON VANCOMYCIN AND CEFEPIME EMPIRICALLY FOR OSTEOMYELITIS
[2025-02-09] MEDS: HEPARIN 25,000 UNITS/D5W 500 ML 30 UNIT IV (09:07)
[2025-02-09] MEDS: VANCOMYCIN/WATER FOR INJ (PEG) 1.5 GM/300 ML PIGGYBACK IV (10:19)
[2025-02-09 10:33] LABS: PTT Heparin (inpatient only) 52.4 Seconds (50-75)
[2025-02-09 12:04] LABS: POC Glucose,Bedside 233 gm/dL (70-110)
--- NOTE | 2025-02-09 13:33 | EXP.PN ---
Subjective *Date: 02/09/25 *Time: 19:23 Interval history: Patient doing slightly better today, slightly improvement in lower extremity edema. Diuresing well. Transitioned to IV Bumex drip given significant pitting edema to groin. has accepted patient for vascular surgery, pending bed at this time. Exam Data for Last 24 hours Vital signs and Labs for Last 24 Hours: Temp Pulse Resp BP Pulse Ox O2 Del Method 98 F 100 H 16 109/64 L 96 Room Air 02/09/25 12:00 02/09/25 12:00 02/09/25 12:00 02/09/25 12:00 02/09/25 12:00 02/09/25 08:00 Laboratory Results - last 24 hr 02/08/25 16:35: APTT 26.4 L 02/08/25 17:53: POC Glucose 186 H 02/08/25 18:00: APTT 26.8 L 02/08/25 20:19: POC Glucose 168 H 02/08/25 23:23: APTT 99.2 H* 02/09/25 04:25: WBC 5.4, RBC 3.29 L, Hgb 8.5 L, Hct 26.8 L, MCV 81.5, MCH 25.8 L, MCHC 31.7 L, RDW 15.5, Plt Count 281, MPV 9.6, Neut % (Auto) 52.9, Lymph % (Auto) 31.6, [place] % (Auto) 8.6, Eos % (Auto) 5.6, Baso % (Auto) 1.1, Neut # (Auto) 2.8, Lymph # (Auto) 1.7, [place] # (Auto) 0.5, Eos # (Auto) 0.3, Baso # (Auto) 0.1, APTT 70.0, Sodium 130 L, Potassium 4.4, Chloride 102, Carbon Dioxide 23, Anion Gap 9.4, BUN 22 H, Creatinine 1.70 H, Estimated Creat Clear 75, Estimated GFR 43 L, Est GFR ( Amer) 52 L, Glucose 138 H D, Calcium 8.9, Total Bilirubin 0.9, AST 20, ALT 13, Alkaline Phosphatase 79, Total Protein 6.6, Albumin 3.6, Globulin 3.0, Albumin/Globulin Ratio 1.2 02/09/25 05:19: POC Glucose 153 H 02/09/25 10:10: APTT 52.4 02/09/25 11:51: POC Glucose 233 H Temp Pulse Resp BP Pulse Ox O2 Del Method 98.3 F 106 H 18 129/89 99 Room Air 02/08/25 08:00 02/08/25 08:00 02/08/25 08:00 02/08/25 08:00 02/08/25 08:00 02/08/25 08:40 Laboratory Results - last 24 hr 02/07/25 13:54: WBC 5.1, RBC 3.49 L, Hgb 8.9 L, Hct 29.7 L, MCV 85.1, MCH 25.5 L, MCHC 30.0 L, RDW 15.7, Plt Count 289, MPV 9.9, Neut % (Auto) 61.4, Lymph % (Auto) 24.7, [place] % (Auto) 8.8, Eos % (Auto) 3.5, Baso % (Auto) 1.0, Neut # (Auto) 3.1, Lymph # (Auto) 1.3, [place] # (Auto) 0.5, Eos # (Auto) 0.2, Baso # (Auto) 0.1, ESR 74 H, PT 12.2, INR 1.11 H, Sodium 135 L, Potassium 5.0, Chloride 105, Carbon Dioxide 21 L, Anion Gap 14.0, BUN 20, Creatinine 1.50 H, Estimated Creat Clear 87, Estimated GFR 50 L, Est GFR ( Amer) 60, Glucose 231 H, Calcium 9.3, Magnesium 2.0, Total Bilirubin 0.9, AST 29, ALT 17, Alkaline Phosphatase 83, Troponin I 0.01, C-Reactive Protein 23.2 H, NT-Pro-B Natriuret Pep 09531 H, Total Protein 7.0, Albumin 3.8, Globulin 3.2, Albumin/Globulin Ratio 1.2, HCV Ab HUBERT w/Rflx PCR Qn Negative, HIV Ag/Ab Combo Qual Negative 02/07/25 17:03: Lactate 1.8, Troponin I < 0.01 02/07/25 20:11: Urine Color Yellow, Urine Appearance Clear, Urine pH 6.0, Ur Specific [place] 1.010, Urine Protein Negative, Urine Glucose (UA) Negative, Urine Ketones Negative, Urine Blood Negative, Urine Nitrate Negative, Urine Bilirubin Negative, Urine Urobilinogen 0.2, Ur Leukocyte Esterase Negative, Urine RBC None, Urine WBC Occasional, Ur Squamous Epith Cells None, Urine Bacteria None 02/07/25 20:27: Troponin I 0.01 02/08/25 05:08: POC Glucose 255 H 02/08/25 05:34: WBC 5.1, RBC 3.39 L, Hgb 8.4 L, Hct 28.3 L, MCV 83.5, MCH 24.8 L, MCHC 29.7 L, RDW 15.4, Plt Count 274, MPV 10.1, Neut % (Auto) 60.8, Lymph % (Auto) 23.7, [place] % (Auto) 9.3, Eos % (Auto) 5.4, Baso % (Auto) 0.6, Neut # (Auto) 3.1, Lymph # (Auto) 1.2, [place] # (Auto) 0.5, Eos # (Auto) 0.3, Baso # (Auto) 0.0, Sodium 131 L, Potassium 4.4, Chloride 104, Carbon Dioxide 21 L, Anion Gap 10.4, BUN 19, Creatinine 1.60 H, Estimated Creat Clear 79, Estimated GFR 46 L, Est GFR ( Amer) 56 L, Glucose 219 H, Calcium 8.7, Magnesium 2.1, Total Bilirubin 0.7, AST 18 D, ALT 12 D, Alkaline Phosphatase 77, Total Protein 6.5, Albumin 3.4 L D, Globulin 3.1, Albumin/Globulin Ratio 1.1 I & O for Last 24 hours: Intake & Output 02/06/25 02/07/25 02/08/25 02/09/25 23:59 23:59 23:59 23:59 Intake Total 100 / 100 1930 / 2170 1127.9 / 1127.9 Output Total 1550 / 1875 4825 / 5125 1475 / 1475 Balance -1450 / -1775 -2895 / -2955 -347.1 / -347.1 Weight 100.652 kg 101.6 kg 98.43 kg Intake & Output 02/05/25 02/06/25 02/07/25 02/08/25 23:59 23:59 23:59 23:59 Intake Total 100 / 100 890 / 890 Output Total 1550 / 1875 1025 / 1025 Balance -1450 / -1775 -135 / -135 Weight 221 lb 14.4 oz 223 lb 14.4 oz Microbiology Reports for the Last 24 Hours: Microbiology 02/07/25 20:10 Blood Blood Culture - Preliminary NO GROWTH AFTER 24 HOURS 02/07/25 20:00 Blood Blood Culture - Preliminary NO GROWTH AFTER 24 HOURS Constitutional Constitutional: no acute distress and chronically ill appearing *Routine Respiratory Exam Respiratory: Present CTA bilaterally and symmetric chest movement *Routine Cardiovascular Exam Cardiovascular: Present RRR, Normal S1 and Normal S2 *Routine Abdominal Exam Abdominal: Present soft and normoactive bowel sounds; Absent tenderness *Routine Extremities Exam Extremities: Present edema and full ROM Comments: Left foot s/p TMA wrapped and dressed. Bilateral lower extremity 3+ pitting edema to groin. *Routine Skin Exam Skin: Present intact, dry and warm Detailed Neck Exam: Thyroids Thyroid: Absent bruit Assessment and Plan *Assessment and plan (1) Acute on chronic HFrEF (heart failure with reduced ejection fraction): Status: Acute Category: Medical Code(s): I50.23 - Acute on chronic systolic (congestive) heart failure (2) Foot osteomyelitis, left: Status: Acute Qualifiers: Osteomyelitis type: other acute Qualified Code(s): M86.172 - Other acute osteomyelitis, left ankle and foot Category: Medical Code(s): M86.9 - Osteomyelitis, unspecified (3) CODY (acute kidney injury): Status: Acute Category: Medical Code(s): N17.9 - Acute kidney failure, unspecified (4) Bilateral pleural effusion: Status: Acute Category: Medical Code(s): J90 - Pleural effusion, not elsewhere classified (5) CAD (coronary artery disease): Status: Acute Qualifiers: Associated angina: without angina Coronary Disease-Associated Artery/Lesion type: unspecified vessel or lesion type [place] vs. transplanted heart: [place] heart Qualified Code(s): I25.10 - Atherosclerotic heart disease of [place] coronary artery without angina pectoris Category: Medical Code(s): I25.10 - Atherosclerotic heart disease of [place] coronary artery without angina pectoris (6) Peripheral arterial disease: Status: Acute Category: Medical Code(s): I73.9 - Peripheral vascular disease, unspecified (7) Diabetes mellitus, type 2: Status: Acute Qualifiers: Diabetes mellitus complication detail: with other skin complication Diabetes mellitus complication status: with skin complications Diabetes mellitus long chain beamer insulin use: with long chain beamer use Qualified Code(s): E11.628 - Type 2 diabetes mellitus with other skin complications; Z79.4 - rn long term care (current) use of insulin Category: Medical Code(s): E11.9 - Type 2 diabetes mellitus without complications (8) Hypertension: Status: Acute Qualifiers: Hypertension type: unspecified secondary hypertension Qualified Code(s): I15.9 - Secondary hypertension, unspecified Category: Medical Code(s): I10 - Essential (primary) hypertension (9) Hypothyroid: Status: Acute Qualifiers: Hypothyroidism type: unspecified Qualified Code(s): E03.9 - Hypothyroidism, unspecified Category: Medical Code(s): E03.9 - Hypothyroidism, unspecified Plan Plan/assessment Patient presented with complaint of lower extremity edema, significant weight gain over the last several weeks. Imaging studies as noted above consistent with hypervolemia. Concern of postsurgical changes left lower extremity, of osteomyelitis. Patient has been on Bactrim twice a day. WBC, lactic acid and vitals within normal limits. Patient has had complaints of intermittent subjective fever and chills. Blood cultures obtained and broad-spectrum IV antibiotics initiated while in the emergency department. Received 1 dose 80 mg Lasix. Transferred to [facility] [place] for continued monitoring, cardiology consult for underlying acute on chronic CHF exacerbation. Cardiac monitoring and lab trending. 1. Acute on chronic HFrEF: Patient noted significant weight increase over the past few weeks. BNP 22,400. Bilateral lower extremity edema, abdominal distention present. Imaging consistent with hypervolemia as noted above. Decreased level of activity due to significant shortness of breath. Unable to lay flat due to fluid overload. Echocardiogram 12/21->showing severe reduction in LV systolic function (LVEF 20%).Grade 3 diastolic dysfunction. Normal RV size with moderate reduction in RV function. Biatrial dilation. Moderate MR. Mild TR. Received Lasix 80 mg in the ED-resume diuresis with IV Lasix 80 mg twice daily. Daily weight, monitor intake output closely. Cardiology consult placed, appreciate evaluation/input. ? Patient is having good urine output with IV Lasix diuresis, will transition to IV Bumex drip at 0.5 mg/h given significant lower extreme pitting edema to groin. ? Creatinine bumped slightly to 1.7 today, will continue to monitor closely in the setting of diuresis. 2. Left lower extremity osteomyelitis, PAD: Relatively recent amputation left lower extremity, imaging study MRI obtained on , suggestive of possible early onset osteomyelitis. Prior to hospitilization pt. placed on Bactrim twice daily with plan of following up with infectious disease tomorrow. Complaint of intermittent chills with feeling feverish at times. Afebrile, WBC, lactic acid, vitals WNL at presentation. Due to patient history and recent imaging-blood cultures were obtained and broad-spectrum IV antibiotics initiated. Pharmacy consult placed for vancomycin dosing. Resume IV antibiotic therapy, follow culture adjust as appropriate. ? Critical stenosis bilaterally likely contributing to poor healing of osteomyelitis. Discussed with Dr. Jane and Dr. Flores, recommend transfer to tertiary center with vascular surgery to help with revascularization and surgical planning. Dr. Gibbs (vascular surgery) with graciously accepted patient for further evaluation management. Pending bed at this time. 3. CODY: Creatinine unsure of consistent baseline-> presented with creatinine of 1.5, GFR 60-> most recent prior finding renal function within normal limits although multiple findings prior creatinine distantly 1.6 range. Monitor renal function closely, trend with morning labs. 4. History of CAD/peripheral artery disease/HTN: Significant history CAD/peripheral artery disease-reports medication, daily aspirin antiplatelet therapy. Blood pressure normotensive, resume antihypertensive medication when home medication reconciled. 5. Diabetes mellitus type 2: Mildly elevated with initial glucose check-> upper 200 range. Insulin sliding scale with Accu-Cheks ACHS. 6. Hypothyroidism: Resume home levothyroxine. 7. GERD: Resume home proton pump inhibitor, Protonix. Full code DVT prophylaxis Lovenox Diabetic/low-sodium fluid restriction diet
[2025-02-09] MEDS: BUMETANIDE 10 MG in 0.9 % SODIUM CHLORIDE 60 ML 5 MG IV (13:40)
[2025-02-09 15:24] LABS: PTT Heparin (inpatient only) 51.7 Seconds (50-75)
[2025-02-09] MEDS: HEPARIN 25,000 UNITS/D5W 500 ML 32 UNIT IV (16:18)
[2025-02-09 16:29] LABS: POC Glucose,Bedside 228 gm/dL (70-110)
--- NOTE | 2025-02-09 20:00 | PC.NURSE ---
new IV placed in RFA.
[2025-02-09] MEDS: PANTOPRAZOLE 40MG TABLET 40 MG PO (20:27)
[2025-02-09] MEDS: ATORVASTATIN 40MG TABLET 80 MG PO (20:27)
[2025-02-09 20:42] LABS: Chloride 95 mmol/L (98-107); Potassium 4.4 mmoL/L (3.5-5.1); Sodium 129 mmol/L (136-145)
[2025-02-09 20:45] LABS: Anion Gap 13.4 mEq/L (5-15); Blood Urea Nitrogen 26 mg/dl (9-20); Calcium 9.0 mg/dl (8.4-10.2); Carbon Dioxide 25 mmol/L (22.0-30.0); Creatinine Clearance Estimated 59 mL/min (50-200); Creatinine,Serum 2.10 mg/dl (0.66-1.25); Estimated Glomerular Filt Rate 34 ml/min (>60); GFR (African American) 41 ML/MIN (>60); Glucose 190 mg/dl (74-100)
[2025-02-09 20:51] LABS: POC Glucose,Bedside 243 gm/dL (70-110)
[2025-02-09 21:59] LABS: PTT Heparin (inpatient only) 41.8 Seconds (50-75)
--- NOTE | 2025-02-09 22:01 | PC.NURSE ---
dsg changed to left foot. patient reports a new red rash to RLE and warm to touch, outlined with skin marker and hospitalist notified.
[2025-02-09] MEDS: HEPARIN SODIUM 5,000 UNIT/ML VIAL 3000 UNIT IV (22:09)
[2025-02-10] VITALS (10 sets, daily range): BP systolic 100–114; BP diastolic 59–78; PULSE 62–110; RESP 16–18; TEMP 36.4–36.8; O2SAT 94–100; BMI 29.8; BMI 29.6
[2025-02-10] MEDS: CEFEPIME HCL 2 GM in 0.9 % SODIUM CHLORIDE 100 ML IV ×3 (03:20→21:08)
[2025-02-10] MEDS: HEPARIN 25,000 UNITS/D5W 500 ML 36 UNIT IV (04:03)
[2025-02-10] MEDS: PHA TO NURSING INSTRUCTION 1 EACH NOTAPPLIC (04:04)
[2025-02-10 04:32] LABS: PTT Heparin (inpatient only) 94.7 Seconds (50-75)
[2025-02-10] MEDS: HEPARIN 25,000 UNITS/D5W 500 ML 32 UNIT IV (05:00)
--- NOTE | 2025-02-10 06:32 | PC.NURSE ---
lorenzo cooper r/t issue with analyzer in lab - trough is running now.
[2025-02-10] MEDS: humaLOG 100 UNITS/ML 10ML VIAL (SSI) SUBCUT ×4 (06:38→21:15)
[2025-02-10] MEDS: LEVOTHYROXINE 125MCG (0.125MG) TAB 125 MCG PO (06:38)
[2025-02-10 06:41] LABS: POC Glucose,Bedside 248 gm/dL (70-110)
[2025-02-10 06:44] LABS: Hematocrit 29.0 % (42.0-52.0); Hemoglobin 8.9 g/dL (14.1-18.0); Immature Granulocytes % 0.4 %; Mean Corpuscular HGB Conc 30.7 g/dL (31.8-35.4); Mean Corpuscular Hemoglobin 25.2 pg (27.0-31.2); Mean Corpuscular Volume 82.2 fl (80-94); Nucleated Red Blood Cells % 0 %; Platelet Count 300 K/mm3 (142-424); Red Blood Count 3.53 M/mm3 (4.60-6.20); Red Cell Distribution Width-SD 46.0 fL; White Blood Count 5.3 K/mm3 (4.8-10.8)
[2025-02-10 06:49] LABS: Vancomycin,Trough 21.5 ug/mL (5.0-10.0)
[2025-02-10 07:02] LABS: Chloride 97 mmol/L (98-107); Potassium 4.4 mmoL/L (3.5-5.1); Sodium 130 mmol/L (136-145)
[2025-02-10 07:05] LABS: Anion Gap 11.4 mEq/L (5-15); Blood Urea Nitrogen 28 mg/dl (9-20); Carbon Dioxide 26 mmol/L (22.0-30.0); Creatinine Clearance Estimated 59 mL/min (50-200); Creatinine,Serum 2.00 mg/dl (0.66-1.25); Estimated Glomerular Filt Rate 36 ml/min (>60); GFR (African American) 43 ML/MIN (>60); Glucose 241 mg/dl (74-100)
[2025-02-10 07:06] LABS: Calcium 9.0 mg/dl (8.4-10.2)
--- NOTE | 2025-02-10 08:06 | EXP.PHA.CONS ---
Pharmacy Consult Date: 02/10/25 Time: 08:06 Referring provider: DR. KING Reason for Consult:: VANCOMYCIN DOSE CHANGE Allergies Allergy/AdvReac Type Severity Reaction Status Date / Time No Known Allergies Allergy Verified 02/07/25 13:03 Home Medications ?Medication ?Instructions ?Recorded ?Confirmed ?Type carvedilol 12.5 mg tablet 12.5 mg PO BID 12/20/24 02/07/25 History empagliflozin 25 mg tablet 25 mg PO DAILY 12/20/24 02/07/25 History (Jardiance) lisinopril 10 mg tablet 10 mg PO DAILY 12/20/24 02/07/25 History Held on 12/24/24. Instructions: Resume on 01/07/25. Hold due to soft blood pressures. Discuss with cardiology about restarting at next appointment. omeprazole 40 mg capsule,delayed 40 mg PO DAILY 12/20/24 02/07/25 History release ondansetron 4 mg disintegrating 4 mg PO Q6H PRN nausea and 01/18/25 02/07/25 Rx tablet vomiting #30 tabs furosemide 40 mg tablet 40 mg PO BID 01/31/25 02/07/25 History sulfamethoxazole 800 1 tab PO BID cellulitis 14 days 02/03/25 02/07/25 Rx mg-trimethoprim 160 mg tablet #28 tabs (Bactrim DS) doxycycline hyclate 100 mg capsule 100 mg PO BID 02/07/25 02/07/25 History aspirin 81 mg tablet,delayed 81 mg PO DAILY 02/08/25 02/08/25 History release atorvastatin 80 mg tablet 80 mg PO HS 02/08/25 02/08/25 History levothyroxine 125 mcg tablet 125 mcg PO DAILY 02/08/25 02/08/25 History spironolactone 50 mg tablet 50 mg PO BID 02/08/25 02/08/25 History New Prescriptions to Start Prescriptions: Height: 1.78 m Weight: 94.619 kg Laboratory Results:: Laboratory Results - last 24 hr 02/09/25 10:10: APTT 52.4 02/09/25 11:51: POC Glucose 233 H 02/09/25 15:00: APTT 51.7 02/09/25 16:20: POC Glucose 228 H 02/09/25 20:08: Sodium 129 L, Potassium 4.4, Chloride 95 L, Carbon Dioxide 25, Anion Gap 13.4, BUN 26 H, Creatinine 2.10 H D, Estimated Creat Clear 59, Estimated GFR 34 L, Est GFR ( Amer) 41 L D, Glucose 190 H D, Calcium 9.0 02/09/25 20:43: POC Glucose 243 H 02/09/25 21:33: APTT 41.8 L 02/10/25 03:54: WBC 5.3, RBC 3.53 L, Hgb 8.9 L, Hct 29.0 L, MCV 82.2, MCH 25.2 L, MCHC 30.7 L, RDW 15.4, Plt Count 300, MPV 10.5 H, Neut % (Auto) 52.9, Lymph % (Auto) 29.4, [place] % (Auto) 9.6 H, Eos % (Auto) 6.2, Baso % (Auto) 1.5, Neut # (Auto) 2.8, Lymph # (Auto) 1.6, [place] # (Auto) 0.5, Eos # (Auto) 0.3, Baso # (Auto) 0.1, APTT 94.7 H*, Sodium 130 L, Potassium 4.4, Chloride 97 L, Carbon Dioxide 26, Anion Gap 11.4, BUN 28 H, Creatinine 2.00 H, Estimated Creat Clear 59, Estimated GFR 36 L, Est GFR ( Amer) 43 L, Glucose 241 H D, Calcium 9.0, Vancomycin Trough 21.5 H 02/10/25 06:35: POC Glucose 248 H Medical History: Medical History (Updated 02/08/25 @ 13:16 by Hortencia Flores DPM) NSTEMI (non-ST elevated myocardial infarction) History of gastroesophageal reflux (GERD) Hypothyroid Congestive heart failure Hypertension Diabetes mellitus, type 2 Assessment and Plan Assessment and plan all Dx Assessment and Plan for all problems:: PATIENT'S VANCOMYCIN TROUGH LEVEL WAS 21.5 MCG/ML OVERNIGHT. RECOMMEND CHANGING DOSING INTERVAL FROM Q18H TO Q24H. START NEXT DOSE AT 0900.
[2025-02-10] MEDS: ASPIRIN EC 81MG TABLET 81 MG PO (08:31)
[2025-02-10] MEDS: BUMETANIDE 1MG/4ML VIAL 1 MG IV ×2 (08:31→17:11)
[2025-02-10] MEDS: EMPAGLIFLOZIN 25MG TABLET 25 MG PO (08:32)
[2025-02-10] MEDS: VANCOMYCIN/WATER FOR INJ (PEG) 1.5 GM/300 ML PIGGYBACK IV (08:32)
[2025-02-10] MEDS: SPIRONOLACTONE 25MG TABLET 50 MG PO ×2 (08:32→21:09)
--- NOTE | 2025-02-10 08:57 | HMH.PHAAMS2 ---
- Antimicrobial Stewardship Review culture & sensitivity review Stewardship interventions: culture & sensitivity review (CURRENTLY RECEIVING VANCO AND CEFERPIME, WBC WNL, AFEBRILE, CX PENDING.)
--- NOTE | 2025-02-10 09:00 | HMH.PHAAMS2 ---
- Antimicrobial Stewardship Review 48 hour timeout review Stewardship interventions: 48 hour timeout review (CURRENTLY RECEIVING CEFEPIME AND VANCO, WBC WNL, AFEBRILE, CX PENDING.)
[2025-02-10 10:46] LABS: POC Glucose,Bedside 304 gm/dL (70-110)
--- NOTE | 2025-02-10 11:48 | DIET.NUTRFU ---
during rounds patient reported BM 02/09/25
[2025-02-10 17:11] LABS: POC Glucose,Bedside 308 gm/dL (70-110)
--- NOTE | 2025-02-10 19:04 | P.PN_ITS ---
Subjective *Date: 02/10/25 *Time: 19:04 Interval history: Patient feeling better this morning, lower extremity edema improving. Continue IV Bumex diuresis. Pending bed availability at for transfer for vascular surgery. Exam Data for Last 24 hours Vital signs and Labs for Last 24 Hours: Temp Pulse Resp BP Pulse Ox O2 Del Method 98.3 F 100 H 16 105/78 L 98 Room Air 02/10/25 15:19 02/10/25 16:00 02/10/25 15:19 02/10/25 15:19 02/10/25 15:19 02/10/25 19:00 Laboratory Results - last 24 hr 02/09/25 20:08: Sodium 129 L, Potassium 4.4, Chloride 95 L, Carbon Dioxide 25, Anion Gap 13.4, BUN 26 H, Creatinine 2.10 H D, Estimated Creat Clear 59, Estimated GFR 34 L, Est GFR ( Amer) 41 L D, Glucose 190 H D, Calcium 9.0 02/09/25 20:43: POC Glucose 243 H 02/09/25 21:33: APTT 41.8 L 02/10/25 03:54: WBC 5.3, RBC 3.53 L, Hgb 8.9 L, Hct 29.0 L, MCV 82.2, MCH 25.2 L , MCHC 30.7 L, RDW 15.4, Plt Count 300, MPV 10.5 H, Neut % (Auto) 52.9, Lymph % (Auto) 29.4, [place] % (Auto) 9.6 H, Eos % (Auto) 6.2, Baso % (Auto) 1.5, Neut # (Auto) 2.8, Lymph # (Auto) 1.6, [place] # (Auto) 0.5, Eos # (Auto) 0.3, Baso # (Auto) 0.1, APTT 94.7 H*, Sodium 130 L, Potassium 4.4, Chloride 97 L, Carbon Dioxide 26, Anion Gap 11.4, BUN 28 H, Creatinine 2.00 H, Estimated Creat Clear 59, Estimated GFR 36 L, Est GFR ( Amer) 43 L, Glucose 241 H D, Calcium 9.0, Vancomycin Trough 21.5 H 02/10/25 06:35: POC Glucose 248 H 02/10/25 10:39: POC Glucose 304 H* 02/10/25 17:02: POC Glucose 308 H* Temp Pulse Resp BP Pulse Ox O2 Del Method 98.3 F 106 H 18 129/89 99 Room Air 02/08/25 08:00 02/08/25 08:00 02/08/25 08:00 02/08/25 08:00 02/08/25 08:00 02/08/25 08:40 Laboratory Results - last 24 hr 02/07/25 13:54: WBC 5.1, RBC 3.49 L, Hgb 8.9 L, Hct 29.7 L, MCV 85.1, MCH 25.5 L , MCHC 30.0 L, RDW 15.7, Plt Count 289, MPV 9.9, Neut % (Auto) 61.4, Lymph % (Auto) 24.7, [place] % (Auto) 8.8, Eos % (Auto) 3.5, Baso % (Auto) 1.0, Neut # (Auto) 3.1, Lymph # (Auto) 1.3, [place] # (Auto) 0.5, Eos # (Auto) 0.2, Baso # (Auto) 0.1, ESR 74 H, PT 12.2, INR 1.11 H, Sodium 135 L, Potassium 5.0, Chloride 105, Carbon Dioxide 21 L, Anion Gap 14.0, BUN 20, Creatinine 1.50 H, Estimated Creat Clear 87, Estimated GFR 50 L, Est GFR ( Amer) 60, Glucose 231 H, Calcium 9.3, Magnesium 2.0, Total Bilirubin 0.9, AST 29, ALT 17, Alkaline Phosphatase 83, Troponin I 0.01, C-Reactive Protein 23.2 H, NT-Pro-B Natriuret Pep 54774 H, Total Protein 7.0, Albumin 3.8, Globulin 3.2, Albumin/Globulin Ratio 1.2, HCV Ab HUBERT w/Rflx PCR Qn Negative, HIV Ag/Ab Combo Qual Negative 02/07/25 17:03: Lactate 1.8, Troponin I < 0.01 02/07/25 20:11: Urine Color Yellow, Urine Appearance Clear, Urine pH 6.0, Ur Specific [place] 1.010, Urine Protein Negative, Urine Glucose (UA) Negative, Urine Ketones Negative, Urine Blood Negative, Urine Nitrate Negative, Urine Bilirubin Negative, Urine Urobilinogen 0.2, Ur Leukocyte Esterase Negative, Urine RBC None, Urine WBC Occasional, Ur Squamous Epith Cells None, Urine Bacteria None 02/07/25 20:27: Troponin I 0.01 02/08/25 05:08: POC Glucose 255 H 02/08/25 05:34: WBC 5.1, RBC 3.39 L, Hgb 8.4 L, Hct 28.3 L, MCV 83.5, MCH 24.8 L , MCHC 29.7 L, RDW 15.4, Plt Count 274, MPV 10.1, Neut % (Auto) 60.8, Lymph % (Auto) 23.7, [place] % (Auto) 9.3, Eos % (Auto) 5.4, Baso % (Auto) 0.6, Neut # (Aut o) 3.1, Lymph # (Auto) 1.2, [place] # (Auto) 0.5, Eos # (Auto) 0.3, Baso # (Auto) 0.0, Sodium 131 L, Potassium 4.4, Chloride 104, Carbon Dioxide 21 L, Anion Gap 10.4, BUN 19, Creatinine 1.60 H, Estimated Creat Clear 79, Estimated GFR 46 L, Est GFR ( Amer) 56 L, Glucose 219 H, Calcium 8.7, Magnesium 2.1, Total Bilirubin 0.7, AST 18 D, ALT 12 D, Alkaline Phosphatase 77, Total Protein 6.5, Albumin 3.4 L D, Globulin 3.1, Albumin/Globulin Ratio 1.1 I & O for Last 24 hours: Intake & Output 02/07/25 02/08/25 02/09/25 02/10/25 23:59 23:59 23:59 23:59 Intake Total 100 / 100 1930 / 2170 2879.683 / 2879.683 2276.267 / 2276.267 Output Total 1550 / 1875 4825 / 5125 7425 / 8325 3750 / 3750 Balance -1450 / -1775 -2895 / -2955 -4545.317 / -5445.317 -1473.733 / -1473.733 Weight 100.652 kg 101.6 kg 98.43 kg 94.007 kg Intake & Output 02/05/25 02/06/25 02/07/25 02/08/25 23:59 23:59 23:59 23:59 Intake Total 100 / 100 890 / 890 Output Total 1550 / 1875 1025 / 1025 Balance -1450 / -1775 -135 / -135 Weight 221 lb 14.4 oz 223 lb 14.4 oz Microbiology Reports for the Last 24 Hours: Microbiology 02/07/25 12:00 Bone - Biopsy Aerobic Organism ID Result 1 - Final Not Reportable 02/07/25 12:00 Bone - Biopsy Aerobic Organism ID Result 2 - Final Not Reportable 02/07/25 12:00 Bone - Biopsy Aerobic Organism ID Result 3 - Final Not Reportable 02/07/25 12:00 Bone - Biopsy Aerobic Organism ID Result 4 - Final Not Reportable 02/07/25 12:00 Bone - Biopsy Antimicrobic Susceptibility - Final Not Reportable 02/07/25 12:00 Bone - Biopsy Bone Culture - Final 02/07/25 20:00 Blood Blood Culture - Preliminary NO GROWTH AFTER 48 HOURS 02/07/25 20:10 Blood Blood Culture - Preliminary NO GROWTH AFTER 48 HOURS Constitutional Constitutional: no acute distress and chronically ill appearing *Routine Respiratory Exam Respiratory: Present CTA bilaterally and symmetric chest movement *Routine Cardiovascular Exam Cardiovascular: Present RRR, Normal S1 and Normal S2 *Routine Abdominal Exam Abdominal: Present soft and normoactive bowel sounds; Absent tenderness *Routine Extremities Exam Extremities: Present edema and full ROM Comments: Left foot s/p TMA wrapped and dressed. Bilateral lower extremity 3+ pitting edema to groin. *Routine Skin Exam Skin: Present intact, dry and warm Detailed Neck Exam: Thyroids Thyroid: Absent bruit Assessment and Plan *Assessment and plan (1) Acute on chronic HFrEF (heart failure with reduced ejection fraction): Status: Acute Category: Medical Code(s): I50.23 - Acute on chronic systolic (congestive) heart failure (2) Foot osteomyelitis, left: Status: Acute Qualifiers: Osteomyelitis type: other acute Qualified Code(s): M86.172 - Other acute osteomyelitis, left ankle and foot Category: Medical Code(s): M86.9 - Osteomyelitis, unspecified (3) CODY (acute kidney injury): Status: Acute Category: Medical Code(s): N17.9 - Acute kidney failure, unspecified (4) Bilateral pleural effusion: Status: Acute Category: Medical Code(s): J90 - Pleural effusion, not elsewhere classified (5) CAD (coronary artery disease): Status: Acute Qualifiers: Coronary Disease-Associated Artery/Lesion type: unspecified vessel or lesion type [place] vs. 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 use Diabetes mellitus complication status: with skin complications Diabetes mellitus complication detail: with other skin complication Qualified Code(s): E11.628 - Type 2 diabetes mellitus with other skin complications; 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.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 Category: Medical Code(s): E11.9 - Type 2 diabetes mellitus without complications (8) Hypertension: Status: Acute Qualifiers: Hypertension type: unspecified secondary hypertension Qualified Code(s): I15.9 - Secondary hypertension, unspecified Category: Medical Code(s): I10 - Essential (primary) hypertension (9) Hypothyroid: Status: Acute Qualifiers: Hypothyroidism type: unspecified Qualified Code(s): E03.9 - Hypothyroidism, unspecified Category: Medical Code(s): E03.9 - Hypothyroidism, unspecified Plan Plan/assessment Patient presented with complaint of lower extremity edema, significant weight gain over the last several weeks. Imaging studies as noted above consistent with hypervolemia. Concern of postsurgical changes left lower extremity, of osteomyelitis. Patient has been on Bactrim twice a day. WBC, lactic acid and vitals within normal limits. Patient has had complaints of intermittent subjective fever and chills. Blood cultures obtained and broad-spectrum IV antibiotics initiated while in the emergency department. Received 1 dose 80 mg Lasix. Transferred to [facility] for continued monitoring, cardiology consult for underlying acute on chronic CHF exacerbation. Cardiac monitoring and lab trending. 1. Acute on chronic HFrEF: Patient noted significant weight increase over the past few weeks. BNP 22,400. Bilateral lower extremity edema, abdominal distention present. Imaging consistent with hypervolemia as noted above. Decreased level of activity due to significant shortness of breath. Unable to lay flat due to fluid overload. Echocardiogram 12/21->showing severe reduction in LV systolic function (LVEF 20%).Grade 3 diastolic dysfunction. Normal RV size with moderate reduction in RV function. Biatrial dilation. Moderate MR. Mild TR. Received Lasix 80 mg in the ED-resume diuresis with IV Lasix 80 mg twice daily. Daily weight, monitor intake output closely. Cardiology consult placed, appreciate evaluation/input. ? Patient is having good urine output with IV Bumex diuresis, transition from IV Bumex drip to IV Bumex 1 mg twice daily as creatinine bumped from 1.7-2.0 this morning. Lower extremity edema improving. 2. Left lower extremity osteomyelitis, PAD: Relatively recent amputation left lower extremity, imaging study MRI obtained on , suggestive of possible early onset osteomyelitis. Prior to hospitilization pt. placed on Bactrim twice daily with plan of following up with infectious disease tomorrow. Complaint of intermittent chills with feeling feverish at times. Afebrile, WBC, lactic acid, vitals WNL at presentation. Due to patient history and recent imaging-blood cultures were obtained and broad-spectrum IV antibiotics initiated. Pharmacy consult placed for vancomycin dosing. Resume IV antibiotic therapy, follow culture adjust as appropriate. ? Critical stenosis bilaterally likely contributing to poor healing of osteomyelitis. Discussed with Dr. Jane and Dr. Flores, recommend transfer to tertiary center with vascular surgery to help with revascularization and surgical planning. Dr. Gibbs (vascular surgery) with graciously accepted patient for further evaluation management. Pending bed at this time. 3. CDOY: Creatinine unsure of consistent baseline-> presented with creatinine of 1.5, GFR 60-> most recent prior finding renal function within normal limits although multiple findings prior creatinine distantly 1.6 range. Monitor renal function closely, trend with morning labs. 4. History of CAD/peripheral artery disease/HTN: Significant history CAD/peripheral artery disease-reports medication, daily aspirin antiplatelet therapy. Blood pressure normotensive, resume antihypertensive medication when home medication reconciled. 5. Diabetes mellitus type 2: Mildly elevated with initial glucose check-> upper 200 range. Insulin sliding scale with Accu-Cheks ACHS. 6. Hypothyroidism: Resume home levothyroxine. 7. GERD: Resume home proton pump inhibitor, Protonix. Full code DVT prophylaxis Lovenox Diabetic/low-sodium fluid restriction diet
[2025-02-10] MEDS: ATORVASTATIN 40MG TABLET 80 MG PO (21:09)
[2025-02-10] MEDS: PANTOPRAZOLE 40MG TABLET 40 MG PO (21:09)
[2025-02-10 21:25] LABS: POC Glucose,Bedside 255 gm/dL (70-110)
--- NOTE | 2025-02-10 23:16 | PC.NURSE ---
[id number] just spoke to [facility] in regards to transfer. Gave the most recent set of vitals, Told them he was C/O burning and pain when he stood up. reviewed the medication list with them. Spoke with Sheial at the [facility]. DAVID ECHOLS RN
[2025-02-11] VITALS (7 sets, daily range): BP systolic 97–121; BP diastolic 60–76; PULSE 90–114; RESP 14–17; TEMP 36.6–36.8; O2SAT 94–100; BMI 29.1; BMI 29.6
[2025-02-11] MEDS: CEFEPIME HCL 2 GM in 0.9 % SODIUM CHLORIDE 100 ML IV ×3 (04:05→20:37)
[2025-02-11] MEDS: LEVOTHYROXINE 125MCG (0.125MG) TAB 125 MCG PO (05:16)
[2025-02-11] MEDS: humaLOG 100 UNITS/ML 10ML VIAL (SSI) SUBCUT ×4 (05:22→20:38)
[2025-02-11 05:31] LABS: POC Glucose,Bedside 170 gm/dL (70-110)
[2025-02-11 06:09] LABS: Hematocrit 28.2 % (42.0-52.0); Hemoglobin 8.4 g/dL (14.1-18.0); Immature Granulocytes % 0.3 %; Mean Corpuscular HGB Conc 29.8 g/dL (31.8-35.4); Mean Corpuscular Hemoglobin 24.5 pg (27.0-31.2); Mean Corpuscular Volume 82.2 fl (80-94); Nucleated Red Blood Cells % 0 %; Platelet Count 257 K/mm3 (142-424); Red Blood Count 3.43 M/mm3 (4.60-6.20); Red Cell Distribution Width-SD 46.1 fL; White Blood Count 5.8 K/mm3 (4.8-10.8)
[2025-02-11 06:28] LABS: Chloride 99 mmol/L (98-107); Potassium 4.5 mmoL/L (3.5-5.1); Sodium 134 mmol/L (136-145)
[2025-02-11 06:31] LABS: Anion Gap 16.5 mEq/L (5-15); Blood Urea Nitrogen 28 mg/dl (9-20); Carbon Dioxide 23 mmol/L (22.0-30.0); Creatinine Clearance Estimated 61 mL/min (50-200); Creatinine,Serum 1.90 mg/dl (0.66-1.25); Estimated Glomerular Filt Rate 38 ml/min (>60); GFR (African American) 46 ML/MIN (>60)
[2025-02-11 06:32] LABS: Calcium 8.8 mg/dl (8.4-10.2); Glucose 155 mg/dl (74-100)
[2025-02-11] MEDS: BUMETANIDE 1MG/4ML VIAL 1 MG IV ×2 (07:42→16:15)
[2025-02-11] MEDS: VANCOMYCIN/WATER FOR INJ (PEG) 1.5 GM/300 ML PIGGYBACK IV (07:42)
[2025-02-11] MEDS: ASPIRIN EC 81MG TABLET 81 MG PO (07:43)
[2025-02-11] MEDS: EMPAGLIFLOZIN 25MG TABLET 25 MG PO (07:43)
[2025-02-11] MEDS: SPIRONOLACTONE 25MG TABLET 50 MG PO ×2 (07:43→20:37)
[2025-02-11 08:52] LABS: Free T4 (Free Thyroxine) 1.14 ng/dl (0.78-2.19)
--- NOTE | 2025-02-11 09:22 | PC.NURSE ---
Dressing changed w/d with betadine, 4x4, kerlix and melva.
[2025-02-11 09:35] LABS: Thyroid Stimulating Hormone 17.60 uIU/mL (0.465-4.68)
--- NOTE | 2025-02-11 10:31 | HMH.PHAAMS2 ---
- Antimicrobial Stewardship Review culture & sensitivity review Stewardship interventions: culture & sensitivity review, reviewed - no change Comments: BLOOD CX NO GROWTH AT 48 HR, BONE BIOPSY PENDING X2, PATIENT ON CEFEPIME/VANCOMYCIN FOR SUSPECTED OSTEOMYELITIS, WBC WNL AT 5.8 K/mm3, AFEBRILE OVER 24 HR
[2025-02-11 16:24] LABS: POC Glucose,Bedside 256 gm/dL (70-110)
--- NOTE | 2025-02-11 20:05 | EXP.PN ---
Subjective *Date: 02/11/25 *Time: 20:05 Interval history: Patient continues to be good spirits, no acute complaints today. Leg edema improving, diuresing well. Pending bed at . Exam Data for Last 24 hours Vital signs and Labs for Last 24 Hours: Temp Pulse Resp BP Pulse Ox O2 Del Method 98.1 F 111 H 16 112/73 98 Room Air 02/11/25 19:49 02/11/25 19:49 02/11/25 19:49 02/11/25 19:49 02/11/25 19:49 02/11/25 19:49 Laboratory Results - last 24 hr 02/10/25 21:07: POC Glucose 255 H 02/11/25 05:17: POC Glucose 170 H 02/11/25 05:25: WBC 5.8, RBC 3.43 L, Hgb 8.4 L, Hct 28.2 L, MCV 82.2, MCH 24.5 L, MCHC 29.8 L, RDW 15.3, Plt Count 257, MPV 10.0, Neut % (Auto) 62.1, Lymph % (Auto) 22.0, [place] % (Auto) 8.8, Eos % (Auto) 5.9, Baso % (Auto) 0.9, Neut # (Auto) 3.6, Lymph # (Auto) 1.3, [place] # (Auto) 0.5, Eos # (Auto) 0.3, Baso # (Auto) 0.1, Sodium 134 L, Potassium 4.5, Chloride 99, Carbon Dioxide 23, Anion Gap 16.5 H, BUN 28 H, Creatinine 1.90 H, Estimated Creat Clear 61, Estimated GFR 38 L, Est GFR ( Amer) 46 L, Glucose 155 H, Calcium 8.8, TSH 17.60 H, Free T4 1.14 02/11/25 16:14: POC Glucose 256 H Temp Pulse Resp BP Pulse Ox O2 Del Method 98.3 F 106 H 18 129/89 99 Room Air 02/08/25 08:00 02/08/25 08:00 02/08/25 08:00 02/08/25 08:00 02/08/25 08:00 02/08/25 08:40 Laboratory Results - last 24 hr 02/07/25 13:54: WBC 5.1, RBC 3.49 L, Hgb 8.9 L, Hct 29.7 L, MCV 85.1, MCH 25.5 L, MCHC 30.0 L, RDW 15.7, Plt Count 289, MPV 9.9, Neut % (Auto) 61.4, Lymph % (Auto) 24.7, [place] % (Auto) 8.8, Eos % (Auto) 3.5, Baso % (Auto) 1.0, Neut # (Auto) 3.1, Lymph # (Auto) 1.3, [place] # (Auto) 0.5, Eos # (Auto) 0.2, Baso # (Auto) 0.1, ESR 74 H, PT 12.2, INR 1.11 H, Sodium 135 L, Potassium 5.0, Chloride 105, Carbon Dioxide 21 L, Anion Gap 14.0, BUN 20, Creatinine 1.50 H, Estimated Creat Clear 87, Estimated GFR 50 L, Est GFR ( Amer) 60, Glucose 231 H, Calcium 9.3, Magnesium 2.0, Total Bilirubin 0.9, AST 29, ALT 17, Alkaline Phosphatase 83, Troponin I 0.01, C-Reactive Protein 23.2 H, NT-Pro-B Natriuret Pep 63398 H, Total Protein 7.0, Albumin 3.8, Globulin 3.2, Albumin/Globulin Ratio 1.2, HCV Ab HUBERT w/Rflx PCR Qn Negative, HIV Ag/Ab Combo Qual Negative 02/07/25 17:03: Lactate 1.8, Troponin I < 0.01 02/07/25 20:11: Urine Color Yellow, Urine Appearance Clear, Urine pH 6.0, Ur Specific [place] 1.010, Urine Protein Negative, Urine Glucose (UA) Negative, Urine Ketones Negative, Urine Blood Negative, Urine Nitrate Negative, Urine Bilirubin Negative, Urine Urobilinogen 0.2, Ur Leukocyte Esterase Negative, Urine RBC None, Urine WBC Occasional, Ur Squamous Epith Cells None, Urine Bacteria None 02/07/25 20:27: Troponin I 0.01 02/08/25 05:08: POC Glucose 255 H 02/08/25 05:34: WBC 5.1, RBC 3.39 L, Hgb 8.4 L, Hct 28.3 L, MCV 83.5, MCH 24.8 L, MCHC 29.7 L, RDW 15.4, Plt Count 274, MPV 10.1, Neut % (Auto) 60.8, Lymph % (Auto) 23.7, [place] % (Auto) 9.3, Eos % (Auto) 5.4, Baso % (Auto) 0.6, Neut # (Auto) 3.1, Lymph # (Auto) 1.2, [place] # (Auto) 0.5, Eos # (Auto) 0.3, Baso # (Auto) 0.0, Sodium 131 L, Potassium 4.4, Chloride 104, Carbon Dioxide 21 L, Anion Gap 10.4, BUN 19, Creatinine 1.60 H, Estimated Creat Clear 79, Estimated GFR 46 L, Est GFR ( Amer) 56 L, Glucose 219 H, Calcium 8.7, Magnesium 2.1, Total Bilirubin 0.7, AST 18 D, ALT 12 D, Alkaline Phosphatase 77, Total Protein 6.5, Albumin 3.4 L D, Globulin 3.1, Albumin/Globulin Ratio 1.1 I & O for Last 24 hours: Intake & Output 02/08/25 02/09/25 02/10/25 02/11/25 23:59 23:59 23:59 23:59 Intake Total 1930 / 2170 2879.683 / 2879.683 2376.267 / 2718.267 2432 / 2432 Output Total 4825 / 5125 7425 / 8325 5200 / 5400 3300 / 3300 Balance -2895 / -2955 -4545.317 / -5445.317 -2823.733 / -2681.733 -868 / -868 Weight 101.6 kg 98.43 kg 94.007 kg 93.894 kg Intake & Output 02/05/25 02/06/25 02/07/25 02/08/25 23:59 23:59 23:59 23:59 Intake Total 100 / 100 890 / 890 Output Total 1550 / 1875 1025 / 1025 Balance -1450 / -1775 -135 / -135 Weight 221 lb 14.4 oz 223 lb 14.4 oz Microbiology Reports for the Last 24 Hours: Microbiology 02/07/25 12:00 Bone - Biopsy Aerobic Organism ID Result 1 - Final Not Reportable 02/07/25 12:00 Bone - Biopsy Aerobic Organism ID Result 2 - Final Not Reportable 02/07/25 12:00 Bone - Biopsy Aerobic Organism ID Result 3 - Final Not Reportable 02/07/25 12:00 Bone - Biopsy Aerobic Organism ID Result 4 - Final Not Reportable 02/07/25 12:00 Bone - Biopsy Antimicrobic Susceptibility - Final Not Reportable 02/07/25 12:00 Bone - Biopsy Bone Culture - Final Constitutional Constitutional: no acute distress and chronically ill appearing *Routine Respiratory Exam Respiratory: Present CTA bilaterally and symmetric chest movement *Routine Cardiovascular Exam Cardiovascular: Present RRR, Normal S1 and Normal S2 *Routine Abdominal Exam Abdominal: Present soft and normoactive bowel sounds; Absent tenderness *Routine Extremities Exam Extremities: Present edema and full ROM Comments: Left foot s/p TMA wrapped and dressed. Bilateral lower extremity 3+ pitting edema to groin. *Routine Skin Exam Skin: Present intact, dry and warm Detailed Neck Exam: Thyroids Thyroid: Absent bruit Assessment and Plan *Assessment and plan (1) Acute on chronic HFrEF (heart failure with reduced ejection fraction): Status: Acute Category: Medical Code(s): I50.23 - Acute on chronic systolic (congestive) heart failure (2) Foot osteomyelitis, left: Status: Acute Qualifiers: Osteomyelitis type: other acute Qualified Code(s): M86.172 - Other acute osteomyelitis, left ankle and foot Category: Medical Code(s): M86.9 - Osteomyelitis, unspecified (3) CODY (acute kidney injury): Status: Acute Category: Medical Code(s): N17.9 - Acute kidney failure, unspecified (4) Bilateral pleural effusion: Status: Acute Category: Medical Code(s): J90 - Pleural effusion, not elsewhere classified (5) CAD (coronary artery disease): Status: Acute Qualifiers: Coronary Disease-Associated Artery/Lesion type: unspecified vessel or lesion type [place] vs. transplanted heart: [place] heart Associated angina: without angina Qualified Code(s): I25.10 - Atherosclerotic heart disease of [place] coronary artery without angina pectoris Category: Medical Code(s): I25.10 - Atherosclerotic heart disease of [place] coronary artery without angina pectoris (6) Peripheral arterial disease: Status: Acute Category: Medical Code(s): I73.9 - Peripheral vascular disease, unspecified (7) Diabetes mellitus, type 2: Status: Acute Qualifiers: Diabetes mellitus residential insulin use: with residential use Diabetes mellitus complication status: with skin complications Diabetes mellitus complication detail: with other skin complication Qualified Code(s): E11.628 - Type 2 diabetes mellitus with other skin complications; Z79.4 - long-term (current) use of insulin Category: Medical Code(s): E11.9 - Type 2 diabetes mellitus without complications (8) Hypertension: Status: Acute Qualifiers: Hypertension type: unspecified secondary hypertension Qualified Code(s): I15.9 - Secondary hypertension, unspecified Category: Medical Code(s): I10 - Essential (primary) hypertension (9) Hypothyroid: Status: Acute Qualifiers: Hypothyroidism type: unspecified Qualified Code(s): E03.9 - Hypothyroidism, unspecified Category: Medical Code(s): E03.9 - Hypothyroidism, unspecified Plan Plan/assessment Patient presented with complaint of lower extremity edema, significant weight gain over the last several weeks. Imaging studies as noted above consistent with hypervolemia. Concern of postsurgical changes left lower extremity, of osteomyelitis. Patient has been on Bactrim twice a day. WBC, lactic acid and vitals within normal limits. Patient has had complaints of intermittent subjective fever and chills. Blood cultures obtained and broad-spectrum IV antibiotics initiated while in the emergency department. Received 1 dose 80 mg Lasix. Transferred to [facility] for continued monitoring, cardiology consult for underlying acute on chronic CHF exacerbation. Cardiac monitoring and lab trending. 1. Acute on chronic HFrEF: Patient noted significant weight increase over the past few weeks. BNP 22,400. Bilateral lower extremity edema, abdominal distention present. Imaging consistent with hypervolemia as noted above. Decreased level of activity due to significant shortness of breath. Unable to lay flat due to fluid overload. Echocardiogram 12/21->showing severe reduction in LV systolic function (LVEF 20%).Grade 3 diastolic dysfunction. Normal RV size with moderate reduction in RV function. Biatrial dilation. Moderate MR. Mild TR. Received Lasix 80 mg in the ED-resume diuresis with IV Lasix 80 mg twice daily. Daily weight, monitor intake output closely. Cardiology consult placed, appreciate evaluation/input. ? Patient is having good urine output with IV Bumex diuresis, transition from IV Bumex drip to IV Bumex 1 mg twice daily as creatinine bumped from 1.7-2.0 but improving to 1.9 today. Continue spironolactone 50 mg twice daily. Lower extremity edema improving. ? Net -12 L, total -20 L 2. Left lower extremity osteomyelitis, PAD: Relatively recent amputation left lower extremity, imaging study MRI obtained on , suggestive of possible early onset osteomyelitis. Prior to hospitilization pt. placed on Bactrim twice daily with plan of following up with infectious disease tomorrow. Complaint of intermittent chills with feeling feverish at times. Afebrile, WBC, lactic acid, vitals WNL at presentation. Due to patient history and recent imaging-blood cultures were obtained and broad-spectrum IV antibiotics initiated. Pharmacy consult placed for vancomycin dosing. Resume IV antibiotic therapy, follow culture adjust as appropriate. ? Critical stenosis bilaterally likely contributing to poor healing of osteomyelitis. Discussed with Dr. Jane and Dr. Flores, recommended transfer to tertiary center with vascular surgery to help with revascularization and surgical planning. Dr. Gibbs (vascular surgery) with graciously accepted patient for further evaluation management. Pending bed at this time. ? Continue therapeutic Lovenox for critical stenosis. 3. CODY: Creatinine unsure of consistent baseline-> presented with creatinine of 1.5, GFR 60-> most recent prior finding renal function within normal limits although multiple findings prior creatinine distantly 1.6 range. Monitor renal function closely, trend with morning labs. 4. History of CAD/peripheral artery disease/HTN: Significant history CAD/peripheral artery disease-reports medication, daily aspirin antiplatelet therapy. Blood pressure normotensive, resume antihypertensive medication when home medication reconciled. 5. Diabetes mellitus type 2: Insulin sliding scale with Accu-Cheks ACHS. 6. Hypothyroidism: Continue home levothyroxine. 7. GERD: Continue home proton pump inhibitor, Protonix. Full code DVT prophylaxis Lovenox Diabetic/low-sodium fluid restriction diet
[2025-02-11] MEDS: PANTOPRAZOLE 40MG TABLET 40 MG PO (20:37)
[2025-02-11] MEDS: ATORVASTATIN 40MG TABLET 80 MG PO (20:37)
[2025-02-11 20:58] LABS: POC Glucose,Bedside 292 gm/dL (70-110)
[2025-02-12] VITALS: BP 129/70; PULSE 100; PULSE 109; RESP 14; TEMP 36.9; O2SAT 98
[2025-02-12 04:00] VITALS: BP 109/72; PULSE 100; PULSE 105; RESP 16; TEMP 36.7; O2SAT 97; BMI 29.0
[2025-02-12] MEDS: CEFEPIME HCL 2 GM in 0.9 % SODIUM CHLORIDE 100 ML IV ×2 (04:16→11:28)
--- NOTE | 2025-02-12 05:15 | PC.NURSE ---
Pt has remained A&OX4 and has tolerated room air. He did complain of shortness of air once but resolved after sitting up. Receiving IV abx. Dressing over left foot has remained c/d/i. No other complaints at this time, call light within reach.
[2025-02-12] MEDS: LEVOTHYROXINE 125MCG (0.125MG) TAB 125 MCG PO (06:27)
[2025-02-12] MEDS: humaLOG 100 UNITS/ML 10ML VIAL (SSI) SUBCUT ×3 (06:29→16:13)
[2025-02-12 06:40] LABS: POC Glucose,Bedside 251 gm/dL (70-110)
[2025-02-12 08:00] VITALS: BP 109/74; PULSE 103; PULSE 110; RESP 14; TEMP 36.6; O2SAT 100
[2025-02-12] MEDS: VANCOMYCIN/WATER FOR INJ (PEG) 1.5 GM/300 ML PIGGYBACK IV (08:13)
[2025-02-12] MEDS: ASPIRIN EC 81MG TABLET 81 MG PO (08:13)
[2025-02-12] MEDS: SPIRONOLACTONE 25MG TABLET 50 MG PO (08:13)
[2025-02-12] MEDS: EMPAGLIFLOZIN 25MG TABLET 25 MG PO (08:14)
[2025-02-12] MEDS: BUMETANIDE 1MG/4ML VIAL 1 MG IV ×2 (08:14→10:26)
[2025-02-12 11:08] LABS: Chloride 99 mmol/L (98-107); Sodium 132 mmol/L (136-145)
[2025-02-12 11:09] LABS: Potassium 4.5 mmoL/L (3.5-5.1)
[2025-02-12 11:11] LABS: Blood Urea Nitrogen 35 mg/dl (9-20); Creatinine Clearance Estimated 61 mL/min (50-200); Creatinine,Serum 1.90 mg/dl (0.66-1.25); Estimated Glomerular Filt Rate 38 ml/min (>60); GFR (African American) 46 ML/MIN (>60)
[2025-02-12 11:12] LABS: Anion Gap 17.5 mEq/L (5-15); Calcium 9.2 mg/dl (8.4-10.2); Carbon Dioxide 20 mmol/L (22.0-30.0); Glucose 234 mg/dl (74-100); Magnesium 2.8 mg/dl (1.6-2.3)
--- NOTE | 2025-02-12 11:19 | HMH.PHAAMS2 ---
- Antimicrobial Stewardship Review culture & sensitivity review Stewardship interventions: culture & sensitivity review (CURRENTLY RECEIVING CEFEPIME AND VANCO, WBC WNL, AFEBRILE, CX PENDING.)
--- NOTE | 2025-02-12 11:20 | HMH.PHAAMS2 ---
- Antimicrobial Stewardship Review 48 hour timeout review Stewardship interventions: 48 hour timeout review (CURRENTLY RECEIVING CEFEPIME AND VANCO, WBC WNL, AFEBRILE, CX PENDING.)
[2025-02-12 11:33] LABS: POC Glucose,Bedside 285 gm/dL (70-110)
[2025-02-12 12:00] VITALS: BP 107/72; PULSE 100; PULSE 101; RESP 16; TEMP 36.6; O2SAT 99
--- NOTE | 2025-02-12 15:51 | EXP.ACUTE.PN ---
Subjective *Date: 02/12/25 *Time: 15:51 Medical Exam Vital signs and Labs for Last 24 Hours: Vital Signs Temp Pulse Pulse Resp BP Pulse Ox O2 Del Method 02/12/25 13:00 Room Air 02/12/25 12:00 97.8 F 101 H 16 107/72 L 99 Room Air 02/12/25 12:00 100 H 02/12/25 11:00 Room Air 02/12/25 08:57 Room Air 02/12/25 08:00 97.8 F 103 H 14 109/74 L 100 Room Air 02/12/25 08:00 110 H 02/12/25 08:00 Room Air 02/12/25 06:39 Room Air 02/12/25 05:00 Room Air 02/12/25 04:00 98.1 F 105 H 16 109/72 L 97 Room Air 02/12/25 04:00 100 H 02/12/25 03:00 Room Air 02/12/25 01:00 Room Air 02/12/25 00:00 98.4 F 109 H 14 129/70 98 Room Air 02/12/25 00:00 100 H 02/11/25 23:00 Room Air 02/11/25 21:00 Room Air 02/11/25 20:00 Room Air 02/11/25 20:00 100 H 02/11/25 19:49 98.1 F 111 H 16 112/73 98 Room Air 02/11/25 17:53 Room Air 02/11/25 16:46 Room Air 02/11/25 16:00 98.1 F 114 H 16 116/76 98 Room Air 02/11/25 16:00 107 H Intake and Output 02/11/25 02/12/25 02/12/25 23:59 07:59 15:59 Intake Total 240 / 2532 300 / 1140 840 / 1140 Output Total 1350 / 3925 700 / 2880 2180 / 2880 Balance -1110 / -1393 -400 / -1740 -1340 / -1740 Intake: Intake, Oral Amount 240 / 2032 100 / 540 440 / 540 Intake, Total IV Amount 200 / 600 400 / 600 Bumetanide 10 mg In 0.9 % 0 / 0 Sodium Chloride 60 ml @ 5 mls/ hr IV .Q20H [facility] Rx#:[id number] Cefepime HCl 2 gm In 0.9 % 200 / 300 100 / 300 Sodium Chloride 100 ml @ 200 mls/hr IV Q8H [facility] Rx#:[id number] Heparin Sodium,Porcine/D5w 500 0 / 0 ml @ 1,550 UNITS/HR 31 mls/hr IV .[id number] [facility] Rx#:[id number] Heparin Sodium,Porcine/D5w 500 0 / 0 ml @ 1,600 UNITS/HR 32 mls/hr IV .[id number] [facility] Rx#:[id number] Heparin Sodium,Porcine/D5w 500 0 / 0 ml @ 1,800 UNITS/HR 36 mls/hr IV .[id number] [facility] Rx#:[id number] Vancomycin/Water For Inj (Peg) 300 / 300 1.5 gm In 300 ml @ 150 mls/hr IV Q24H [facility] Rx#:[id number] Output: Output, Urine Amount 1350 / 3925 700 / 2880 2180 / 2880 Other: Number of Unmeasured Voids 0 0 Weight 93.894 kg 91.989 kg Patient Weight 02/12/25 23:59 Weight 91.989 kg Laboratory Results - last 24 hr 02/11/25 16:14: POC Glucose 256 H 02/11/25 20:36: POC Glucose 292 H 02/12/25 06:29: POC Glucose 251 H 02/12/25 09:50: Sodium 132 L, Potassium 4.5, Chloride 99, Carbon Dioxide 20 L, Anion Gap 17.5 H, BUN 35 H, Creatinine 1.90 H, Estimated Creat Clear 61, Estimated GFR 38 L, Est GFR ( Amer) 46 L, Glucose 234 H, Calcium 9.2, Magnesium 2.8 H 02/12/25 11:24: POC Glucose 285 H I & O for Labs for Last 24 Hours: Intake & Output 02/09/25 02/10/25 02/11/25 02/12/25 23:59 23:59 23:59 23:59 Intake Total 2879.683 / 2879.683 2376.267 / 2718.267 2432 / 2532 1140 / 1140 Output Total 7425 / 8325 5200 / 5400 3725 / 3925 2880 / 2880 Balance -4545.317 / -5445.317 -2823.733 / -2681.733 -1293 / -1393 -1740 / -1740 Weight 98.43 kg 94.007 kg 93.894 kg 91.989 kg Microbiology Reports for the Last 24 Hours: Microbiology 02/07/25 20:00 Blood Blood Culture - Preliminary NO GROWTH AFTER 4 DAYS 02/07/25 20:10 Blood Blood Culture - Preliminary NO GROWTH AFTER 4 DAYS 02/07/25 12:00 Bone - Biopsy Aerobic Organism ID Result 1 - Final Not Reportable 02/07/25 12:00 Bone - Biopsy Aerobic Organism ID Result 2 - Final Not Reportable 02/07/25 12:00 Bone - Biopsy Aerobic Organism ID Result 3 - Final Not Reportable 02/07/25 12:00 Bone - Biopsy Aerobic Organism ID Result 4 - Final Not Reportable 02/07/25 12:00 Bone - Biopsy Antimicrobic Susceptibility - Final Not Reportable 02/07/25 12:00 Bone - Biopsy Bone Culture - Final
[2025-02-12 16:00] VITALS: BP 110/82; PULSE 90; PULSE 98; RESP 14; TEMP 36.6; O2SAT 99
[2025-02-12] MEDS: BUMETANIDE 1MG/4ML VIAL 2 MG IV (16:06)
[2025-02-12 16:22] LABS: POC Glucose,Bedside 243 gm/dL (70-110)
--- NOTE | 2025-02-12 17:04 | EXP.DC.SUM ---
General Admission date:: 02/07/25 Discharge date: 02/12/25 HPI HPI HPI: Gerardo Moss is a 49-year-old male with past medical history significant for CAD, peripheral artery disease, angioplasty, history of tobacco use, type 2 diabetes mellitus, HFrEF, hypertension, hypothyroidism. Presents to [facility] emergency department with complaint of exertional dyspnea, bilateral lower extremity swelling, abdominal distention/swelling, weight gain. Patient reports notable weight gain and lower extremity edema since undergoing surgical procedure at the end of November. Patient has had ongoing left foot osteomyelitis with recent foot surgery due to diabetic foot ulcer. Underwent MRI left foot on February 03 noting possible beginning stages of osteomyelitis. Patient was placed on Bactrim twice daily. He has been evaluated by podiatry and cardiology for clearance for potential BKA. Due to ongoing worsening symptoms it was requested per podiatry and cardiology to follow-up to the emergency department for further evaluation. Patient endorses subjective fever and chills for the past several weeks. Significant shortness of breath with exertional activity. Reports that he is unable to lay flat due to shortness of breath. Reports compliance with home medications that include diuretic Lasix and spironolactone. Denies chest pain, nausea, vomiting, hematuria, diarrhea, abdominal pain. Initial ED workup included laboratory studies and imaging. Significant laboratory findings included ESR 74, sodium 135, creatinine 1.5, GFR 50, glucose 231, CRP 23.2, BNP 22,400. I personally reviewed abdomen and chest CTA, revealing large bilateral pleural effusions. Partial amputation changes within the left foot. Fluid collection present, potential area of bony erosion concerning for osteomyelitis or potential abscess formation within the left foot at the prior amputation site. Arthrosclerotic plaque along the abdominal aorta. High-grade stenosis within proximal aspect of the superior mesenteric artery. Moderate stenosis in the proximal right common iliac artery. Multifocal high-grade stenosis within the superficial femoral femoral artery. Diffuse subcutaneous edema overlies the abdomen and pelvis. Small amount of ascites present along the margin of the liver and within the pelvis. Venous Doppler study bilateral lower extremity personally reviewed revealing no evidence of DVT. Notable enlarged left inguinal lymph node present. Patient is hemodynamically stable. Assessment of patient at bedside, he is without acute distress, resting in bed comfortably. Podiatry consult: Patient is well-known to the podiatry department. He was seen outpatient in office 02/07/25. Yesterday in office patient had exposed fifth metatarsal bone with an in office bone biopsy and culture performed. Concern for progression of osteomyelitis with gangrene, nondopplerable pedal pulses and increased fluid overload. Patient saw cardiology outpatient yesterday. Recommendation from both cardiology and podiatry was admission for evaluation. My plan for the left foot was improve blood flow in order to heal a BKA as the left foot is not salvageable from my standpoint. Recommend Ortho consult for BKA (or transfer for vascular). Hospital Course Hospital Course Hospital Course: Patient presented with complaint of lower extremity edema, significant weight gain over the last several weeks. Imaging studies as noted above consistent with hypervolemia. Concern of postsurgical changes left lower extremity, of osteomyelitis. Patient has been on Bactrim twice a day. WBC, lactic acid and vitals within normal limits. Patient has had complaints of intermittent subjective fever and chills. Blood cultures obtained and broad-spectrum IV antibiotics initiated while in the emergency department. Received 1 dose 80 mg Lasix. Transferred to [facility] for continued monitoring, cardiology consult for underlying acute on chronic CHF exacerbation. Cardiac monitoring and lab trending. Overall showed improvement and has had significant diuresis, patient is down at least 13 L since admission. Was evaluated by cardiology, recommends transfer to tertiary center where patient can have vascular surgery available to help with revascularization and surgical planning. Graciously accepted to for further management. Problems addressed as follows: Acute on chronic HFrEF: Patient noted significant weight increase over the past few weeks. BNP 22,400. Bilateral lower extremity edema, abdominal distention present. Imaging consistent with hypervolemia. Also had decreased level of activity with significant shortness of breath. Patient unable to lay flat due to volume overload. Echocardiogram on 12/21/2024 showed severe reduction in LV function with EF of 20% and grade 3 diastolic dysfunction. Patient was started on Bumex drip after initial administration of Lasix on admission. Had really good response with net negative at least 13 L since admission. Has been switched to Bumex 2 mg twice daily for the past 24 hours and continues to have negative volume status daily. Continuing spironolactone 50 mg twice daily. Holding lisinopril in the setting of slight bump in his creatinine from 1.7-2.0. Creatinine improved On day of discharge at 1.9 with BUN 35. Having improvement in edema. Stable on room air. Left lower extremity osteomyelitis, PAD: Relatively recent amputation left lower extremity, imaging study MRI obtained on , suggestive of possible early onset osteomyelitis. Prior to hospitilization pt. placed on Bactrim twice daily with plan of following up with infectious disease tomorrow. Complaint of intermittent chills with feeling feverish at times. Afebrile, WBC, lactic acid, vitals WNL at presentation. Due to patient history and recent imaging-blood cultures were obtained and broad-spectrum IV antibiotics initiated. Pharmacy consult placed for vancomycin dosing. Resume IV antibiotic therapy, follow culture adjust as appropriate. ? Critical stenosis bilaterally likely contributing to poor healing of osteomyelitis. Discussed with Dr. Jane and Dr. Flores, recommended transfer to tertiary center with vascular surgery to help with revascularization and surgical planning. Dr. Gibbs (vascular surgery) with graciously accepted patient for further evaluation management. ? Continue therapeutic Lovenox for critical stenosis. CODY versus CKD 3. Creatinine remained elevated between 1.5 and 2.0 during admission. Monitoring daily. History of CAD/peripheral artery disease/HTN: Significant history CAD/peripheral artery disease-reports medication, daily aspirin antiplatelet therapy. Blood pressure normotensive, resumed carvedilol and spironolactone. Held lisinopril during admission. Diabetes mellitus type 2: Treated with sliding scale insulin during admission. A1c 8.3 in November. Morning glucose on day of discharge at 234. Glucoses have remained in the 200 range Hypothyroidism: Continue home levothyroxine 125mcg. TSH 17.6 on admission. GERD: Continue home Protonix. Total time spent on discharge 35 minutes in counseling, documentation, chart review, and direct care with patient. Exam Data for Last 24 hours Vital signs and Labs for Last 24 Hours: Temp Pulse Resp BP Pulse Ox O2 Del Method 97.8 F 98 H 14 110/82 99 Room Air 02/12/25 16:00 02/12/25 16:00 02/12/25 16:00 02/12/25 16:00 02/12/25 16:00 02/12/25 16:00 Laboratory Results - last 24 hr 02/11/25 20:36: POC Glucose 292 H 02/12/25 06:29: POC Glucose 251 H 02/12/25 09:50: Sodium 132 L, Potassium 4.5, Chloride 99, Carbon Dioxide 20 L, Anion Gap 17.5 H, BUN 35 H, Creatinine 1.90 H, Estimated Creat Clear 61, Estimated GFR 38 L, Est GFR ( Amer) 46 L, Glucose 234 H, Calcium 9.2, Magnesium 2.8 H 02/12/25 11:24: POC Glucose 285 H 02/12/25 16:06: POC Glucose 243 H I & O for Last 24 hours: Intake & Output 02/09/25 02/10/25 02/11/25 02/12/25 23:59 23:59 23:59 23:59 Intake Total 2879.683 / 2879.683 2376.267 / 2718.267 2432 / 2532 1140 / 1140 Output Total 7425 / 8325 5200 / 5400 3725 / 3925 3180 / 3180 Balance -4545.317 / -5445.317 -2823.733 / -2681.733 -1293 / -1393 -2040 / -2040 Weight 98.43 kg 94.007 kg 93.894 kg 91.989 kg Microbiology Reports for the Last 24 Hours: Microbiology 02/07/25 20:00 Blood Blood Culture - Preliminary NO GROWTH AFTER 4 DAYS 02/07/25 20:10 Blood Blood Culture - Preliminary NO GROWTH AFTER 4 DAYS 02/07/25 12:00 Bone - Biopsy Aerobic Organism ID Result 1 - Final Not Reportable 02/07/25 12:00 Bone - Biopsy Aerobic Organism ID Result 2 - Final Not Reportable 02/07/25 12:00 Bone - Biopsy Aerobic Organism ID Result 3 - Final Not Reportable 02/07/25 12:00 Bone - Biopsy Aerobic Organism ID Result 4 - Final Not Reportable 02/07/25 12:00 Bone - Biopsy Antimicrobic Susceptibility - Final Not Reportable 02/07/25 12:00 Bone - Biopsy Bone Culture - Final Constitutional Constitutional: no acute distress, chronically ill appearing and cooperative *Routine HEENT Exam Head: Present normocephalic and atraumatic Eye: Present EOMI ENT: Present mucous membranes moist *Routine Neck Exam Neck: Present supple *Routine Respiratory Exam Respiratory: Present CTA bilaterally and symmetric chest movement; Absent rhonchi *Routine Cardiovascular Exam Cardiovascular: Present RRR, Normal S1 and Normal S2 *Routine Abdominal Exam Abdominal: Present soft and normoactive bowel sounds; Absent tenderness *Routine Rectal Exam Patient deferred: visual exam *Routine Exam Patient deferred: penile exam *Routine Extremities Exam Extremities: Present edema and full ROM Comments: Left foot s/p TMA wrapped and dressed; Bilateral lower extremity 2+ pitting edema to groin, improving *Routine Skin Exam Skin: Present intact, dry and warm *Routine Neurological Exam Neurological: Present alert, oriented X3 and moving all extremities Detailed Neck Exam: Thyroids Thyroid: Absent bruit Results Data Completed and Pending Labs on day of discharge: Labs from last 24 hours 02/12/25 02/12/25 02/12/25 16:06 11:24 09:50 Sodium 132 L Potassium 4.5 Chloride 99 Carbon Dioxide 20 L Anion Gap 17.5 H BUN 35 H Creatinine 1.90 H Estimated Creat Clear 61 Estimated GFR 38 L Est GFR ( Amer) 46 L Glucose 234 H POC Glucose 243 H 285 H Calcium 9.2 Magnesium 2.8 H 02/12/25 02/11/25 06:29 20:36 Sodium Potassium Chloride Carbon Dioxide Anion Gap BUN Creatinine Estimated Creat Clear Estimated GFR Est GFR ( Amer) Glucose POC Glucose 251 H 292 H Calcium Magnesium Preliminary micro results at discharge 02/07/25 20:00 Blood Culture - Preliminary Blood NO GROWTH AFTER 4 DAYS 02/07/25 20:10 Blood Culture - Preliminary Blood NO GROWTH AFTER 4 DAYS DS: Diagnosis Discharge Diagnosis (1) Acute on chronic HFrEF (heart failure with reduced ejection fraction): Status: Acute Code(s): I50.23 - Acute on chronic systolic (congestive) heart failure (2) Foot osteomyelitis, left: Status: Acute Code(s): M86.9 - Osteomyelitis, unspecified Qualifiers: Osteomyelitis type: other acute Qualified Code(s): M86.172 - Other acute osteomyelitis, left ankle and foot (3) CODY (acute kidney injury): Status: Acute Code(s): N17.9 - Acute kidney failure, unspecified (4) Bilateral pleural effusion: Status: Acute Code(s): J90 - Pleural effusion, not elsewhere classified (5) CAD (coronary artery disease): Status: Acute Code(s): I25.10 - Atherosclerotic heart disease of [place] coronary artery without angina pectoris Qualifiers: Coronary Disease-Associated Artery/Lesion type: unspecified vessel or lesion type [place] vs. transplanted heart: [place] heart Associated angina: without angina Qualified Code(s): I25.10 - Atherosclerotic heart disease of [place] coronary artery without angina pectoris (6) Peripheral arterial disease: Status: Acute Code(s): I73.9 - Peripheral vascular disease, unspecified (7) Diabetes mellitus, type 2: Status: Acute Code(s): E11.9 - Type 2 diabetes mellitus without complications Qualifiers: Diabetes mellitus chcf insulin use: with chcf use Diabetes mellitus complication status: with skin complications Diabetes mellitus complication detail: with other skin complication Qualified Code(s): E11.628 - Type 2 diabetes mellitus with other skin complications; Z79.4 - MCFP (current) use of insulin (8) Hypertension: Status: Acute Code(s): I10 - Essential (primary) hypertension Qualifiers: Hypertension type: unspecified secondary hypertension Qualified Code(s): I15.9 - Secondary hypertension, unspecified (9) Hypothyroid: Status: Acute Code(s): E03.9 - Hypothyroidism, unspecified Qualifiers: Hypothyroidism type: unspecified Qualified Code(s): E03.9 - Hypothyroidism, unspecified Meds Home Medications and Allergies Home Medications ?Medication ?Instructions ?Recorded ?Confirmed ?Type carvedilol 12.5 mg tablet 12.5 mg PO BID 12/20/24 02/07/25 History empagliflozin 25 mg tablet 25 mg PO DAILY 12/20/24 02/07/25 History (Jardiance) lisinopril 10 mg tablet 10 mg PO DAILY 12/20/24 02/07/25 History Held on 02/12/25. Instructions: during diuresis due to CODY omeprazole 40 mg capsule,delayed 40 mg PO DAILY 12/20/24 02/07/25 History release ondansetron 4 mg disintegrating 4 mg PO Q6H PRN nausea and 01/18/25 02/07/25 Rx tablet vomiting #30 tabs doxycycline hyclate 100 mg capsule 100 mg PO BID 02/07/25 02/07/25 History aspirin 81 mg tablet,delayed 81 mg PO DAILY 02/08/25 02/08/25 History release atorvastatin 80 mg tablet 80 mg PO HS 02/08/25 02/08/25 History levothyroxine 125 mcg tablet 125 mcg PO DAILY 02/08/25 02/08/25 History spironolactone 50 mg tablet 50 mg PO BID 02/08/25 02/08/25 History bumetanide 0.25 mg/mL injection 2 mg (8 mL) IV BIDL #0 mL 02/12/25 Rx solution cefepime 2 gram solution for 2 g IV Q8H #0 ea 02/12/25 Rx injection enoxaparin 100 mg/mL subcutaneous 90 mg (0.9 mL) SQ Q12 #0 mL 02/12/25 Rx syringe vancomycin 1.5 gram/300 mL in 1.5 g (300 mL) IV Q24H #0 mL 02/12/25 Rx diluent combination IV piggyback New Prescriptions to Start Prescriptions: Allergies Allergy/AdvReac Type Severity Reaction Status Date / Time No Known Allergies Allergy Verified 02/07/25 13:03 Discharge Plan Disposition Patient Disposition: Xfer Short-Term Hosp Condition: Fair Discharge Order Discharge Orders: Discharge Order (Routine); Ordered 02/12/25 Ordered By: Moe Gonzales Follow up Plan Prescriptions/Medication Reconciliation: New bumetanide 0.25 mg/mL Solution 2 mg IV BIDL Qty: 0 0RF cefepime 2 gram Recon Soln 2 g IV Q8H Qty: 0 0RF enoxaparin 100 mg/mL Syringe 90 mg SQ Q12 Qty: 0 0RF vancomycin-diluent combo no.1 1.5 gram/300 mL Piggyback 1.5 g IV Q24H Qty: 0 0RF Continued ondansetron 4 mg tablet,disintegrating 4 mg PO Q6H PRN (Reason: nausea and vomiting) Qty: 30 2RF carvedilol 12.5 mg tablet 12.5 mg PO BID Patient Comments: TAKE 1 TABLET BY MOUTH TWICE DAILY omeprazole 40 mg capsule,delayed release(DR/EC) 40 mg PO DAILY Patient Comments: TAKE 1 CAPSULE BY MOUTH ONCE DAILY Jardiance 25 mg Tablet 25 mg PO DAILY doxycycline hyclate 100 mg capsule 100 mg PO BID atorvastatin 80 mg tablet 80 mg PO HS aspirin 81 mg tablet,delayed release (DR/EC) 81 mg PO DAILY levothyroxine 125 mcg tablet 125 mcg PO DAILY spironolactone 50 mg tablet 50 mg PO BID Held lisinopril 10 mg tablet 10 mg PO DAILY Hold Instructions: during diuresis due to CODY Patient Comments: TAKE 1 TABLET BY MOUTH ONCE DAILY Discontinued sulfamethoxazole-trimethoprim [Bactrim DS] 800-160 mg tablet 1 tab PO BID 14 Days Qty: 28 0RF furosemide 40 mg tablet 40 mg PO BID Patient Comments: TAKE 1 TABLET BY MOUTH ONCE DAILY Problem Reconciliation Problems Reviewed?: Yes Patient Discharge Instructions ACTIVITY: Continue current activity DIET: continue same diet Patient Instructions: DI for Osteomyelitis, DI for Heart Failure, DI for Peripheral Vascular (Arterial) Disease, DI for Pleural Effusion, Stop Light Heart Failure, Stop Light Infection Print Language: Finnish Providers Primary Care Provider: Abram Chavis Admit Provider: Moe Gonzales Attending Provider: Moe Gonzales
--- NOTE | 2025-02-12 17:04 | PC.NURSE ---
received call from at [phone] that they have a bed available. called rad to roby hunter pt going to [facility] 10[facility] floor room 216. Updated hospitalist on bed availability
--- NOTE | 2025-02-12 17:30 | PC.NURSE ---
attempted to call report- nurse unable to take report at this time. left call back number and extension
[2025-02-14 11:18] LABS: POC Glucose,Bedside 264 gm/dL (70-110)
== END 2025-02-12 18:30 | disposition short-term general hospital (02) | DRG 299 ==
LOC: ER 21:23 → 2ND 02-08 00:49
PROVIDERS: Nurse Practitioner Acute Care; Physician Assistant; Student in an Organized Health Care Education/Training Program; Admitting Provider Internal Medicine Adolescent Medicine; Emergency Provider Student in an Organized Health Care Education/Training Program; PCP Internal Medicine Adolescent Medicine; Visit Provider Internal Medicine Adolescent Medicine
DX: E11.51 Type 2 diabetes mellitus with diabetic peripheral angiopathy without gangrene (principal); I50.23 Acute on chronic systolic (congestive) heart failure; M86.172 Other acute osteomyelitis, left ankle and foot; T87.44 Infection of amputation stump, left lower extremity; E11.69 Type 2 diabetes mellitus with other specified complication; I11.0 Hypertensive heart disease with heart failure; I25.10 Atherosclerotic heart disease of native coronary artery without angina pectoris; E03.9 Hypothyroidism, unspecified; K21.9 Gastro-esophageal reflux disease without esophagitis; Z89.612 Acquired absence of left leg above knee; Z87.891 Personal history of nicotine dependence; Z79.82 Long term (current) use of aspirin; Z79.899 Other long term (current) drug therapy; Z79.890 Hormone replacement therapy; Z79.4 Long term (current) use of insulin; Z79.84 Long term (current) use of oral hypoglycemic drugs; Y83.5 Amputation of limb(s) as the cause of abnormal reaction of the patient, or of later complication, without mention of misadventure at the time of the procedure
CPT/HCPCS: 36415; 71045; 71275; 75635; 80048; 80053; 80202; 81001; 82962; 83605; 83735; 83880; 84439; 84443; 84484; 85025; 85610; 85651; 85730; 86140; 86803; 87040; 87070; 87077; 87205; 87389; 88304; 93005; 93970; 99285; J0692; J1644; J1650; J1938; J1939; J3373; J3375; J7050; Q9967